=== PATIENT | male | born 1945 | race Caucasian/White ===

== ENCOUNTER 2016-12-26 07:12 | Emergency (ER) | payer MEDICARE, MEDICAID ==
[~2016-12-26] VITALS: Ht 172.7 cm; Wt 86.2 kg
[~2016-12-26 07:12] MED LIST: AC500T; AMLO10TA4 PO; ASCO500C14; ASP81TEC PO; CHOL10003 PO; COMPLETE; ESCT10T PO; FRSM20T PO; GFCD10B PO; GLUC500C2; LEVO750T6 PO; METO100T2 PO; METO50TA7; ONDA-42 SL; ONDAN4ODT PO; POTA99TA7; QUIN40TA PO; VITA1CAP59; [UNRECOGNIZED DRUG - OTHER]; iron; sleep aid
[2016-12-26 07:50] LABS: KETONES,URINE NEGATIVE (NEGATIVE); LEUKOCYTE ESTERASE ,URINE 2+ (NEGATIVE); NITRITE,URINE NEGATIVE (NEGATIVE); PH,URINE 6 (5-9); PROTEIN,URINE 2+ (NEGATIVE); UROBILINOGEN,URINE 4 MG/DL (NORMAL)
[2016-12-26 08:04] LABS: WBC,URINE 0-2 /HPF
[2016-12-26 08:05] LABS: BILIRUBIN,URINE 1+ (NEGATIVE); HYALINE CASTS, URINE RARE /LPF; SQUAMOUS EPITHELIAL CELL,UR RARE /HPF
[2016-12-26] MEDS ORDERED: TAMS0.4C98 PO (08:18)
--- NOTE | 2016-12-26 08:18 | ED GU-Male ---
General Chief Complaint: -Male Stated Complaint: URINARY FREQUENCY Nursing Triage Note: c/o urinary frequency. Onset last night. Denies known fever. Source: patient Exam Limitations: no limitations History of Present Illness Time seen by provider: 07:16 Initial Comments This 71-year-old gentleman presents to the emergency room with complaint of 3 weeks of frequent urination without pain. He is waking several times the night to urinate. He has difficulty getting back to sleep. He feels like he empties his bladder but then he has to urinate again a short time later. Allergies and Home Medications Allergies Coded Allergies: Sulfa (Sulfonamide Antibiotics) (Verified Allergy, Unknown, 04/06/09) Home Medications Amlodipine Besylate 10 Mg Tablet, 10 MG PO DAILY, (Reported) Aspirin 81 Mg Tabec, 81 MG PO DAILY, (Reported) Cholecalciferol 1,000 Unit Tablet, 1,000 UNIT PO DAILY, (Reported) Escitalopram Oxalate 10 Mg Tablet, 1 EACH PO DAILY, (Reported) Furosemide 20 Mg Tab, 20 MG PO DAILY, (Reported) Metoprolol Tartrate 100 Mg Tablet, 100 MG PO BID, (Reported) Ondansetron Hcl 4 Mg Tab, 4 MG SL Q4H, #5 FOR NAUSEA AND VOMITING Prescribed by: DAMI REVELES on 10/24/14 1005 Quinapril Hcl 40 Mg Tablet, 40 MG PO DAILY, (Reported) Tamsulosin HCl 0.4 Mg Cap, 0.4 MG PO DAILY, #30 Ref 2 Prescribed by: CRISTOBAL VANG on 12/26/16 0818 Constitutional: no symptoms reported EENTM: no symptoms reported Respiratory: no symptoms reported Cardiovascular: no symptoms reported Gastrointestinal: no symptoms reported Genitourinary: see HPI Musculoskeletal: no symptoms reported Skin: no symptoms reported Psychiatric/Neurological: No Symptoms Reported Endocrine: No Symptoms Reported Past Nvlaklq-Lvxvfm-Cwzwtr Hx Patient Social History Alcohol Use: Denies Use Recreational Drug Use: No Smoking Status: Never a Smoker Recent Foreign Travel: No Contact w/Someone Who Travel: No Recent Infectious Disease Expo: No Recent Hopitalizations: No Immunizations Up To Date Date of Pneumonia Vaccine: Jun 10, 2007 Date of Influenza Vaccine: May 26, 2011 Surgeries HX Surgeries: Yes (SKIN CANCER REMOVAL, COLONOSCOPY AND POLYPECTOMY) Surgeries: Appendectomy, Gallbladder Respiratory Hx Respiratory Disorders: Yes (PNUEMONIA IN THE PAST) Respiratory Disorders: Pneumonia Cardiovascular Hx Cardiac Disorders: Yes Cardiac Disorders: Hypertension Neurological Hx Neurological Disorders: No Reproductive System Hx Reproductive Disorders: No Sexually Transmitted Disease: No Genitourinary Hx Genitourinary Disorders: No Gastrointestinal Hx Gastrointestinal Disorders: Yes (COLITIS, HX OF GALL BLADDER REMOVAL AND APPY) Gastrointestinal Disorders: Colitis, Polyps, Gall Bladder Disease Musculoskeletal Hx Musculoskeletal Disorders: Yes (TENDONITIS) Musculoskeletal Disorders: Arthritis Endocrine Hx Endocrine Disorders: No HEENT HX ENT Disorders: No Cancer Hx Cancer: Yes Cancer: Skin Psychosocial Hx Psychiatric Problems: No Integumentary HX Skin/Integumentary Disorder: No Blood Transfusions Hx Blood Disorders: No Physical Exam Vital Signs Vital Sign - Last 12Hours 12/26/16 07:12 Temp 97.1 Pulse 57 Resp 16 B/P (MAP) 174/57 Pulse Ox 98 O2 Delivery Room Air Capillary Refill : Less Than 3 Seconds General Appearance: WD/WN, no apparent distress HEENT: normal ENT inspection Cardiovascular: regular rate, rhythm, no edema, no murmur Respiratory: lungs clear, normal breath sounds, no respiratory distress, no accessory muscle use Gastrointestinal: normal bowel sounds, non tender, soft, other (surgical scars from appendectomy and cholecystectomy. Slight bulging between these 2 sites may be related to abdominal wall hernia) Rectal: normal rectal tone Male: other (mildly enlarged and boggy prostate. No tenderness. No masses appreciated) Extremities: normal inspection, no pedal edema Neurologic/Psychiatric: rib knitter II-XII nml as tested, no motor/sensory deficits, alert, normal mood/affect, oriented x 3 Skin: normal color, warm/dry Progress/Results/Core Measures Results/Orders Lab Results Laboratory Tests Test 12/26/16 07:38 Range/Units Urine Color YELLOW Urine Clarity SLIGHTLY CLOUDY Urine pH 6 5-9 Urine Specific [place] 1.020 1.016-1.022 Urine Protein 2+ H NEGATIVE Urine Glucose (UA) NEGATIVE NEGATIVE Urine Ketones NEGATIVE NEGATIVE Urine Nitrite NEGATIVE NEGATIVE Urine Bilirubin 1+ H NEGATIVE Urine Urobilinogen 4 H NORMAL MG/DL Urine Leukocyte Esterase 2+ H NEGATIVE Urine RBC (Auto) 3+ H NEGATIVE Urine RBC 0-2 /HPF Urine WBC 0-2 /HPF Urine Squamous Epithelial Cells RARE /HPF Urine Crystals NONE /LPF Urine Bacteria NEGATIVE /HPF Urine Casts PRESENT /LPF Urine Hyaline Casts RARE /LPF Urine Mucus SMALL H /LPF Urine Culture Indicated YES My Orders Orders - CRISTOBAL PARADA MD Ua Culture If Indicated (12/26/16 07:16) Bladder Scan (12/26/16 07:34) Urine Culture (12/26/16 07:38) Vital Signs/I&O Vital Sign - Last 12Hours 12/26/16 07:12 Temp 97.1 Pulse 57 Resp 16 B/P (MAP) 174/57 Pulse Ox 98 O2 Delivery Room Air Blood Pressure Mean: 96 Progress Note : Progress Note Post void bladder scan showed no residual urine in the bladder. Patient's prostate felt somewhat enlarged and boggy. Patient was started on Flomax and encouraged to get PSA testing with his primary care provider. Departure Impression Impression: Primary Impression: Urinary frequency Additional Impression: Prostate enlargement Disposition: 01 HOME, SELF-CARE Condition: Stable Departure-Patient Inst. Decision time for Depature: 08:15 Referrals: [facility] (PCP/Family) Primary Care Physician Patient Instructions: Benign Prostatic Hyperplasia (Enlarged Prostate) (DC) Add. Discharge Instructions: Please follow-up with your primary care provider within the next month. In the meantime, use Flomax as prescribed. Avoid use of caffeine, especially close to bedtime, as this may irritate your bladder. Discuss your urinary troubles with your primary care provider and request prostate screening with the PSA blood test. Return to care if symptoms worsen. A urine culture will be performed and results should be available in about 48 hours. You may follow-up on these results by calling the emergency room or [facility]. All discharge instructions reviewed with patient and/or family. Voiced understanding. Scripts Tamsulosin HCl (Flomax) 0.4 Mg Cap 0.4 MG PO DAILY, #30 CAP 2 Refills Prov: CRISTOBAL PARADA MD 12/26/16 Copy Copies To 1: MONIE EVERETT JOSHUA T MD Dec 26, 2016 08:18
[2016-12-26 08:25] VITALS: BP 150/95
== END 2016-12-26 08:25 | disposition home or self-care (01) ==
LOC: EDUNIT# 07:12 → ER 07:16
DX: N40.0 Benign prostatic hyperplasia without lower urinary tract symptoms (principal); R35.0 Frequency of micturition; I10 Essential (primary) hypertension; Z79.82 Long term (current) use of aspirin; Z79.899 Other long term (current) drug therapy
CPT/HCPCS: 81000; 87088; 99283

== ENCOUNTER → 2017-01-22 | Outpatient (CLI) | payer MEDICARE, MEDICAID ==
[~2017-01-22] MED LIST changes: +TAMS0.4C98 PO
--- NOTE | 2017-01-22 11:52 | Diagnostic Imaging Report ---
PROCEDURE: CT abdomen and pelvis without contrast. TECHNIQUE: Multiple contiguous axial images were obtained through the abdomen and pelvis without the use of intravenous contrast. INDICATION: Hematuria. FINDINGS: There are mild fibrotic changes in the lung bases. The liver has lobulated contour suggestive of chronic liver disease or cirrhosis. The spleen is 13.6 x 5.2 x 11.3 cm, mildly enlarged. The gallbladder is not seen. It is probably surgically removed. Correlate with surgical history. There is mild dilatation of the biliary system. The CBD maximum measurement of 1.5 cm and mild intrahepatic biliary dilatation. The degree of biliary dilatation is similar or perhaps minimally increased compared to 2010 CT scan. No calcified biliary stone seen. The pancreas and the adrenals appear unremarkable for unenhanced exam. There is a moderate-sized ventral hernia containing a loop of sigmoid colon with no obvious CT evidence of strangulation. The hernia has a relatively narrow neck compared to its size although the defect measures 3.1 x 3.5 cm in the abdominal wall. It is located in the ventral aspect of the supraumbilical abdominal wall to the right of the midline. It is about 8 cm above the level of the umbilicus. The urinary bladder demonstrates mild wall thickening. There is no hydronephrosis and no urinary tract stones. Multiple cysts are seen in the kidneys. The prostate is enlarged measuring 5.1 cm in transverse dimension. No bowel obstruction. No significant free fluid or fluid collection in the abdomen or pelvis is seen. The abdominal aorta is normal in caliber. No para-aortic significantly enlarged lymph node is seen. There is a fat-containing right inguinal hernia that appears to be of a direct type. The osseous structures demonstrate degenerative changes most prominent in the lower lumbar spine. IMPRESSION: 1. No urinary tract stones. 2. The prostate is enlarged. Correlate clinically. 3. Mild urinary bladder wall thickening could be related to cystitis or BPH. 4. Moderate sized supraumbilical ventral hernia to the right of the midline containing a loop of transverse colon. No CT evidence of obstruction or strangulation. There is however a relatively narrow neck relative to the size of the hernia. Correlate clinically. 5. Lobulated contour of the liver compatible with underlying chronic liver disease or cirrhosis. Mild splenomegaly. No ascites. Dictated by: Dictated on workstation # [id number]
== END ==
LOC: RAD 08:17
PROVIDERS: ATTEND Urology
DX: R31.9 Hematuria, unspecified (principal)
CPT/HCPCS: 74176

== ENCOUNTER 2017-02-21 11:49 | Outpatient (CLI) | payer MEDICARE, MEDICAID ==
[~2017-02-21] VITALS: Ht 170.2 cm; Wt 89.4 kg
[2017-02-21] MEDS ORDERED: FINA5TAB6 PO (12:03)
[2017-02-21] MEDS ORDERED: CIPR-225 PO (12:03)
[2017-02-21] MEDS ORDERED: HYDR25TA4 PO (12:03)
[2017-02-21] MEDS ORDERED: METO50TA2 PO (12:03)
[2017-02-21] MEDS ORDERED: LORA2TAB PO (12:03)
[2017-02-21 12:05] VITALS: BP 136/88
[2017-02-21 12:42] LABS: BASOPHILS # (AUTO) 0.1 10^3/uL (0.0-0.1); BASOPHILS % (AUTO) 1 % (0-10); EOSINOPHILS # (AUTO) 0.2 10^3/uL (0.0-0.3); EOSINOPHILS % (AUTO) 2 % (0-10); LYMPHOCYTES # (AUTO) 2.1 X 10^3 (1.0-4.0); LYMPHOCYTES % (AUTO) 24 % (12-44); MEAN CORPUSCULAR HEMOGLOBIN 30 PG (25-34); MEAN CORPUSCULAR HGB CONC 33 G/DL (32-36); MEAN CORPUSCULAR VOLUME 91 FL (80-99); MEAN PLATELET VOLUME 10.7 FL (7.4-10.4); MONOCYTES # (AUTO) 0.8 X 10^3 (0.0-1.0); MONOCYTES % (AUTO) 8 % (0-12); NEUTROPHILS # (AUTO) 5.9 X 10^3 (1.8-7.8); NEUTROPHILS % (AUTO) 65 % (42-75); PLATELET COUNT 167 10^3/uL (130-400); RED BLOOD COUNT 4.94 10^6/uL (4.35-5.85); RED CELL DISTRIBUTION WIDTH 13.9 % (10.0-14.5)
[2017-02-21 12:58] LABS: ANION GAP 11 MMOL/L (5-14); BLOOD UREA NITROGEN 11 MG/DL (7-18); BUN/CREATININE RATIO 10 (0-20); CALCIUM 9.2 MG/DL (8.5-10.1); CARBON DIOXIDE 28 MMOL/L (21-32); CHLORIDE 103 MMOL/L (98-107); CREATININE SERUM 1.14 MG/DL (0.60-1.30); GFR ESTIMATED > 60; GLUCOSE 94 MG/DL (70-105); HEMOLYSIS 10 (0-29); ICTERUS 0.7 (0-1.9); LIPEMIA 4 (0-49); POTASSIUM 3.9 MMOL/L (3.6-5.0); SODIUM 142 MMOL/L (135-145)
== END 2017-02-21 12:25 | disposition home or self-care (01) ==
LOC: PREOP 11:49
PROVIDERS: ATTEND Urology
DX: Z01.812 Encounter for preprocedural laboratory examination (principal); Z11.2 Encounter for screening for other bacterial diseases; N40.1 Benign prostatic hyperplasia with lower urinary tract symptoms; R33.8 Other retention of urine
CPT/HCPCS: 36415; 80048; 85025; 86850; 86900; 86901; 87081

== ENCOUNTER 2017-02-27 06:44 | Inpatient (IN) | payer MEDICARE, MEDICAID ==
[2017-02-27] VITALS (10 sets, daily range): BP systolic 113–157; BP diastolic 75–114
[~2017-02-27] VITALS: Ht 170.2 cm; Wt 84.4 kg
[~2017-02-27 06:44] MED LIST changes: +CIPR-225 PO; +FINA5TAB6 PO; +HYDR25TA4 PO; +LORA2TAB PO; +METO50TA2 PO
--- NOTE | 2017-02-27 07:06 | Progress Note-Pre Operative ---
Pre-Operative Progress Note H&P Reviewed The H&P was reviewed, patient examined and no changes noted. Date Seen by Provider: Feb 27, 2017 Time Seen by Provider: 07:06 Date H&P Reviewed: Feb 27, 2017 Time H&P Reviewed: 07:06 Pre-Operative Diagnosis: BPH WITH PROSTATISM AND RETENTION SHIMON CARMONA MD Feb 27, 2017 7:06 am
[2017-02-27] MEDS ORDERED: cefTRIAXone 1 GM/NS 50 ML IVPB IV ONE ×2 (07:15)
[2017-02-27] MEDS: LACTATED RINGERS 1,000 ML IV PRN ×3 (07:56→11:20)
[2017-02-27] MEDS ORDERED: fentaNYL INJECTION 100 MCG/2 ML AMP ONE (08:54)
[2017-02-27] MEDS ORDERED: MIDAZOLAM 2 MG/2 ML (VERSED) VIAL ONE (09:44)
[2017-02-27] MEDS ORDERED: FUROSEMIDE 40 MG/4 ML INJ (LASIX) ONE ×2 (10:49→12:01)
[2017-02-27] MEDS ORDERED: METHYLENE BLUE 1% INJ 1 ML AMP ONE (10:50)
[2017-02-27] MEDS ORDERED: GLYCOPYRROLATE 0.2 MG/ML (ROBINUL) 2 ML VIAL ONE ×2 (11:41→12:40)
[2017-02-27] MEDS ORDERED: PROPOFOL INJECTION 50 ML IV ONE (11:59)
[2017-02-27] MEDS ORDERED: LACTATED RINGERS 3,000 ML IV ONE (11:59)
[2017-02-27] MEDS ORDERED: SEVOFLURANE (ULTANE) 15 ML INHAL SOLN ONE ×2 (12:01→12:31)
[2017-02-27 12:03] LABS: ALANINE AMINOTRANSFERASE 43 U/L (0-55); ANION GAP 11 MMOL/L (5-14); ASPARTATE AMINO TRANSFERASE 49 U/L (5-34); BILIRUBIN,TOTAL 0.9 MG/DL (0.1-1.0); BLOOD UREA NITROGEN 12 MG/DL (7-18); BUN/CREATININE RATIO 11 (0-20); CALCIUM 8.5 MG/DL (8.5-10.1); CARBON DIOXIDE 24 MMOL/L (21-32); CHLORIDE 99 MMOL/L (98-107); CREATININE SERUM 1.12 MG/DL (0.60-1.30); GFR ESTIMATED > 60; GLUCOSE 149 MG/DL (70-105); HEMOLYSIS 53 (-100-29); ICTERUS 0.5 (-100-1.9); LIPEMIA 4 (-100-49); POTASSIUM 4.1 MMOL/L (3.6-5.0); SODIUM 134 MMOL/L (135-145); TOTAL PROTEIN 7.2 GM/DL (6.4-8.2)
[2017-02-27] MEDS ORDERED: ROCURONIUM 50 MG/5 ML (ZEMURON) VIAL IV ONE (12:40)
--- NOTE | 2017-02-27 12:49 | Progress Note-Post Operative ---
Post-Operative Progess Note Surgeon (s)/Sanitarian (s) Surgeon SHIMON CARMONA MD Sanitarian: SONNY Pre-Operative Diagnosis BPH WITH PROSTATISM AND RETENTION Post-Operative Diagnosis SAME AND TIGHT URETHRA Procedure & Operative Findings Date of Procedure 02/27/17 Procedure Performed/Findings ATTEMPTED TURP, EXPLORATORY LAP, DRAINAGE OF INTRAPERITONEAL BLADDER PERFORATION WITH REPAIR, AND CYSTOSTOMY WITH SUPRAPUBIC TUBE PLACEMENT FINDINGS PER ABOVE AND PER DICTATION Anesthesia Type SPINAL AND GENERAL Estimated Blood Loss Estimated blood loss (mL): 200CC Specimens/Packing Specimens Removed PROSTATE CHIP Packin DRAINS SHIMON CARMONA MD Feb 27, 2017 12:49 pm
[2017-02-27] MEDS ORDERED: morphine INJ 10 MG/ML 1ML (SYR OR VIAL) IVP PRN (13:15)
[2017-02-27] MEDS ORDERED: fentaNYL INJECTION 100 MCG/2 ML AMP IVP PRN (13:15)
[2017-02-27 13:22] LABS: BASOPHILS # (AUTO) 0.1 10^3/uL (0.0-0.1); BASOPHILS % (AUTO) 1 % (0-10); EOSINOPHILS # (AUTO) 0.2 10^3/uL (0.0-0.3); EOSINOPHILS % (AUTO) 1 % (0-10); LYMPHOCYTES # (AUTO) 3.3 X 10^3 (1.0-4.0); LYMPHOCYTES % (AUTO) 17 % (12-44); MEAN CORPUSCULAR HEMOGLOBIN 30 PG (25-34); MEAN CORPUSCULAR HGB CONC 32 G/DL (32-36); MEAN CORPUSCULAR VOLUME 92 FL (80-99); MEAN PLATELET VOLUME 10.6 FL (7.4-10.4); MONOCYTES # (AUTO) 1.5 X 10^3 (0.0-1.0); MONOCYTES % (AUTO) 8 % (0-12); NEUTROPHILS # (AUTO) 14.8 X 10^3 (1.8-7.8); NEUTROPHILS % (AUTO) 74 % (42-75); PLATELET COUNT 221 10^3/uL (130-400); RED BLOOD COUNT 5.23 10^6/uL (4.35-5.85); RED CELL DISTRIBUTION WIDTH 13.8 % (10.0-14.5); WHITE BLOOD COUNT 19.9 10^3/uL (4.3-11.0)
[2017-02-27] MEDS ORDERED: meTOprolol 5 MG/5 ML (LOPRESSOR) VIAL ONE (13:28)
[2017-02-27] MEDS ORDERED: FUROSEMIDE 40 MG/4 ML INJ (LASIX) IVP ONE (13:30)
[2017-02-27] MEDS ORDERED: meTOprolol 5 MG/5 ML (LOPRESSOR) VIAL IV ONE (13:45)
[2017-02-27] MEDS: ONDANSETRON 4 MG/2 ML (SDV) Z0FRAN IVP PRN (14:54)
[2017-02-27] MEDS: 1/2 NS IV SOLUTION 1,000 ML IV SCH ×2 (14:54→22:58)
[2017-02-27] MEDS ORDERED: fentaNYL INJECTION 100 MCG/2 ML AMP IVP ONE (15:00)
[2017-02-27] MEDS: fentaNYL PCA 300 MCG/30 ML VIAL IV PRN (15:20)
[2017-02-27] MEDS: BELLADONNA ALK/OPIUM (B & O) 30 MG SUPP PR PRN (21:20)
[2017-02-28] VITALS (23 sets, daily range): BP systolic 114–161; BP diastolic 68–99
[2017-02-28 04:31] LABS: BASOPHILS % (AUTO) 0 % (0-10); EOSINOPHILS % (AUTO) 0 % (0-10); LYMPHOCYTES # (AUTO) 2.6 X 10^3 (1.0-4.0); LYMPHOCYTES % (AUTO) 12 % (12-44); MEAN CORPUSCULAR HEMOGLOBIN 31 PG (25-34); MEAN CORPUSCULAR HGB CONC 34 G/DL (32-36); MEAN CORPUSCULAR VOLUME 90 FL (80-99); MEAN PLATELET VOLUME 10.6 FL (7.4-10.4); MONOCYTES # (AUTO) 1.7 X 10^3 (0.0-1.0); MONOCYTES % (AUTO) 8 % (0-12); NEUTROPHILS # (AUTO) 17.8 X 10^3 (1.8-7.8); NEUTROPHILS % (AUTO) 81 % (42-75); PLATELET COUNT 188 10^3/uL (130-400); RED BLOOD COUNT 4.85 10^6/uL (4.35-5.85); RED CELL DISTRIBUTION WIDTH 13.8 % (10.0-14.5); WHITE BLOOD COUNT 22.1 10^3/uL (4.3-11.0)
[2017-02-28 04:45] LABS: CALCIUM 7.9 MG/DL (8.5-10.1); CREATININE SERUM 1.24 MG/DL (0.60-1.30); MAGNESIUM 1.3 MG/DL (1.8-2.4); POTASSIUM 3.8 MMOL/L (3.6-5.0)
[2017-02-28] MEDS: MAGNESIUM 1 GM/100 ML IVPB 100 ML IV SCH ×5 (05:02→08:45)
[2017-02-28] MEDS: POTASSIUM CL 10MEQ/50ML IVPB 50 ML IV SCH (05:02)
[2017-02-28] MEDS: KCL 20 MEQ TAB (K-DUR) PO SCH (05:02)
[2017-02-28] MEDS: ONDANSETRON 4 MG/2 ML (SDV) Z0FRAN IVP PRN (06:35)
--- NOTE | 2017-02-28 07:31 | Diagnostic Imaging Report ---
INDICATION: Postop. Comparison with 05/05/2012. FINDINGS: There is bibasal atelectasis. Heart remains mildly enlarged. The upper lungs are clear. No pneumothorax or pleural effusion. IMPRESSION: Development of the bilateral basilar atelectasis since previous exam. Dictated by: Dictated on workstation # [id number]
--- NOTE | 2017-02-28 07:40 | Pulmonary Consultation ---
History of Present Illness History of Present Illness Date of Consultation 02/28/17 07:33 Date of Admission Allergies and Home Medications Allergies Coded Allergies: Sulfa (Sulfonamide Antibiotics) (Verified Allergy, Unknown, 04/06/09) codeine (Verified Allergy, Unknown, 02/21/17) Home Medications Aspirin 81 Mg Tabec, 81 MG PO DAILY, (Reported) Cholecalciferol 1,000 Unit Tablet, 1,000 UNIT PO DAILY, (Reported) Ciprofloxacin HCl 500 Mg Tablet, 250 MG PO BID, (Reported) Escitalopram Oxalate 10 Mg Tablet, 10 MG PO DAILY, (Reported) Finasteride 5 Mg Tablet, 5 MG PO DAILY, (Reported) Hydrochlorothiazide 25 Mg Tablet, 25 MG PO DAILY, (Reported) Lorazepam 2 Mg Tablet, 2 MG PO DAILY, (Reported) Metoprolol Tartrate 50 Mg Tablet, 50 MG PO BID, (Reported) Quinapril Hcl 40 Mg Tablet, 40 MG PO DAILY, (Reported) Past Otouwir-Wsvuqs-Isagnj Hx Patient Social History Alcohol Use: Denies Use Recreational Drug Use: No Smoking Status: Former Smoker Recent Foreign Travel: No Contact w/Someone Who Travel: No Recent Infectious Disease Expo: No Recent Hopitalizations: No Immunizations Up To Date Date of Pneumonia Vaccine: Jun 10, 2007 Date of Influenza Vaccine: May 26, 2011 Seasonal Allergies Seasonal Allergies: Yes Surgeries HX Surgeries: Yes (SKIN CANCER REMOVAL, COLONOSCOPY AND POLYPECTOMY) Surgeries: Appendectomy, Gallbladder Respiratory Hx Respiratory Disorders: No Respiratory Disorders: Pneumonia Cardiovascular Hx Cardiac Disorders: Yes Cardiac Disorders: Hypertension Neurological Hx Neurological Disorders: No Reproductive System Hx Reproductive Disorders: No Sexually Transmitted Disease: No Genitourinary Hx Genitourinary Disorders: Yes Genitourinary Disorders: Prostate Problems Gastrointestinal Hx Gastrointestinal Disorders: Yes (COLITIS, HX OF GALL BLADDER REMOVAL AND APPY) Gastrointestinal Disorders: Colitis, Polyps Musculoskeletal Hx Musculoskeletal Disorders: Yes (TENDONITIS) Musculoskeletal Disorders: Arthritis Endocrine Hx Endocrine Disorders: No HEENT HX ENT Disorders: No (glasses, cataracts removed, ) Cancer Hx Cancer: Yes Cancer: Skin Psychosocial Hx Psychiatric Problems: No Integumentary HX Skin/Integumentary Disorder: No Blood Transfusions Hx Blood Disorders: No Family Medical History Family Medial History: Myocardial infarction 19 FATHER Exam Exam Vital Signs Date Time Temp Pulse Resp B/P (MAP) Pulse Ox O2 Delivery O2 Flow Rate FiO2 02/28/17 06:14 16 02/28/17 06:00 75 16 127/71 89 Nasal Cannula 1.00 02/28/17 05:00 76 130/78 94 Nasal Cannula 1.00 02/28/17 04:00 80 116/83 94 Nasal Cannula 1.00 02/28/17 04:00 Nasal Cannula 1.00 02/28/17 03:00 75 18 134/72 92 Nasal Cannula 1.00 02/28/17 02:00 85 14 132/78 94 Nasal Cannula 1.00 02/28/17 01:00 77 129/70 91 Nasal Cannula 1.00 02/28/17 01:00 77 02/28/17 00:00 Nasal Cannula 1.00 02/28/17 00:00 75 125/75 94 Nasal Cannula 1.00 02/27/17 23:00 77 120/75 93 Nasal Cannula 1.00 02/27/17 22:00 73 136/80 93 Nasal Cannula 1.00 02/27/17 21:00 74 33 149/90 94 Nasal Cannula 1.00 02/27/17 20:00 Nasal Cannula 1.00 02/27/17 20:00 69 22 124/77 92 Nasal Cannula 1.00 02/27/17 19:00 70 26 113/77 92 Nasal Cannula 1.00 02/27/17 19:00 70 02/27/17 18:00 68 12 115/83 95 Nasal Cannula 1.00 02/27/17 17:00 66 131/95 96 Nasal Cannula 1.00 02/27/17 16:49 97 Nasal Cannula 1.00 02/27/17 16:25 Nasal Cannula 1.00 02/27/17 16:00 97.0 02/27/17 15:20 16 02/27/17 15:00 62 131/93 98 Nasal Cannula 1.00 02/27/17 14:00 Room Air 02/27/17 13:58 64 02/27/17 13:50 97.2 63 16 157/114 98 Nasal Cannula 1.00 02/27/17 07:45 99.3 52 16 149/89 96 Room Air I & O 02/28/17 07:00 Intake Total 3050 ml Output Total 4250 ml Balance -1200 ml Results Lab Laboratory Tests 02/27/17 11:23 02/27/17 13:12 02/28/17 04:05 Assessment/Plan Assessment/Plan BPH with prostatism and urinary retention s/p attempted turp, bladder perforation s/p ex lap with bladder repair and suprapubic tube placement -Rocephin -check UA -Pain control - 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
[2017-02-28] MEDS: 1/2 NS IV SOLUTION 1,000 ML IV SCH (07:43)
[2017-02-28] MEDS ORDERED: PROMETHAZINE INJ 25 MG/ML (PHENERGAN) AMP IVP PRN (07:45)
--- NOTE | 2017-02-28 08:37 | OPERATIVE REPORT ---
DATE OF SERVICE: 02/27/2017 PREOPERATIVE DIAGNOSIS: Benign prostatic hypertrophy with prostatism and retention. POSTOPERATIVE DIAGNOSES: 1. Benign prostatic hypertrophy with prostatism and retention. 2. Tight urethra. OPERATION PERFORMED: Attempted TURP, exploratory laparotomy, drainage of intraperitoneal bladder perforation with repair and cystostomy with suprapubic tube placement. SURGEON: Dr. Lalit Carmona. CARTON INSPECTOR: Dr. House. ANESTHESIA: Spinal and general. COMPLICATIONS: Bladder perforation with intraperitoneal extravasation. DESCRIPTION OF PROCEDURE: Under satisfactory spinal anesthesia, the patient was placed in lithotomy position. The patient's genitalia was prepped and draped in usual sterile fashion. Passage of a 24-[place] Betzaida sound was pretty tight in the urethra ; however, I was able to guide it to the bladder and no bleeding, no problem. A 26 Fr further tight but again went the right way. The resectoscope, 27-[place]er passed and fluid drained from the bladder. However, when I examined the prostate area, there was what looked like a false passage that seems to undermine the trigone probably from the high rising median bar.I went ahead and resected a couple of areas from the lateral lobe, then as the fluid was going more into the bladder, there was distention of the bladder as well as the belly of the patient, which indicated high suspicion of intraperitoneal perforation with extravasation. So, the patient was put in the supine position. I asked Dr. House, the general surgeon to assist me. Abdomen, chest, thighs and genitalia were prepped and draped in usual sterile fashion. A midline incision was made from the symphysis pubis moving around the umbilicus on the left side and upwards for a couple centimeters, carried through the skin and subcutaneous tissue and fascia. The peritoneum was opened and a large amount of fluid was suctioned. The bowels were examined by me and Dr. House and were completely normal with no injuries. Examination of the posterior wall of the bladder at the midline below, there was a perforation there and I sutured it in 2 layers, first the mucosa and then the seromuscular layer. This perforation was quite away from the ureters and being in the midline. Then, we went ahead and opened the bladder and noted was a subtrigonal perforation in the bladder. A couple of sutures were put there. Again, this was midline away from the ureteral orifices. I went ahead and passed the 16-[place] Koch catheter through the penis and guided it into the bladder through the urethra, not the false passage. I went ahead and inserted a 22-[place]er, 3-way 30 mL catheter into the bladder on the side of the incision of the lateral wall of the bladder. Closure of the bladder was performed in 2 layers. The mucosa with running 3-0 chromic catgut and then the seromuscular layer with interrupted 2-0 chromic catgut. Before closure, we gave the patient an amp of methylene blue and 40 mg of Lasix until we moved the patient from the OR as well as the recovery room, there was no blue dye seen; however, I could see efflux of the ureters on both sides; however, not blue. There was no blue extravasation or urine extravasation intraperitoneally from the ureter. There was no dilatation of ureters on both sides which all indicated high likelihood of no injury to the ureter by trauma or by tying. After we closed the bladder, we inflated the balloons, Koch to 10 mL and suprapubic to 30 mL which helped snuggly against anterior bladder wall. They were irrigated free including at the end of the procedure. I elected not to connect any CBI to avoid any extravasation. We elected to put 2 drains, one intraperitoneal and one extraperitoneal and made separate stab wound on both sides of the incision and secured in position with 0 silk suture. Closure was performed by Dr. House using Prolene, followed by aleksander. The suprapubic tube was secured in position with 0 silk as well as both drains. The urine color was pink, again no blue. His basic metabolic panel, intraoperatively, was normal. Estimated blood loss was 200 mL not of which was replaced. Barton, sponge, instruments counts were correct x2. The patient tolerated the procedure and anesthesia well, was sent to recovery room in stable condition. PLAN: We will admit him to the ICU. We will watch him very closely for any extravasation, drainage, ureteral trauma of any kind. If needed, we will perform ultrasound or CTs. We will get CBC in recovery room and one in the morning along with basic metabolic panel. We will ask the hospitalist and Dr Gibbs to manage him medically speaking and we will manage according to any problem.Later on we will deal with the prostate and urethra. Job ID: [id number] DocumentID: [id number] Dictated Date: 02/27/2017 13:07:36 Reclamation Furnace Operator Date: 02/28/2017 00:40:32 Dictated By: LALIT CARMONA MD MTDD
--- NOTE | 2017-02-28 08:55 | Progress Note-Urology ---
Progress Note-Urology Progress Notes/Assess & Plan Progress/Assessment & Plan DOING AND FEELING WELL EXCEPT FOR SOME NAUSEA. PASSING FLATUS AND FEW BOWEL SOUNDS, ABDOMEN SOFT AND PROTUBERANT. CHEST CLEAR. HEART RRR. LABS AND I&O NOTED. PLAN TO OBSERVE FOR NOW. LABS IN AM. UP IN CHAIR. KEEP ONLY ICE CHIPS.KEEP IN ICU. CONVERT TO IN PATIENT STATUS. APPRECIATE SUKHJINDER WEBBER AND CHON'S HELP. Final Diagnosis BPH, STRICTURE, BLADDER PERFORATION (INTRAPERITONEAL) SHIMON CARMONA MD Feb 28, 2017 8:55 am
[2017-02-28] MEDS: cefTRIAXone INJECTION 1,000 MG in NS (IVPB) 50 ML IV SCH (10:14)
[2017-02-28] MEDS: 1/2 NS W/KCL 20 MEQ/L 1,000 ML IV SCH ×2 (10:17→20:26)
[2017-02-28 10:18] LABS: BILIRUBIN,URINE NEGATIVE (NEGATIVE); KETONES,URINE 1+ (NEGATIVE); LEUKOCYTE ESTERASE ,URINE 3+ (NEGATIVE); NITRITE,URINE NEGATIVE (NEGATIVE); PH,URINE 6.5 (5-9); PROTEIN,URINE 4+ (NEGATIVE); UROBILINOGEN,URINE NORMAL (NORMAL)
[2017-02-28 10:31] LABS: WBC,URINE TNTC /HPF
--- NOTE | 2017-02-28 14:02 | Physical Therapy Evaluation ---
PT Evaluation-General Medical Diagnosis Admission Date Feb 28, 2017 at 08:28 Medical Diagnosis: TURP, bladder perforation Onset Date: Feb 27, 2017 Therapy Diagnosis Therapy Diagnosis: impaired mobility, strength Height/Weight Height (Feet): 5 Height (Inches): 7.00 Weight (Pounds): 206 Weight (Ounces): 11.2 Precautions Precautions/Isolations: Fall Prevention, Standard Precautions Referral Physician: Lalit Maria MD Reason for Referral: Evaluation/Treatment Medical History Pertinent Medical History: Arthritis, HTN Additional Medical History former smoker, pneumonia, prostate problems, colitis, surg (skin CA removal, colonoscopy, polypectomy, appendectomy, gallbladder) Current History BPH with prostatism and retention, to get TURP Social History unknown, patient can barely speak, very lethargic, will open eyes and say yes or no sometimes, confused Prior/Core FIM Prior Level of Function Functional [place] Measure 0=Not Assessed/NA 4=Minimal Assistance 1=Total Assistance 5=Supervision or Setup 2=Maximal Assistance 6=Modified [place] 3=Moderate Assistance 7=Complete [place] unknown PT Evaluation-Current Subjective Patient in bed pre tx, agrees to PT with encouragement, willing to get into a chair. Has pain but unable to state level or location. Pt/Family Goals unable to state a goal Objective Patient Orientation: Confused, Unable to Assess Attachments: Oxygen, Drains, Koch Catheter many attachments ROM/Strength ROM Lower Extremities WNL Strenght Lower Extremities unable to test Integumentary/Posture Bladder Incontinence: Koch Cath Neuromuscular (Tone, Coordination, Reflexes) unable to test Sensory Sensation Lower Extremities unable to test Transfers Functional [place] Measure 0=Not Assessed/NA 4=Minimal Assistance 1=Total Assistance 5=Supervision or Setup 2=Maximal Assistance 6=Modified [place] 3=Moderate Assistance 7=Complete [place] Transfers (B, C, W/C) (FIM): 2 Scootin Rollin Supine to/from Sit: 2 Sit to/from Stand: 2 bed t/f WC(FIM only if WC use): 2 retropulsive sitting and standing Gait Mode of Locomotion: Walk Anticipated Mode of Locomotion: Walk Gait (FIM): 1 Distance: 3' Gait Level of Assist: 2 Gait Persons Needed: 1 Gait Assistive Device: None Comments/Gait Description will take small steps with max assist Assessment/Needs Patient has impaired mobility, strength, confusion, lethargy Rehab Potential: Fair PT Correction Goals Correction Goals PT [employer] Goals Time Frame: Mar 07, 2017 Transfers (B,C,W/C) (FIM): 4 Gait (FIM): 1 Distance: 20' Gait Level of Assist: 4 Gait Assistive Device: FWW PT Plan Problem List Problem List: Activity Tolerance, Functional Strength, Safety, Balance, Gait, Transfer, Bed Mobility, ROM Treatment/Plan Treatment Plan: Continue Plan of Care Treatment Plan: Bed Mobility, Education, Functional Activity [place], Functional Strength, Gait, Safety, Therapeutic Exercise, Transfers Treatment Duration: Mar 07, 2017 # of days/week 5-6 Visits Per Week: 10-11 Minutes/Day (M-F): 15-30 Minutes/Day (Sat/Dubois): 15-30 Pt/Family Agrees w/Plan: Yes Safety Risks/Education Patient Education: Gait Training, Transfer Techniques, Correct Positioning, Safety Issues Teaching Recipient: Patient Teaching Methods: Demonstration, Discussion Response to Teaching: Reinforcement Needed Discharge Recommendations Plan Patient will perform bed mobility and transfer training, balance and endurance training, functional strengthening, stair training, gait training, and education , to improve functional mobility and independence at home. Therapy D/C Recommendations: Home w/ Family Support Time/GCodes Time In: 1310 Time Out: 1330 Total Billed Treatment Time: 20 Total Billed Treatment 1 visit SUMIT 20' KATHY PEREZ PT Feb 28, 2017 14:01
--- NOTE | 2017-02-28 14:38 | Anesthesia-Regional Post-Op ---
Regional Patient Condition Mental Status: Alert, Oriented x3 Circulation: Same as Pre-Op Headache: Absent Sensation: Full Recovery Motor Block: Absent Post Op Complications Complications None Follow Up Care/Instructions Patient Instructions None needed. Anesthesia/Patient Condition Patient is doing well, stable vital signs, no apparent adverse anesthesia problems. No complications reported per nursing. LILY MANCINI CRNA Feb 28, 2017 14:38
--- NOTE | 2017-02-28 16:10 | Consultation (CHS) ---
HPI History of Present Illness: 72 yo M that was taken to OR by Dr Maria for TURP. Asked to see patient for medical management. Patient has chronic HTN that has been labile in the past 2 years upon review of medical chart at [facility]. Patient takes ACEI, HCTZ and Metoprolol to control blood pressure. Denies ever having diagnosis of DM in the past. Denies any heart problems but carries diagnosis of CAD in clinic. Stress 2014 that was normal. Denies any concerns today other then nausea that has been addressed by other providers Source: patient, RN/MD, old records Exam Limitations: no limitations Date seen by provider: Feb 28, 2017 Time Seen by Provider: 11:05 Attending Physician Lalit Maria MD PCP Carleen Capps DO Consult Date of Admission Feb 28, 2017 at 08:28 Home Medications Home Medications Reviewed patient Home Medication Reconciliation Form Allergies Coded Allergies: Sulfa (Sulfonamide Antibiotics) (Verified Allergy, Unknown, 04/06/09) codeine (Verified Allergy, Unknown, 02/21/17) LDR-Mdycic-Vhujig Hx Patient Social History Living Status: Lives in home Alcohol Use: Denies Use Recreational Drug Use: No Smoking Status: Former Smoker Recent Foreign Travel: No Contact w/other who traveled: No Recent Hopitalizations: No Recent Infectious Disease Expo: No Immunizations Up To Date Date of Pneumonia Vaccine: Jun 10, 2007 Date of Influenza Vaccine: May 26, 2011 Past Medical History HTN BPH Insomnia CAD with neg stress 2014 Family Medical History Family History: Myocardial infarction 19 FATHER Review of Systems ([facility]) Date Seen by Provider: Feb 28, 2017 Time Seen by Provider: 11:05 Constitutional: No dizziness, No fever (1105), malaise EENTM: no symptoms reported Respiratory: no symptoms reported, No cough, No dyspnea on exertion, No short of breath Cardiovascular: no symptoms reported, No chest pain, No edema, No palpitations Gastrointestinal: abdominal pain (around surgical sites), No constipation, No diarrhea, loss of appetite, nausea, vomiting Genitourinary: other (barragan in place) Musculoskeletal: no symptoms reported Skin: no symptoms reported Psychiatric/Neurological: No Symptoms Reported, Denies Anxiety, Denies Depressed, Denies Headache, Denies Tremors Reviewed Test Results Reviewed Test Results Lab Laboratory Tests Test 02/28/17 04:05 02/28/17 08:50 Range/Units White Blood Count 22.1 H 4.3-11.0 10^3/uL Red Blood Count 4.85 4.35-5.85 10^6/uL Hemoglobin 14.8 13.3-17.7 G/DL Hematocrit 44 40-54 % Mean Corpuscular Volume 90 80-99 FL Mean Corpuscular Hemoglobin 31 25-34 PG Mean Corpuscular Hemoglobin Concent 34 32-36 G/DL Red Cell Distribution Width 13.8 10.0-14.5 % Platelet Count 188 130-400 10^3/uL Mean Platelet Volume 10.6 H 7.4-10.4 FL Neutrophils (%) (Auto) 81 H 42-75 % Lymphocytes (%) (Auto) 12 12-44 % Monocytes (%) (Auto) 8 0-12 % Eosinophils (%) (Auto) 0 0-10 % Basophils (%) (Auto) 0 0-10 % Neutrophils # (Auto) 17.8 H 1.8-7.8 X 10^3 Lymphocytes # (Auto) 2.6 1.0-4.0 X 10^3 Monocytes # (Auto) 1.7 H 0.0-1.0 X 10^3 Eosinophils # (Auto) 0.0 0.0-0.3 10^3/uL Basophils # (Auto) 0.0 0.0-0.1 10^3/uL Sodium Level 134 L 135-145 MMOL/L Potassium Level 3.8 3.6-5.0 MMOL/L Chloride Level 94 L 98-107 MMOL/L Carbon Dioxide Level 26 21-32 MMOL/L Anion Gap 14 5-14 MMOL/L Blood Urea Nitrogen 20 H 7-18 MG/DL Creatinine 1.24 0.60-1.30 MG/DL Estimat Glomerular Filtration Rate 57 BUN/Creatinine Ratio 16 0-20 Glucose Level 133 H 70-105 MG/DL Calcium Level 7.9 L 8.5-10.1 MG/DL Phosphorus Level 4.0 2.3-4.7 MG/DL Magnesium Level 1.3 L 1.8-2.4 MG/DL Urine Color BROWN H Urine Clarity CLEAR Urine pH 6.5 5-9 Urine Specific [place] 1.015 L 1.016-1.022 Urine Protein 4+ NEGATIVE Urine Glucose (UA) NEGATIVE NEGATIVE Urine Ketones 1+ H NEGATIVE Urine Nitrite NEGATIVE NEGATIVE Urine Bilirubin NEGATIVE NEGATIVE Urine Urobilinogen NORMAL NORMAL MG/DL Urine Leukocyte Esterase 3+ H NEGATIVE Urine RBC (Auto) 5+ H NEGATIVE Urine RBC >100 H /HPF Urine WBC TNTC H /HPF Urine Crystals NONE /LPF Urine Bacteria LARGE H /HPF Urine Casts NONE /LPF Urine Mucus LARGE H /LPF Urine Culture Indicated YES Radiology Date of Exam: 02/28/17 CHEST 1 VIEW, AP/PA ONLY INDICATION: Postop. Comparison with 05/05/2012. FINDINGS: There is bibasal atelectasis. Heart remains mildly enlarged. The upper lungs are clear. No pneumothorax or pleural effusion. IMPRESSION: Development of the bilateral basilar atelectasis since previous exam. Physical Exam-([facility]) Physical Exam Vital Signs VS - Last 72 Hours, by Label 02/27/17 02/27/17 02/27/17 02/27/17 07:45 13:50 13:58 14:00 Temp 99.3 97.2 Pulse 52 63 64 Resp 16 16 B/P (MAP) 149/89 157/114 Pulse Ox 96 98 O2 Delivery Room Air Nasal Cannula Room Air O2 Flow Rate 1.00 02/27/17 02/27/17 02/27/17 02/27/17 15:00 15:20 16:00 16:25 Temp 97.0 Pulse 62 Resp 16 B/P (MAP) 131/93 Pulse Ox 98 O2 Delivery Nasal Cannula Nasal Cannula O2 Flow Rate 1.00 1.00 02/27/17 02/27/17 02/27/17 02/27/17 16:49 17:00 18:00 19:00 Pulse 66 68 70 Resp 12 B/P (MAP) 131/95 115/83 Pulse Ox 97 96 95 O2 Delivery Nasal Cannula Nasal Cannula Nasal Cannula O2 Flow Rate 1.00 1.00 1.00 02/27/17 02/27/17 02/27/17 02/27/17 19:00 20:00 20:00 21:00 Pulse 70 69 74 Resp 26 22 33 B/P (MAP) 113/77 124/77 149/90 Pulse Ox 92 92 94 O2 Delivery Nasal Cannula Nasal Cannula Nasal Cannula Nasal Cannula O2 Flow Rate 1.00 1.00 1.00 1.00 02/27/17 02/27/17 02/28/17 02/28/17 22:00 23:00 00:00 00:00 Pulse 73 77 75 B/P (MAP) 136/80 120/75 125/75 Pulse Ox 93 93 94 O2 Delivery Nasal Cannula Nasal Cannula Nasal Cannula Nasal Cannula O2 Flow Rate 1.00 1.00 1.00 1.00 02/28/17 02/28/17 02/28/17 02/28/17 01:00 01:00 02:00 03:00 Pulse 77 77 85 75 Resp 14 18 B/P (MAP) 129/70 132/78 134/72 Pulse Ox 91 94 92 O2 Delivery Nasal Cannula Nasal Cannula Nasal Cannula O2 Flow Rate 1.00 1.00 1.00 02/28/17 02/28/17 02/28/17 02/28/17 04:00 04:00 05:00 06:00 Pulse 80 76 75 Resp 16 B/P (MAP) 116/83 130/78 127/71 Pulse Ox 94 94 89 O2 Delivery Nasal Cannula Nasal Cannula Nasal Cannula Nasal Cannula O2 Flow Rate 1.00 1.00 1.00 1.00 02/28/17 02/28/17 02/28/17 02/28/17 06:14 07:00 08:00 12:00 Pulse 80 Resp 16 O2 Delivery Nasal Cannula Nasal Cannula O2 Flow Rate 1.00 1.00 Capillary Refill : General Appearance: WD/WN, no apparent distress HEENT: PERRL/EOMI Neck: non-tender, full range of motion, supple Respiratory: chest non-tender, lungs clear, normal breath sounds, no respiratory distress, no accessory muscle use Cardiovascular: normal peripheral pulses, regular rate, rhythm, no edema, no murmur Gastrointestinal: normal bowel sounds, soft, no organomegaly, tenderness ( around surgical wounds), No mass Genital/Rectal: other (Barragan in place draining urine) Extremities: normal range of motion, non-tender, no calf tenderness, normal capillary refill Neurologic/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: 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, no motor/sensory deficits, alert, normal mood/affect, oriented x 3 Skin: normal color, warm/dry Lymphatic: no adenopathy Assessment/Plan Assessment/Plan Plan 72 yo M s/p TURP with bladder perforation, asked for medical consultation s/p surgery Plan BPH s/p TURP with bladder perforation - managed by primary Dr Maria HTN - Blood pressures well controlled, Will restart ACEI and Metoprolol, will hold HCTZ at this time - Continue to monitor blood pressures Insomnia - Will restart Lexapro CAD - Continue ASA when ok with primary team FEN: per primary team Dispo: Will continue to follow, appreciate consult Diagnosis/Problems: Clinical Quality Measures DVT/VTE Risk/Contraindication: Risk Factor Score Per Nursin RFS Level Per Nursing on Admit: 4+=Very High Copy Copies To 1: Marquise SAHU HOLLY R MD Feb 28, 2017 16:10
[2017-02-28] MEDS: meTOprolol TARTRATE 50 MG (LOPRESSOR) TAB PO SCH (20:26)
[2017-02-28] MEDS: fentaNYL PCA 300 MCG/30 ML VIAL IV PRN (20:32)
[2017-02-28] MEDS: BELLADONNA ALK/OPIUM (B & O) 30 MG SUPP PR PRN (21:13)
[2017-03-01] VITALS (22 sets, daily range): BP systolic 124–170; BP diastolic 74–103
[2017-03-01 04:32] LABS: BASOPHILS % (AUTO) 0 % (0-10); EOSINOPHILS % (AUTO) 0 % (0-10); LYMPHOCYTES # (AUTO) 3.1 X 10^3 (1.0-4.0); LYMPHOCYTES % (AUTO) 17 % (12-44); MEAN CORPUSCULAR HEMOGLOBIN 31 PG (25-34); MEAN CORPUSCULAR HGB CONC 33 G/DL (32-36); MEAN CORPUSCULAR VOLUME 92 FL (80-99); MEAN PLATELET VOLUME 10.8 FL (7.4-10.4); MONOCYTES # (AUTO) 1.9 X 10^3 (0.0-1.0); MONOCYTES % (AUTO) 10 % (0-12); NEUTROPHILS # (AUTO) 13.8 X 10^3 (1.8-7.8); NEUTROPHILS % (AUTO) 73 % (42-75); PLATELET COUNT 176 10^3/uL (130-400); RED BLOOD COUNT 4.48 10^6/uL (4.35-5.85); WHITE BLOOD COUNT 18.9 10^3/uL (4.3-11.0)
[2017-03-01 04:58] LABS: ANION GAP 6 MMOL/L (5-14); BLOOD UREA NITROGEN 18 MG/DL (7-18); BUN/CREATININE RATIO 18 (0-20); CARBON DIOXIDE 29 MMOL/L (21-32); CHLORIDE 104 MMOL/L (98-107); CREATININE SERUM 0.99 MG/DL (0.60-1.30); GFR ESTIMATED > 60; GLUCOSE 108 MG/DL (70-105); HEMOLYSIS 12 (-100-29); LIPEMIA -3 (-100-49); MAGNESIUM 2.3 MG/DL (1.8-2.4); PHOSPHORUS 1.6 MG/DL (2.3-4.7); POTASSIUM 4.8 MMOL/L (3.6-5.0); SODIUM 139 MMOL/L (135-145)
[2017-03-01] MEDS: MAGNESIUM 1 GM/100 ML IVPB 100 ML IV SCH (05:04)
[2017-03-01] MEDS: KCL 20 MEQ TAB (K-DUR) PO SCH (05:04)
[2017-03-01] MEDS: POTASSIUM CL 10MEQ/50ML IVPB 50 ML IV SCH (05:04)
[2017-03-01] MEDS: 1/2 NS W/KCL 20 MEQ/L 1,000 ML IV SCH ×2 (05:08→17:18)
--- NOTE | 2017-03-01 07:23 | Diagnostic Imaging Report ---
INDICATION: Postoperative evaluation. 0518 hours Portable upright view of the chest is obtained with comparison made study of 02/28/2017. FINDINGS: There is suboptimal inspiration. No pneumothorax is identified. Left basilar density has not appreciably changed. IMPRESSION: Hypoventilation which limits evaluation. Atelectasis and/or infiltrate in the left lung base is unchanged. No new abnormality is detected. Dictated by: Dictated on workstation # [id number]
--- NOTE | 2017-03-01 07:45 | Pulmonary Progress Note ---
Subjective Time Seen by Provider: 07:59 Subjective/Events-last exam PT feels much better. NO complications noted. Exam Exam Vital Signs Date Time Temp Pulse Resp B/P (MAP) Pulse Ox O2 Delivery O2 Flow Rate FiO2 03/01/17 06:00 80 140/84 96 Nasal Cannula 1.00 03/01/17 05:00 65 129/77 96 Nasal Cannula 1.00 03/01/17 04:00 Nasal Cannula 1.00 03/01/17 04:00 72 148/93 96 Nasal Cannula 1.00 03/01/17 03:00 66 136/78 96 Nasal Cannula 1.00 03/01/17 02:00 63 134/80 97 Nasal Cannula 1.00 03/01/17 01:00 65 147/86 98 Nasal Cannula 1.00 03/01/17 01:00 138 03/01/17 00:00 Nasal Cannula 1.00 03/01/17 00:00 66 124/83 97 Nasal Cannula 1.00 02/28/17 23:00 73 136/82 87 Nasal Cannula 1.00 02/28/17 22:00 76 10 161/84 91 Nasal Cannula 1.00 02/28/17 21:00 99 22 157/99 96 Nasal Cannula 1.00 02/28/17 20:32 17 02/28/17 20:00 Nasal Cannula 1.00 02/28/17 20:00 98.1 89 11 140/99 93 Nasal Cannula 1.00 02/28/17 19:00 86 02/28/17 19:00 88 17 139/81 95 Nasal Cannula 1.00 02/28/17 18:00 85 17 136/81 95 Nasal Cannula 1.50 02/28/17 17:00 86 28 127/72 97 Nasal Cannula 1.50 02/28/17 16:00 Nasal Cannula 2.00 02/28/17 16:00 89 135/82 94 Nasal Cannula 1.50 02/28/17 16:00 Nasal Cannula 1.50 02/28/17 16:00 98.5 Nasal Cannula 1.50 02/28/17 15:00 92 125/77 95 Nasal Cannula 1.50 02/28/17 14:00 90 114/73 97 Nasal Cannula 1.50 02/28/17 13:00 82 02/28/17 13:00 82 121/68 93 Nasal Cannula 1.50 02/28/17 12:00 Nasal Cannula 1.00 02/28/17 12:00 98.7 Nasal Cannula 1.50 02/28/17 11:00 85 19 129/79 95 Nasal Cannula 1.00 02/28/17 10:00 77 115/74 95 Nasal Cannula 1.00 02/28/17 09:00 76 17 119/75 95 Nasal Cannula 1.00 02/28/17 08:00 Nasal Cannula 1.00 02/28/17 08:00 79 125/74 89 Nasal Cannula 1.00 02/28/17 08:00 97.9 Nasal Cannula 1.00 I & O 03/01/17 07:00 Intake Total 1970 ml Output Total 4580 ml Balance -2610 ml General Appearance: No Apparent Distress, WD/WN, No Anxious HEENT: Normal ENT Inspection, Pharynx Normal Neck: Full Range of Motion, Normal Inspection, Supple Respiratory: Chest Non Tender, No Accessory Muscle Use, No Respiratory Distress , Decreased Breath Sounds Gastrointestinal: normal bowel sounds, soft, no organomegaly, tenderness ( around surgical wounds), No mass Extremity: Normal Capillary Refill, Non Tender, No Calf Tenderness Neurologic/Psychiatric: Alert, Oriented x3 Skin: Normal Color, Warm/Dry Results Lab Laboratory Tests 02/27/17 11:23 02/27/17 13:12 02/28/17 04:05 03/01/17 04:02 Assessment/Plan Assessment/Plan BPH with prostatism and urinary retention s/p attempted turp, bladder perforation s/p ex lap with bladder repair and suprapubic tube placement -Rocephin -check UA -Pain control - 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
--- NOTE | 2017-03-01 08:56 | Physical Therapy Daily Note ---
PT Daily Note-Current Subjective Patient is very alert and agreeable to participate with PT. Pain Numeric Pain Scale: 5-Moderate Pain Location: Lower Location Body Site: Abdomen Pain Description: Pressure Mental Status Patient Orientation: Normal For Age Attachments: Oxygen, Drains, Koch Catheter, IV Transfers Functional [place] Measure 0=Not Assessed/NA 4=Minimal Assistance 1=Total Assistance 5=Supervision or Setup 2=Maximal Assistance 6=Modified [place] 3=Moderate Assistance 7=Complete IndependenceIRFPAI Quality Coding Scale 6 Independent with activity with or without an assistive device 5 Patient requires set up or clean up by helper. Patient completes activity by themselves 4 Supervision or touching assist (CGA). [place] provide cues , steadying assist 3 The helper provides less than half the effort to complete the activity 2 The helper provides more than half the effort to complete the activity 1 Dependent. The helper does all the effort to complete an activity 7 Patient refused to complete or attempt activity 9 The patient did not perform the activity before the current illness or injury 88 Not attempted due to Medical conditions or safety concerns Transfers (B, C, W/C) (FIM): 5 Scootin Rollin Supine to/from Sit: 5 Sit to/from Stand: 5 Gait Training Gait (FIM): 5 Distance (FIM): 3=150 ft Distance: 225' Gait Level of Assist: 5 Gait Persons Needed: 1 Gait Assistive Device: FWW slow, steady, functional Exercises Seated Therapy Exercises: Ankle pumps, Long arc quads Seated Reps: 15 Assessment Patient progressing with treatment and is highly motivated with progress. Due to current status, patient to be up with nursing PRN with ambulation. PT Dog Barber Goals Correction Goals PT Correction Goals Time Frame: Mar 07, 2017 Transfers (B,C,W/C) (FIM): 4 Gait (FIM): 1 Distance: 20' Gait Level of Assist: 4 Gait Assistive Device: FWW PT Plan Treatment/Plan Treatment Plan: Modify Plan, see comments (frequency 6/wk) Treatment Plan: Bed Mobility, Education, Functional Activity [place], Functional Strength, Gait, Safety, Therapeutic Exercise, Transfers Treatment Duration: Mar 07, 2017 Visits Per Week: 10-11 Minutes/Day (M-F): 15-30 Minutes/Day (Sat/[place]ois): 15-30 Time/GCodes Time In: 825 Time Out: 850 Total Billed Treatment Time: 25 Total Billed Treatment 1 visit FA x 2 25 min OSMAR ZAPATA PT Mar 01, 2017 08:55
[2017-03-01] MEDS ORDERED: NON-FORMULARY MEDICATION 1 EA EA (Escitalopram Oxalate (Lexapro) 10 MG) PO SCH (09:00)
[2017-03-01] MEDS ORDERED: QUINAPRIL HCL 40 MG PO SCH (09:00)
[2017-03-01] MEDS: QUINAPRIL 20 MG (ACCUPRIL) TAB PO SCH (10:35)
[2017-03-01] MEDS: cefTRIAXone INJECTION 1,000 MG in NS (IVPB) 50 ML IV SCH (10:35)
[2017-03-01] MEDS: meTOprolol TARTRATE 50 MG (LOPRESSOR) TAB PO SCH ×2 (10:35→21:01)
--- NOTE | 2017-03-01 11:55 | Progress Note-Urology ---
Progress Note-Urology Progress Notes/Assess & Plan Progress/Assessment & Plan GETTING, FEELING, AND DOING BETTER. LABS IMPROVING. AFEBRILE, VSS. PASSING FLATUS AND HAS GOOD BOWEL SOUNDS. CHEST CLEAR. HEART RRR. ABDOMEN SOFT NOT TENDER. URINE CLEARING. WILL START CLEAR LIQUIDS AND IF TOLERATED WE WILL TRANSFER TO FLOOR Final Diagnosis BPH WITH BLADDER PERFORATION AND REPAIR SHIMON CARMONA MD Mar 01, 2017 11:55
[2017-03-01] MEDS: FAMOTIDINE 20MG/2ML IV (PEPCID) IVP SCH (12:07)
--- OUTSIDE RECORDS SUMMARY | 2017-03-01 14:18 | XMS REPORT | Continuity of Care Document ---
Author Author [facility] Address Unknown Phone Unavailable Allergies Active Description Code Type Severity Reaction Onset Reported/Identified Relationship to Patient Clinical Status Yes sulfa drug Drug Allergy 10/26/2008 Yes Sulfa (Sulfonamide Antibiotics) [id number] Drug Allergy Unknown N/A 04/06/2009 Yes Codeine Drug Allergy N/A N/A 02/04/2013 Yes codeine [id number] Drug Allergy Unknown N/A 02/21/2017 Medications Problems Date Dx Coded Attending Type Code Diagnosis Diagnosed By 03/16/2008 MONIE EVERETT DO 401.1 ESSENTIAL HYPERTENSION BENIGN 03/16/2008 DIMA ELIZALDE APRN 401.1 ESSENTIAL HYPERTENSION BENIGN 03/16/2008 401.1 ESSENTIAL HYPERTENSION BENIGN 03/16/2008 401.1 ESSENTIAL HYPERTENSION BENIGN 03/16/2008 401.1 ESSENTIAL HYPERTENSION BENIGN 03/16/2008 401.1 ESSENTIAL HYPERTENSION BENIGN 03/16/2008 401.1 ESSENTIAL HYPERTENSION BENIGN 03/16/2008 401.1 ESSENTIAL HYPERTENSION BENIGN 03/16/2008 401.1 ESSENTIAL HYPERTENSION BENIGN 03/16/2008 MONIE EVERETT DO 401.1 ESSENTIAL HYPERTENSION BENIGN 03/16/2008 MONIE EVERETT DO 401.1 ESSENTIAL HYPERTENSION BENIGN 03/16/2008 401.1 ESSENTIAL HYPERTENSION BENIGN 03/16/2008 DIMA ELIZALDE APRN 401.1 ESSENTIAL HYPERTENSION BENIGN 03/16/2008 DIMA ELIZALDE APRN 401.1 ESSENTIAL HYPERTENSION BENIGN 03/16/2008 DIMA ELIZALDE APRN 401.1 ESSENTIAL HYPERTENSION BENIGN 03/16/2008 DIMA ELIZALDE APRN 401.1 ESSENTIAL HYPERTENSION BENIGN 03/16/2008 DIMA ELIZALDE APRN 401.1 ESSENTIAL HYPERTENSION BENIGN 03/16/2008 DIMA ELIZALDE APRN 401.1 ESSENTIAL HYPERTENSION BENIGN 05/14/2009 MONIE EVERETT DO 692.9 Dermatitis Contact Unspecified 05/14/2009 DIMA ELIZALDE APRN 692.9 Dermatitis Contact Unspecified 05/14/2009 692.9 Dermatitis Contact Unspecified 05/14/2009 692.9 Dermatitis Contact Unspecified 05/14/2009 692.9 Dermatitis Contact Unspecified 05/14/2009 692.9 Dermatitis Contact Unspecified 05/14/2009 692.9 Dermatitis Contact Unspecified 05/14/2009 692.9 Dermatitis Contact Unspecified 05/14/2009 692.9 Dermatitis Contact Unspecified 05/14/2009 EVERETT DO, MONIE K 692.9 Dermatitis Contact Unspecified 05/14/2009 EVERETT DO, MONIE K 692.9 Dermatitis Contact Unspecified 05/14/2009 692.9 Dermatitis Contact Unspecified 05/14/2009 DIMA ELIZALDE APRN 692.9 Dermatitis Contact Unspecified 05/14/2009 DIMA ELIZALDE APRN 692.9 Dermatitis Contact Unspecified 05/14/2009 DIMA ELIZALDE APRN 692.9 Dermatitis Contact Unspecified 05/14/2009 DIMA ELIZALDE APRN 692.9 Dermatitis Contact Unspecified 05/14/2009 DIMA ELIZALDE APRN 692.9 Dermatitis Contact Unspecified 05/14/2009 DIMA ELIZALDE APRN 692.9 Dermatitis Contact Unspecified 05/25/2009 EVERETT DO, MONIE K 296.90 EPISODIC MOOD DISORDERS 05/25/2009 DIMA ELIZALDE APRN 296.90 EPISODIC MOOD DISORDERS 05/25/2009 296.90 EPISODIC MOOD DISORDERS 05/25/2009 296.90 EPISODIC MOOD DISORDERS 05/25/2009 296.90 EPISODIC MOOD DISORDERS 05/25/2009 296.90 EPISODIC MOOD DISORDERS 05/25/2009 296.90 EPISODIC MOOD DISORDERS 05/25/2009 296.90 EPISODIC MOOD DISORDERS 05/25/2009 296.90 EPISODIC MOOD DISORDERS 05/25/2009 EVERETT DO, MONIE K 296.90 EPISODIC MOOD DISORDERS 05/25/2009 EVERETT DO, MONIE K 296.90 EPISODIC MOOD DISORDERS 05/25/2009 296.90 EPISODIC MOOD DISORDERS 05/25/2009 DIMA ELIZALDE APRN 296.90 EPISODIC MOOD DISORDERS 05/25/2009 DIMA ELIZALDE APRN 296.90 EPISODIC MOOD DISORDERS 05/25/2009 DIMA ELIZALDE APRN 296.90 EPISODIC MOOD DISORDERS 05/25/2009 DIMA ELIZALDE APRN 296.90 EPISODIC MOOD DISORDERS 05/25/2009 DIMA ELIZALDE APRN 296.90 EPISODIC MOOD DISORDERS 05/25/2009 DIMA ELIZALDE APRN 296.90 EPISODIC MOOD DISORDERS 07/26/2009 EVERETT DO, MONIE K 300.00 anxiety 07/26/2009 FIDE CRYSTALLOGRAPHER, DIMA T 300.00 anxiety 07/26/2009 300.00 anxiety 07/26/2009 300.00 anxiety 07/26/2009 300.00 anxiety 07/26/2009 300.00 anxiety 07/26/2009 300.00 anxiety 07/26/2009 300.00 anxiety 07/26/2009 300.00 anxiety 07/26/2009 EVERETT DO, MONIE K 300.00 anxiety 07/26/2009 EVERETT DO, MONIE K 300.00 anxiety 07/26/2009 300.00 anxiety 07/26/2009 FIDE MEDRANONDIMA T 300.00 anxiety 07/26/2009 FIDE CRYSTALLOGRAPHERDIMA T 300.00 anxiety 07/26/2009 DIMA ELIZALDE APRN T 300.00 anxiety 07/26/2009 DIMA ELIZALDE APRN T 300.00 anxiety 07/26/2009 DIMA ELIZALDE APRN T 300.00 anxiety 07/26/2009 DIMA ELIZALDE APRN T 300.00 anxiety 12/24/2009 EVERETT DO MONIE K 465.9 Upper Respiratory Infection 12/24/2009 DIMA ELIZALDE APRN T 465.9 Upper Respiratory Infection 12/24/2009 465.9 Upper Respiratory Infection 12/24/2009 465.9 Upper Respiratory Infection 12/24/2009 465.9 Upper Respiratory Infection 12/24/2009 465.9 Upper Respiratory Infection 12/24/2009 465.9 Upper Respiratory Infection 12/24/2009 465.9 Upper Respiratory Infection 12/24/2009 465.9 Upper Respiratory Infection 12/24/2009 EVERETT DO, MONIE K 465.9 Upper Respiratory Infection 12/24/2009 EVERETT DO, MONIE K 465.9 Upper Respiratory Infection 12/24/2009 465.9 Upper Respiratory Infection 12/24/2009 DIMA ELIZALDE APRN T 465.9 Upper Respiratory Infection 12/24/2009 FIDE QUIROS DIMA T 465.9 Upper Respiratory Infection 12/24/2009 DIMA ELIZALDE APRN T 465.9 Upper Respiratory Infection 12/24/2009 DIMA ELIZALDE APRN T 465.9 Upper Respiratory Infection 12/24/2009 DIMA ELIZALDE APRN T 465.9 Upper Respiratory Infection 12/24/2009 FIDE QUIROS DIMA T 465.9 Upper Respiratory Infection 12/28/2010 EVERETT DO MONIE K 379.24 OTHER VITREOUS OPACITIES 12/28/2010 EVERETT DO, MONIE K 785.9 OTHER SYMPTOMS INVOLVING CARDIOVASCULAR SYSTEM 12/28/2010 DIMA ELIZALDE APRN T 379.24 OTHER VITREOUS OPACITIES 12/28/2010 DIMA ELIZALDE APRN T 785.9 OTHER SYMPTOMS INVOLVING CARDIOVASCULAR SYSTEM 12/28/2010 379.24 OTHER VITREOUS OPACITIES 12/28/2010 785.9 OTHER SYMPTOMS INVOLVING CARDIOVASCULAR SYSTEM 12/28/2010 379.24 OTHER VITREOUS OPACITIES 12/28/2010 785.9 OTHER SYMPTOMS INVOLVING CARDIOVASCULAR SYSTEM 12/28/2010 379.24 OTHER VITREOUS OPACITIES 12/28/2010 785.9 OTHER SYMPTOMS INVOLVING CARDIOVASCULAR SYSTEM 12/28/2010 379.24 OTHER VITREOUS OPACITIES 12/28/2010 785.9 OTHER SYMPTOMS INVOLVING CARDIOVASCULAR SYSTEM 12/28/2010 379.24 OTHER VITREOUS OPACITIES 12/28/2010 785.9 OTHER SYMPTOMS INVOLVING CARDIOVASCULAR SYSTEM 12/28/2010 379.24 OTHER VITREOUS OPACITIES 12/28/2010 785.9 OTHER SYMPTOMS INVOLVING CARDIOVASCULAR SYSTEM 12/28/2010 379.24 OTHER VITREOUS OPACITIES 12/28/2010 785.9 OTHER SYMPTOMS INVOLVING CARDIOVASCULAR SYSTEM 12/28/2010 EVERETT DO, MONIE K 379.24 OTHER VITREOUS OPACITIES 12/28/2010 EVERETT DO, MONIE K 785.9 OTHER SYMPTOMS INVOLVING CARDIOVASCULAR SYSTEM 12/28/2010 EVERETT DO, MONIE K 379.24 OTHER VITREOUS OPACITIES 12/28/2010 EVERETT DO, MONIE K 785.9 OTHER SYMPTOMS INVOLVING CARDIOVASCULAR SYSTEM 12/28/2010 379.24 OTHER VITREOUS OPACITIES 12/28/2010 785.9 OTHER SYMPTOMS INVOLVING CARDIOVASCULAR SYSTEM 12/28/2010 DIMA ELIZALDE APRN T 379.24 OTHER VITREOUS OPACITIES 12/28/2010 DIMA ELIZALDE APRN T 785.9 OTHER SYMPTOMS INVOLVING CARDIOVASCULAR SYSTEM 12/28/2010 DMIA ELIZALDE APRN T 379.24 OTHER VITREOUS OPACITIES 12/28/2010 DIMA ELIZALDE APRN T 785.9 OTHER SYMPTOMS INVOLVING CARDIOVASCULAR SYSTEM 12/28/2010 DIMA ELIZALDE APRN T 379.24 OTHER VITREOUS OPACITIES 12/28/2010 DIMA ELIZALDE APRN T 785.9 OTHER SYMPTOMS INVOLVING CARDIOVASCULAR SYSTEM 12/28/2010 DIMA ELIZALDE APRN T 379.24 OTHER VITREOUS OPACITIES 12/28/2010 DIMA ELIZALDE APRN T 785.9 OTHER SYMPTOMS INVOLVING CARDIOVASCULAR SYSTEM 12/28/2010 DIMA ELIZALDE APRN T 379.24 OTHER VITREOUS OPACITIES 12/28/2010 DIMA ELIZALDE APRN 785.9 OTHER SYMPTOMS INVOLVING CARDIOVASCULAR SYSTEM 12/28/2010 DIMA ELIZALDE APRN 379.24 OTHER VITREOUS OPACITIES 12/28/2010 DIMA ELIZALDE APRN 785.9 OTHER SYMPTOMS INVOLVING CARDIOVASCULAR SYSTEM 01/15/2011 Ot 719.45 01/15/2011 Ot 724.3 04/24/2011 MONIE EVERETT DO 729.82 muscle cramps in the calf 04/24/2011 MONIE EVERETT DO 799.51 decreased concentrating ability 04/24/2011 DIMA ELIZALDE APRN 729.82 muscle cramps in the calf 04/24/2011 DIMA ELIZALDE APRN 799.51 decreased concentrating ability 04/24/2011 729.82 muscle cramps in the calf 04/24/2011 799.51 decreased concentrating ability 04/24/2011 729.82 MUSCLE CRAMPS IN THE CALF 04/24/2011 799.51 DECREASED CONCENTRATING ABILITY 04/24/2011 729.82 MUSCLE CRAMPS IN THE CALF 04/24/2011 799.51 DECREASED CONCENTRATING ABILITY 04/24/2011 729.82 MUSCLE CRAMPS IN THE CALF 04/24/2011 799.51 DECREASED CONCENTRATING ABILITY 04/24/2011 729.82 MUSCLE CRAMPS IN THE CALF 04/24/2011 799.51 DECREASED CONCENTRATING ABILITY 04/24/2011 729.82 MUSCLE CRAMPS IN THE CALF 04/24/2011 799.51 DECREASED CONCENTRATING ABILITY 04/24/2011 729.82 MUSCLE CRAMPS IN THE CALF 04/24/2011 799.51 DECREASED CONCENTRATING ABILITY 04/24/2011 MONIE EVERETT DO K 729.82 MUSCLE CRAMPS IN THE CALF 04/24/2011 EVERETT DOELAINAA K 799.51 DECREASED CONCENTRATING ABILITY 04/24/2011 EVERETT MONIE LEIGH K 729.82 MUSCLE CRAMPS IN THE CALF 04/24/2011 EVERETT ELAINA LEIGHA K 799.51 DECREASED CONCENTRATING ABILITY 04/24/2011 729.82 muscle cramps in the calf 04/24/2011 799.51 decreased concentrating ability 04/24/2011 DIMA ELIZALDE APRN 729.82 MUSCLE CRAMPS IN THE CALF 04/24/2011 DIMA ELIZALDE APRN 799.51 DECREASED CONCENTRATING ABILITY 04/24/2011 DIMA ELIZALDE APRN 729.82 MUSCLE CRAMPS IN THE CALF 04/24/2011 DIMA ELIZALDE APRN 799.51 DECREASED CONCENTRATING ABILITY 04/24/2011 DIMA ELIZALDE APRN 729.82 MUSCLE CRAMPS IN THE CALF 04/24/2011 DIMA ELIZALDE APRN 799.51 DECREASED CONCENTRATING ABILITY 04/24/2011 DIMA ELIZALDE APRN 729.82 MUSCLE CRAMPS IN THE CALF 04/24/2011 DIMA ELIZALDE APRN 799.51 DECREASED CONCENTRATING ABILITY 04/24/2011 DIMA ELIZALDE APRN 729.82 MUSCLE CRAMPS IN THE CALF 04/24/2011 DIMA ELIZALDE APRN 799.51 DECREASED CONCENTRATING ABILITY 04/24/2011 DIMA ELIZALDE APRN 729.82 MUSCLE CRAMPS IN THE CALF 04/24/2011 DIMA ELIZALDE APRN 799.51 DECREASED CONCENTRATING ABILITY 08/14/2011 MONIE EVERETT DO V76.51 SPECIAL SCREENING FOR MALIGNANT NEOPLASMS COLON 08/14/2011 DIMA ELIZALDE APRN V76.51 SPECIAL SCREENING FOR MALIGNANT NEOPLASMS COLON 08/14/2011 V76.51 SPECIAL SCREENING FOR MALIGNANT NEOPLASMS COLON 08/14/2011 V76.51 SPECIAL SCREENING FOR MALIGNANT NEOPLASMS COLON 08/14/2011 V76.51 SPECIAL SCREENING FOR MALIGNANT NEOPLASMS COLON 08/14/2011 V76.51 SPECIAL SCREENING FOR MALIGNANT NEOPLASMS COLON 08/14/2011 V76.51 SPECIAL SCREENING FOR MALIGNANT NEOPLASMS COLON 08/14/2011 V76.51 SPECIAL SCREENING FOR MALIGNANT NEOPLASMS COLON 08/14/2011 V76.51 SPECIAL SCREENING FOR MALIGNANT NEOPLASMS COLON 08/14/2011 MONIE EVERETT DO V76.51 SPECIAL SCREENING FOR MALIGNANT NEOPLASMS COLON 08/14/2011 MONIE EVERETT DO V76.51 SPECIAL SCREENING FOR MALIGNANT NEOPLASMS COLON 08/14/2011 V76.51 SPECIAL SCREENING FOR MALIGNANT NEOPLASMS COLON 08/14/2011 DIMA ELIZALDE APRN V76.51 SPECIAL SCREENING FOR MALIGNANT NEOPLASMS COLON 08/14/2011 DIMA ELIZALDE APRN V76.51 SPECIAL SCREENING FOR MALIGNANT NEOPLASMS COLON 08/14/2011 DIMA ELIZALDE APRN V76.51 SPECIAL SCREENING FOR MALIGNANT NEOPLASMS COLON 08/14/2011 DIMA ELIZALDE APRN V76.51 SPECIAL SCREENING FOR MALIGNANT NEOPLASMS COLON 08/14/2011 DIMA ELIZALDE APRN V76.51 SPECIAL SCREENING FOR MALIGNANT NEOPLASMS COLON 08/14/2011 DIMA ELIZALDE APRN V76.51 SPECIAL SCREENING FOR MALIGNANT NEOPLASMS COLON 10/30/2011 MONIE EVERETT DO 373.11 STYE (HORDEOLUM EXTERNUM) 10/30/2011 DIMA ELIZALDE APRN 373.11 STYE (HORDEOLUM EXTERNUM) 10/30/2011 373.11 STYE (HORDEOLUM EXTERNUM) 10/30/2011 373.11 STYE (HORDEOLUM EXTERNUM) 10/30/2011 373.11 STYE (HORDEOLUM EXTERNUM) 10/30/2011 373.11 STYE (HORDEOLUM EXTERNUM) 10/30/2011 373.11 STYE (HORDEOLUM EXTERNUM) 10/30/2011 373.11 STYE (HORDEOLUM EXTERNUM) 10/30/2011 373.11 STYE (HORDEOLUM EXTERNUM) 10/30/2011 MONIE EVERETT DO 373.11 STYE (HORDEOLUM EXTERNUM) 10/30/2011 MONIE EVERETT DO 373.11 STYE (HORDEOLUM EXTERNUM) 10/30/2011 373.11 STYE (HORDEOLUM EXTERNUM) 10/30/2011 DIMA ELIZALDE APRN 373.11 STYE (HORDEOLUM EXTERNUM) 10/30/2011 DIMA ELIZALDE APRN 373.11 STYE (HORDEOLUM EXTERNUM) 10/30/2011 DIMA ELIZALDE APRN 373.11 STYE (HORDEOLUM EXTERNUM) 10/30/2011 DIMA ELIZALDE APRN 373.11 STYE (HORDEOLUM EXTERNUM) 10/30/2011 DIMA ELIZALDE APRN 373.11 STYE (HORDEOLUM EXTERNUM) 10/30/2011 DIMA ELIZALDE APRN 373.11 STYE (HORDEOLUM EXTERNUM) 01/27/2012 MONIE EVERETT DO 682.9 CELLULITIS AND ABSCESS OF UNSPECIFIED SITES 01/27/2012 DIMA ELIZALDE APRN 682.9 CELLULITIS AND ABSCESS OF UNSPECIFIED SITES 01/27/2012 682.9 CELLULITIS AND ABSCESS OF UNSPECIFIED SITES 01/27/2012 682.9 CELLULITIS AND ABSCESS OF UNSPECIFIED SITES 01/27/2012 682.9 CELLULITIS AND ABSCESS OF UNSPECIFIED SITES 01/27/2012 682.9 CELLULITIS AND ABSCESS OF UNSPECIFIED SITES 01/27/2012 682.9 CELLULITIS AND ABSCESS OF UNSPECIFIED SITES 01/27/2012 682.9 CELLULITIS AND ABSCESS OF UNSPECIFIED SITES 01/27/2012 682.9 CELLULITIS AND ABSCESS OF UNSPECIFIED SITES 01/27/2012 MONIE EVERETT DO 682.9 CELLULITIS AND ABSCESS OF UNSPECIFIED SITES 01/27/2012 MONIE EVERETT DO 682.9 CELLULITIS AND ABSCESS OF UNSPECIFIED SITES 01/27/2012 682.9 CELLULITIS AND ABSCESS OF UNSPECIFIED SITES 01/27/2012 DIMA ELIZALDE APRN 682.9 CELLULITIS AND ABSCESS OF UNSPECIFIED SITES 01/27/2012 DIMA ELIZALDE APRN 682.9 CELLULITIS AND ABSCESS OF UNSPECIFIED SITES 01/27/2012 DIMA ELIZALDE APRN 682.9 CELLULITIS AND ABSCESS OF UNSPECIFIED SITES 01/27/2012 DIMA ELIZALDE APRN 682.9 CELLULITIS AND ABSCESS OF UNSPECIFIED SITES 01/27/2012 DIMA ELIZALDE APRN 682.9 CELLULITIS AND ABSCESS OF UNSPECIFIED SITES 01/27/2012 DIMA ELIZALDE APRN 682.9 CELLULITIS AND ABSCESS OF UNSPECIFIED SITES 05/05/2012 Ot 558.9 05/05/2012 Ot 787.91 06/27/2012 MONIE EVERETT DO 465.9 UPPER RESPIRATORY INFECTION 06/27/2012 MONIE EVERETT DO 786.2 COUGH 06/27/2012 DIMA ELIZALDE APRN 465.9 UPPER RESPIRATORY INFECTION 06/27/2012 DIMA ELIZALDE APRN 786.2 COUGH 06/27/2012 465.9 UPPER RESPIRATORY INFECTION 06/27/2012 786.2 COUGH 06/27/2012 465.9 UPPER RESPIRATORY INFECTION 06/27/2012 786.2 COUGH 06/27/2012 465.9 UPPER RESPIRATORY INFECTION 06/27/2012 786.2 COUGH 06/27/2012 465.9 UPPER RESPIRATORY INFECTION 06/27/2012 786.2 COUGH 06/27/2012 465.9 UPPER RESPIRATORY INFECTION 06/27/2012 786.2 COUGH 06/27/2012 465.9 UPPER RESPIRATORY INFECTION 06/27/2012 786.2 COUGH 06/27/2012 465.9 UPPER RESPIRATORY INFECTION 06/27/2012 786.2 COUGH 06/27/2012 EVERETT DO, MONIE K 465.9 UPPER RESPIRATORY INFECTION 06/27/2012 EVERETT DO, MONIE K 786.2 COUGH 06/27/2012 EVERETT DO, MONIE K 465.9 UPPER RESPIRATORY INFECTION 06/27/2012 EVERETT DO, MONIE K 786.2 COUGH 06/27/2012 465.9 UPPER RESPIRATORY INFECTION 06/27/2012 786.2 COUGH 06/27/2012 FIDE CRYSTALLOGRAPHER, DIMA T 465.9 UPPER RESPIRATORY INFECTION 06/27/2012 FIDE CRYSTALLOGRAPHER, DIMA T 786.2 COUGH 06/27/2012 FIDE CRYSTALLOGRAPHER, DIMA T 465.9 UPPER RESPIRATORY INFECTION 06/27/2012 FIDE CRYSTALLOGRAPHER, DIMA T 786.2 COUGH 06/27/2012 FIDE CRYSTALLOGRAPHER, DIMA T 465.9 UPPER RESPIRATORY INFECTION 06/27/2012 FIDE CRYSTALLOGRAPHER, DIMA T 786.2 COUGH 06/27/2012 FIDE CRYSTALLOGRAPHER, DIMA T 465.9 UPPER RESPIRATORY INFECTION 06/27/2012 FIDE CRYSTALLOGRAPHER, DIMA T 786.2 COUGH 06/27/2012 FIDE CRYSTALLOGRAPHER, DIMA T 465.9 UPPER RESPIRATORY INFECTION 06/27/2012 FIDE CRYSTALLOGRAPHER, DIMA T 786.2 COUGH 06/27/2012 FIDE CRYSTALLOGRAPHER, DIMA T 465.9 UPPER RESPIRATORY INFECTION 06/27/2012 FIDE CRYSTALLOGRAPHER, DIMA T 786.2 COUGH 01/13/2013 427.9 SINUS ARRHYTHMIA 01/13/2013 461.9 SINUSITIS ACUTE 01/13/2013 788.41 urinary frequency increased 01/13/2013 427.9 SINUS ARRHYTHMIA 01/13/2013 461.9 SINUSITIS ACUTE 01/13/2013 788.41 URINARY FREQUENCY INCREASED 01/13/2013 427.9 SINUS ARRHYTHMIA 01/13/2013 461.9 SINUSITIS ACUTE 01/13/2013 788.41 URINARY FREQUENCY INCREASED 01/13/2013 427.9 SINUS ARRHYTHMIA 01/13/2013 461.9 SINUSITIS ACUTE 01/13/2013 788.41 URINARY FREQUENCY INCREASED 01/13/2013 427.9 SINUS ARRHYTHMIA 01/13/2013 461.9 SINUSITIS ACUTE 01/13/2013 788.41 URINARY FREQUENCY INCREASED 01/13/2013 427.9 SINUS ARRHYTHMIA 01/13/2013 461.9 SINUSITIS ACUTE 01/13/2013 788.41 URINARY FREQUENCY INCREASED 01/13/2013 427.9 SINUS ARRHYTHMIA 01/13/2013 461.9 SINUSITIS ACUTE 01/13/2013 788.41 URINARY FREQUENCY INCREASED 01/13/2013 EVERETT DO, MONIE K 427.9 SINUS ARRHYTHMIA 01/13/2013 EVERETT DO, MONIE K 461.9 SINUSITIS ACUTE 01/13/2013 EVERETT DO, MONIE K 788.41 URINARY FREQUENCY INCREASED 01/13/2013 EVERETT DO, MONIE K 427.9 SINUS ARRHYTHMIA 01/13/2013 EVERETT DO, MONIE K 461.9 SINUSITIS ACUTE 01/13/2013 EVERETT DO, MONIE K 788.41 URINARY FREQUENCY INCREASED 01/13/2013 DIMA ELIZALDE APRN 427.9 SINUS ARRHYTHMIA 01/13/2013 DIMA ELIZALDE APRN T 461.9 SINUSITIS ACUTE 01/13/2013 DIMA ELIZALDE APRN 788.41 URINARY FREQUENCY INCREASED 01/13/2013 DIMA ELIZALDE APRN T 427.9 SINUS ARRHYTHMIA 01/13/2013 DIMA ELIZALDE APRN 461.9 SINUSITIS ACUTE 01/13/2013 DIMA ELIZALDE APRN 788.41 URINARY FREQUENCY INCREASED 01/13/2013 DIMA ELIZALDE APRN T 427.9 SINUS ARRHYTHMIA 01/13/2013 DIMA ELIZALDE APRN T 461.9 SINUSITIS ACUTE 01/13/2013 DIMA ELIZALDE APRN T 788.41 URINARY FREQUENCY INCREASED 01/13/2013 DIMA ELIZALDE APRN T 427.9 SINUS ARRHYTHMIA 01/13/2013 DIMA ELIZALDE APRN T 461.9 SINUSITIS ACUTE 01/13/2013 DIMA ELIZALDE APRN T 788.41 URINARY FREQUENCY INCREASED 01/13/2013 DIMA ELIZALDE APRN T 427.9 SINUS ARRHYTHMIA 01/13/2013 DIMA ELIZALDE APRN T 461.9 SINUSITIS ACUTE 01/13/2013 DIMA ELIZALDE APRN T 788.41 URINARY FREQUENCY INCREASED 01/13/2013 DIMA ELIZALDE APRN T 427.9 SINUS ARRHYTHMIA 01/13/2013 DIMA ELIZALDE APRN T 461.9 SINUSITIS ACUTE 01/13/2013 DIMA ELIZALDE APRN 788.41 URINARY FREQUENCY INCREASED 03/21/2013 V05.8 ZOSTAVAX DX 03/21/2013 V05.8 ZOSTAVAX DX 03/21/2013 V05.8 ZOSTAVAX DX 03/21/2013 V05.8 ZOSTAVAX DX 03/21/2013 KARLOS DO, MONIE K V05.8 ZOSTAVAX DX 03/21/2013 KARLOS DO, MONIE K V05.8 ZOSTAVAX DX 03/21/2013 DIMA ELIZALDE APRN T V05.8 ZOSTAVAX DX 03/21/2013 DIMA ELIZALDE APRN T V05.8 ZOSTAVAX DX 03/21/2013 DIMA ELIZALDE APRN T V05.8 ZOSTAVAX DX 03/21/2013 DIMA ELIZALDE APRN T V05.8 ZOSTAVAX DX 03/21/2013 DIMA ELIZALDE APRN T V05.8 ZOSTAVAX DX 03/21/2013 DIMA ELIZALDE APRN T V05.8 ZOSTAVAX DX 04/02/2013 780.4 DIZZINESS AND GIDDINESS 04/02/2013 780.4 DIZZINESS AND GIDDINESS 04/02/2013 780.4 DIZZINESS AND GIDDINESS 04/02/2013 780.4 DIZZINESS AND GIDDINESS 04/02/2013 ELAINA EVERETT DOA K 780.4 DIZZINESS AND GIDDINESS 04/02/2013 ELAINA EVERETT DOA K 780.4 DIZZINESS AND GIDDINESS 04/02/2013 DIMA ELIZALDE APRN 780.4 DIZZINESS AND GIDDINESS 04/02/2013 DIMA ELIZALDE APRN 780.4 DIZZINESS AND GIDDINESS 04/02/2013 DIMA ELIZALDE APRN 780.4 DIZZINESS AND GIDDINESS 04/02/2013 DIMA ELIZALDE APRN 780.4 DIZZINESS AND GIDDINESS 04/02/2013 DIMA ELIZALDE APRN 780.4 DIZZINESS AND GIDDINESS 04/02/2013 DIMA ELIZALDE APRN 780.4 DIZZINESS AND GIDDINESS 05/19/2013 008.8 GASTROENTERITIS, VIRAL 05/19/2013 008.8 GASTROENTERITIS, VIRAL 05/19/2013 008.8 GASTROENTERITIS, VIRAL 05/19/2013 ELAINA EVERETT DOA K 008.8 GASTROENTERITIS, VIRAL 05/19/2013 KARLOS LEIGH MONIE K 008.8 GASTROENTERITIS, VIRAL 05/19/2013 DIMA ELIZALDE APRN 008.8 GASTROENTERITIS, VIRAL 05/19/2013 DIMA ELIZALDE APRN 008.8 GASTROENTERITIS, VIRAL 05/19/2013 DIMA ELIZALDE APRN 008.8 GASTROENTERITIS, VIRAL 05/19/2013 DIMA ELIZALDE APRN T 008.8 GASTROENTERITIS, VIRAL 05/19/2013 FIDE QUIROS, DIMA T 008.8 GASTROENTERITIS, VIRAL 05/19/2013 FIDE QUIROS, DIMA T 008.8 GASTROENTERITIS, VIRAL 05/26/2013 564.1 IRRITABLE BOWEL SYNDROME 05/26/2013 EVERETT MONIE LEIGH K 564.1 IRRITABLE BOWEL SYNDROME 05/26/2013 EVERETT DOMONIE K 564.1 IRRITABLE BOWEL SYNDROME 05/26/2013 DIMA ELIZALDE APRN T 564.1 IRRITABLE BOWEL SYNDROME 05/26/2013 DIMA ELIZALDE APRN T 564.1 IRRITABLE BOWEL SYNDROME 05/26/2013 DIMA ELIZALDE APRN T 564.1 IRRITABLE BOWEL SYNDROME 05/26/2013 DIMA ELIZALDE APRN T 564.1 IRRITABLE BOWEL SYNDROME 05/26/2013 DIMA ELIZALDE APRN T 564.1 IRRITABLE BOWEL SYNDROME 05/26/2013 DIMA ELIZALDE APRN T 564.1 IRRITABLE BOWEL SYNDROME 05/29/2013 MONIE EVERETT DO K V04.81 FLU SHOT 05/29/2013 EVERETT MONIE LEIGH K V04.81 FLU SHOT 05/29/2013 DIMA ELIZALDE APRN T V04.81 FLU SHOT 05/29/2013 DIMA ELIZALDE APRN T V04.81 FLU SHOT 05/29/2013 DIMA ELIZALDE APRN T V04.81 FLU SHOT 05/29/2013 DIMA ELIZALDE APRN T V04.81 FLU SHOT 05/29/2013 DIMA ELIZALDE APRN T V04.81 FLU SHOT 05/29/2013 DIMA ELIZALDE APRN T V04.81 FLU SHOT 10/24/2014 Ot 300.00 10/24/2014 Ot 401.1 10/24/2014 Ot 440.1 10/24/2014 Ot 753.10 10/24/2014 Ot 401.9 10/24/2014 Ot V58.69 10/24/2014 Ot V81.5 10/24/2014 Ot 433.30 10/24/2014 Ot 211.3 10/24/2014 Ot V76.51 10/24/2014 DAMI REVELES DO Ot 558.9 10/24/2014 DAMI REVELES DO Ot 787.03 10/27/2014 Ot 300.00 10/27/2014 Ot 401.1 10/27/2014 Ot 440.1 10/27/2014 Ot 753.10 10/27/2014 Ot 401.9 10/27/2014 Ot V58.69 10/27/2014 Ot V81.5 10/27/2014 Ot 433.30 10/27/2014 Ot 211.3 10/27/2014 Ot V76.51 01/15/2015 Ot 300.00 01/15/2015 Ot 401.1 01/15/2015 Ot 440.1 01/15/2015 Ot 753.10 01/15/2015 Ot 401.9 01/15/2015 Ot V58.69 01/15/2015 Ot V81.5 01/15/2015 Ot 433.30 01/15/2015 Ot 211.3 01/15/2015 Ot V76.51 03/22/2015 Ot 401.9 03/22/2015 Ot V58.69 03/22/2015 Ot V81.5 03/22/2015 Ot 433.30 03/22/2015 Ot 211.3 03/22/2015 Ot V76.51 03/22/2015 Ot 401.9 03/22/2015 Ot V58.69 03/22/2015 Ot V81.5 03/22/2015 Ot 433.30 03/22/2015 Ot 211.3 03/22/2015 Ot V76.51 04/15/2015 GLEN CARREON FACC, ALI FACP CCDS Ot 278.00 04/15/2015 GLEN CARREON FACC, ALI FACP CCDS Ot 401.9 04/15/2015 GLEN CARREON FACC, ALI FACP CCDS Ot 433.10 04/15/2015 GLEN CARREON FACC, ALI FACP CCDS Ot 794.31 04/27/2015 GLEN CARREON FACC, ALI FACP CCDS Ot 278.00 04/27/2015 GLEN CARREON FACC, ALI FACP CCDS Ot 401.9 04/27/2015 GLEN CARERON FACC, ALI FACP CCDS Ot 433.10 04/27/2015 GLEN LEAHYC, ALI FACP CCDS Ot 794.31 12/20/2015 Ot 433.30 12/20/2015 Ot 211.3 12/20/2015 Ot V76.51 12/20/2015 GLEN CARREON FACC, ALI FACP CCDS Ot 278.00 12/20/2015 GLEN CARREON FACC, ALI FACP CCDS Ot 401.9 12/20/2015 GLEN CARREON [facility], [facility] CCDS Ot 433.10 12/20/2015 GLEN CARREON [facility] CCDS Ot 794.31 12/26/2016 CRISTOBAL PARADA MD Ot I10 ESSENTIAL (PRIMARY) HYPERTENSION 12/26/2016 CRISTOBAL PARADA MD Ot N40.0 BENIGN PROSTATIC HYPERPLASIA WITHOUT LOW 12/26/2016 CRISTOBAL PARADA MD Ot R35.0 FREQUENCY OF MICTURITION 12/26/2016 CRISTOBAL PARADA MD Ot Z79.82 SAFE AND [employer]ST[employer]ER (CURRENT) USE OF ASPIRIN 12/26/2016 CRISTOBAL PARADA MD Ot Z79.899 OTHER HALF-WAY (CURRENT) DRUG THERAPY 12/26/2016 CRISTOBAL PARADA MD Ot I10 ESSENTIAL (PRIMARY) HYPERTENSION 12/26/2016 CRISTOBAL PARADA MD Ot N40.0 BENIGN PROSTATIC HYPERPLASIA WITHOUT LOW 12/26/2016 CRISTOBAL PARADA MD Ot R35.0 FREQUENCY OF MICTURITION 12/26/2016 CRISTOBAL PARADA MD Ot Z79.82 SAF[employer] AND [employer]ST[employer]ER (CURRENT) USE OF ASPIRIN 12/26/2016 CRISTOBAL PARADA MD Ot 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 02/19/2017 SHIMON CARMONA MD Ot R31.9 HEMATURIA, UNSPECIFIED 02/27/2017 SHIMON CARMONA MD Ot N40.1 BENIGN PROSTATIC HYPERPLASIA WITH LOWER 02/27/2017 SHIMON CARMONA MD Ot R33.8 OTHER RETENTION OF URINE 02/27/2017 SHIMON CARMONA MD Ot Z01.812 ENCOUNTER FOR PREPROCEDURAL LABORATORY E 02/27/2017 SHIMON CARMONA MD Ot Z11.2 ENCOUNTER FOR SCREENING FOR OTHER BACTER Procedures Code Description [place] [address] EKG, TRACING (IN-HOUSE) 01/13/2013 34434 ROUTINE VENIPUNCTURE 02/10/2013 84912 CMP 02/10/2013 43970 LIPID PANEL 02/10 7586191 GFR CALC (RESULT ONLY) 02/10/2013 66260 CBC 02/10/2013 G0008 FLU ADMINISTRATION (MEDICARE ONLY) 05/29/2013 47959 ROUTINE VENIPUNCTURE 04/02/2014 19336 CBC 04/02/2014 0868328 GFR CALC (RESULT ONLY) 04/02/2014 76978 CMP 04/02/2014 81043 LIPID PANEL 04/02 19580 ROUTINE VENIPUNCTURE 09/09/2014 75901 CBC 09/09/2014 7348154 GFR CALC (RESULT ONLY) 09/09/2014 26387 CMP 09/09/2014 37651 LIPID PANEL 09/09 General S Jus Quach 81139 ROUTINE VENIPUNCTURE 12/10/2014 37062 CBC 12/10/2014 55614 CMP 12/10/2014 95946 LIPID PANEL 12/10 1818014 GFR CALC (RESULT ONLY) 12/10/2014 Results Test Result Range Complete urinalysis with reflex to culture - 12/26/16 07:38 Urine color determination YELLOW NRG Urine clarity determination SLIGHTLY CLOUDY NRG Urine pH measurement by test strip 6 5- 9 Specific gravity of urine by test strip 1.020 1.016-1.022 Urine protein assay by test strip, semi-quantitative 2+ NEGATIVE Urine glucose detection by automated test strip NEGATIVE NEGATIVE Erythrocytes detection in urine sediment by light microscopy 3+ NEGATIVE Urine ketones detection by automated test strip NEGATIVE NEGATIVE Urine nitrite detection by test strip NEGATIVE NEGATIVE Urine total bilirubin detection by test strip 1+ NEGATIVE Urine urobilinogen measurement by automated test strip (mass/volume) 4 mg/dL NORMAL Urine leukocyte esterase detection by dipstick 2+ NEGATIVE Automated urine sediment erythrocyte count by microscopy (number/high power field) [HPF] NRG Automated urine sediment leukocyte count by microscopy (number/high power field ) [HPF] NRG Bacteria detection in urine sediment by light microscopy NEGATIVE NRG Squamous epithelial cells detection in urine sediment by light microscopy RARE NRG Crystals detection in urine sediment by light microscopy NONE NRG Casts detection in urine sediment by light microscopy PRESENT NRG Mucus detection in urine sediment by light microscopy SMALL NRG Complete urinalysis with reflex to culture YES NRG Hyaline casts detection in urine sediment by light microscopy RARE NRG Bacterial urine culture - 12/26/16 07:38 Bacterial urine culture [id number] NRG COLONY COUNT 10,000/ML - 100,000/ML NRG FREE TEXT ENTRY 2 MIXED GRAM POSITIVE FESTUS <10,000/ML NRG Methicillin resistant Staphylococcus aureus (MRSA) screening culture - 12:18 Methicillin resistant Staphylococcus aureus (MRSA) screening culture NEG NRG Complete blood count (CBC) with automated white blood cell (WBC) differential - 02/21/17 12:20 Blood leukocytes automated count (number/volume) 9.0 10*3/ uL 4.3-11.0 Blood erythrocytes automated count (number/volume) 4.94 10*6 /uL 4.35-5.85 Venous blood hemoglobin measurement (mass/volume) 15.0 g/dL 13.3-17.7 Blood hematocrit (volume fraction) 45 % 40-54 Automated erythrocyte mean corpuscular volume 91 [foz_us] 80-99 Automated erythrocyte mean corpuscular hemoglobin (mass per erythrocyte) 30 pg 25-34 Automated erythrocyte mean corpuscular hemoglobin concentration measurement ( mass/volume) 33 g/dL 32-36 Automated erythrocyte distribution width ratio 13.9 % 10.0-14.5 Automated blood platelet count (count/volume) 167 10*3/uL 130-400 Automated blood platelet mean volume measurement 10.7 [foz_ us] 7.4-10.4 Automated blood neutrophils/100 leukocytes 65 % 42-75 Automated blood lymphocytes/100 leukocytes 24 % 12-44 Blood monocytes/100 leukocytes 8 % 0-12 Automated blood eosinophils/100 leukocytes 2 % 0-10 Automated blood basophils/100 leukocytes 1 % 0-10 Blood neutrophils automated count (number/volume) 5.9 10*3 1.8-7.8 Blood lymphocytes automated count (number/volume) 2.1 10*3 1.0-4.0 Blood monocytes automated count (number/volume) 0.8 10*3 0.0-1.0 Automated eosinophil count 0.2 10*3/uL 0.0-0.3 Automated blood basophil count (count/volume) 0.1 10*3/uL 0.0-0.1 Whole blood basic metabolic panel - 02/21/17 12:20 Serum or plasma sodium measurement (moles/volume) 142 mmol/ L 135-145 Serum or plasma potassium measurement (moles/volume) 3.9 mmol/L 3.6-5.0 Serum or plasma chloride measurement (moles/volume) 103 mmol /L 98-107 Carbon dioxide 28 mmol/L 21-32 Serum or plasma anion gap determination (moles/volume) 11 mmol/L 5-14 Serum or plasma urea nitrogen measurement (mass/volume) 11 mg/dL 7-18 Serum or plasma creatinine measurement (mass/volume) 1.14 mg /dL 0.60-1.30 Serum or plasma urea nitrogen/creatinine mass ratio 10 0-20 Serum or plasma creatinine measurement with calculation of estimated glomerular filtration rate > NRG Serum or plasma glucose measurement (mass/volume) 94 mg/dL 70-105 Serum or plasma calcium measurement (mass/volume) 9.2 mg/dL 8.5-10.1 Blood type T Indirect antibody screen panel - 02/21/17 12:20 ABO+Rh group OP NRG Transfusion band number [id number] NRG Blood group antibody screen NEGATIVE NRG Blood type T Indirect antibody screen panel - 02/27/17 07:15 ABO+Rh group OP NRG Transfusion band number [id number] NRG Blood group antibody screen NEGATIVE [facility] Comprehensive metabolic panel - 02/27/17 11:23 Serum or plasma sodium measurement (moles/volume) 134 mmol/ L 135-145 Serum or plasma potassium measurement (moles/volume) 4.1 mmol/L 3.6-5.0 Serum or plasma chloride measurement (moles/volume) 99 mmol/ L 98-107 Carbon dioxide 24 mmol/L 21-32 Serum or plasma anion gap determination (moles/volume) 11 mmol/L 5-14 Serum or plasma urea nitrogen measurement (mass/volume) 12 mg/dL 7-18 Serum or plasma creatinine measurement (mass/volume) 1.12 mg /dL 0.60-1.30 Serum or plasma urea nitrogen/creatinine mass ratio 11 0-20 Serum or plasma creatinine measurement with calculation of estimated glomerular filtration rate > NRG Serum or plasma glucose measurement (mass/volume) 149 mg/dL 70-105 Serum or plasma calcium measurement (mass/volume) 8.5 mg/dL 8.5-10.1 Serum or plasma total bilirubin measurement (mass/volume) 0.9 mg/dL 0.1-1.0 Serum or plasma alkaline phosphatase measurement (enzymatic activity/volume) 77 U/L 40-136 Serum or plasma aspartate aminotransferase measurement (enzymatic activity/ volume) 49 U/L 5-34 Serum or plasma alanine aminotransferase measurement (enzymatic activity/volume ) 43 U/L 0-55 Serum or plasma protein measurement (mass/volume) 7.2 g/dL 6.4-8.2 Serum or plasma albumin measurement (mass/volume) 3.0 g/dL 3.2-4.5 Complete blood count (CBC) with automated white blood cell (WBC) differential - 02/27/17 13:12 Blood leukocytes automated count (number/volume) 19.9 10*3/ uL 4.3-11.0 Blood erythrocytes automated count (number/volume) 5.23 10*6 /uL 4.35-5.85 Venous blood hemoglobin measurement (mass/volume) 15.5 g/dL 13.3-17.7 Blood hematocrit (volume fraction) 48 % 40-54 Automated erythrocyte mean corpuscular volume 92 [foz_us] 80-99 Automated erythrocyte mean corpuscular hemoglobin (mass per erythrocyte) 30 pg 25-34 Automated erythrocyte mean corpuscular hemoglobin concentration measurement ( mass/volume) 32 g/dL 32-36 Automated erythrocyte distribution width ratio 13.8 % 10.0-14.5 Automated blood platelet count (count/volume) 221 10*3/uL 130-400 Automated blood platelet mean volume measurement 10.6 [foz_ us] 7.4-10.4 Automated blood neutrophils/100 leukocytes 74 % 42-75 Automated blood lymphocytes/100 leukocytes 17 % 12-44 Blood monocytes/100 leukocytes 8 % 0-12 Automated blood eosinophils/100 leukocytes 1 % 0-10 Automated blood basophils/100 leukocytes 1 % 0-10 Blood neutrophils automated count (number/volume) 14.8 10*3 1.8-7.8 Blood lymphocytes automated count (number/volume) 3.3 10*3 1.0-4.0 Blood monocytes automated count (number/volume) 1.5 10*3 0.0-1.0 Automated eosinophil count 0.2 10*3/uL 0.0-0.3 Automated blood basophil count (count/volume) 0.1 10*3/uL 0.0-0.1 Complete blood count (CBC) with automated white blood cell (WBC) differential - 02/28/17 04:05 Blood leukocytes automated count (number/volume) 22.1 10*3/ uL 4.3-11.0 Blood erythrocytes automated count (number/volume) 4.85 10*6 /uL 4.35-5.85 Venous blood hemoglobin measurement (mass/volume) 14.8 g/dL 13.3-17.7 Blood hematocrit (volume fraction) 44 % 40-54 Automated erythrocyte mean corpuscular volume 90 [foz_us] 80-99 Automated erythrocyte mean corpuscular hemoglobin (mass per erythrocyte) 31 pg 25-34 Automated erythrocyte mean corpuscular hemoglobin concentration measurement ( mass/volume) 34 g/dL 32-36 Automated erythrocyte distribution width ratio 13.8 % 10.0-14.5 Automated blood platelet count (count/volume) 188 10*3/uL 130-400 Automated blood platelet mean volume measurement 10.6 [foz_ us] 7.4-10.4 Automated blood neutrophils/100 leukocytes 81 % 42-75 Automated blood lymphocytes/100 leukocytes 12 % 12-44 Blood monocytes/100 leukocytes 8 % 0-12 Automated blood eosinophils/100 leukocytes 0 % 0-10 Automated blood basophils/100 leukocytes 0 % 0-10 Blood neutrophils automated count (number/volume) 17.8 10*3 1.8-7.8 Blood lymphocytes automated count (number/volume) 2.6 10*3 1.0-4.0 Blood monocytes automated count (number/volume) 1.7 10*3 0.0-1.0 Automated eosinophil count 0.0 10*3/uL 0.0-0.3 Automated blood basophil count (count/volume) 0.0 10*3/uL 0.0-0.1 Whole blood basic metabolic panel - 02/28/17 04:05 Serum or plasma sodium measurement (moles/volume) 134 mmol/ L 135-145 Serum or plasma potassium measurement (moles/volume) 3.8 mmol/L 3.6-5.0 Serum or plasma chloride measurement (moles/volume) 94 mmol/ L 98-107 Carbon dioxide 26 mmol/L 21-32 Serum or plasma anion gap determination (moles/volume) 14 mmol/L 5-14 Serum or plasma urea nitrogen measurement (mass/volume) 20 mg/dL 7-18 Serum or plasma creatinine measurement (mass/volume) 1.24 mg /dL 0.60-1.30 Serum or plasma urea nitrogen/creatinine mass ratio 16 0-20 Serum or plasma creatinine measurement with calculation of estimated glomerular filtration rate 57 NRG Serum or plasma glucose measurement (mass/volume) 133 mg/dL 70-105 Serum or plasma calcium measurement (mass/volume) 7.9 mg/dL 8.5-10.1 Serum or plasma phosphate measurement (mass/volume) - 02/28/17 04:05 Serum or plasma phosphate measurement (mass/volume) 4.0 mg/ dL 2.3-4.7 Magnesium - 02/28/17 04:05 Magnesium 1.3 mg/dL 1.8-2.4 Complete urinalysis with reflex to culture - 02/28/17 08:50 Urine color determination BROWN NRG Urine clarity determination CLEAR NRG Urine pH measurement by test strip 6.5 5 -9 Specific gravity of urine by test strip 1.015 1.016-1.022 Urine protein assay by test strip, semi-quantitative 4+ NEGATIVE Urine glucose detection by automated test strip NEGATIVE NEGATIVE Erythrocytes detection in urine sediment by light microscopy 5+ NEGATIVE Urine ketones detection by automated test strip 1+ NEGATIVE Urine nitrite detection by test strip NEGATIVE NEGATIVE Urine total bilirubin detection by test strip NEGATIVE NEGATIVE Urine urobilinogen measurement by automated test strip (mass/volume) NORMAL NORMAL Urine leukocyte esterase detection by dipstick 3+ NEGATIVE Automated urine sediment erythrocyte count by microscopy (number/high power field) > [HPF] NRG Automated urine sediment leukocyte count by microscopy (number/high power field ) TNTC NRG Bacteria detection in urine sediment by light microscopy LARGE NRG Crystals detection in urine sediment by light microscopy NONE NRG Casts detection in urine sediment by light microscopy NONE NRG Mucus detection in urine sediment by light microscopy LARGE NRG Complete urinalysis with reflex to culture YES NRG Encounters ACCT No. Visit Date/Time Discharge Status Pt. Type Provider Facility Loc./Unit Complaint [id number] 12/10/2014 07:57:00 12/10/2014 23: 59:59 CLS Outpatient DIMA ELIZALDE APRN [id number] 10/09/2014 11:34:00 10/09/2014 23: 59:59 CLS Outpatient DIMA ELIZALDE APRN [id number] 09/09/2014 08:03:00 09/09/2014 23: 59:59 CLS Outpatient DIMA ELIZALDE APRN [id number] 04/29/2014 15:29:00 04/29/2014 23: 59:59 CLS Outpatient DIMA ELIZALDE APRN [id number] 04/02/2014 07:56:00 04/02/2014 23: 59:59 CLS Outpatient DIMA ELIZALDE APRN [id number] 01/05/2014 15:34:00 01/05/2014 23: 59:59 CLS Outpatient DIMA ELIZALDE APRN [id number] 07/04/2013 12:36:00 07/04/2013 23: 59:59 CLS Outpatient KARLOS LEIGH MONIE K [id number] 05/29/2013 16:22:00 05/29/2013 23: 59:59 CLS Outpatient MONIE EVERETT DO [id number] 09/27/2012 10:58:00 09/27/2012 23: 59:59 CLS Outpatient DIMA ELIZALDE APRN [id number] 06/27/2012 10:45:00 06/27/2012 23:59 :59 CLS Outpatient [id number] 06/27/2012 10:45:00 06/27/2012 23: 59:59 CLS Outpatient KRALOS LEIGH MONIE Inder [id number] 05/26/2013 08:51:00 Document Registration [id number] 05/19/2013 12:12:00 Document Registration [id number] 04/25/2013 13:55:00 Document Registration [id number] 04/22/2013 00:00:00 Document Registration [id number] 02/10/2013 07:48:00 Document Registration [id number] 02/04/2013 14:38:00 Document Registration [id number] 01/13/2013 15:32:00 Document Registration
[2017-03-01] MEDS: RT-ALBUTEROL SULF 2.5 MG/3 ML PRE-MIX VIAL IH SCH ×2 (14:28→19:25)
--- OUTSIDE RECORDS SUMMARY | 2017-03-01 18:13 | XMS REPORT | Continuity of Care Document ---
Author Author [facility] [place] [facility] Address Unknown Phone Unavailable Allergies Active Description Code Type Severity Reaction Onset Reported/Identified Relationship to Patient Clinical Status Yes sulfa drug Drug Allergy 10/26/2008 Yes Sulfa (Sulfonamide Antibiotics) [id number] Drug Allergy Unknown N/A 04/06/2009 Yes Codeine Drug Allergy N/A N/A 02/04/2013 Yes codeine [id number] Drug Allergy Unknown N/A 02/21/2017 Medications Problems [...] BENIGN 03/16/2008 401.1 ESSENTIAL HYPERTENSION BENIGN 03/16/2008 OMNIE EVERETT DO 401.1 ESSENTIAL HYPERTENSION BENIGN 03/16/2008 [...] DO, MONIE K 300.00 anxiety 07/26/2009 FIDE CONTROL AREA OPERATOR, DIMA T 300.00 anxiety 07/26/2009 300.00 anxiety 07/26/2009 300.00 anxiety 07/26/2009 300.00 anxiety 07/26/2009 300.00 anxiety 07/26/2009 300.00 anxiety 07/26/2009 300.00 anxiety 07/26/2009 300.00 anxiety 07/26/2009 EVERETT DO, MONIE K 300.00 anxiety 07/26/2009 EVERETT DO, MONIE K 300.00 anxiety 07/26/2009 300.00 anxiety 07/26/2009 FIDE MEDRANONDIMA T 300.00 anxiety 07/26/2009 FIDE CONTROL AREA OPERATORDIMA T 300.00 anxiety 07/26/2009 DIMA ELIZALDE APRN [...] RESPIRATORY INFECTION 06/27/2012 786.2 COUGH 06/27/2012 FIDE CONTROL AREA OPERATOR, DIMA T 465.9 UPPER RESPIRATORY INFECTION 06/27/2012 FIDE CONTROL AREA OPERATOR, DIMA T 786.2 COUGH 06/27/2012 FIDE CONTROL AREA OPERATOR, DIMA T 465.9 UPPER RESPIRATORY INFECTION 06/27/2012 FIDE CONTROL AREA OPERATOR, DIMA T 786.2 COUGH 06/27/2012 FIDE CONTROL AREA OPERATOR, DIMA T 465.9 UPPER RESPIRATORY INFECTION 06/27/2012 FIDE CONTROL AREA OPERATOR, DIMA T 786.2 COUGH 06/27/2012 FIDE CONTROL AREA OPERATOR, DIMA T 465.9 UPPER RESPIRATORY INFECTION 06/27/2012 FIDE CONTROL AREA OPERATOR, DIMA T 786.2 COUGH 06/27/2012 FIDE CONTROL AREA OPERATOR, DIMA T 465.9 UPPER RESPIRATORY INFECTION 06/27/2012 FIDE CONTROL AREA OPERATOR, DIMA T 786.2 COUGH 06/27/2012 FIDE CONTROL AREA OPERATOR, DIMA T 465.9 UPPER RESPIRATORY INFECTION 06/27/2012 FIDE CONTROL AREA OPERATOR, DIMA T 786.2 COUGH 01/13/2013 427.9 SINUS [...] ELIZALDE APRN T V04.81 FLU SHOT 05/29/2013 DIAM ELIZALDE APRN T V04.81 FLU SHOT 05/29/2013 [...] FACC, ALI FACP CCDS Ot 433.10 04/15/2015 GELN CARREON FACC, ALI FACP CCDS Ot 794.31 04/27/2015 GLEN CARREON FACC, ALI FACP CCDS Ot 278.00 04/27/2015 GLEN CARREON FACC, ALI FACP CCDS Ot 401.9 04/27/2015 GLEN CARREON FACC, ALI FACP CCDS Ot 433.10 04/27/2015 GLEN LEAHYC, ALI FACP CCDS Ot 794.31 12/20/2015 Ot 433.30 12/20/2015 Ot 211.3 12/20/2015 Ot V76.51 12/20/2015 GLEN CARREON FACC, ALI FACP CCDS Ot 278.00 12/20/2015 GLEN CARREON FACC, ALI FACP CCDS Ot 401.9 12/20/2015 GLEN CARREON [facility] Ot 433.10 12/20/2015 GLEN CARREON [facility] CCDS Ot 794.31 12/26/2016 CRISTOBAL PARADA MD Ot I10 ESSENTIAL (PRIMARY) HYPERTENSION 12/26/2016 CRISTOBAL PARADA MD Ot N40.0 BENIGN PROSTATIC HYPERPLASIA WITHOUT LOW 12/26/2016 CRISTOBAL PARADA MD Ot R35.0 FREQUENCY OF MICTURITION 12/26/2016 CRISTOBAL PARADA MD Ot Z79.82 OTM CONSULTANT (CURRENT) USE OF ASPIRIN 12/26/2016 CRISTOBAL PARADA MD Ot Z79.899 OTHER [facility] (CURRENT) DRUG THERAPY 12/26/2016 CRISTOBAL PARADA MD Ot I10 ESSENTIAL (PRIMARY) HYPERTENSION 12/26/2016 CRISTOBAL PARADA MD Ot N40.0 BENIGN PROSTATIC HYPERPLASIA WITHOUT LOW 12/26/2016 CRISTOBAL PARADA MD Ot R35.0 FREQUENCY OF MICTURITION 12/26/2016 CRISTOBAL PARADA MD Ot Z79.82 OTM CONSULTANT (CURRENT) USE OF ASPIRIN 12/26/2016 CRISTOBAL PARADA MD Ot Z79.899 OTHER OTM CONSULTANT (CURRENT) DRUG THERAPY 02/19/2017 SHIMON CARMONA MD Ot R31.9 HEMATURIA, UNSPECIFIED 02/27/2017 SHIMON CARMONA MD Ot N40.1 BENIGN PROSTATIC HYPERPLASIA WITH LOWER 02/27/2017 SHIMON CARMONA MD Ot R33.8 OTHER RETENTION OF URINE 02/27/2017 SHIMON CARMONA MD Ot Z01.812 ENCOUNTER FOR PREPROCEDURAL LABORATORY E 02/27/2017 SHIMON CARMONA MD Ot Z11.2 ENCOUNTER FOR SCREENING FOR OTHER BACTER Procedures Code Description [place] [address] EKG, TRACING (IN-HOUSE) 01/13/2013 10966 ROUTINE VENIPUNCTURE 02/10/2013 93077 CMP 02/10/2013 59651 LIPID PANEL 02/10 7530725 GFR CALC (RESULT ONLY) 02/10/2013 67081 CBC 02/10/2013 G0008 FLU ADMINISTRATION (MEDICARE ONLY) 05/29/2013 56968 ROUTINE VENIPUNCTURE 04/02/2014 85877 CBC 04/02/2014 8872393 GFR CALC (RESULT ONLY) 04/02/2014 88328 CMP 04/02/2014 32059 LIPID PANEL 04/02 48387 ROUTINE VENIPUNCTURE 09/09/2014 06811 CBC 09/09/2014 2151103 GFR CALC (RESULT ONLY) 09/09/2014 68688 CMP 09/09/2014 63961 LIPID PANEL 09/09 General S Jus Quach 72028 ROUTINE VENIPUNCTURE 12/10/2014 55488 CBC 12/10/2014 19958 CMP 12/10/2014 33584 LIPID PANEL 12/10 [id number] GFR CALC (RESULT ONLY) 12/10/2014 Results Test [...] culture - 12/26/16 07:38 Bacterial urine culture [id number] NRG COLONY COUNT 10,000/ML - 100,000/ML NRG [...] ABO+Rh group OP NRG Transfusion band number [id number] NRG Blood group antibody screen NEGATIVE [facility] Comprehensive metabolic panel - 02/27/17 11:23 [...] Status Pt. Type Provider Facility Loc./Unit Complaint [id number] 12/10/2014 07:57:00 12/10/2014 23: 59:59 CLS Outpatient DIMA ELIZALDE APRN [id number] 10/09/2014 11:34:00 10/09/2014 23: 59:59 CLS Outpatient DIMA ELIZALDE APRN [id number] 09/09/2014 08:03:00 09/09/2014 23: 59:59 CLS Outpatient DIMA ELIZALDE APRN [id number] 04/29/2014 15:29:00 04/29/2014 23: 59:59 CLS Outpatient DIMA ELIZALDE APRN [id number] 04/02/2014 07:56:00 04/02/2014 23: 59:59 CLS Outpatient DIMA ELIZALDE APRN [id number] 01/05/2014 15:34:00 01/05/2014 23: 59:59 CLS Outpatient DIMA ELIZALDE APRN [id number] 07/04/2013 12:36:00 07/04/2013 23: 59:59 CLS Outpatient KARLOS LEIGH MONIE K [id number] 05/29/2013 16:22:00 05/29/2013 23: 59:59 CLS Outpatient MONIE EVERETT DO [id number] 09/27/2012 10:58:00 09/27/2012 23: 59:59 CLS Outpatient DIMA ELIZALDE APRN [id number] 06/27/2012 10:45:00 06/27/2012 23:59 :59 CLS Outpatient [id number] 06/27/2012 10:45:00 06/27/2012 23: 59:59 CLS Outpatient KARLOS LEIGH MONIE Idner [id number] 05/26/2013 08:51:00 Document Registration [id number] 05/19/2013 12:12:00 Document Registration [id number] 04/25/2013 13:55:00 Document Registration [id number] 04/22/2013 00:00:00 Document Registration [id number] 02/10/2013 07:48:00 Document Registration [id number] 02/04/2013 14:38:00 Document Registration [id number] 01/13/2013 15:32:00 Document Registration
[2017-03-02] VITALS (11 sets, daily range): BP systolic 130–195; BP diastolic 75–106
[2017-03-02 04:43] LABS: BASOPHILS % (AUTO) 0 % (0-10); EOSINOPHILS # (AUTO) 0.1 10^3/uL (0.0-0.3); EOSINOPHILS % (AUTO) 1 % (0-10); LYMPHOCYTES # (AUTO) 2.9 X 10^3 (1.0-4.0); LYMPHOCYTES % (AUTO) 18 % (12-44); MEAN CORPUSCULAR HEMOGLOBIN 31 PG (25-34); MEAN CORPUSCULAR HGB CONC 33 G/DL (32-36); MEAN CORPUSCULAR VOLUME 94 FL (80-99); MEAN PLATELET VOLUME 11.2 FL (7.4-10.4); MONOCYTES # (AUTO) 1.4 X 10^3 (0.0-1.0); MONOCYTES % (AUTO) 9 % (0-12); NEUTROPHILS # (AUTO) 11.5 X 10^3 (1.8-7.8); NEUTROPHILS % (AUTO) 72 % (42-75); PLATELET COUNT 173 10^3/uL (130-400); RED CELL DISTRIBUTION WIDTH 13.7 % (10.0-14.5); WHITE BLOOD COUNT 15.9 10^3/uL (4.3-11.0)
[2017-03-02 04:58] LABS: ANION GAP 10 MMOL/L (5-14); BLOOD UREA NITROGEN 19 MG/DL (7-18); BUN/CREATININE RATIO 23 (0-20); CALCIUM 7.9 MG/DL (8.5-10.1); CARBON DIOXIDE 24 MMOL/L (21-32); CHLORIDE 105 MMOL/L (98-107); CREATININE SERUM 0.82 MG/DL (0.60-1.30); GFR ESTIMATED > 60; GLUCOSE 97 MG/DL (70-105); HEMOLYSIS 5 (-100-29); ICTERUS 0.9 (-100-1.9); LIPEMIA 1 (-100-49); MAGNESIUM 1.7 MG/DL (1.8-2.4); PHOSPHORUS 1.3 MG/DL (2.3-4.7); POTASSIUM 4.4 MMOL/L (3.6-5.0); SODIUM 139 MMOL/L (135-145)
[2017-03-02] MEDS: fentaNYL PCA 300 MCG/30 ML VIAL IV PRN (05:06)
[2017-03-02] MEDS: BELLADONNA ALK/OPIUM (B & O) 30 MG SUPP PR PRN (05:07)
[2017-03-02] MEDS: MAGNESIUM 1 GM/100 ML IVPB 100 ML IV SCH ×2 (06:42→09:44)
[2017-03-02] MEDS: RT-ALBUTEROL SULF 2.5 MG/3 ML PRE-MIX VIAL IH SCH ×3 (07:04→18:44)
[2017-03-02] MEDS ORDERED: SODIUM PHOSPHATE INJ 30 MM in NS (IVPB) 250 ML IV NR (07:45)
--- NOTE | 2017-03-02 07:47 | Pulmonary Progress Note ---
Subjective Time Seen by Provider: 07:47 Subjective/Events-last exam yesterday pt became very confused pulling at tubes. Exam Exam Vital Signs Date Time Temp Pulse Resp B/P (MAP) Pulse Ox O2 Delivery O2 Flow Rate FiO2 03/02/17 07:04 96 Nasal Cannula 1.00 03/02/17 06:00 64 14 170/88 94 Nasal Cannula 1.00 03/02/17 05:06 19 03/02/17 05:00 93 14 164/83 94 Nasal Cannula 1.00 03/02/17 04:00 Nasal Cannula 1.00 03/02/17 04:00 70 15 195/106 95 Nasal Cannula 1.00 03/02/17 03:00 67 15 156/92 95 Nasal Cannula 1.00 03/02/17 02:00 66 19 161/98 96 Nasal Cannula 1.00 03/02/17 01:00 62 03/02/17 01:00 63 16 149/84 93 Nasal Cannula 1.00 03/02/17 00:00 64 16 148/80 94 Nasal Cannula 1.00 03/02/17 00:00 Nasal Cannula 1.00 03/01/17 23:00 65 17 146/80 96 Nasal Cannula 1.00 03/01/17 22:00 74 18 150/90 96 Nasal Cannula 1.00 03/01/17 21:00 85 18 167/91 96 Nasal Cannula 1.00 03/01/17 21:00 18 03/01/17 20:00 87 18 170/103 95 Nasal Cannula 1.00 03/01/17 20:00 Nasal Cannula 1.00 03/01/17 19:25 97 Nasal Cannula 2.00 03/01/17 19:00 72 03/01/17 19:00 69 18 160/79 98 Nasal Cannula 1.00 03/01/17 18:00 68 148/83 95 Nasal Cannula 1.00 03/01/17 17:00 73 164/95 97 Nasal Cannula 1.00 03/01/17 16:00 Nasal Cannula 1.00 03/01/17 16:00 98.5 Nasal Cannula 1.00 03/01/17 16:00 77 167/91 98 Nasal Cannula 1.00 03/01/17 15:00 86 141/100 95 Nasal Cannula 1.00 03/01/17 14:30 97 Nasal Cannula 1.00 03/01/17 14:00 75 17 96 Nasal Cannula 1.00 03/01/17 13:00 70 03/01/17 13:00 64 12 138/74 93 Nasal Cannula 1.00 03/01/17 12:00 97.8 Nasal Cannula 1.00 03/01/17 12:00 Nasal Cannula 1.00 03/01/17 11:00 77 15 140/77 95 Nasal Cannula 1.00 03/01/17 10:00 83 11 133/85 93 Nasal Cannula 1.00 03/01/17 09:00 80 18 143/88 93 Nasal Cannula 1.00 03/01/17 08:00 Nasal Cannula 1.00 03/01/17 08:00 97.0 Nasal Cannula 1.00 03/01/17 08:00 81 148/101 98 Nasal Cannula 1.00 I & O 03/02/17 07:00 Intake Total 1100 ml Output Total 2410 ml Balance -1310 ml General Appearance: No Apparent Distress, WD/WN, No Anxious HEENT: Normal ENT Inspection, Pharynx Normal Neck: Full Range of Motion, Normal Inspection, Supple Respiratory: Chest Non Tender, No Accessory Muscle Use, No Respiratory Distress , Decreased Breath Sounds Gastrointestinal: normal bowel sounds, soft, no organomegaly, tenderness ( around surgical wounds), No mass Extremity: Normal Capillary Refill, Non Tender, No Calf Tenderness Neurologic/Psychiatric: Alert, Oriented x3 Skin: Normal Color, Warm/Dry Results Lab Laboratory Tests 03/01/17 04:02 03/02/17 03:48 Assessment/Plan Assessment/Plan BPH with prostatism and urinary retention s/p attempted turp, bladder perforation s/p ex lap with bladder repair and suprapubic tube placement -Rocephin -check UA -Pain control - 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
[2017-03-02] MEDS: meTOprolol TARTRATE 50 MG (LOPRESSOR) TAB PO SCH ×2 (09:34→21:45)
[2017-03-02] MEDS: risperiDONE 0.25 MG (RisperDAL) TAB PO SCH ×2 (09:34→21:45)
[2017-03-02] MEDS: cefTRIAXone INJECTION 1,000 MG in NS (IVPB) 50 ML IV SCH (09:34)
[2017-03-02] MEDS: QUINAPRIL 20 MG (ACCUPRIL) TAB PO SCH (09:34)
[2017-03-02] MEDS: FAMOTIDINE 20MG/2ML IV (PEPCID) IVP SCH (09:34)
--- NOTE | 2017-03-02 09:54 | Progress Note-Urology ---
Progress Note-Urology Progress Notes/Assess & Plan Progress/Assessment & Plan continues to improve, physically and emotionally, no confusion today, tolerates diet well, passing good flattus, no BM yet. labs good. transfer to floor Final Diagnosis BPH WITH BLADDER PERFORATION AND REPAIR SHIMON CARMONA MD Mar 02, 2017 09:54
--- NOTE | 2017-03-02 09:57 | Consultation ---
Consultation Consultation/Plan CC: Medical management following perforated bladder Patient is 72 yo M that underwent a TURP procedure for BPH by Dr. Maria on . Bladder was perforated and patient is now recovering in ICU. Today patient was easily distractible. Patient claims to not have pain except when standing up. Patient has not had a bowel movement, but has had flatulence. Patient has eaten soft foods this morning, but vomited "a small amount" immediately after. Patient has no complaints otherwise. Plan: Move patient to floor and continue recovery. Date Seen by Provider: Mar 02, 2017 Time Seen by Provider: 09:45 Admission Diagonsis Perforated Bladder Allergies and Home Medications Allergies Coded Allergies: Sulfa (Sulfonamide Antibiotics) (Verified Allergy, Unknown, 04/06/09) codeine (Verified Allergy, Unknown, 02/21/17) Home Medications Aspirin 81 Mg Tabec, 81 MG PO DAILY, (Reported) Cholecalciferol 1,000 Unit Tablet, 1,000 UNIT PO DAILY, (Reported) Escitalopram Oxalate 10 Mg Tablet, 10 MG PO DAILY, (Reported) Finasteride 5 Mg Tablet, 5 MG PO DAILY, (Reported) Hydrochlorothiazide 25 Mg Tablet, 25 MG PO DAILY, (Reported) Lorazepam 2 Mg Tablet, 2 MG PO DAILY, (Reported) Metoprolol Tartrate 50 Mg Tablet, 50 MG PO BID, (Reported) Quinapril Hcl 40 Mg Tablet, 40 MG PO DAILY, (Reported) Clinical Quality Measures DVT/VTE Risk/Contraindication: Risk Factor Score Per Nursin RFS Level Per Nursing on Admit: 4+=Very High KLAUDIA HOGAN MEDICAL STUDENT Mar 02, 2017 09:57 KELLY WEBBER DO Mar 02, 2017 11:42
--- NOTE | 2017-03-02 10:58 | Physical Therapy Daily Note ---
PT Daily Note-Current Subjective Wanting to get up and walk. Wants to sit up in chair post treatment. Transfers Functional [place] Measure 0=Not Assessed/NA 4=Minimal Assistance 1=Total Assistance 5=Supervision or Setup 2=Maximal Assistance 6=Modified [place] 3=Moderate Assistance 7=Complete IndependenceIRFPAI Quality Coding Scale 6 Independent with activity with or without an assistive device 5 Patient requires set up or clean up by helper. Patient completes activity by themselves 4 Supervision or touching assist (CGA). [place] provide cues , steadying assist 3 The helper provides less than half the effort to complete the activity 2 The helper provides more than half the effort to complete the activity 1 Dependent. The helper does all the effort to complete an activity 7 Patient refused to complete or attempt activity 9 The patient did not perform the activity before the current illness or injury 88 Not attempted due to Medical conditions or safety concerns Transfers (B, C, W/C) (FIM): 4 Supine to/from Sit: 4 (pt pulled on therapists hand to pull up to sit EOB) Sit to/from Stand: 4 (CGA for safety) Gait Training Gait (FIM): 4 Distance (FIM): 3=150 ft Gait Level of Assist: 4 (CGA, 1 LOB with self correct) Gait Assistive Device: FWW Slow gait. Treatments Up in chair post treatment with oxygen in situ and needs met. Assessment Mobility is improving. slightly unsteady with gait but able to self correct. PT Coil Machine Operator Goals Coil Machine Operator Goals PT Group Home Goals Time Frame: Mar 07, 2017 Transfers (B,C,W/C) (FIM): 4 Gait (FIM): 1 Distance: 20' Gait Level of Assist: 4 Gait Assistive Device: FWW PT Plan Problem List Problem List: Activity Tolerance, Functional Strength, Safety Treatment/Plan Treatment Plan: Continue Plan of Care Treatment Plan: Bed Mobility, Education, Functional Activity [place], Functional Strength, Gait, Safety, Therapeutic Exercise, Transfers Treatment Duration: Mar 07, 2017 Visits Per Week: 10-11 Minutes/Day (M-F): 15-30 Minutes/Day (Sat/[place]): 15-30 Safety Risks/Education Patient Education: Safety Issues Teaching Recipient: Patient Teaching Methods: Demonstration, Discussion Response to Teaching: Reinforcement Needed Time/GCodes Time In: 945 Time Out: 1000 Total Billed Treatment Time: 15 Total Billed Treatment visit GT 15 LEONOR MACIAS PT Mar 02, 2017 10:58
--- NOTE | 2017-03-02 11:24 | Consultation-Hospitalist ---
HPI History of Present Illness: HPI/Chief Complaint CC: Medical management following perforated bladder Patient is 72 yo M that underwent a TURP procedure for BPH by Dr. Maria on . Bladder was perforated and patient is now recovering in ICU. Today patient was easily distractible. Patient claims to not have pain except when standing up. Patient has not had a bowel movement, but has had flatulence. Patient has eaten soft foods this morning, but vomited "a small amount" immediately after. Patient has no complaints otherwise. Plan: Move patient to floor and continue recovery. Created By Salvador West, Medical Student CC: Delirium with HTN OOC HPI: Patient is a 72-year-old white male that historically close to [facility] but I have been asked by LALIT Mcmahon to evaluate the patient and manage treatment plan when in ICU. At this current time his delirium is much better and overall improved clinical status since undergoing the procedure and the ruptured bladder but then attempted to sleep out of the bed and required reinsertion of catheter so he is been on one-on-one since that time. I reviewed his meds and labs and overall feels stability is present and will transfer down to fourth floor. Source: patient Exam Limitations: no limitations Date Seen 03/02/17 Attending Physician Lalit Maria MD, Linda K DO Referring Physician Date of Admission Feb 28, 2017 at 08:28 Home Medications & Allergies Home Medications Reviewed patient Home Medication Reconciliation Form Allergies Allergies Coded Allergies Sulfa (Sulfonamide Antibiotics) (Verified Allergy, Unknown, 04/06/09) codeine (Verified Allergy, Unknown, 02/21/17) Past Xmtrflh-Gurkmw-Eljaww Hx Patient Social History Marrital Status: Living Status: Lives in home Employed/Student: retired Alcohol Use: Denies Use Recreational Drug Use: No Smoking Status: Former Smoker Recent Foreign Travel: No Contact w/other who traveled: No Recent Hopitalizations: No Recent Infectious Disease Expo: No Immunizations Up To Date Date of Pneumonia Vaccine: Jun 10, 2007 Date of Influenza Vaccine: May 26, 2011 Seasonal Allergies Seasonal Allergies: Yes Surgeries HX Surgeries: Yes (SKIN CANCER REMOVAL, COLONOSCOPY AND POLYPECTOMY) Surgeries: Appendectomy, Gallbladder Respiratory Hx Respiratory Disorders: No Cardiovascular Hx Cardiovascular Disorders: Yes Cardiac Disorders: Hypertension Neurological Hx Neurological Disorders: Yes Neurological Disorders: Dementia Reproductive System Hx Reproductive Disorders: No Sexually Transmitted Disease: No Genitourinary Hx Genitourinary Disorders: Yes Genitourinary Disorders: Prostate Problems Gastrointestinal Hx Gastrointestinal Disorders: Yes (COLITIS, HX OF GALL BLADDER REMOVAL AND APPY) Gastrointestinal Disorders: Colitis, Polyps Musculoskeletal Hx Musculoskeletal Disorders: Yes (TENDONITIS) Musculoskeletal Disorders: Arthritis Endocrine Hx Endocrine Disorders: No HEENT HX ENT Disorders: No (glasses, cataracts removed, ) Cancer Hx Cancer: Yes Cancer: Skin Psychosocial Hx Psychiatric Problems: No Integumentary HX Skin/Integumentary Disorder: No Blood Transfusions Hx Blood Disorders: No Family Medical History Family Hx: Myocardial infarction 18 FATHER Review of Systems Date Seen by Provider: Mar 02, 2017 Time Seen by Provider: 10:00 Constitutional: see HPI, weakness EENTM: no symptoms reported Respiratory: no symptoms reported Cardiovascular: no symptoms reported Gastrointestinal: abdominal pain (LLQ) Genitourinary: decreased output, dysuria, frequency, hematuria, incontinence Musculoskeletal: back pain Skin: no symptoms reported Psychiatric/Neurological: Anxiety, Other (confused) Physical Exam Physical Exam Vital Signs Vital Sign - Last 12Hours 02/27/17 02/27/17 07:45 13:50 Temp 99.3 Pulse 52 Resp 16 B/P (MAP) 149/89 Pulse Ox 96 O2 Delivery Room Air O2 Flow Rate 1.00 Capillary Refill : General Appearance: No Apparent Distress, WD/WN, Chronically ill Eyes: Bilateral Eye Normal Inspection, Bilateral Eye PERRL HEENT: PERRL/EOMI, Normal ENT Inspection, Pharynx Normal Neck: Full Range of Motion, Normal Inspection, Non Tender, Supple, Carotid Bruit Respiratory: Chest Non Tender, Lungs Clear, Normal Breath Sounds, No Accessory Muscle Use, No Respiratory Distress Cardiovascular: Regular Rate, Rhythm, No Edema, No Gallop, No JVD, No Murmur, Normal Peripheral Pulses Gastrointestinal: Normal Bowel Sounds, No Organomegaly, No Pulsatile Mass, Non Tender, Soft Genital/Rectal: Other (barragan cath in place with hematuria) Back: Normal Inspection, No CVA Tenderness, No Vertebral Tenderness Extremity: Normal Capillary Refill, Normal Inspection, Normal Range of Motion, Non Tender, No Calf Tenderness, No Pedal Edema Neurologic/Psychiatric: Alert, No Motor/Sensory Deficits, Normal Mood/Affect, Other (O x 3 but poor recall, improved) Skin: Normal Color, Warm/Dry Lymphatic: No Adenopathy Results Results/Procedures Lab Laboratory Tests 03/01/17 04:02 03/02/17 03:48 Assessment/Plan Admission Diagnosis Assessment: Perforated bladder during TURP procedure Acute delirium Likely baseline cognitive decline Hypertension [id number] Leukocytosis Assessment and Plan Plan Out of bed and ambulate with physical therapy Maintaining catheters per urology Gentle pain medication Delirium appears to be clearing SCDs Bowel regimen Add Norvasc 5 mg daily for hypertension [id number] Clinical Quality Measures DVT/VTE Risk/Contraindication: Risk Factor Score Per Nursin RFS Level Per Nursing on Admit: 4+=Very High KELLY WEBBER DO Mar 02, 2017 11:24
[2017-03-02] MEDS: amLODIPine 5 MG (NORVASC) TAB PO SCH (12:09)
[2017-03-02] MEDS: HYDROcodone/APAP 5 MG/325 MG (LORTAB) TAB PO PRN (17:16)
[2017-03-02] MEDS: 1/2 NS W/KCL 20 MEQ/L 1,000 ML IV SCH (19:20)
[2017-03-03] VITALS: BP 143/80
[2017-03-03 05:26] LABS: BASOPHILS # (AUTO) 0.1 10^3/uL (0.0-0.1); BASOPHILS % (AUTO) 0 % (0-10); EOSINOPHILS # (AUTO) 0.2 10^3/uL (0.0-0.3); EOSINOPHILS % (AUTO) 2 % (0-10); LYMPHOCYTES # (AUTO) 2.2 X 10^3 (1.0-4.0); LYMPHOCYTES % (AUTO) 20 % (12-44); MEAN CORPUSCULAR HEMOGLOBIN 31 PG (25-34); MEAN CORPUSCULAR HGB CONC 33 G/DL (32-36); MEAN CORPUSCULAR VOLUME 93 FL (80-99); MEAN PLATELET VOLUME 10.2 FL (7.4-10.4); MONOCYTES # (AUTO) 0.8 X 10^3 (0.0-1.0); MONOCYTES % (AUTO) 7 % (0-12); NEUTROPHILS # (AUTO) 7.9 X 10^3 (1.8-7.8); NEUTROPHILS % (AUTO) 71 % (42-75); PLATELET COUNT 203 10^3/uL (130-400); RED BLOOD COUNT 4.06 10^6/uL (4.35-5.85); RED CELL DISTRIBUTION WIDTH 13.7 % (10.0-14.5); WHITE BLOOD COUNT 11.2 10^3/uL (4.3-11.0)
[2017-03-03 05:34] VITALS: BP 138/76
[2017-03-03 05:54] LABS: ANION GAP 9 MMOL/L (5-14); BLOOD UREA NITROGEN 18 MG/DL (7-18); BUN/CREATININE RATIO 21 (0-20); CARBON DIOXIDE 26 MMOL/L (21-32); CHLORIDE 104 MMOL/L (98-107); CREATININE SERUM 0.84 MG/DL (0.60-1.30); GFR ESTIMATED > 60; GLUCOSE 107 MG/DL (70-105); HEMOLYSIS 5 (-100-29); ICTERUS 0.8 (-100-1.9); LIPEMIA 1 (-100-49); POTASSIUM 4.3 MMOL/L (3.6-5.0); SODIUM 139 MMOL/L (135-145)
[2017-03-03] MEDS: RT-ALBUTEROL SULF 2.5 MG/3 ML PRE-MIX VIAL IH SCH ×3 (06:47→20:35)
[2017-03-03] MEDS ORDERED: SODIUM PHOSPHATE INJ 30 MM in NS (IVPB) 250 ML IV ONE (07:45)
[2017-03-03] MEDS: ONDANSETRON 4 MG/2 ML (SDV) Z0FRAN IVP PRN (09:01)
--- NOTE | 2017-03-03 10:11 | Progress Note-Urology ---
Progress Note-Urology Progress Notes/Assess & Plan Progress/Assessment & Plan CONTINUES WELL. LABS GOOD. OP GOOD. URINE CLEARING. NO BM YET BUT PASSING GAS WELL Final Diagnosis BPH WITH BLADDER PERFORATION AND REPAIR SHIMON CARMONA MD Mar 03, 2017 10:11
[2017-03-03] MEDS ORDERED: MILK OF MAGNESIA 400 MG/5 ML 30 ML UDC PO NR (10:15)
[2017-03-03] MEDS: FAMOTIDINE 20MG/2ML IV (PEPCID) IVP SCH (10:27)
[2017-03-03] MEDS: cefTRIAXone INJECTION 1,000 MG in NS (IVPB) 50 ML IV SCH (10:27)
[2017-03-03] MEDS: amLODIPine 5 MG (NORVASC) TAB PO SCH (10:27)
[2017-03-03] MEDS: meTOprolol TARTRATE 50 MG (LOPRESSOR) TAB PO SCH ×2 (10:27→21:48)
[2017-03-03] MEDS: QUINAPRIL 20 MG (ACCUPRIL) TAB PO SCH (10:28)
[2017-03-03] MEDS: BELLADONNA ALK/OPIUM (B & O) 30 MG SUPP PR PRN (10:28)
[2017-03-03] MEDS: risperiDONE 0.25 MG (RisperDAL) TAB PO SCH ×2 (10:28→21:48)
--- NOTE | 2017-03-03 11:41 | Physical Therapy Daily Note ---
PT Daily Note-Current Subjective Pt reports "I am ready to walk. I need to walk." Pt denies pain post therapy. "I was hurting but now I don't hurt at all!" Mental Status Patient Orientation: Person, Place, Situation Attachments: Oxygen, Drains, Koch Catheter, IV O2 at 1L/min throughout treatment. O2 insitu post therapy. Transfers Functional [place] Measure 0=Not Assessed/NA 4=Minimal Assistance 1=Total Assistance 5=Supervision or Setup 2=Maximal Assistance 6=Modified [place] 3=Moderate Assistance 7=Complete IndependenceIRFPAI Quality Coding Scale 6 Independent with activity with or without an assistive device 5 Patient requires set up or clean up by helper. Patient completes activity by themselves 4 Supervision or touching assist (CGA). [place] provide cues , steadying assist 3 The helper provides less than half the effort to complete the activity 2 The helper provides more than half the effort to complete the activity 1 Dependent. The helper does all the effort to complete an activity 7 Patient refused to complete or attempt activity 9 The patient did not perform the activity before the current illness or injury 88 Not attempted due to Medical conditions or safety concerns Pt required mod A for supine ->sit EOB and CGA for sit -> stand transfers. Gait Training Gait Assistive Device: FWW Pt amb with steady speed and CGA, f/u of IV and O2 x 500ft. 2nd person present for f/u of IV and O2 Assessment Current Status: Good Progress Pt amb at slow steady speed, no LOB and no unsteadiness noted. Pt back to bedside chair with call light and all needs met. Nurse aid present. PT Care Home Goals [employer] Goals PT Care Home Goals Time Frame: Mar 07, 2017 Transfers (B,C,W/C) (FIM): 4 Gait (FIM): 1 Distance: 20' Gait Level of Assist: 4 Gait Assistive Device: FWW PT Plan Treatment/Plan Treatment Plan: Continue Plan of Care Treatment Plan: Bed Mobility, Education, Functional Activity [place], Functional Strength, Gait, Safety, Therapeutic Exercise, Transfers Treatment Duration: Mar 07, 2017 Visits Per Week: 10-11 Minutes/Day (M-F): 15-30 Minutes/Day (Sat/[place]): 15-30 Time/GCodes Time In: 1105 Time Out: 1130 Total Billed Treatment Time: 25 Total Billed Treatment 1, gait 25min JAYANT LYON CPTA Mar 03, 2017 11:41
[2017-03-03 12:00] VITALS: BP 130/75
--- NOTE | 2017-03-03 12:38 | Progress Note-Hospitalist ---
Progress Note HPI/CC on Admission CC: Medical management following perforated bladder Patient is 72 yo M that underwent a TURP procedure for BPH by Dr. Maria on . Bladder was perforated and patient is now recovering in ICU. Today patient was easily distractible. Patient claims to not have pain except when standing up. Patient has not had a bowel movement, but has had flatulence. Patient has eaten soft foods this morning, but vomited "a small amount" immediately after. Patient has no complaints otherwise. Plan: Move patient to floor and continue recovery. Created By Salvador West, Medical Student CC: Delirium with HTN OOC HPI: Patient is a 72-year-old white male that [facility] but I have been asked by SHIMON Mcmahon to evaluate the patient and manage treatment plan when in ICU. At this current time his delirium is much better and overall improved clinical status since undergoing the procedure and the ruptured bladder but then attempted to sleep out of the bed and required reinsertion of catheter so he is been on one-on-one since that time. I reviewed his meds and labs and overall feels stability is present and will transfer down to fourth floor. Progress Notes/Assess & Plan Date Seen 03/03/17 Time Seen by Provider: 12:00 Admission Dx/Process Assessment: Perforated bladder during TURP procedure Acute delirium Likely baseline cognitive decline Hypertension whj-uv-jloxslh Leukocytosis Diagonsis/Assessment & Plan It appears that delirium is cleared Labs are normal Hypertension much under control Catheters remain with hematuria Overall patient doing well and up in a chair today and ambulating with assist No fever, vital signs stable, blood pressure much improved Regular rate and rhythm, clear to auscultation bilaterally No edema Laboratory Tests 03/03/17 05:05 Assessment: Perforated bladder during TURP procedure Acute delirium resolved Likely baseline cognitive decline Hypertension xlo-si-pwvdosa Leukocytosis improved Plan Out of bed and ambulate with physical therapy Maintaining catheters per urology Gentle pain medication Delirium appears to be clearing SCDs Bowel regimen Maintain Norvasc 5 mg daily for hypertension [id number] KELLY WEBBER DO Mar 03, 2017 12:38
[2017-03-03] MEDS: 1/2 NS W/KCL 20 MEQ/L 1,000 ML IV SCH (16:06)
[2017-03-03 16:33] VITALS: BP 132/79
[2017-03-03 20:55] VITALS: BP 168/67
[2017-03-03] MEDS: HYDROcodone/APAP 5 MG/325 MG (LORTAB) TAB PO PRN (21:57)
[2017-03-04] VITALS (7 sets, daily range): BP systolic 124–154; BP diastolic 21–90
[2017-03-04 06:27] LABS: BASOPHILS # (AUTO) 0.1 10^3/uL (0.0-0.1); BASOPHILS % (AUTO) 1 % (0-10); EOSINOPHILS # (AUTO) 0.3 10^3/uL (0.0-0.3); EOSINOPHILS % (AUTO) 3 % (0-10); LYMPHOCYTES # (AUTO) 2.7 X 10^3 (1.0-4.0); LYMPHOCYTES % (AUTO) 29 % (12-44); MEAN CORPUSCULAR HEMOGLOBIN 31 PG (25-34); MEAN CORPUSCULAR HGB CONC 33 G/DL (32-36); MEAN CORPUSCULAR VOLUME 93 FL (80-99); MEAN PLATELET VOLUME 10.1 FL (7.4-10.4); MONOCYTES # (AUTO) 0.8 X 10^3 (0.0-1.0); MONOCYTES % (AUTO) 9 % (0-12); NEUTROPHILS # (AUTO) 5.6 X 10^3 (1.8-7.8); NEUTROPHILS % (AUTO) 58 % (42-75); PLATELET COUNT 222 10^3/uL (130-400); RED BLOOD COUNT 4.12 10^6/uL (4.35-5.85); RED CELL DISTRIBUTION WIDTH 13.7 % (10.0-14.5); WHITE BLOOD COUNT 9.5 10^3/uL (4.3-11.0)
[2017-03-04 06:53] LABS: ANION GAP 8 MMOL/L (5-14); BLOOD UREA NITROGEN 13 MG/DL (7-18); BUN/CREATININE RATIO 16 (0-20); CALCIUM 8.3 MG/DL (8.5-10.1); CARBON DIOXIDE 27 MMOL/L (21-32); CHLORIDE 105 MMOL/L (98-107); CREATININE SERUM 0.81 MG/DL (0.60-1.30); GFR ESTIMATED > 60; GLUCOSE 94 MG/DL (70-105); HEMOLYSIS 11 (-100-29); ICTERUS 0.7 (-100-1.9); LIPEMIA -2 (-100-49); POTASSIUM 4.3 MMOL/L (3.6-5.0); SODIUM 140 MMOL/L (135-145)
[2017-03-04] MEDS: RT-ALBUTEROL SULF 2.5 MG/3 ML PRE-MIX VIAL IH SCH ×3 (07:53→21:42)
[2017-03-04] MEDS: risperiDONE 0.25 MG (RisperDAL) TAB PO SCH ×2 (09:45→23:17)
[2017-03-04] MEDS: meTOprolol TARTRATE 50 MG (LOPRESSOR) TAB PO SCH ×2 (09:45→23:18)
[2017-03-04] MEDS: amLODIPine 5 MG (NORVASC) TAB PO SCH (09:45)
[2017-03-04] MEDS: HYDROcodone/APAP 5 MG/325 MG (LORTAB) TAB PO PRN ×2 (09:46→23:17)
[2017-03-04] MEDS: cefTRIAXone INJECTION 1,000 MG in NS (IVPB) 50 ML IV SCH (09:46)
[2017-03-04] MEDS: QUINAPRIL 20 MG (ACCUPRIL) TAB PO SCH (09:46)
[2017-03-04] MEDS: FAMOTIDINE 20MG/2ML IV (PEPCID) IVP SCH (09:46)
[2017-03-04] MEDS ORDERED: BISACODYL 10 MG SUPP (DULCOLAX) PR NR (12:15)
[2017-03-04] MEDS ORDERED: FLEET ENEMA ADULT 1 EA BTL PR NR (12:15)
--- NOTE | 2017-03-04 12:43 | Progress Note-Hospitalist ---
Progress Note HPI/CC on Admission CC: Medical management following perforated bladder Patient is 72 yo M that underwent a TURP procedure for BPH by Dr. Maria on . Bladder was perforated and patient is now recovering in ICU. Today patient was easily distractible. Patient claims to not have pain except when standing up. Patient has not had a bowel movement, but has had flatulence. Patient has eaten soft foods this morning, but vomited "a small amount" immediately after. Patient has no complaints otherwise. Plan: Move patient to floor and continue recovery. Created By Salvador West, Medical Student CC: Delirium with HTN OOC HPI: Patient is a 72-year-old white male that historically close to [facility] but I have been asked by SHIMON Mcmahon to evaluate the patient and manage treatment plan when in ICU. At this current time his delirium is much better and overall improved clinical status since undergoing the procedure and the ruptured bladder but then attempted to sleep out of the bed and required reinsertion of catheter so he is been on one-on-one since that time. I reviewed his meds and labs and overall feels stability is present and will transfer down to fourth floor. Progress Notes/Assess & Plan Date Seen 03/04/17 Time Seen by Provider: 11:00 Admission Dx/Process Assessment: Perforated bladder during TURP procedure Acute delirium Likely baseline cognitive decline Hypertension ksw-hl-uvmounb Leukocytosis Diagonsis/Assessment & Plan It appears that delirium is cleared likely undercurrent of cognitive decline since he does have some sort of own process in the evening He states he had bowel movements yesterday but the nurse who took care of him all day yesterday denies that only mucus from the suppository given by urology Labs are normal Hypertension much under control Catheters remain with hematuria No fever, vital signs stable, blood pressure much improved Regular rate and rhythm, clear to auscultation bilaterally No edema Laboratory Tests 03/04/17 06:18 Assessment: Perforated bladder during TURP procedure Acute delirium resolved Likely baseline cognitive decline Hypertension dma-tu-avywezl Leukocytosis improved Constipation Plan Out of bed and ambulate with physical therapy Maintaining catheters per urology Gentle pain medication Delirium appears to be clearing but undercurrent of dementia suspected SCDs Bowel regimen to increase in intensity until this is resolved Maintain Norvasc 5 mg daily for hypertension [id number] KELLY WEBBER DO Mar 04, 2017 12:43
[2017-03-04] MEDS: 1/2 NS W/KCL 20 MEQ/L 1,000 ML IV SCH (12:56)
[2017-03-04] MEDS: LACTULOSE SYRUP 10GM/15ML (ENULOSE) 30ML UDC PO SCH ×2 (13:42→23:19)
--- NOTE | 2017-03-04 14:12 | Progress Note-Urology ---
Progress Note-Urology Progress Notes/Assess & Plan Progress/Assessment & Plan CONTINUES IMPROVING. BEHAVING. URINE CLEARING. CBC GOOD.TOLERATES DIET WELL. NO BM YET. PLAN PER ORDERS Final Diagnosis BPH, BLADDER PERFORATION WITH REPAIR SHIMON CARMONA MD Mar 04, 2017 2:12 pm
[2017-03-04] MEDS: NEO/POLY/BAC (NEOSPORIN) OINT 15 GM TUBE TOP SCH (23:19)
[2017-03-05] VITALS: BP 159/90
[2017-03-05] MEDS: HYDROcodone/APAP 5 MG/325 MG (LORTAB) TAB PO PRN ×2 (03:33→09:02)
--- NOTE | 2017-03-05 07:05 | Progress Note-Urology ---
Progress Note-Urology Progress Notes/Assess & Plan Progress/Assessment & Plan DOING WELL, HAD BM, DRAINAGE FROM HEMOVAC COMPATIBLE WITH SERUM NOT URINE, PLAN PER ORDERS Final Diagnosis BPH WITH BLADDER PERFORATION AND REPAIR SHIMON CARMONA MD Mar 05, 2017 07:05
[2017-03-05] MEDS: RT-ALBUTEROL SULF 2.5 MG/3 ML PRE-MIX VIAL IH SCH (07:20)
[2017-03-05 07:25] LABS: BASOPHILS # (AUTO) 0.1 10^3/uL (0.0-0.1); BASOPHILS % (AUTO) 1 % (0-10); EOSINOPHILS # (AUTO) 0.4 10^3/uL (0.0-0.3); EOSINOPHILS % (AUTO) 4 % (0-10); LYMPHOCYTES # (AUTO) 2.6 X 10^3 (1.0-4.0); LYMPHOCYTES % (AUTO) 28 % (12-44); MEAN CORPUSCULAR HEMOGLOBIN 31 PG (25-34); MEAN CORPUSCULAR HGB CONC 34 G/DL (32-36); MEAN CORPUSCULAR VOLUME 92 FL (80-99); MEAN PLATELET VOLUME 10.5 FL (7.4-10.4); MONOCYTES # (AUTO) 0.8 X 10^3 (0.0-1.0); MONOCYTES % (AUTO) 8 % (0-12); NEUTROPHILS # (AUTO) 5.5 X 10^3 (1.8-7.8); NEUTROPHILS % (AUTO) 59 % (42-75); PLATELET COUNT 241 10^3/uL (130-400); RED CELL DISTRIBUTION WIDTH 13.7 % (10.0-14.5); WHITE BLOOD COUNT 9.3 10^3/uL (4.3-11.0)
[2017-03-05 07:41] LABS: ALANINE AMINOTRANSFERASE 33 U/L (0-55); ALBUMIN 2.7 GM/DL (3.2-4.5); ANION GAP 7 MMOL/L (5-14); ASPARTATE AMINO TRANSFERASE 46 U/L (5-34); BILIRUBIN,TOTAL 0.8 MG/DL (0.1-1.0); BLOOD UREA NITROGEN 11 MG/DL (7-18); BUN/CREATININE RATIO 13 (0-20); CALCIUM 8.2 MG/DL (8.5-10.1); CARBON DIOXIDE 25 MMOL/L (21-32); CHLORIDE 107 MMOL/L (98-107); CREATININE SERUM 0.83 MG/DL (0.60-1.30); GFR ESTIMATED > 60; GLUCOSE 88 MG/DL (70-105); HEMOLYSIS 11 (-100-29); ICTERUS 0.7 (-100-1.9); LIPEMIA -2 (-100-49); POTASSIUM 4.5 MMOL/L (3.6-5.0); SODIUM 139 MMOL/L (135-145); TOTAL PROTEIN 6.5 GM/DL (6.4-8.2)
--- NOTE | 2017-03-05 07:51 | Pulmonary Progress Note ---
Subjective Time Seen by Provider: 07:50 Subjective/Events-last exam pt feels much improved. He is currently ordering breakfast. Exam Exam Vital Signs Date Time Temp Pulse Resp B/P (MAP) Pulse Ox O2 Delivery O2 Flow Rate FiO2 03/05/17 07:23 Room Air 03/05/17 00:00 98.8 76 20 159/90 98 Room Air 03/04/17 21:42 92 Room Air 03/04/17 21:00 Nasal Cannula 2.00 03/04/17 19:54 99.4 80 22 148/81 98 Room Air 03/04/17 16:00 99.6 72 22 124/21 95 Room Air 03/04/17 14:46 90 Room Air 03/04/17 12:00 98.3 61 24 151/90 94 Nasal Cannula 1.00 03/04/17 08:00 97.4 71 20 151/82 95 Nasal Cannula 1.00 03/04/17 08:00 Nasal Cannula 2.00 03/04/17 07:53 97 Nasal Cannula 1.00 I & O 03/05/17 07:00 Intake Total 560 ml Output Total 2265 ml Balance -1705 ml General Appearance: No Apparent Distress, WD/WN, Chronically ill HEENT: PERRL/EOMI, Normal ENT Inspection, Pharynx Normal Neck: Full Range of Motion, Normal Inspection, Non Tender, Supple, Carotid Bruit Respiratory: Chest Non Tender, Lungs Clear, Normal Breath Sounds, No Accessory Muscle Use, No Respiratory Distress Cardiovascular: Regular Rate, Rhythm, No Edema, No Gallop, No JVD, No Murmur, Normal Peripheral Pulses Gastrointestinal: normal bowel sounds, soft, no organomegaly, tenderness ( around surgical wounds), No mass Extremity: Normal Capillary Refill, Normal Inspection, Normal Range of Motion, Non Tender, No Calf Tenderness, No Pedal Edema Neurologic/Psychiatric: Alert, No Motor/Sensory Deficits, Normal Mood/Affect, Other (O x 3 but poor recall, improved) Skin: Normal Color, Warm/Dry Lymphatic: No Adenopathy Results Lab Laboratory Tests 03/04/17 06:18 03/04/17 14:35 03/05/17 06:40 Assessment/Plan Assessment/Plan BPH with prostatism and urinary retention s/p attempted turp, bladder perforation s/p ex lap with bladder repair and suprapubic tube placement -Rocephin -check UA -Pain control - Atelectasis with possible PNA -increase activity -IS X 10breaths Q1hr WA -Start SVNs -repeat CXR ICU psychosis low dose Risperdal 0.25mg BID severe nausea -continue Zofran add Phenergan Leukocytosis -possibly reactive -continue Rocephin 232 Clinical Quality Measures DVT/VTE Risk/Contraindication: Risk Factor Score Per Nursin RFS Level Per Nursing on Admit: 4+=Very High TOM GIVENS DO Mar 05, 2017 07:51
[2017-03-05 08:00] VITALS: BP 138/82
[2017-03-05] MEDS: LACTULOSE SYRUP 10GM/15ML (ENULOSE) 30ML UDC PO SCH (09:01)
[2017-03-05] MEDS: amLODIPine 5 MG (NORVASC) TAB PO SCH (09:02)
[2017-03-05] MEDS: meTOprolol TARTRATE 50 MG (LOPRESSOR) TAB PO SCH (09:02)
[2017-03-05] MEDS: cefTRIAXone INJECTION 1,000 MG in NS (IVPB) 50 ML IV SCH (09:02)
[2017-03-05] MEDS: FAMOTIDINE 20MG/2ML IV (PEPCID) IVP SCH (09:02)
[2017-03-05] MEDS: QUINAPRIL 20 MG (ACCUPRIL) TAB PO SCH (09:02)
[2017-03-05] MEDS: risperiDONE 0.25 MG (RisperDAL) TAB PO SCH (09:02)
[2017-03-05] MEDS: NEO/POLY/BAC (NEOSPORIN) OINT 15 GM TUBE TOP SCH (09:03)
--- NOTE | 2017-03-05 10:23 | Diagnostic Imaging Report ---
EXAMINATION: PA and lateral views of the chest. INDICATION: Shortness of breath. COMPARISON: 03/01/2017. FINDINGS: The lungs are mildly hyperinflated. There is mild interstitial thickening which appears to be chronic. The heart size is at the upper limits of normal. No effusion or pneumothorax. The mediastinum and eagle appear unremarkable. IMPRESSION: COPD. Borderline cardiac size. Dictated by: Dictated on workstation # [id number]
--- NOTE | 2017-03-05 10:29 | Discharge Summary-Hospitalist ---
Diagnosis/Chief Complaint Date of Admission Feb 28, 2017 at 08:28 Date of Discharge Admission Diagnosis Assessment: Perforated bladder during TURP procedure Acute delirium Likely baseline cognitive decline Hypertension [id number] Leukocytosis Discharge Diagnosis It appears that delirium is cleared likely undercurrent of cognitive decline since he does have some sort of owning process in the evening He states he had bowel movements yesterday but the nurse who took care of him all day yesterday denies that only mucus from the suppository given by urology Labs are normal Hypertension much under control Catheters remain with hematuria No fever, vital signs stable, blood pressure much improved Regular rate and rhythm, clear to auscultation bilaterally No edema Laboratory Tests 03/04/17 06:18 Assessment: Perforated bladder during TURP procedure Acute delirium resolved Likely baseline cognitive decline Hypertension [id number] Leukocytosis improved Constipation Plan Out of bed and ambulate with physical therapy Maintaining catheters per urology Gentle pain medication Delirium appears to be clearing but undercurrent of dementia suspected SCDs Bowel regimen to increase in intensity until this is resolved Maintain Norvasc 5 mg daily for hypertension [id number] Reason Hospital Visit/Course CC: Medical management following perforated bladder Patient is 72 yo M that underwent a TURP procedure for BPH by Dr. Maria on . Bladder was perforated and patient is now recovering in ICU. Today patient was easily distractible. Patient claims to not have pain except when standing up. Patient has not had a bowel movement, but has had flatulence. Patient has eaten soft foods this morning, but vomited "a small amount" immediately after. Patient has no complaints otherwise. Plan: Move patient to floor and continue recovery. Created By Salvador West, Medical Student CC: Delirium with HTN OOC HPI: Patient is a 72-year-old white male that historically close to [facility] but I have been asked by SHIMON Mcmahon to evaluate the patient and manage treatment plan when in ICU. At this current time his delirium is much better and overall improved clinical status since undergoing the procedure and the ruptured bladder but then attempted to sleep out of the bed and required reinsertion of catheter so he is been on one-on-one since that time. I reviewed his meds and labs and overall feels stability is present and will transfer down to fourth floor. Hospital course: Patient had an uncomplicated hospital course after he transferred out of ICU due to delirium and pulling out all his catheters because of underlying dementia confirmed. Hypertension remained slightly elevated had added Norvasc 5 mg to his regimen with good results and overall doing well enough to be on swing bed for further recuperation until all catheters were removed. Bowels are moving after aggressive regimen given the day before transfer to swing bed and he was doing well had no complaints at time of assessment. Discharge Summary Discharge Physical Examination Allergies: Coded Allergies: Sulfa (Sulfonamide Antibiotics) (Verified Allergy, Unknown, 04/06/09) codeine (Verified Allergy, Unknown, 02/21/17) Vitals & I&Os Vital Signs Date Time Temp Pulse Resp B/P (MAP) Pulse Ox O2 Delivery O2 Flow Rate FiO2 03/05/17 09:08 Room Air 03/05/17 08:00 96.8 77 20 138/82 95 1.00 Hospital Course Labs (last 24 hrs) Laboratory Tests 03/04/17 14:35: Body Fluid Creatinine 1, Blood Urea Nitrogen 12 03/05/17 06:40: Blood Urea Nitrogen 11, White Blood Count 9.3, Red Blood Count 4.00L, Hemoglobin 12.4L, Hematocrit 37L, Mean Corpuscular Volume 92, Mean Corpuscular Hemoglobin 31, Mean Corpuscular Hemoglobin Concent 34, Red Cell Distribution Width 13.7, Platelet Count 241, Mean Platelet Volume 10.5H, Neutrophils (%) ( Auto) 59, Lymphocytes (%) (Auto) 28, Monocytes (%) (Auto) 8, Eosinophils (%) ( Auto) 4, Basophils (%) (Auto) 1, Neutrophils # (Auto) 5.5, Lymphocytes # (Auto) 2.6, Monocytes # (Auto) 0.8, Eosinophils # (Auto) 0.4H, Basophils # (Auto) 0.1, Sodium Level 139, Potassium Level 4.5, Chloride Level 107, Carbon Dioxide Level 25, Anion Gap 7, Creatinine 0.83, Estimat Glomerular Filtration Rate > 60, BUN/ Creatinine Ratio 13, Glucose Level 88, Calcium Level 8.2L, Total Bilirubin 0.8, Aspartate Amino Transf (AST/SGOT) 46H, Alanine Aminotransferase (ALT/SGPT) 33, Alkaline Phosphatase 59, Total Protein 6.5, Albumin 2.7L Microbiology 02/28/17 Urine Culture - Final, Complete NO GROWTH Pending Labs Laboratory Tests 03/05/17 06:40: White Blood Count 9.3, Red Blood Count 4.00, Hemoglobin 12.4, Hematocrit 37, Mean Corpuscular Volume 92, Mean Corpuscular Hemoglobin 31, Mean Corpuscular Hemoglobin Concent 34, Red Cell Distribution Width 13.7, Platelet Count 241, Mean Platelet Volume 10.5, Neutrophils (%) (Auto) 59, Lymphocytes (%) (Auto) 28 , Monocytes (%) (Auto) 8, Eosinophils (%) (Auto) 4, Basophils (%) (Auto) 1, Neutrophils # (Auto) 5.5, Lymphocytes # (Auto) 2.6, Monocytes # (Auto) 0.8, Eosinophils # (Auto) 0.4, Basophils # (Auto) 0.1, Sodium Level 139, Potassium Level 4.5, Chloride Level 107, Carbon Dioxide Level 25, Anion Gap 7, Blood Urea Nitrogen 11, Creatinine 0.83, Estimat Glomerular Filtration Rate > 60, BUN/ Creatinine Ratio 13, Glucose Level 88, Calcium Level 8.2, Total Bilirubin 0.8, Aspartate Amino Transf (AST/SGOT) 46, Alanine Aminotransferase (ALT/SGPT) 33, Alkaline Phosphatase 59, Total Protein 6.5, Albumin 2.7 Discharge Home Medications: Active Scripts Active Reported Hydrochlorothiazide 25 Mg Tablet 25 Mg PO DAILY Lorazepam 2 Mg Tablet 2 Mg PO DAILY Finasteride 5 Mg Tablet 5 Mg PO DAILY Metoprolol Tartrate 50 Mg Tablet 50 Mg PO BID Vitamin D (Cholecalciferol) 1,000 Unit Tablet 1,000 Unit PO DAILY Lexapro (Escitalopram Oxalate) 10 Mg Tablet 10 Mg PO DAILY Accupril (Quinapril Hcl) 40 Mg Tablet 40 Mg PO DAILY Aspirin Ec 81 Mg (Aspirin) 81 Mg Tabec 81 Mg PO DAILY Instructions to patient/family Please see electonic discharge instructions given to patient. Clinical Quality Measures DVT/VTE Risk/Contraindication: Risk Factor Score Per Nursin RFS Level Per Nursing on Admit: 4+=Very High KELLY WEBBER DO Mar 05, 2017 10:29
--- NOTE | 2017-03-07 11:35 | Physician Query Clarification ---
PQ-Conflicting Diagnosis Admission/Discharge Admission Date: Feb 28, 2017 at 08:28 Discharge Date: Mar 05, 2017 at 10:36 The medical record reflects the following clinical scenario: History/Risk Factors: BPH w/urinary retention, Dementia, CAD Clinical Findings: Atelectasis Treatment: increase activity, IS X10 breaths Q 1hr WA, Start SVN's Question: Do you agree with the impression of atelectasis with possible pneumonia per Dr. Gibbs? Was the pneumonia ruled in or out? Please document a response below. PHYSICIAN RESPONSE Do you agree w/Consulting Dx?: Yes In responding to this query, please exercise your independent professional judgment. The purpose of this communication is to more accurately reflect the complexity of your patients condition. The fact that a question is asked does not imply that any particular answer is desired or expected. Thank you for your timely response to this clarification. Requestors name: Crystal THIS PHYSICIAN QUERY FORM IS A PERMANENT PART OF THE MEDICAL RECORD CRYSTAL DOUGHERTY Mar 07, 2017 11:35 KELLY WEBBER DO Mar 07, 2017 13:51
== END 2017-03-05 10:36 | disposition swing bed (61) | DRG 907 ==
LOC: SDC 06:44 → ICU 13:55 → SDC 02-28 08:28 → ICU 02-28 08:28 → 4TH 03-02 13:04
PROVIDERS: ADMIT Urology; ATTEND Urology
PROC: 0T9B00Z Drainage of Bladder with Drainage Device, Open Approach (ICD-10-PCS; 2017-02-27)
PROC: 0TQB0ZZ Repair Bladder, Open Approach (ICD-10-PCS; principal; 2017-02-27 09:05)
PROC: 0VB08ZZ Excision of Prostate, Via Natural or Artificial Opening Endoscopic (ICD-10-PCS; 2017-02-27 09:05)
DX: N99.71 Accidental puncture and laceration of a genitourinary system organ or structure during a genitourinary system procedure (principal); N40.1 Benign prostatic hyperplasia with lower urinary tract symptoms; R33.8 Other retention of urine; J18.9 Pneumonia, unspecified organism; F05 Delirium due to known physiological condition; J98.11 Atelectasis; N36.5 Urethral false passage; I10 Essential (primary) hypertension; R11.0 Nausea; D72.829 Elevated white blood cell count, unspecified; R41.0 Disorientation, unspecified; F03.90 Unspecified dementia, unspecified severity, without behavioral disturbance, psychotic disturbance, mood disturbance, and anxiety; F41.9 Anxiety disorder, unspecified; R31.9 Hematuria, unspecified; M19.91 Primary osteoarthritis, unspecified site; G47.00 Insomnia, unspecified; I25.10 Atherosclerotic heart disease of native coronary artery without angina pectoris; Z87.891 Personal history of nicotine dependence; Z85.828 Personal history of other malignant neoplasm of skin
CPT/HCPCS: 36415; 71010; 71020; 80048; 80053; 81000; 82570; 83735; 84100; 84520; 85025; 85027; 87088; 94640; 94664; 94760

== ENCOUNTER 2017-03-05 09:15 | Inpatient (IN) | payer MEDICARE, MEDICAID ==
[~2017-03-05] VITALS: Ht 170.2 cm; Wt 84.4 kg
[2017-03-05] MEDS ORDERED: 1/2 NS W/KCL 20 MEQ/L 1,000 ML IV SCH (10:45)
[2017-03-05] MEDS ORDERED: ONDANSETRON 4 MG/2 ML (SDV) Z0FRAN IVP PRN (10:45)
[2017-03-05] MEDS ORDERED: PROMETHAZINE INJ 25 MG/ML (PHENERGAN) AMP IVP PRN (10:45)
[2017-03-05] MEDS ORDERED: BELLADONNA ALK/OPIUM (B & O) 30 MG SUPP PR PRN (10:45)
--- NOTE | 2017-03-05 13:48 | Physical Therapy Evaluation ---
PT Evaluation-General Medical Diagnosis Admission Date Mar 05, 2017 at 10:36 Medical Diagnosis: debility Onset Date: Feb 27, 2017 Therapy Diagnosis Therapy Diagnosis: impaired mobility, strength, endurance Height/Weight Height (Feet): 5 Height (Inches): 7.00 Weight (Pounds): 186 Weight (Ounces): 9.0 Referral Physician: Ami Giraldo Reason for Referral: Evaluation/Treatment Medical History Pertinent Medical History: Arthritis, HTN Additional Medical History former smoker, pneumonia, prostate problems, colitis, surg (skin CA removal, colonoscopy, polypectomy, appendectomy, gallbladder) Current History BPH with prostatism and retention, to get TURP, bladder perforation Social History social history unknown, patient is much more verbal now, but is confused Prior/Core FIM Prior Level of Function Functional [place] Measure 0=Not Assessed/NA 4=Minimal Assistance 1=Total Assistance 5=Supervision or Setup 2=Maximal Assistance 6=Modified [place] 3=Moderate Assistance 7=Complete [place] unknown, patient confused PT Evaluation-Current Subjective Patient in bed pre tx, agrees to PT, pleasant and cooperative, but confused. He states that he does not have any pain. Pt/Family Goals none stated Objective Patient Orientation: Confused Attachments: Drains, Koch Catheter, IV ROM/Strength ROM Lower Extremities WNL Strenght Lower Extremities 4/5 gross lower extremities Integumentary/Posture Bladder Incontinence: Koch Cath Neuromuscular (Tone, Coordination, Reflexes) WNL Sensory Vision: Functional Hearing: Functional Transfers Functional [place] Measure 0=Not Assessed/NA 4=Minimal Assistance 1=Total Assistance 5=Supervision or Setup 2=Maximal Assistance 6=Modified [place] 3=Moderate Assistance 7=Complete [place] Transfers (B, C, W/C) (FIM): 4 Scootin Rollin Supine to/from Sit: 4 Sit to/from Stand: 4 Sit to Lying (QC): 3 Lying to Sitting/Side of Bed(Q: 3 Sit to Stand (QC): 4 Patient performs bed mobility with SBA except for supine <-> sit which he needs min assist, sit to stand is CGA Gait Does the Patient Walk?: Yes Mode of Locomotion: Walk Anticipated Mode of Locomotion: Walk Gait (FIM): 4 Distance: 500' Walk 50 ft with 2 Turns(QC): 4 Walk 150 ft (QC): 4 Gait Level of Assist: 4 Gait Persons Needed: 1 Gait Assistive Device: FWW Comments/Gait Description Patient can ambulate 500' with CGA using a rolling walker (including 50' with at least 2 turns of 90 degrees), he has an IV pole to push but no O2 now. Wheelchair Training Does the Pt Use a Wheelchair?: No Balance Sitting Static: Normal Sitting Dynamic: Normal Standing Static: Fair Standing Dynamic: Fair Treatment supine ex x20 (AP, SLR, QS) Assessment/Needs Patient has impaired mobility, strength, and endurance, recommend skilled physical therapy to improve these areas. 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 Time Frame: Mar 12, 2017 Transfers (B,C,W/C) (FIM): 5 Sit to Lying (QC): 4 Lying-Sitting on Side/Bed(QC): 4 Sit to Stand (QC): 4 Rollin Gait (FIM): 5 Distance: 800' Walk 50ft with 2 Turns (QC): 4 Walk 150 ft (QC): 4 Gait Level of Assist: 5 Gait Assistive Device: FWW PT Plan Problem List Problem List: Activity Tolerance, Functional Strength, Safety, Balance, Gait, Transfer, Bed Mobility Treatment/Plan Treatment Plan: Continue Plan of Care Treatment Plan: Bed Mobility, Education, Functional Activity [place], Functional Strength, Gait, Safety, Therapeutic Exercise, Transfers Treatment Duration: Mar 12, 2017 # of days/week 5-6 Visits Per Week: 5-6 Minutes/Day (M-F): 15-30 Minutes/Day (Sat/[place]): 15-30 Pt/Family Agrees w/Plan: Yes Safety Risks/Education Patient Education: Gait Training, Transfer Techniques, Correct Positioning, Safety Issues Teaching Recipient: Patient Teaching Methods: Demonstration, Discussion Response to Teaching: Reinforcement Needed Discharge Recommendations Plan Patient will perform bed mobility and transfer training, balance and endurance training, functional strengthening, stair training, gait training, and education , to improve functional mobility and independence at home. Therapy D/C Recommendations: Home w/ Family Support Time/GCodes Time In: 1310 Time Out: 1340 Total Billed Treatment Time: 30 Total Billed Treatment 1 visit EVL 15' GT 15' KATHY PEREZ PT Mar 05, 2017 13:48
[2017-03-05] MEDS: HYDROcodone/APAP 5 MG/325 MG (LORTAB) TAB PO PRN (13:53)
--- NOTE | 2017-03-05 14:50 | Occupational Therapy Eval ---
OT Evaluation-General/PLF Medical Diagnosis Admission Date Mar 05, 2017 at 10:36 Medical Diagnosis: Turp, bladder perforation. Onset Date: Feb 27, 2017 Therapy Diagnosis Therapy Diagnosis: Weakness Height/Weight Height (Feet): 5 Height (Inches): 7.00 Weight (Pounds): 186 Weight (Ounces): 9.0 Precautions Safety Interventions: Bed Exit Alarm Referral Physician: Ami Giraldo Referral Reason: Activity Tolerance, Self Care, Evaluation/Treatment, Strengthening/ROM Medical History Pertinent Medical History: Arthritis, HTN Additional Medical History skin CA removal, colonoscopy, pneumonia Current History Pt. lives in [facility]. Somewhat confused at times in room. Has bed alarm, chair alarm, and telecenter. Reviewed History: Yes Social History Home: Apartment Current Living Status: Alone Entry Into Home: Level Entry ADL-Prior Level of Function ADL PLOF Comments Pt. states that previous to this he was independent with daily tasks. States that he cooks and cleans for self, drives, and performs all ADLs. DME/Equipment: Tub/Shower Drive Self: Yes OT Current Status Subjective Pt. reports pain when OT enters room, but then states later on that he is not having pain. Appearance Pt. is in bed. Has already had shower. Agrees to work with therapy. Mental Status/Objective Pt. has difficulty following cues at times. Seems confused at times. Attachments: Koch Catheter, IV Current Upper Extremity ROM WFL Upper Extremity Coordination intact ADL-Treatment Functional [place] Measure 0=Not Assessed/NA 4=Minimal Assistance 1=Total Assistance 5=Supervision or Setup 2=Maximal Assistance 6=Modified [place] 3=Moderate Assistance 7=Complete IndependenceIRFPAI Quality Coding Scale 6 Independent with activity with or without an assistive device 5 Patient requires set up or clean up by helper. Patient completes activity by themselves 4 Supervision or touching assist (CGA). [place] provide cues , steadying assist 3 The helper provides less than half the effort to complete the activity 2 The helper provides more than half the effort to complete the activity 1 Dependent. The helper does all the effort to complete an activity 7 Patient refused to complete or attempt activity 9 The patient did not perform the activity before the current illness or injury 88 Not attempted due to Medical conditions or safety concerns Grooming (FIM): 5 (Pt. is able to brush teeth with set up, but requires cues to sequence properly.) Oral Hygiene (QC): 4 Toileting (FIM): 2 (Pt. incontinent of stool in bed. Ambulated to toilet. Attempted to cleanse self, but due to magnitude of BM, requires max assistance. Pt. unaware of his inability to do this.) Toileting Hygiene (QC): 2 Transfers (B, C, W/C) (FIM): 4 (Min assist to transfer from bed, to toilet, to chair.) Toilet/Commode Transfer (FIM): 4 Toilet Transfer (QC): 4 Other Treatments Pt. incontinent of stool. Went to bathroom. Finished toileting and then requires assistance to cleanse self. Gown was changed. Pt. ambulated to chair in room. Brushed teeth with cues to sequence this task. All needs met in room. Pt. in chair with chair alarm on. Education OT Patient Education: Correct positioning, Modified ADL techniques, Progress toward Goal/Update tx plan, Purpose of tx/functional activities, Reviewed precautions, Rehab process, Safety issues, Transfer techniques Teaching Recipient: Patient Teaching Methods: Demonstration, Discussion Response to Teaching: Verbalize Understanding, Return Demonstration OT Short Term Goals Short Term Goals Time Frame: Mar 12, 2017 Eating(FIM): 5 Grooming(FIM): 5 Bathing(FIM): 4 Upper Body Dressing(FIM): 5 Lower Body Dressing(FIM): 4 Toileting(FIM): 4 Transfers (B,C,W/C) (FIM): 5 Toilet/Commode Transfer(FIM): 5 Shower Transfer(FIM): 4 Additional Short Term Goals: 1-Demonstrate ADL Tasks, 2-Verbalize Understanding , 3-ImproveStrength/Farhat 1=Demonstrate adherence to instructed precautions during ADL tasks. 2=Patient will verbalize/demonstrate understanding of assistive devices/ modifications for ADL. 3=Patient will improve strength/tolerance for activity to enable patient to perform ADL's. OT Nursing Home Goals Nursing Home Goals Time Frame: Mar 19, 2017 Eating (FIM): 6 Eating (QC): 6 Groomin Oral Hygiene (QC): 6 Bathing(FIM): 5 Upper Body Dressing(FIM): 6 Lower Body Dressing(FIM): 6 Toileting(FIM): 6 Toileting Hygiene (QC): 6 Transfers (B,C,W/C) (FIM): 6 Toilet/Commode Transfer(FIM): 6 Toilet/Commode Transfer (QC): 6 Shower Transfer(FIM): 5 Additional Goals: 1-Demonstrate ADL Tasks, 2-Verbalize Understanding, 3- ImproveStrength/Farhat 1=Demonstrate adherence to instructed precautions during ADL tasks. 2=Patient will verbalize/demonstrate understanding of assistive devices/ modifications for ADL. 3=Patient will improve strength/tolerance for activity to enable patient to perform ADL's. OT Education/Plan Problem List/Assessment Assessment: Decreased Activ Tolerance, Decreased Safety Aware, Impaired Cognition, Impaired I ADL's, Impaired Self-Care Skills Discharge Recommendations Plan/Recommendations: Continue POC Equpiment Recommendations-D/C: Bath Chair Comment Pt. will need a walker. Treatment Plan/Plan of Care Treatment,Training & Education: Yes Patient would benefit from OT for education, treatment and training to promote independence in ADL's, mobility, safety and/or upper extremity function for ADL' s. Plan of Care: ADL Retraining, Functional Mobility, UE Funct Exercise/Act Treatment Duration: Mar 19, 2017 Visits Per Week: 5 Rehab Potential: Fair Time/GCodes Start Time: 13:45 Stop Time: 14:20 Total Time Billed (hr/min): 35 Billed Treatment Time 1, EVM x 15minutes, ADL x 20minutes KAYE GUERRERO OT Mar 05, 2017 14:50
[2017-03-05] MEDS: RT-ALBUTEROL SULF 2.5 MG/3 ML PRE-MIX VIAL IH SCH ×2 (15:59→18:21)
[2017-03-05 18:00] VITALS: BP 160/80
[2017-03-05] MEDS: LACTULOSE SYRUP 10GM/15ML (ENULOSE) 30ML UDC PO SCH (21:00)
[2017-03-05] MEDS: risperiDONE 0.25 MG (RisperDAL) TAB PO SCH (21:01)
[2017-03-05] MEDS: meTOprolol TARTRATE 50 MG (LOPRESSOR) TAB PO SCH (21:01)
[2017-03-05] MEDS: NEO/POLY/BAC (NEOSPORIN) OINT 15 GM TUBE TOP SCH (21:01)
--- OUTSIDE RECORDS SUMMARY | 2017-03-05 23:27 | XMS REPORT | Continuity of Care Document ---
Author Author [facility] Address Unknown Phone Unavailable Allergies Active Description Code Type Severity Reaction Onset Reported/Identified Relationship to Patient Clinical Status Yes sulfa drug Drug Allergy 10/26/2008 Yes Sulfa (Sulfonamide Antibiotics) [id number] Drug Allergy Unknown N/A 04/06/2009 Yes Codeine Drug Allergy N/A N/A 02/04/2013 Yes codeine [id number] Drug Allergy Unknown N/A 02/21/2017 Medications Problems [...] DO, MONIE K 300.00 anxiety 07/26/2009 FIDE FOOD ANALYST, DIMA T 300.00 anxiety 07/26/2009 300.00 anxiety 07/26/2009 300.00 anxiety 07/26/2009 300.00 anxiety 07/26/2009 300.00 anxiety 07/26/2009 300.00 anxiety 07/26/2009 300.00 anxiety 07/26/2009 300.00 anxiety 07/26/2009 EVERETT DO, MONIE K 300.00 anxiety 07/26/2009 EVERETT DO, MONIE K 300.00 anxiety 07/26/2009 300.00 anxiety 07/26/2009 FIDE MEDRANONDIMA T 300.00 anxiety 07/26/2009 FIDE FOOD ANALYSTDIMA T 300.00 anxiety 07/26/2009 DIMA ELIZALDE APRN [...] 379.24 OTHER VITREOUS OPACITIES 12/28/2010 EVERETT DO, MOINE K 785.9 OTHER SYMPTOMS INVOLVING CARDIOVASCULAR SYSTEM 12/28/2010 EVERETT DO, MONIE K 379.24 OTHER VITREOUS OPACITIES 12/28/2010 EVERETT DO, MONIE K 785.9 OTHER SYMPTOMS INVOLVING CARDIOVASCULAR SYSTEM 12/28/2010 379.24 OTHER VITREOUS OPACITIES 12/28/2010 785.9 OTHER SYMPTOMS INVOLVING CARDIOVASCULAR SYSTEM 12/28/2010 DIMA ELIZALDE APRN T 379.24 OTHER VITREOUS OPACITIES 12/28/2010 DIMA EILZALDE APRN T 785.9 OTHER SYMPTOMS INVOLVING CARDIOVASCULAR SYSTEM 12/28/2010 DIMA ELIZALDE APRN T 379.24 OTHER VITREOUS OPACITIES 12/28/2010 DIMA ELIZALDE APRN T 785.9 OTHER SYMPTOMS INVOLVING CARDIOVASCULAR SYSTEM 12/28/2010 DIMA ELIZALDE APRN T 379.24 OTHER VITREOUS OPACITIES 12/28/2010 DIMA ELIZALDE APRN T 785.9 OTHER SYMPTOMS INVOLVING CARDIOVASCULAR SYSTEM 12/28/2010 DIMA ELIZADLE APRN T 379.24 OTHER VITREOUS OPACITIES 12/28/2010 [...] RESPIRATORY INFECTION 06/27/2012 786.2 COUGH 06/27/2012 FIDE FOOD ANALYST, DIMA T 465.9 UPPER RESPIRATORY INFECTION 06/27/2012 FIDE FOOD ANALYST, DIMA T 786.2 COUGH 06/27/2012 FIDE FOOD ANALYST, DIMA T 465.9 UPPER RESPIRATORY INFECTION 06/27/2012 FIDE FOOD ANALYST, DIMA T 786.2 COUGH 06/27/2012 FIDE FOOD ANALYST, DIMA T 465.9 UPPER RESPIRATORY INFECTION 06/27/2012 FIDE FOOD ANALYST, DIMA T 786.2 COUGH 06/27/2012 FIDE FOOD ANALYST, DIMA T 465.9 UPPER RESPIRATORY INFECTION 06/27/2012 FIDE FOOD ANALYST, DIMA T 786.2 COUGH 06/27/2012 FIDE FOOD ANALYST, DIMA T 465.9 UPPER RESPIRATORY INFECTION 06/27/2012 FIDE FOOD ANALYST, DIMA T 786.2 COUGH 06/27/2012 FIDE FOOD ANALYST, DIMA T 465.9 UPPER RESPIRATORY INFECTION 06/27/2012 FIDE FOOD ANALYST, DIMA T 786.2 COUGH 01/13/2013 427.9 SINUS [...] FACP CCDS Ot 401.9 12/20/2015 GLEN CARREON [facility] CCD[facility] Ot 433.10 12/20/2015 GLEN CARREON [facility], [facility] CCDS Ot 794.31 12/26/2016 CRISTOBAL PARADA MD Ot I10 ESSENTIAL (PRIMARY) HYPERTENSION 12/26/2016 CRISTOBAL PARADA MD Ot N40.0 BENIGN PROSTATIC HYPERPLASIA WITHOUT LOW 12/26/2016 CRISTOBAL PARADA MD Ot R35.0 FREQUENCY OF MICTURITION 12/26/2016 CRISTOBAL PARADA MD Ot Z79.82 BAKERY TEAM MEMBER (CURRENT) USE OF ASPIRIN 12/26/2016 CRISTOBAL PARADA MD Ot Z79.899 OTHER FPC (CURRENT) DRUG THERAPY 12/26/2016 CRISTOBAL PARADA MD Ot I10 ESSENTIAL (PRIMARY) HYPERTENSION 12/26/2016 CRISTOBAL PARADA MD Ot N40.0 BENIGN PROSTATIC HYPERPLASIA WITHOUT LOW 12/26/2016 CRISTOBAL PARADA MD Ot R35.0 FREQUENCY OF MICTURITION 12/26/2016 CRISTOBAL PARADA MD Ot Z79.82 BAKERY TEAM MEMBER (CURRENT) USE OF ASPIRIN 12/26/2016 CRISTOBAL PARADA MD Ot Z79.899 OTHER BAKERY TEAM MEMBER (CURRENT) DRUG THERAPY 02/19/2017 SHIMON CARMONA MD Ot R31.9 HEMATURIA, UNSPECIFIED 02/27/2017 SHIMON CARMONA MD Ot N40.1 BENIGN PROSTATIC HYPERPLASIA WITH LOWER 02/27/2017 SHIMON CARMONA MD Ot R33.8 OTHER RETENTION OF URINE 02/27/2017 SHIMON CARMONA MD Ot Z01.812 ENCOUNTER FOR PREPROCEDURAL LABORATORY E 02/27/2017 SHIMON CARMONA MD Ot Z11.2 ENCOUNTER FOR SCREENING FOR OTHER BACTER Procedures Code Description [place] [address] EKG, TRACING (IN-HOUSE) 01/13/2013 33504 ROUTINE VENIPUNCTURE 02/10/2013 21863 CMP 02/10/2013 08807 LIPID PANEL 02/10 0928957 GFR CALC (RESULT ONLY) 02/10/2013 85837 CBC 02/10/2013 G0008 FLU ADMINISTRATION (MEDICARE ONLY) 05/29/2013 54735 ROUTINE VENIPUNCTURE 04/02/2014 00976 CBC 04/02/2014 [id number] GFR CALC (RESULT ONLY) 04/02/2014 35160 CMP 04/02/2014 10467 LIPID PANEL 04/02 42051 ROUTINE VENIPUNCTURE 09/09/2014 02482 CBC 09/09/2014 [id number] GFR CALC (RESULT ONLY) 09/09/2014 03215 CMP 09/09/2014 43135 LIPID PANEL 09/09 General S Jus Quach 66483 ROUTINE VENIPUNCTURE 12/10/2014 48107 CBC 12/10/2014 32764 CMP 12/10/2014 26590 LIPID PANEL 12/10 [id number] GFR CALC (RESULT ONLY) 12/10/2014 Results Test [...] culture - 12/26/16 07:38 Bacterial urine culture [id number] NRG COLONY COUNT 10,000/ML - 100,000/ML NRG [...] ABO+Rh group OP NRG Transfusion band number [id number] NRG Blood group antibody screen NEGATIVE [facility] Comprehensive metabolic panel - 02/27/17 [...] urinalysis with reflex to culture YES NRG Bacterial urine culture - 02/28/17 08:50 Bacterial urine culture NG NRG Complete blood count (CBC) with automated white blood cell (WBC) differential - 03/01/17 04:02 Blood leukocytes automated count (number/volume) 18.9 10*3/ uL 4.3-11.0 Blood erythrocytes automated count (number/volume) 4.48 10*6 /uL 4.35-5.85 Venous blood hemoglobin measurement (mass/volume) 13.7 g/dL 13.3-17.7 Blood hematocrit (volume fraction) 41 % 40-54 Automated erythrocyte mean corpuscular volume 92 [foz_us] 80-99 Automated erythrocyte mean corpuscular hemoglobin (mass per erythrocyte) 31 pg 25-34 Automated erythrocyte mean corpuscular hemoglobin concentration measurement ( mass/volume) 33 g/dL 32-36 Automated erythrocyte distribution width ratio 14.0 % 10.0-14.5 Automated blood platelet count (count/volume) 176 10*3/uL 130-400 Automated blood platelet mean volume measurement 10.8 [foz_ us] 7.4-10.4 Automated blood neutrophils/100 leukocytes 73 % 42-75 Automated blood lymphocytes/100 leukocytes 17 % 12-44 Blood monocytes/100 leukocytes 10 % 0-12 Automated blood eosinophils/100 leukocytes 0 % 0-10 Automated blood basophils/100 leukocytes 0 % 0-10 Blood neutrophils automated count (number/volume) 13.8 10*3 1.8-7.8 Blood lymphocytes automated count (number/volume) 3.1 10*3 1.0-4.0 Blood monocytes automated count (number/volume) 1.9 10*3 0.0-1.0 Automated eosinophil count 0.0 10*3/uL 0.0-0.3 Automated blood basophil count (count/volume) 0.0 10*3/uL 0.0-0.1 Whole blood basic metabolic panel - 03/01/17 04:02 Serum or plasma sodium measurement (moles/volume) 139 mmol/ L 135-145 Serum or plasma potassium measurement (moles/volume) 4.8 mmol/L 3.6-5.0 Serum or plasma chloride measurement (moles/volume) 104 mmol /L 98-107 Carbon dioxide 29 mmol/L 21-32 Serum or plasma anion gap determination (moles/volume) 6 mmol/L 5-14 Serum or plasma urea nitrogen measurement (mass/volume) 18 mg/dL 7-18 Serum or plasma creatinine measurement (mass/volume) 0.99 mg /dL 0.60-1.30 Serum or plasma urea nitrogen/creatinine mass ratio 18 0-20 Serum or plasma creatinine measurement with calculation of estimated glomerular filtration rate > NRG Serum or plasma glucose measurement (mass/volume) 108 mg/dL 70-105 Serum or plasma calcium measurement (mass/volume) 8.0 mg/dL 8.5-10.1 Serum or plasma phosphate measurement (mass/volume) - 03/01/17 04:02 Serum or plasma phosphate measurement (mass/volume) 1.6 mg/ dL 2.3-4.7 Magnesium - 03/01/17 04:02 Magnesium 2.3 mg/dL 1.8-2.4 Complete blood count (CBC) with automated white blood cell (WBC) differential - 03/02/17 03:48 Blood leukocytes automated count (number/volume) 15.9 10*3/ uL 4.3-11.0 Blood erythrocytes automated count (number/volume) 4.20 10*6 /uL 4.35-5.85 Venous blood hemoglobin measurement (mass/volume) 12.8 g/dL 13.3-17.7 Blood hematocrit (volume fraction) 39 % 40-54 Automated erythrocyte mean corpuscular volume 94 [foz_us] 80-99 Automated erythrocyte mean corpuscular hemoglobin (mass per erythrocyte) 31 pg 25-34 Automated erythrocyte mean corpuscular hemoglobin concentration measurement ( mass/volume) 33 g/dL 32-36 Automated erythrocyte distribution width ratio 13.7 % 10.0-14.5 Automated blood platelet count (count/volume) 173 10*3/uL 130-400 Automated blood platelet mean volume measurement 11.2 [foz_ us] 7.4-10.4 Automated blood neutrophils/100 leukocytes 72 % 42-75 Automated blood lymphocytes/100 leukocytes 18 % 12-44 Blood monocytes/100 leukocytes 9 % 0-12 Automated blood eosinophils/100 leukocytes 1 % 0-10 Automated blood basophils/100 leukocytes 0 % 0-10 Blood neutrophils automated count (number/volume) 11.5 10*3 1.8-7.8 Blood lymphocytes automated count (number/volume) 2.9 10*3 1.0-4.0 Blood monocytes automated count (number/volume) 1.4 10*3 0.0-1.0 Automated eosinophil count 0.1 10*3/uL 0.0-0.3 Automated blood basophil count (count/volume) 0.0 10*3/uL 0.0-0.1 Whole blood basic metabolic panel - 03/02/17 03:48 Serum or plasma sodium measurement (moles/volume) 139 mmol/ L 135-145 Serum or plasma potassium measurement (moles/volume) 4.4 mmol/L 3.6-5.0 Serum or plasma chloride measurement (moles/volume) 105 mmol /L 98-107 Carbon dioxide 24 mmol/L 21-32 Serum or plasma anion gap determination (moles/volume) 10 mmol/L 5-14 Serum or plasma urea nitrogen measurement (mass/volume) 19 mg/dL 7-18 Serum or plasma creatinine measurement (mass/volume) 0.82 mg /dL 0.60-1.30 Serum or plasma urea nitrogen/creatinine mass ratio 23 0-20 Serum or plasma creatinine measurement with calculation of estimated glomerular filtration rate > NRG Serum or plasma glucose measurement (mass/volume) 97 mg/dL 70-105 Serum or plasma calcium measurement (mass/volume) 7.9 mg/dL 8.5-10.1 Serum or plasma phosphate measurement (mass/volume) - 03/02/17 03:48 Serum or plasma phosphate measurement (mass/volume) 1.3 mg/ dL 2.3-4.7 Magnesium - 03/02/17 03:48 Magnesium 1.7 mg/dL 1.8-2.4 Complete blood count (CBC) with automated white blood cell (WBC) differential - 03/03/17 05:05 Blood leukocytes automated count (number/volume) 11.2 10*3/ uL 4.3-11.0 Blood erythrocytes automated count (number/volume) 4.06 10*6 /uL 4.35-5.85 Venous blood hemoglobin measurement (mass/volume) 12.4 g/dL 13.3-17.7 Blood hematocrit (volume fraction) 38 % 40-54 Automated erythrocyte mean corpuscular volume 93 [foz_us] 80-99 Automated erythrocyte mean corpuscular hemoglobin (mass per erythrocyte) 31 pg 25-34 Automated erythrocyte mean corpuscular hemoglobin concentration measurement ( mass/volume) 33 g/dL 32-36 Automated erythrocyte distribution width ratio 13.7 % 10.0-14.5 Automated blood platelet count (count/volume) 203 10*3/uL 130-400 Automated blood platelet mean volume measurement 10.2 [foz_ us] 7.4-10.4 Automated blood neutrophils/100 leukocytes 71 % 42-75 Automated blood lymphocytes/100 leukocytes 20 % 12-44 Blood monocytes/100 leukocytes 7 % 0-12 Automated blood eosinophils/100 leukocytes 2 % 0-10 Automated blood basophils/100 leukocytes 0 % 0-10 Blood neutrophils automated count (number/volume) 7.9 10*3 1.8-7.8 Blood lymphocytes automated count (number/volume) 2.2 10*3 1.0-4.0 Blood monocytes automated count (number/volume) 0.8 10*3 0.0-1.0 Automated eosinophil count 0.2 10*3/uL 0.0-0.3 Automated blood basophil count (count/volume) 0.1 10*3/uL 0.0-0.1 Whole blood basic metabolic panel - 03/03/17 05:05 Serum or plasma sodium measurement (moles/volume) 139 mmol/ L 135-145 Serum or plasma potassium measurement (moles/volume) 4.3 mmol/L 3.6-5.0 Serum or plasma chloride measurement (moles/volume) 104 mmol /L 98-107 Carbon dioxide 26 mmol/L 21-32 Serum or plasma anion gap determination (moles/volume) 9 mmol/L 5-14 Serum or plasma urea nitrogen measurement (mass/volume) 18 mg/dL 7-18 Serum or plasma creatinine measurement (mass/volume) 0.84 mg /dL 0.60-1.30 Serum or plasma urea nitrogen/creatinine mass ratio 21 0-20 Serum or plasma creatinine measurement with calculation of estimated glomerular filtration rate > NRG Serum or plasma glucose measurement (mass/volume) 107 mg/dL 70-105 Serum or plasma calcium measurement (mass/volume) 8.0 mg/dL 8.5-10.1 Encounters ACCT No. Visit Date/Time Discharge Status Pt. Type Provider Facility Loc./Unit Complaint [id number] 12/10/2014 07:57:00 12/10/2014 23: 59:59 [facility] Outpatient FIDE MEDRANOJosé DIMA Leonarda [id number] 10/09/2014 11:34:00 10/09/2014 23: 59:59 [facility] Outpatient FIDE MEDRANOJosé DIMA Leonarda [id number] 09/09/2014 08:03:00 09/09/2014 23: 59:59 CLS Outpatient FIDE FOOD ANALYSTDIMA Kumar [id number] 04/29/2014 15:29:00 04/29/2014 23: 59:59 CLS Outpatient FIDE MEDRANODIMA Kumar [id number] 04/02/2014 07:56:00 04/02/2014 23: 59:59 CLS Outpatient DIMA ELIZALDE APRN [id number] 01/05/2014 15:34:00 01/05/2014 23: 59:59 CLS Outpatient FIDE FOOD ANALYSTDIMA Kumar [id number] 07/04/2013 12:36:00 07/04/2013 23: 59:59 CLS Outpatient MONIE EVERETT DO [id number] 05/29/2013 16:22:00 05/29/2013 23: 59:59 CLS Outpatient MONIE EVERETT DO [id number] 09/27/2012 10:58:00 09/27/2012 23: 59:59 CLS Outpatient DIMA ELIZALDE APRN [id number] 06/27/2012 10:45:00 06/27/2012 23:59 :59 CLS Outpatient [id number] 06/27/2012 10:45:00 06/27/2012 23: 59:59 CLS Outpatient MONIE EVERETT DO [id number] 05/26/2013 08:51:00 Document Registration [id number] 05/19/2013 12:12:00 Document Registration [id number] 04/25/2013 13:55:00 Document Registration [id number] 04/22/2013 00:00:00 Document Registration [id number] 02/10/2013 07:48:00 Document Registration [id number] 02/04/2013 14:38:00 Document Registration [id number] 01/13/2013 15:32:00 Document Registration
[2017-03-06] MEDS: HYDROcodone/APAP 5 MG/325 MG (LORTAB) TAB PO PRN ×3 (02:56→22:49)
[2017-03-06 06:00] VITALS: BP 167/86
[2017-03-06] MEDS: RT-ALBUTEROL SULF 2.5 MG/3 ML PRE-MIX VIAL IH SCH ×3 (07:14→19:06)
--- NOTE | 2017-03-06 07:43 | Progress Note-Urology ---
Progress Note-Urology Progress Notes/Assess & Plan Progress/Assessment & Plan CONTINUES WELL, WOUND HEALING WELL, URINE WILLIAM CLEAR, POSSIBLE DISCHARGE SUNDAY WITH [facility] HELP Final Diagnosis BPH WITH BLADDER PERFORATION AND REPAIR SHIMON CARMONA MD Mar 06, 2017 07:43
[2017-03-06] MEDS ORDERED: cefTRIAXone INJECTION 1,000 MG in NS (IVPB) 50 ML IV SCH (09:00)
[2017-03-06] MEDS ORDERED: FAMOTIDINE 20MG/2ML IV (PEPCID) IVP SCH (09:00)
[2017-03-06] MEDS: QUINAPRIL 20 MG (ACCUPRIL) TAB PO SCH (09:05)
[2017-03-06] MEDS: meTOprolol TARTRATE 50 MG (LOPRESSOR) TAB PO SCH ×2 (09:05→20:57)
[2017-03-06] MEDS: amLODIPine 5 MG (NORVASC) TAB PO SCH (09:05)
[2017-03-06] MEDS: LACTULOSE SYRUP 10GM/15ML (ENULOSE) 30ML UDC PO SCH ×2 (09:05→20:52)
[2017-03-06] MEDS: risperiDONE 0.25 MG (RisperDAL) TAB PO SCH ×2 (09:05→20:57)
[2017-03-06] MEDS: NEO/POLY/BAC (NEOSPORIN) OINT 15 GM TUBE TOP SCH ×2 (09:06→20:57)
--- NOTE | 2017-03-06 09:17 | Progress Note-Hospitalist ---
Progress Note Progress Notes/Assess & Plan Date Seen 03/06/17 Time Seen by Provider: 09:00 Diagonsis/Assessment & Plan Patient doing well overall and plan is for discharge hopefully in the week Catheters are still in place No issues have arisen No fever, vital signs stable, pleasant Regular rate and rhythm, clear to auscultation bilaterally No edema Assessment: Perforated bladder during TURP procedure Acute delirium resolved Likely baseline cognitive decline Hypertension [id number] Leukocytosis improved Constipation DC planned for KELLY WEBBER DO Mar 06, 2017 09:17
--- NOTE | 2017-03-06 12:28 | Occupational Ther Daily Note ---
OT Current Status-Daily Note Subjective No pain reported. Pt. states, "I feel good, I think I am leaving on ." Appearance Pt. in bed. States that he has already bathed and dressed. Mental Status/Objective Patient Orientation: Person, Place Functional [place] Measure 0=Not Assessed/NA 4=Minimal Assistance 1=Total Assistance 5=Supervision or Setup 2=Maximal Assistance 6=Modified [place] 3=Moderate Assistance 7=Complete [place] Attachments: Koch Catheter ADL-Treatment Functional [place] Measure 0=Not Assessed/NA 4=Minimal Assistance 1=Total Assistance 5=Supervision or Setup 2=Maximal Assistance 6=Modified [place] 3=Moderate Assistance 7=Complete IndependenceIRFPAI Quality Coding Scale 6 Independent with activity with or without an assistive device 5 Patient requires set up or clean up by helper. Patient completes activity by themselves 4 Supervision or touching assist (CGA). [place] provide cues , steadying assist 3 The helper provides less than half the effort to complete the activity 2 The helper provides more than half the effort to complete the activity 1 Dependent. The helper does all the effort to complete an activity 7 Patient refused to complete or attempt activity 9 The patient did not perform the activity before the current illness or injury 88 Not attempted due to Medical conditions or safety concerns Lower Body Dressing (FIM): 5 (Pt. demonstrates ability to don pants and socks with set up only. Able to doff pants as well.) Transfers (B, C, W/C) (FIM): 6 (Pt. demonstrates ability to transfer supine-sit , sit-stand, and then back to bed. Uses walker for support, but stable on feet. ) Other Treatment Pt. seems very cognitively clear. No confusion noted. Able to state that he has no concerns about going home, other than making sure he has a ride. Education OT Patient Education: Modified ADL techniques, Progress toward Goal/Update tx plan, Purpose of tx/functional activities, Reviewed precautions, Rehab process, Transfer techniques Teaching Recipient: Patient Teaching Methods: Demonstration, Discussion Response to Teaching: Verbalize Understanding, Return Demonstration OT Short Term Goals Short Term Goals Time Frame: Mar 12, 2017 Eating(FIM): 5 Grooming(FIM): 5 Bathing(FIM): 4 Upper Body Dressing(FIM): 5 Lower Body Dressing(FIM): 4 Toileting(FIM): 4 Transfers (B,C,W/C) (FIM): 5 Toilet/Commode Transfer(FIM): 5 Shower Transfer(FIM): 4 Additional Short Term Goals: 1-Demonstrate ADL Tasks, 2-Verbalize Understanding , 3-ImproveStrength/Farhat 1=Demonstrate adherence to instructed precautions during ADL tasks. 2=Patient will verbalize/demonstrate understanding of assistive devices/ modifications for ADL. 3=Patient will improve strength/tolerance for activity to enable patient to perform ADL's. OT Die Cast Patternmaker Goals Mcc Goals Time Frame: Mar 19, 2017 Eating (FIM): 6 Eating (QC): 6 Groomin Oral Hygiene (QC): 6 Bathing(FIM): 5 Upper Body Dressing(FIM): 6 Lower Body Dressing(FIM): 6 Toileting(FIM): 6 Toileting Hygiene (QC): 6 Transfers (B,C,W/C) (FIM): 6 Toilet/Commode Transfer(FIM): 6 Toilet/Commode Transfer (QC): 6 Shower Transfer(FIM): 5 Additional Goals: 1-Demonstrate ADL Tasks, 2-Verbalize Understanding, 3- ImproveStrength/Farhat 1=Demonstrate adherence to instructed precautions during ADL tasks. 2=Patient will verbalize/demonstrate understanding of assistive devices/ modifications for ADL. 3=Patient will improve strength/tolerance for activity to enable patient to perform ADL's. OT Education/Plan Discharge Recommendations Plan/Recommendations: Continue POC Therapy D/C Recommendations: Home Independently Target Placement Pt. plans to return to [facility]. States that he has a good support system. Treatment Plan/Plan of Care Treatment,Training & Education: Yes Patient would benefit from OT for education, treatment and training to promote independence in ADL's, mobility, safety and/or upper extremity function for ADL' s. Plan of Care: ADL Retraining, Functional Mobility, UE Funct Exercise/Act Treatment Duration: Mar 19, 2017 Visits Per Week: 5 Agreement: Yes Rehab Potential: Fair Time/GCodes Start Time: 11:40 Stop Time: 11:55 Total Time Billed (hr/min): 15 Billed Treatment Time 1, ADL x 15minutes KAYE GUERRERO OT Mar 06, 2017 12:28
--- NOTE | 2017-03-06 15:25 | Physical Therapy Daily Note ---
PT Daily Note-Current Subjective Pt. up in chair, readily agrees to PT. Mental Status Patient Orientation: Normal For Age Transfers Functional [place] Measure 0=Not Assessed/NA 4=Minimal Assistance 1=Total Assistance 5=Supervision or Setup 2=Maximal Assistance 6=Modified [place] 3=Moderate Assistance 7=Complete IndependenceIRFPAI Quality Coding Scale 6 Independent with activity with or without an assistive device 5 Patient requires set up or clean up by helper. Patient completes activity by themselves 4 Supervision or touching assist (CGA). [place] provide cues , steadying assist 3 The helper provides less than half the effort to complete the activity 2 The helper provides more than half the effort to complete the activity 1 Dependent. The helper does all the effort to complete an activity 7 Patient refused to complete or attempt activity 9 The patient did not perform the activity before the current illness or injury 88 Not attempted due to Medical conditions or safety concerns Transfers (B, C, W/C) (FIM): 5 Sit to/from Stand: 5 Gait Training Does the Patient Walk?: Yes Gait (FIM): 4 Distance (FIM): 3=150 ft Distance: 500 ft Gait Level of Assist: 4 Gait Persons Needed: 1 Gait Assistive Device: FWW steady and good gait speed with FWW Treatments gait training Assessment Current Status: Good Progress Pt.does well with transfers and gait, needs occasional skilled cues to maintain hold on FWW. Pt. returned to bedside chair post session, call light in reach, chair alarm set and all needs met. PT Short Term Goals Short Term Goals Transfers (B,C,W/C) (FIM): 5 PT Lower In Supervisor Goals Lower In Supervisor Goals PT Lower In Supervisor Goals Time Frame: Mar 12, 2017 Transfers (B,C,W/C) (FIM): 5 Sit to Lying (QC): 4 Lying-Sitting on Side/Bed(QC): 4 Sit to Stand (QC): 4 Rollin Gait (FIM): 5 Distance: 800' Walk 50ft with 2 Turns (QC): 4 Walk 150 ft (QC): 4 Gait Level of Assist: 5 Gait Assistive Device: FWW PT Plan Treatment/Plan Treatment Plan: Continue Plan of Care Treatment Plan: Bed Mobility, Education, Functional Activity Farhat, Functional Strength, Gait, Safety, Therapeutic Exercise, Transfers Treatment Duration: Mar 12, 2017 Visits Per Week: 5-6 Minutes/Day (M-F): 15-30 Minutes/Day (Sat/[place]): 15-30 Time/GCodes Time In: 1500 Time Out: 1515 Total Billed Treatment Time: 15 Total Billed Treatment 1, GT 15' CRISTIN GASCA PT Mar 06, 2017 15:25
[2017-03-06 17:34] VITALS: BP 135/69
[2017-03-07 06:00] VITALS: BP 139/73
[2017-03-07] MEDS: RT-ALBUTEROL SULF 2.5 MG/3 ML PRE-MIX VIAL IH SCH ×3 (06:40→19:47)
--- NOTE | 2017-03-07 06:46 | Progress Note-Urology ---
Progress Note-Urology Progress Notes/Assess & Plan Progress/Assessment & Plan CONTINUES WELL. DISCHARGE IN AM Final Diagnosis BPH WITH BLADDER PERFORATION AND REPAIR SHIMON CARMONA MD Mar 07, 2017 6:46 am
[2017-03-07] MEDS: meTOprolol TARTRATE 50 MG (LOPRESSOR) TAB PO SCH ×2 (07:55→19:57)
[2017-03-07] MEDS: amLODIPine 5 MG (NORVASC) TAB PO SCH (07:55)
[2017-03-07] MEDS: risperiDONE 0.25 MG (RisperDAL) TAB PO SCH ×2 (07:55→19:56)
[2017-03-07] MEDS: LACTULOSE SYRUP 10GM/15ML (ENULOSE) 30ML UDC PO SCH ×2 (07:56→19:57)
[2017-03-07] MEDS: NEO/POLY/BAC (NEOSPORIN) OINT 15 GM TUBE TOP SCH ×2 (07:56→19:57)
[2017-03-07] MEDS: QUINAPRIL 20 MG (ACCUPRIL) TAB PO SCH (09:06)
--- NOTE | 2017-03-07 12:01 | Progress Note-Hospitalist ---
Progress Note Progress Notes/Assess & Plan Date Seen 03/07/17 Time Seen by Provider: 10:00 Diagonsis/Assessment & Plan Chart Review: No fever Vitals stable Reviewed urology note, plan for DC in am Patient Interview: Pt confirms PCP and pharmacy at [facility].Pt was informed that my notes will be sent to [facility] Physical exam stable. Lungs sound perfect Dr. Maria's plan to DC tomorrow was discussed Pt states that he has been ambulating Patient doing well overall and plan is for discharge hopefully in the week Catheters are still in place No issues have arisen No fever, vital signs stable, pleasant Regular rate and rhythm, clear to auscultation bilaterally No edema Assessment: Perforated bladder during TURP procedure Acute delirium resolved Likely baseline cognitive decline Hypertension [id number] Leukocytosis improved Constipation Plan: DC planned for Sunday until catheter removed Continue to ambulate Scribed by Jaye Finnegan under the direct supervision of Dr. Giraldo. KELLY GIRALDO DO Mar 07, 2017 12:01
--- NOTE | 2017-03-07 12:24 | Physical Therapy Daily Note ---
PT Daily Note-Current Subjective Pt sitting in recliner upon arrival. Pt agrees to PT. Pain Location: No Pain Reported Mental Status Patient Orientation: Person, Place, Time, Situation Attachments: Koch Catheter Transfers Functional [place] Measure 0=Not Assessed/NA 4=Minimal Assistance 1=Total Assistance 5=Supervision or Setup 2=Maximal Assistance 6=Modified [place] 3=Moderate Assistance 7=Complete IndependenceIRFPAI Quality Coding Scale 6 Independent with activity with or without an assistive device 5 Patient requires set up or clean up by helper. Patient completes activity by themselves 4 Supervision or touching assist (CGA). [place] provide cues , steadying assist 3 The helper provides less than half the effort to complete the activity 2 The helper provides more than half the effort to complete the activity 1 Dependent. The helper does all the effort to complete an activity 7 Patient refused to complete or attempt activity 9 The patient did not perform the activity before the current illness or injury 88 Not attempted due to Medical conditions or safety concerns Scootin Sit to/from Stand: 5 Sit to Stand (QC): 5 Weight Bearing Weight Bearing Restriction: Full Weight Bearing Location Restriction: LE Bilateral Gait Training Does the Patient Walk?: Yes Gait (FIM): 5 Distance (FIM): 3=150 ft Distance: 500' Walk 50 ft with 2 Turns(QC): 5 Walk 150 ft (QC): 5 Gait Level of Assist: 5 Gait Persons Needed: 1 Gait Assistive Device: FWW Pt walks with more normalized gait pattern. Wheelchair Training Does the Pt Use a Wheelchair?: No Treatments Pt transferred from recliner to standing using FWW at [facility]. Pt ambulated in hallway using FWW at [facility]. Pt rests in recliner at end of walk, OT arrives to give pt a shower. Pt is left with OT at end of tx with all needs met. Assessment Current Status: Good Progress Pt is walking well and has gotten stronger with better balance. PT Short Term Goals Short Term Goals Transfers (B,C,W/C) (FIM): 5 PT Filter Cloth Maker Goals Retirement Goals PT Filter Cloth Maker Goals Time Frame: Mar 12, 2017 Transfers (B,C,W/C) (FIM): 5 Sit to Lying (QC): 4 Lying-Sitting on Side/Bed(QC): 4 Sit to Stand (QC): 4 Rollin Gait (FIM): 5 Distance: 800' Walk 50ft with 2 Turns (QC): 4 Walk 150 ft (QC): 4 Gait Level of Assist: 5 Gait Assistive Device: FWW PT Plan Problem List Problem List: Activity Tolerance, Safety, Gait Treatment/Plan Treatment Plan: Continue Plan of Care Treatment Plan: Bed Mobility, Education, Functional Activity [place], Functional Strength, Gait, Safety, Therapeutic Exercise, Transfers Treatment Duration: Mar 12, 2017 Visits Per Week: 5-6 Minutes/Day (M-F): 15-30 Minutes/Day (Sat/[place]): 15-30 Safety Risks/Education Patient Education: Gait Training, Transfer Techniques, Correct Positioning, Safety Issues Teaching Recipient: Patient Teaching Methods: Discussion Response to Teaching: Verbalize Understanding Time/GCodes Time In: 1100 Time Out: 1125 Total Billed Treatment Time: 25 Total Billed Treatment visit, GT x2 (25m) TIMMY BAUMAN PTA Mar 07, 2017 12:24
--- NOTE | 2017-03-07 13:08 | Occupational Ther Daily Note ---
OT Current Status-Daily Note Subjective "I feel really good." Appearance Pt. up in chair. Agrees to shower. Mental Status/Objective Patient Orientation: Person, Place Functional [place] Measure 0=Not Assessed/NA 4=Minimal Assistance 1=Total Assistance 5=Supervision or Setup 2=Maximal Assistance 6=Modified [place] 3=Moderate Assistance 7=Complete [place] Attachments: Koch Catheter ADL-Treatment Functional [place] Measure 0=Not Assessed/NA 4=Minimal Assistance 1=Total Assistance 5=Supervision or Setup 2=Maximal Assistance 6=Modified [place] 3=Moderate Assistance 7=Complete IndependenceIRFPAI Quality Coding Scale 6 Independent with activity with or without an assistive device 5 Patient requires set up or clean up by helper. Patient completes activity by themselves 4 Supervision or touching assist (CGA). [place] provide cues , steadying assist 3 The helper provides less than half the effort to complete the activity 2 The helper provides more than half the effort to complete the activity 1 Dependent. The helper does all the effort to complete an activity 7 Patient refused to complete or attempt activity 9 The patient did not perform the activity before the current illness or injury 88 Not attempted due to Medical conditions or safety concerns Bathing (FIM): 5 (SBA with shower task. Pt. has catheter tubing.) Lower Body Dressing (FIM): 5 (Pt. is able to don socks with SBA. Does require cues to sit down.) Transfers (B, C, W/C) (FIM): 5 (SBA with walker.) Shower Transfer(FIM): 5 Pt. does not don clothing as he still has some bleeding from penile area. Is able to shower and complete LE dressing with SBA. Does require some cues for safety to sit down and take his time. May be more comfortable in his own environment. Education OT Patient Education: Modified ADL techniques, Progress toward Goal/Update tx plan, Purpose of tx/functional activities, Reviewed precautions, Rehab process, Transfer techniques Teaching Recipient: Patient Teaching Methods: Demonstration, Discussion Response to Teaching: Verbalize Understanding, Return Demonstration OT Short Term Goals Short Term Goals Time Frame: Mar 12, 2017 Eating(FIM): 5 Grooming(FIM): 5 Bathing(FIM): 4 Upper Body Dressing(FIM): 5 Lower Body Dressing(FIM): 4 Toileting(FIM): 4 Transfers (B,C,W/C) (FIM): 5 Toilet/Commode Transfer(FIM): 5 Shower Transfer(FIM): 4 Additional Short Term Goals: 1-Demonstrate ADL Tasks, 2-Verbalize Understanding , 3-ImproveStrength/[place] 1=Demonstrate adherence to instructed precautions during ADL tasks. 2=Patient will verbalize/demonstrate understanding of assistive devices/ modifications for ADL. 3=Patient will improve strength/tolerance for activity to enable patient to perform ADL's. OT Parliamentary Archivist Goals [facility] Goals Time Frame: Mar 19, 2017 Eating (FIM): 6 Eating (QC): 6 Groomin Oral Hygiene (QC): 6 Bathing(FIM): 5 Upper Body Dressing(FIM): 6 Lower Body Dressing(FIM): 6 Toileting(FIM): 6 Toileting Hygiene (QC): 6 Transfers (B,C,W/C) (FIM): 6 Toilet/Commode Transfer(FIM): 6 Toilet/Commode Transfer (QC): 6 Shower Transfer(FIM): 5 Additional Goals: 1-Demonstrate ADL Tasks, 2-Verbalize Understanding, 3- ImproveStrength/Farhat 1=Demonstrate adherence to instructed precautions during ADL tasks. 2=Patient will verbalize/demonstrate understanding of assistive devices/ modifications for ADL. 3=Patient will improve strength/tolerance for activity to enable patient to perform ADL's. OT Education/Plan Problem List/Assessment Assessment: Decreased Activ Tolerance, Impaired I ADL's Discharge Recommendations Plan/Recommendations: Continue POC Therapy D/C Recommendations: Home w/ Family Support Treatment Plan/Plan of Care Patient would benefit from OT for education, treatment and training to promote independence in ADL's, mobility, safety and/or upper extremity function for ADL' s. Plan of Care: ADL Retraining, Functional Mobility, UE Funct Exercise/Act Treatment Duration: Mar 19, 2017 Visits Per Week: 5 Agreement: Yes Rehab Potential: Fair Time/GCodes Start Time: 11:25 Stop Time: 11:45 Total Time Billed (hr/min): 20 Billed Treatment Time 1, ADL x 1 KAYE GUERRERO OT Mar 07, 2017 13:08
--- NOTE | 2017-03-07 15:37 | ST Cognitive Linguistic Eval ---
Speech Evaluation-General Medical Diagnosis Turp, Bladder Perforation. Onset Date: Feb 27, 2017 Therapy Diagnosis Therapy Diagnosis: Mild Cognitive Impairment/Confusion Precautions Precautions/Isolations: Fall Prevention, Standard Precautions Referral Referring Physician: Dr. Ami Giraldo Reason for Referral: Evaluation/Treatment Cognitive Evaluation Medical History Pertinent Medical History: Arthritis, HTN Reviewed History: Yes Social History Home: Apartment Current Living Status: Alone Speech PLF-Current Status Prior Level of Function The patient denied prior deficits or challenges with cognition. The patient currently lives alone in an apartment building. Subjective The patient was recently admitted to ([facility]) following a TURP procedure which resulted in a bladder perforation. The patient greeted the clinician upon entrance and was agreeable to participation in the cognitive evaluation. Language Eval: Auditory Comprehends Simple Yes/No Ques: Functional Indent/Objects Multiple [place]: Functional Ident/Pics in Multiple Lange: Functional Follows 1-Step Commands: Functional Follows Complex Directions: Mild (Repetition required for two-step commands.) Follows General Conversations: Mild (Intermittent redirection to topic was required throughout informal conversation.) Language Eval: Verbal Language Completes Spontaneous Greeting: Functional Produces Auto, Serial Info: Functional Imitates Simple Words/Phrases: Functional Word Finding: Moderate (The patient was able to produce three words within a one minute duration.) Requests Basic Needs: Functional States Basic Personal Info: Functional Expresses Complex Ideas: Mild Cognitive Patient Orientation The patient is oriented to the month, day of week, year, location, and city with the use of the in-room white board. Objective Cognitive Domain Attention: Mild Memory: Moderate Problem Solving: Mild Executive Functions: Moderate Visuospatial Skills: Moderate Clock Drawing Severity Rating: Mild Objective Formal/Standardized Tests The patient was provided the [place] Cognitive Assessment (MoCA) with a result of +18/30 correlating to a mild to moderate cognitive impairment. Impression The patient demonstrated a mild to moderate cognitive impairment, most notably in the area of executive functioning and memory. Speech Short Term Goals Short Term Goals Short Term Goals 1. The patient will provide simple orientation information with 90% accuracy without the use of an external aid. 2. The patient will demonstrate 90% accuracy with safety problem solving, independently (patient lives alone). 3. Patient will demonstrate structured executive functioning tasks with 90% accuracy and mild clinician cueing. Time Frame-STG: Five Days Speech Mcc Goals Voltage Regulator Assembler Goals 1. The patient will demonstrate improved cognitive skills for increased function and safety with ADL's in the least restrictive setting. Time Frame: One Week Speech-Plan Treatment Plan Speech Therapy Treatment Plan: Continue Plan of Care Continue skilled speech pathology to target functional safety problem solving and memory strategies. Treatment Duration: Mar 14, 2017 # of days/week Three Visits Per Week: Three Rehab Potential: Fair Safety Risks/Education Teaching Recipient: Patient Teaching Methods: Discussion Response to Teaching: Verbalize Understanding Education Topics Provided: Results, Recommendations, Plan of Care Time Speech Therapy Time In: 14:55 Speech Therapy Time Out: 15:20 Total Billed Time: 25 Billed Treatment Time 1, SEYMOUR HAGAN Mar 07, 2017 15:37
[2017-03-07 18:00] VITALS: BP 135/63
[2017-03-08] MEDS: HYDROcodone/APAP 5 MG/325 MG (LORTAB) TAB PO PRN (03:11)
[2017-03-08 06:00] VITALS: BP 145/81
[2017-03-08] MEDS: RT-ALBUTEROL SULF 2.5 MG/3 ML PRE-MIX VIAL IH SCH ×3 (08:00→19:36)
[2017-03-08] MEDS: risperiDONE 0.25 MG (RisperDAL) TAB PO SCH ×2 (08:21→20:41)
[2017-03-08] MEDS: meTOprolol TARTRATE 50 MG (LOPRESSOR) TAB PO SCH ×2 (08:21→20:41)
[2017-03-08] MEDS: amLODIPine 5 MG (NORVASC) TAB PO SCH (08:21)
[2017-03-08] MEDS: LACTULOSE SYRUP 10GM/15ML (ENULOSE) 30ML UDC PO SCH ×2 (08:22→20:41)
[2017-03-08] MEDS: QUINAPRIL 20 MG (ACCUPRIL) TAB PO SCH (08:22)
[2017-03-08] MEDS: NEO/POLY/BAC (NEOSPORIN) OINT 15 GM TUBE TOP SCH ×2 (08:24→20:42)
--- NOTE | 2017-03-08 10:41 | Progress Note-Hospitalist ---
Progress Note Progress Notes/Assess & Plan Date Seen 03/08/17 Time Seen by Provider: 10:00 Diagonsis/Assessment & Plan Chart Review: No fever Vitals stable BP good Having regular BMs Reviewed note from Dr. Candace Maria Review: Pt will be going home on the super-pubic catheter, but the other will be removed Patient Interview: Pt states that he is upset that he will not leave today. I informed him that he will not be able to leave until his catheters are removed, it may take until Sunday03/12/17. I assured him that it would be easier for him at home if he does not have the catheters. Physical exam stable Rocephin treatment completed No fever, vital signs stable, pleasant Regular rate and rhythm, clear to auscultation bilaterally No edema Assessment: Perforated bladder during TURP procedure Acute delirium resolved Likely baseline cognitive decline Hypertension [id number] Leukocytosis improved Constipation Plan: DC planned for Sunday until barragan catheter removed but SP catheter to remain Continue to ambulate Scribed by Jaye Finnegan under the direct supervision of Dr. Webber. KELLY WEBBER DO Mar 08, 2017 10:41
--- NOTE | 2017-03-08 10:42 | Progress Note-Urology ---
Progress Note-Urology Progress Notes/Assess & Plan Progress/Assessment & Plan IN [place] [facility]G TILL SUNDAY UNDER DR AKBAR VELASQUEZ. KEEP ALL SAME. ADD PYRIDIUM AND UROJET PRN Final Diagnosis BPH AND BLADDER PERFORATION SHIMON CARMONA MD Mar 08, 2017 10:42 am
[2017-03-08] MEDS ORDERED: LIDOCAINE UROJET 2% GEL 10 ML PKG TOP ONE (10:45)
--- NOTE | 2017-03-08 10:46 | Physical Therapy Daily Note ---
PT Daily Note-Current Subjective Agrees to PT. Thought he was going home today but it may be Sunday now. Verbalized understanding of need to stay a few more days. Mental Status Patient Orientation: Person, Place, Time, Situation Transfers Functional [place] Measure 0=Not Assessed/NA 4=Minimal Assistance 1=Total Assistance 5=Supervision or Setup 2=Maximal Assistance 6=Modified [place] 3=Moderate Assistance 7=Complete IndependenceIRFPAI Quality Coding Scale 6 Independent with activity with or without an assistive device 5 Patient requires set up or clean up by helper. Patient completes activity by themselves 4 Supervision or touching assist (CGA). [place] provide cues , steadying assist 3 The helper provides less than half the effort to complete the activity 2 The helper provides more than half the effort to complete the activity 1 Dependent. The helper does all the effort to complete an activity 7 Patient refused to complete or attempt activity 9 The patient did not perform the activity before the current illness or injury 88 Not attempted due to Medical conditions or safety concerns Transfers (B, C, W/C) (FIM): 5 Sit to/from Stand: 5 sBA with all functional sit to stand transfers with good hand placement and sequencing. Gait Training Does the Patient Walk?: Yes Gait (FIM): 5 Distance (FIM): 3=150 ft Distance: 250 ft Gait Assistive Device: FWW Steady gait and able to make turns without LOB. Exercises Seated Therapy Exercises: Ankle pumps, Long arc quads, Hip flexion, Hamstring Curls Seated Reps: 15 Standing: Heel/toe raises, Marching, Mini squats Standing Reps: 15 LE ther ex performed to increase strength to enhance functional transfers and safety to prepare to return home alone and care for himself. Assessment Current Status: Excellent Progress Good functional progress and progressing towards goals. PT Short Term Goals Short Term Goals Transfers (B,C,W/C) (FIM): 5 (met) PT Long-Term Goals Slicing Machine Operator Goals PT Long-Term Goals Time Frame: Mar 12, 2017 Transfers (B,C,W/C) (FIM): 5 Sit to Lying (QC): 4 Lying-Sitting on Side/Bed(QC): 4 Sit to Stand (QC): 4 Rollin Gait (FIM): 5 Distance: 800' Walk 50ft with 2 Turns (QC): 4 Walk 150 ft (QC): 4 Gait Level of Assist: 5 Gait Assistive Device: FWW PT Plan Problem List Problem List: Activity Tolerance, Functional Strength, Safety, Gait, Transfer Treatment/Plan Treatment Plan: Continue Plan of Care Treatment Plan: Bed Mobility, Education, Functional Activity [place], Functional Strength, Gait, Safety, Therapeutic Exercise, Transfers Treatment Duration: Mar 12, 2017 Visits Per Week: 5-6 Minutes/Day (M-F): 15-30 Minutes/Day (Sat/[place]): 15-30 Safety Risks/Education Patient Education: Transfer Techniques, Safety Issues Teaching Recipient: Patient Teaching Methods: Discussion Response to Teaching: Verbalize Understanding Time/GCodes Time In: 940 Time Out: 1005 Total Billed Treatment Time: 25 Total Billed Treatment visit EX 15 GT 10 LEONOR MACIAS PT Mar 08, 2017 10:46
[2017-03-08] MEDS ORDERED: LIDOCAINE UROJET 2% GEL 10 ML PKG TOP PRN (12:00)
[2017-03-08] MEDS: PHENAZOPYRIDINE 100 MG (PYRIDIUM) TABLET PO SCH ×2 (12:51→16:57)
--- NOTE | 2017-03-08 13:24 | Speech Therapy Progress Note ---
Therapy Progress Note Speech pathology attempted to follow up with patient at 11:26. The patient was not present in room upon attempt. Speech pathology will attempt cognitive treatment at another time, when patient is available. SEYMOUR EDOUARD Mar 08, 2017 13:23
--- NOTE | 2017-03-08 15:08 | Occupational Ther Daily Note ---
OT Current Status-Daily Note Subjective Pt. asleep but wakes up and agrees to work with OT. Appearance Pt. in bed. Reports no pain. Mental Status/Objective Patient Orientation: Person, Unable to Assess Functional [place] Measure 0=Not Assessed/NA 4=Minimal Assistance 1=Total Assistance 5=Supervision or Setup 2=Maximal Assistance 6=Modified [place] 3=Moderate Assistance 7=Complete [place] Pt. is able to state his needs and set up at home. However, at one point begins to talk about the shower chair that is in the hospital bathroom as though it were a chair somewhere else. ADL-Treatment Functional [place] Measure 0=Not Assessed/NA 4=Minimal Assistance 1=Total Assistance 5=Supervision or Setup 2=Maximal Assistance 6=Modified [place] 3=Moderate Assistance 7=Complete IndependenceIRFPAI Quality Coding Scale 6 Independent with activity with or without an assistive device 5 Patient requires set up or clean up by helper. Patient completes activity by themselves 4 Supervision or touching assist (CGA). [place] provide cues , steadying assist 3 The helper provides less than half the effort to complete the activity 2 The helper provides more than half the effort to complete the activity 1 Dependent. The helper does all the effort to complete an activity 7 Patient refused to complete or attempt activity 9 The patient did not perform the activity before the current illness or injury 88 Not attempted due to Medical conditions or safety concerns Lower Body Dressing (FIM): 5 (SBA to doff/don pants and socks. Pt. has two catheter tubes that he is not quite clear on how to manage. States that he hopes they will be out by the time he goes home.) Transfers (B, C, W/C) (FIM): 5 (Pt. is able to stand out of bed with SBA using walker. Able to get feet into bed with Mod I.) Other Treatment Pt. states that he has already had a shower today. States that he will likely go home Sunday. Demonstrates ability to dress self with SBA. Spoke with pt. regarding home set up and safety at home. Pt. states that he does not plan to drive anymore, and that he has a friend that will drive his car around. States that he will have the friend at his apartment whenever he showers. Pt. is educated on shower chair/transfer tub bench, and slip resistant surfaces in the bathroom. Pt. verbalizes understanding. Pt. also states that he does not use his oven at home, but used the microwave only, or makes sandwiches. Pt. states that he hopes to get the catheters out before discharge home. All needs met back in room. Education OT Patient Education: Correct positioning, Modified ADL techniques, Progress toward Goal/Update tx plan, Purpose of tx/functional activities, Reviewed precautions, Rehab process, Transfer techniques Teaching Recipient: Patient Teaching Methods: Demonstration, Discussion Response to Teaching: Verbalize Understanding, Return Demonstration OT Short Term Goals Short Term Goals Time Frame: Mar 12, 2017 Eating(FIM): 5 Grooming(FIM): 5 Bathing(FIM): 4 Upper Body Dressing(FIM): 5 Lower Body Dressing(FIM): 4 Toileting(FIM): 4 Transfers (B,C,W/C) (FIM): 5 (met) Toilet/Commode Transfer(FIM): 5 Shower Transfer(FIM): 4 Additional Short Term Goals: 1-Demonstrate ADL Tasks, 2-Verbalize Understanding , 3-ImproveStrength/[place] 1=Demonstrate adherence to instructed precautions during ADL tasks. 2=Patient will verbalize/demonstrate understanding of assistive devices/ modifications for ADL. 3=Patient will improve strength/tolerance for activity to enable patient to perform ADL's. OT Subassembler Goals Subassembler Goals Time Frame: Mar 19, 2017 Eating (FIM): 6 Eating (QC): 6 Groomin Oral Hygiene (QC): 6 Bathing(FIM): 5 Upper Body Dressing(FIM): 6 Lower Body Dressing(FIM): 6 Toileting(FIM): 6 Toileting Hygiene (QC): 6 Transfers (B,C,W/C) (FIM): 6 Toilet/Commode Transfer(FIM): 6 Toilet/Commode Transfer (QC): 6 Shower Transfer(FIM): 5 Additional Goals: 1-Demonstrate ADL Tasks, 2-Verbalize Understanding, 3- ImproveStrength/Farhat 1=Demonstrate adherence to instructed precautions during ADL tasks. 2=Patient will verbalize/demonstrate understanding of assistive devices/ modifications for ADL. 3=Patient will improve strength/tolerance for activity to enable patient to perform ADL's. OT Education/Plan Problem List/Assessment Assessment: Decreased Activ Tolerance, Impaired I ADL's Discharge Recommendations Plan/Recommendations: Continue POC Therapy D/C Recommendations: Home w/ Family Support, Occupational Therapy Home Care Equpiment Recommendations-D/C: Extended Bath Bench Treatment Plan/Plan of Care Treatment,Training & Education: Yes Patient would benefit from OT for education, treatment and training to promote independence in ADL's, mobility, safety and/or upper extremity function for ADL' s. Plan of Care: ADL Retraining, Functional Mobility, UE Funct Exercise/Act Treatment Duration: Mar 19, 2017 Visits Per Week: 5 Agreement: Yes Rehab Potential: Good Time/GCodes Start Time: 14:40 Stop Time: 14:55 Total Time Billed (hr/min): 15 Billed Treatment Time 1, ADL x 1 KAYE GUERRERO OT Mar 08, 2017 15:08
--- NOTE | 2017-03-08 15:22 | Speech Therapy Daily Note ---
Speech Daily Progress Note Subjective Date Seen by Provider: Mar 08, 2017 Time Seen by Provider: 15:00 The patient was laying in bed upon entrance. The patient greeted the clinician appropriately and was agreeable to participation in the cognitive treatment session. Objective Functional Recall: The patient was able to recall the month and year ( independently). Additionally, the patient was able to recall the tasks he completed and participated in with physical therapy, as well as, occupational therapy. The patient stated he would not be discharging until Sunday which he was "alright" with because he will be able to "leave without all these tubes." Safety Awareness: Safety precautions in correlation to discharging home (alone) were discussed. The patient discussed possible safety issues included in bathing , as well as, walking to and from his apartment. The patient stated he will use a bath seat to aid in showering and reduce his fatigue. Additionally, the patient reported the importance of using the hand rail for increased balance while walking. Assessment Assessment Current Status: Good Progress Treatment Plan Continue Plan of Care Speech Short Term Goals Short Term Goals Short Term Goals 1. The patient will provide simple orientation information with 90% accuracy without the use of an external aid. 2. The patient will demonstrate 90% accuracy with safety problem solving, independently (patient lives alone). 3. Patient will demonstrate structured executive functioning tasks with 90% accuracy and mild clinician cueing. Time Frame-STG: Five Days Speech Free Lance Artist Goals Free Lance Artist Goals 1. The patient will demonstrate improved cognitive skills for increased function and safety with ADL's in the least restrictive setting. Time Frame: One Week Speech-Plan Treatment Plan Speech Therapy Treatment Plan: Continue Plan of Care Continue skilled speech pathology to improve functional memory. Treatment Duration: Mar 14, 2017 # of days/week Three Visits Per Week: Three Minutes/Day (M-F): 15 Rehab Potential: Fair Safety Risks/Education Teaching Recipient: Patient Teaching Methods: Discussion Response to Teaching: Verbalize Understanding Education Topics Provided: Safety Awareness Time Speech Therapy Time In: 15:00 Speech Therapy Time Out: 15:15 Total Billed Time: 15 Billed Treatment Time HIGINIO Chand [facility] ST Mar 08, 2017 15:22
[2017-03-08 18:45] VITALS: BP 142/86
[2017-03-09 05:54] VITALS: BP 136/62
[2017-03-09] MEDS: PHENAZOPYRIDINE 100 MG (PYRIDIUM) TABLET PO SCH ×3 (09:23→18:38)
[2017-03-09] MEDS: meTOprolol TARTRATE 50 MG (LOPRESSOR) TAB PO SCH ×2 (09:24→20:04)
[2017-03-09] MEDS: risperiDONE 0.25 MG (RisperDAL) TAB PO SCH ×2 (09:24→20:05)
[2017-03-09] MEDS: amLODIPine 5 MG (NORVASC) TAB PO SCH (09:24)
[2017-03-09] MEDS: NEO/POLY/BAC (NEOSPORIN) OINT 15 GM TUBE TOP SCH ×2 (09:24→20:04)
[2017-03-09] MEDS: QUINAPRIL 20 MG (ACCUPRIL) TAB PO SCH (09:24)
[2017-03-09] MEDS: LACTULOSE SYRUP 10GM/15ML (ENULOSE) 30ML UDC PO SCH ×2 (09:25→20:00)
[2017-03-09] MEDS: RT-ALBUTEROL SULF 2.5 MG/3 ML PRE-MIX VIAL IH SCH (09:32)
[2017-03-09] MEDS ORDERED: RT-ALBUTEROL SULF 2.5 MG/3 ML PRE-MIX VIAL IH PRN (10:00)
--- NOTE | 2017-03-09 10:34 | Progress Note-Hospitalist ---
Progress Note Progress Notes/Assess & Plan Date Seen 03/09/17 Time Seen by Provider: 09:30 Diagonsis/Assessment & Plan Patient Interview: Pt states that he feels better now that he is eating Pt appreciates my care and states he is always happy to see me Physical exam stable. Lungs sound perfect Pt was informed that the catheter in his penis will be removed, but his superior catheter will remain until he sees Dr. Maria out-pt No fever, vital signs stable, pleasant Regular rate and rhythm, clear to auscultation bilaterally No edema Assessment: Perforated bladder during TURP procedure Acute delirium resolved Likely baseline cognitive decline Hypertension [id number] Leukocytosis improved Constipation Plan: DC planned for Sunday until barragan catheter removed but SP catheter to remain Continue to ambulate Breathing treatments prn Follow up with Dr. Maria Scribed by Jaye Finnegan under the direct supervision of Dr. Webber. KELLY WEBBER DO Mar 09, 2017 10:34
--- NOTE | 2017-03-09 11:09 | Physical Therapy Daily Note ---
PT Daily Note-Current Subjective Patient in recliner pre tx, agrees to PT, no complaints of pain. Patient pleasant and cooperative but seems confused. Appearance Patient in recliner post tx with nurse call, phone, tray, chair alarm on. OT in the room to start with patient right after PT. Mental Status Patient Orientation: Person, Confused, Place Attachments: Drains, Koch Catheter Transfers Functional [place] Measure 0=Not Assessed/NA 4=Minimal Assistance 1=Total Assistance 5=Supervision or Setup 2=Maximal Assistance 6=Modified [place] 3=Moderate Assistance 7=Complete IndependenceIRFPAI Quality Coding Scale 6 Independent with activity with or without an assistive device 5 Patient requires set up or clean up by helper. Patient completes activity by themselves 4 Supervision or touching assist (CGA). [place] provide cues , steadying assist 3 The helper provides less than half the effort to complete the activity 2 The helper provides more than half the effort to complete the activity 1 Dependent. The helper does all the effort to complete an activity 7 Patient refused to complete or attempt activity 9 The patient did not perform the activity before the current illness or injury 88 Not attempted due to Medical conditions or safety concerns Transfers (B, C, W/C) (FIM): 5 Sit to/from Stand: 5 Gait Training Gait (FIM): 5 Distance: 1000' Gait Level of Assist: 5 Gait Persons Needed: 1 Gait Assistive Device: FWW Patient had steady ambulation but needs supervision because he gets distracted very easily Treatments transfers, ambulation Assessment Current Status: Fair Progress improving endurance and ambulation PT Short Term Goals Short Term Goals Transfers (B,C,W/C) (FIM): 5 (met) PT Grain Packer Goals Grain Packer Goals PT Custodial Goals Time Frame: Mar 12, 2017 Transfers (B,C,W/C) (FIM): 5 Sit to Lying (QC): 4 Lying-Sitting on Side/Bed(QC): 4 Sit to Stand (QC): 4 Rollin Gait (FIM): 5 Distance: 800' Walk 50ft with 2 Turns (QC): 4 Walk 150 ft (QC): 4 Gait Level of Assist: 5 Gait Assistive Device: FWW PT Plan Problem List Problem List: Activity Tolerance, Functional Strength, Safety, Balance, Gait, Transfer Treatment/Plan Treatment Plan: Continue Plan of Care Treatment Plan: Bed Mobility, Education, Functional Activity Far[place], Functional Strength, Gait, Safety, Therapeutic Exercise, Transfers Treatment Duration: Mar 12, 2017 Visits Per Week: 5-6 Minutes/Day (M-F): 15-30 Minutes/Day (Sat/[place]): 15-30 Safety Risks/Education Patient Education: Gait Training, Transfer Techniques, Correct Positioning, Safety Issues Teaching Recipient: Patient Teaching Methods: Demonstration, Discussion Response to Teaching: Reinforcement Needed Time/GCodes Time In: 1050 Time Out: 1105 Total Billed Treatment Time: 15 Total Billed Treatment 1 visit GT 15' KATHY PEREZ PT Mar 09, 2017 11:09
--- NOTE | 2017-03-09 11:56 | Occupational Ther Daily Note ---
OT Current Status-Daily Note Subjective Pt alert, finishing up with PT. Pt agreed to therapy. No c/o pain. Mental Status/Objective Patient Orientation: Person, Place, Time, Situation Functional [place] Measure 0=Not Assessed/NA 4=Minimal Assistance 1=Total Assistance 5=Supervision or Setup 2=Maximal Assistance 6=Modified [place] 3=Moderate Assistance 7=Complete [place] Attachments: Koch Catheter ADL-Treatment Pt ambulated to bathroom with CGA using FWW. Transferred into shower with CGA using FWW, shower bench and grabbars. Pt required verbal cues to sit and bathe feet instead of standing and lifting leg up to place on bench. Pt was able to bathe all areas then CGA when pt stood to bathe buttocks/issa area. Pt rinsed and dried self with CGA. Pt assisted with [facility] gown. Donned/ doffed socks by self. After therapy, pt sitting in recliner with call light/ phone in reach. All needs met in room. Safety measures in place. Functional [place] Measure 0=Not Assessed/NA 4=Minimal Assistance 1=Total Assistance 5=Supervision or Setup 2=Maximal Assistance 6=Modified [place] 3=Moderate Assistance 7=Complete IndependenceIRFPAI Quality Coding Scale 6 Independent with activity with or without an assistive device 5 Patient requires set up or clean up by helper. Patient completes activity by themselves 4 Supervision or touching assist (CGA). [place] provide cues , steadying assist 3 The helper provides less than half the effort to complete the activity 2 The helper provides more than half the effort to complete the activity 1 Dependent. The helper does all the effort to complete an activity 7 Patient refused to complete or attempt activity 9 The patient did not perform the activity before the current illness or injury 88 Not attempted due to Medical conditions or safety concerns Other Treatment Pt completed 10 arm chair push ups without difficulty. OT Short Term Goals Short Term Goals Time Frame: Mar 12, 2017 Eating(FIM): 5 Grooming(FIM): 5 Bathing(FIM): 4 Upper Body Dressing(FIM): 5 Lower Body Dressing(FIM): 4 Toileting(FIM): 4 Transfers (B,C,W/C) (FIM): 5 (met) Toilet/Commode Transfer(FIM): 5 Shower Transfer(FIM): 4 Additional Short Term Goals: 1-Demonstrate ADL Tasks, 2-Verbalize Understanding , 3-ImproveStrength/Farhat 1=Demonstrate adherence to instructed precautions during ADL tasks. 2=Patient will verbalize/demonstrate understanding of assistive devices/ modifications for ADL. 3=Patient will improve strength/tolerance for activity to enable patient to perform ADL's. OT Care Home Goals Cost Recovery Technician Goals Time Frame: Mar 19, 2017 Eating (FIM): 6 Eating (QC): 6 Groomin Oral Hygiene (QC): 6 Bathing(FIM): 5 Upper Body Dressing(FIM): 6 Lower Body Dressing(FIM): 6 Toileting(FIM): 6 Toileting Hygiene (QC): 6 Transfers (B,C,W/C) (FIM): 6 Toilet/Commode Transfer(FIM): 6 Toilet/Commode Transfer (QC): 6 Shower Transfer(FIM): 5 Additional Goals: 1-Demonstrate ADL Tasks, 2-Verbalize Understanding, 3- ImproveStrength/Farhat 1=Demonstrate adherence to instructed precautions during ADL tasks. 2=Patient will verbalize/demonstrate understanding of assistive devices/ modifications for ADL. 3=Patient will improve strength/tolerance for activity to enable patient to perform ADL's. OT Education/Plan Discharge Recommendations Plan/Recommendations: Continue POC Treatment Plan/Plan of Care Patient would benefit from OT for education, treatment and training to promote independence in ADL's, mobility, safety and/or upper extremity function for ADL' s. Plan of Care: ADL Retraining, Functional Mobility, UE Funct Exercise/Act Treatment Duration: Mar 19, 2017 Visits Per Week: 5 Agreement: Yes Rehab Potential: Good Time/GCodes Start Time: 11:05 Stop Time: 11:30 Total Time Billed (hr/min): 25 Billed Treatment Time 1 visit-ADL 2 (35 min) LEONOR FRANKLIN Mar 09, 2017 11:56
[2017-03-09] MEDS: HYDROcodone/APAP 5 MG/325 MG (LORTAB) TAB PO PRN (13:33)
[2017-03-09 18:00] VITALS: BP_SYST 137; BP_SYST 173; BP_DIAS 76; BP_DIAS 80
[2017-03-10 06:08] VITALS: BP 142/82
--- NOTE | 2017-03-10 08:15 | Physical Therapy Daily Note ---
PT Daily Note-Current Subjective States that he is ready to walk and ready to go home. Pain Numeric Pain Scale: 0-No Pain Transfers Functional [place] Measure 0=Not Assessed/NA 4=Minimal Assistance 1=Total Assistance 5=Supervision or Setup 2=Maximal Assistance 6=Modified [place] 3=Moderate Assistance 7=Complete IndependenceIRFPAI Quality Coding Scale 6 Independent with activity with or without an assistive device 5 Patient requires set up or clean up by helper. Patient completes activity by themselves 4 Supervision or touching assist (CGA). [place] provide cues , steadying assist 3 The helper provides less than half the effort to complete the activity 2 The helper provides more than half the effort to complete the activity 1 Dependent. The helper does all the effort to complete an activity 7 Patient refused to complete or attempt activity 9 The patient did not perform the activity before the current illness or injury 88 Not attempted due to Medical conditions or safety concerns Transfers (B, C, W/C) (FIM): 7 Sit to/from Stand: 7 Gait Training Does the Patient Walk?: Yes Gait (FIM): 5 Distance (FIM): 3=150 ft Distance: 800 feet Gait Level of Assist: 5 Gait Persons Needed: 1 Gait Assistive Device: FWW Assessment Current Status: Excellent Progress Patient is doing well. No SOB during gait. PT Short Term Goals Short Term Goals Transfers (B,C,W/C) (FIM): 5 (met) PT Mcc Goals Metal Fitters And Machinists Goals PT Metal Fitters And Machinists Goals Time Frame: Mar 12, 2017 Transfers (B,C,W/C) (FIM): 5 Sit to Lying (QC): 4 Lying-Sitting on Side/Bed(QC): 4 Sit to Stand (QC): 4 Rollin Gait (FIM): 5 Distance: 800' Walk 50ft with 2 Turns (QC): 4 Walk 150 ft (QC): 4 Gait Level of Assist: 5 Gait Assistive Device: FWW PT Plan Treatment/Plan Treatment Plan: Continue Plan of Care Treatment Plan: Bed Mobility, Education, Functional Activity [place], Functional Strength, Gait, Safety, Therapeutic Exercise, Transfers Treatment Duration: Mar 12, 2017 Visits Per Week: 5-6 Minutes/Day (M-F): 15-30 Minutes/Day (Sat/[place]): 15-30 Time/GCodes Time In: 755 Time Out: 810 Total Billed Treatment Time: 15' Total Billed Treatment 1, GT x 15' NIEDERKLEIN,LELA PT Mar 10, 2017 08:15
[2017-03-10] MEDS: PHENAZOPYRIDINE 100 MG (PYRIDIUM) TABLET PO SCH ×3 (08:26→17:53)
[2017-03-10] MEDS: NEO/POLY/BAC (NEOSPORIN) OINT 15 GM TUBE TOP SCH ×2 (08:26→20:13)
[2017-03-10] MEDS: risperiDONE 0.25 MG (RisperDAL) TAB PO SCH ×2 (08:26→20:12)
[2017-03-10] MEDS: meTOprolol TARTRATE 50 MG (LOPRESSOR) TAB PO SCH ×2 (08:26→20:12)
[2017-03-10] MEDS: amLODIPine 5 MG (NORVASC) TAB PO SCH (08:26)
[2017-03-10] MEDS: QUINAPRIL 20 MG (ACCUPRIL) TAB PO SCH (08:26)
[2017-03-10] MEDS: LACTULOSE SYRUP 10GM/15ML (ENULOSE) 30ML UDC PO SCH ×2 (08:26→20:12)
[2017-03-10 18:10] VITALS: BP 133/79
[2017-03-11 05:10] VITALS: BP 146/67
[2017-03-11] MEDS: PHENAZOPYRIDINE 100 MG (PYRIDIUM) TABLET PO SCH ×3 (09:44→17:39)
[2017-03-11] MEDS: meTOprolol TARTRATE 50 MG (LOPRESSOR) TAB PO SCH ×2 (09:45→20:45)
[2017-03-11] MEDS: QUINAPRIL 20 MG (ACCUPRIL) TAB PO SCH (09:45)
[2017-03-11] MEDS: amLODIPine 5 MG (NORVASC) TAB PO SCH (09:45)
[2017-03-11] MEDS: risperiDONE 0.25 MG (RisperDAL) TAB PO SCH ×2 (09:45→20:45)
[2017-03-11] MEDS: LACTULOSE SYRUP 10GM/15ML (ENULOSE) 30ML UDC PO SCH ×2 (09:49→20:45)
[2017-03-11] MEDS: NEO/POLY/BAC (NEOSPORIN) OINT 15 GM TUBE TOP SCH ×2 (09:55→20:45)
[2017-03-11] MEDS: CALCIUM CARBONATE 500 MG (TUMS) TAB.CHEW PO PRN ×2 (15:15→22:38)
[2017-03-11 18:08] VITALS: BP 145/89
[2017-03-12 06:00] VITALS: BP 143/92
--- NOTE | 2017-03-12 08:44 | Progress Note-Urology ---
Progress Note-Urology Progress Notes/Assess & Plan Progress/Assessment & Plan DOING VERY WELL. 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
--- NOTE | 2017-03-12 08:53 | Discharge Inst-Urology ---
Discharge Inst-Urology Patient Instructions/Follow Up Plan Discharge with SP tube and leg bag (day time) and large bag night time with instructions Office Wednesday 03/21 at 2:15pm, rest till then Keep bowels soft and moving Showers, no bath Increase oral fluids for 48 hours and then as needed. Diet and Activity as tolerated. If questions or concerns contact your physician Or seek help at emergency department. SHIMON CARMONA MD Mar 12, 2017 8:53 am
[2017-03-12] MEDS: LACTULOSE SYRUP 10GM/15ML (ENULOSE) 30ML UDC PO SCH (09:24)
[2017-03-12] MEDS: meTOprolol TARTRATE 50 MG (LOPRESSOR) TAB PO SCH (09:35)
[2017-03-12] MEDS: amLODIPine 5 MG (NORVASC) TAB PO SCH (09:35)
[2017-03-12] MEDS: QUINAPRIL 20 MG (ACCUPRIL) TAB PO SCH (09:35)
[2017-03-12] MEDS: PHENAZOPYRIDINE 100 MG (PYRIDIUM) TABLET PO SCH (09:35)
[2017-03-12] MEDS: NEO/POLY/BAC (NEOSPORIN) OINT 15 GM TUBE TOP SCH (09:35)
[2017-03-12] MEDS: risperiDONE 0.25 MG (RisperDAL) TAB PO SCH (09:35)
--- NOTE | 2017-03-12 11:16 | Physical Therapy Daily Note ---
PT Daily Note-Current Subjective Patient is very excited he is returning to home today. Pain Numeric Pain Scale: 0-No Pain Location: No Pain Reported Mental Status Patient Orientation: Normal For Age Attachments: Koch Catheter Transfers Functional [place] Measure 0=Not Assessed/NA 4=Minimal Assistance 1=Total Assistance 5=Supervision or Setup 2=Maximal Assistance 6=Modified [place] 3=Moderate Assistance 7=Complete IndependenceIRFPAI Quality Coding Scale 6 Independent with activity with or without an assistive device 5 Patient requires set up or clean up by helper. Patient completes activity by themselves 4 Supervision or touching assist (CGA). [place] provide cues , steadying assist 3 The helper provides less than half the effort to complete the activity 2 The helper provides more than half the effort to complete the activity 1 Dependent. The helper does all the effort to complete an activity 7 Patient refused to complete or attempt activity 9 The patient did not perform the activity before the current illness or injury 88 Not attempted due to Medical conditions or safety concerns Transfers (B, C, W/C) (FIM): 6 Scootin Roll Left to Right (QC): 6 Supine to/from Sit: 6 Sit to/from Stand: 6 Sit to Lying (QC): 6 Sit to Stand (QC): 6 Chair/Qco-wq-Ulsyz Xfer(QC): 6 Gait Training Does the Patient Walk?: Yes Gait (FIM): 6 Distance (FIM): 3=150 ft Distance: 600' Walk 50 ft with 2 Turns(QC): 5 Walk 150 ft (QC): 5 Gait Level of Assist: 6 Gait Assistive Device: FWW safe and functional Assessment Patient tolerated treatment well and will return to home on this date. Patient would benefit from FWW for home use for safety issued. SS notified. PT Short Term Goals Short Term Goals Transfers (B,C,W/C) (FIM): 5 (met) PT Cooper Helper Goals Senior Living Goals PT Cooper Helper Goals Time Frame: Mar 12, 2017 Transfers (B,C,W/C) (FIM): 5 (met 03/12/17) Sit to Lying (QC): 4 (met 03/12/17) Lying-Sitting on Side/Bed(QC): 4 (met 03/12/17) Sit to Stand (QC): 4 (met 03/12/17) Rollin (met 03/12/17) Gait (FIM): 5 (met 03/12/17) Distance: 800' Walk 50ft with 2 Turns (QC): 4 (met 03/12/17) Walk 150 ft (QC): 4 (met 03/12/17) Gait Level of Assist: 5 (met 03/12/17) Gait Assistive Device: FWW PT Plan Treatment/Plan Treatment Plan: Discontinue PT, goals met Treatment Plan: Bed Mobility, Education, Functional Activity [place], Functional Strength, Gait, Safety, Therapeutic Exercise, Transfers Treatment Duration: Mar 12, 2017 Visits Per Week: 5-6 Minutes/Day (M-F): 15-30 Minutes/Day (Sat/[place]): 15-30 Time/GCodes Time In: 1041 Time Out: 1051 Total Billed Treatment Time: 10 Total Billed Treatment 1 visit FA 10 min OSMAR ZAPATA PT Mar 12, 2017 11:16
--- NOTE | 2017-03-12 11:17 | Therapy Team Discharge Summary ---
Therapy Discharge Summary Discharge Recommendations Date of Discharge Therapy D/C Recommendations: Home w/ Family Support, Occupational Therapy Home Care Physical Therapy Patient is modified independent to independent with gross motor skills and will dismiss to home on this date. Goals addressed and met. Patient is highly motivated with progress. Patient ambulate with FWW >500' modified independently. Patient voices no concerns of safety at this time. PT Custodial Goals Custodial Goals PT Custodial Goals Time Frame: Mar 12, 2017 Transfers (B,C,W/C) (FIM): 5 (met 03/12/17) Sit to Lying (QC): 4 (met 03/12/17) Lying-Sitting on Side/Bed(QC): 4 (met 03/12/17) Sit to Stand (QC): 4 (met 03/12/17) Rollin (met 03/12/17) Gait (FIM): 5 (met 03/12/17) Distance: 800' Walk 50ft with 2 Turns (QC): 4 (met 03/12/17) Walk 150 ft (QC): 4 (met 03/12/17) Gait Level of Assist: 5 (met 03/12/17) Gait Assistive Device: FWW OT Custodial Goals Bushel Girl Goals Time Frame: Mar 19, 2017 Eating (FIM): 6 Eating (QC): 6 Groomin Oral Hygiene (QC): 6 Bathing(FIM): 5 Upper Body Dressing(FIM): 6 Lower Body Dressing(FIM): 6 Toileting(FIM): 6 Toileting Hygiene (QC): 6 Transfers (B,C,W/C) (FIM): 6 Toilet/Commode Transfer(FIM): 6 Toilet/Commode Transfer (QC): 6 Shower Transfer(FIM): 5 Additional Goals: 1-Demonstrate ADL Tasks, 2-Verbalize Understanding, 3- ImproveStrength/[place]hat 1=Demonstrate adherence to instructed precautions during ADL tasks. 2=Patient will verbalize/demonstrate understanding of assistive devices/ modifications for ADL. 3=Patient will improve strength/tolerance for activity to enable patient to perform ADL's. Speech Bushel Girl Goals Bushel Girl Goals 1. The patient will demonstrate improved cognitive skills for increased function and safety with ADL's in the least restrictive setting. Time Frame: One Week OSMAR ZAPATA PT Mar 12, 2017 11:17
--- NOTE | 2017-03-12 11:21 | Progress Note-Hospitalist ---
Standard Progress Note Progress Notes/Assess & Plan Date Seen 03/12/17 Time Seen by Provider: 11:18 Assess & Plan/Chief Complaint The patient is a 72-year-old white male known to me over a number of years time frame. He had a surgical complication and required a Koch catheter and a suprapubic catheter after a perforation of the bladder. He has done well and is ready to go home today. Physical exam: He looks well and states he feels well too. Lungs are clear to auscultation. CV is regular without murmur. A suprapubic catheter is noted as well as a penile catheter. The penile catheter is to be removed today. There is no pedal edema. Impression: Surgical complication with bladder perforation. Evidence of good healing. Plan: Discharge to home with scheduled follow-up with Dr. Maria and return to [facility] JUAN ANTONIO RODRÍGUEZ MD Mar 12, 2017 11:21
--- NOTE | 2017-03-12 14:22 | D/C HH Face to Face Order ---
D/C Face to Face Orders Instructions for Patient Patient Instructions/FollowUp: Home health nursing for wound healing and urinary function Physician to follow Patient: KRISTINE Discharge Diet for Home: No Restrictions, Regular Diet Patient Problems: Recent hospitalization for bladder perforation as a complication of TURP. Goals for Patient: Healing of bladder and ultimate removal of suprapubic cystostomy Patient Data-Allergies,Ht & Wt Patient Allergies: Coded Allergies: Sulfa (Sulfonamide Antibiotics) (Verified Allergy, Unknown, 04/06/09) codeine (Verified Allergy, Unknown, 02/21/17) Height (Feet): 5 Height (Inches): 7.00 Weight (Pounds): 186 Weight (Ounces): 9.0 Home Health Need/Face to Face Date of Face to Face: Mar 12, 2017 Clinical Findings: Generalized weakness and fatigue, Unsteady gait I have seen Pt [id number]: Yes Discharged To: Home Diagnosis/Conditions: Bladder perforation post TURP Problems/Diagnosis/Condition: Patient is Homebound due to: Pain w/ambulation Homebound Status Due to the above stated illness, injury or surgical procedure (medical condition or diagnosis) and associated clinical findings, the patient is homebound because of his/her inability to leave home except with aid of a supportive device and/or person AND leaving the home requires a considerable and taxing effort or is medically contraindicated. Pt req the following assistanc: [facility] Nursing Orders Home Health Services Order: Nursing Services Certify Stmt I certify that this patient is under my care and that I, a nurse practitioner or a physician; a reference library assistant working with me, had a face to face encounter that - meets the physician face to face encounter requirements with this patient as dated. JUAN ANTONIO Loera MD Mar 12, 2017 14:22
== END 2017-03-12 13:40 | disposition home health service (06) | DRG 920 ==
LOC: 4TH 10:36 → 3RD 03-09 11:24
PROVIDERS: ADMIT Internal Medicine; ATTEND Internal Medicine
DX: N99.71 Accidental puncture and laceration of a genitourinary system organ or structure during a genitourinary system procedure (principal); N40.1 Benign prostatic hyperplasia with lower urinary tract symptoms; R33.8 Other retention of urine; F05 Delirium due to known physiological condition; I10 Essential (primary) hypertension; F03.90 Unspecified dementia, unspecified severity, without behavioral disturbance, psychotic disturbance, mood disturbance, and anxiety; F41.9 Anxiety disorder, unspecified; D72.829 Elevated white blood cell count, unspecified; M19.91 Primary osteoarthritis, unspecified site; G47.00 Insomnia, unspecified; I25.10 Atherosclerotic heart disease of native coronary artery without angina pectoris; Z87.891 Personal history of nicotine dependence; Z85.828 Personal history of other malignant neoplasm of skin; K59.00 Constipation, unspecified
CPT/HCPCS: 82962; 94640; 94760

== ENCOUNTER 2017-03-17 11:16 | Emergency (ER) | payer MEDICARE, MEDICAID ==
[~2017-03-17] VITALS: Ht 170.2 cm; Wt 84.6 kg
[2017-03-17 11:39] LABS: BILIRUBIN,URINE NEGATIVE (NEGATIVE); KETONES,URINE NEGATIVE (NEGATIVE); LEUKOCYTE ESTERASE ,URINE 3+ (NEGATIVE); NITRITE,URINE NEGATIVE (NEGATIVE); PH,URINE 7 (5-9); PROTEIN,URINE 2+ (NEGATIVE); UROBILINOGEN,URINE NORMAL (NORMAL)
--- NOTE | 2017-03-17 11:48 | ED GU-Male ---
General Chief Complaint: -Male Stated Complaint: ABD PAIN Nursing Triage Note: PT TO [facility] WITH CC OF ABD PAIN, RECENT BLADDER SURGERY, PT HAS A SUPRA PUBIC CATHETER WITH A LEG BAG, STATES ABD PAIN WORSE WHEN BAG FILLS UP. 300 MLS CLEAR YELLOW URINE DRAINED ON ARRIVAL TO ER. Source: patient Exam Limitations: no limitations History of Present Illness Time seen by provider: 11:23 Initial Comments 72-year-old male patient presents to the emergency department with complaints of lower abdominal pain intermittently. States pain is worse when leg bag is full of urine. Had bladder surgery on 03/[address] Amin. Has a suprapubic catheter and leg bag. Denies fevers, chills, nausea, hematuria, or diarrhea. States he has been drinking a lot of water, sprite, and milk. Timing/Duration: intermittent, other (1 wk) Severity/Quality: aching, cramping Radiation: other (unable to localize pain) Modifying Factors: Worsens With Other (worse when leg bag is full.) Allergies and Home Medications Allergies Coded Allergies: Sulfa (Sulfonamide Antibiotics) (Verified Allergy, Unknown, 04/06/09) codeine (Verified Allergy, Unknown, 02/21/17) Home Medications Cefuroxime Axetil 500 Mg Tablet, 500 MG PO BID, #20 Ref 0 Prescribed by: MARGIE VÁZQUEZ on 03/17/17 140 Cholecalciferol 1,000 Unit Tablet, 1,000 UNIT PO DAILY, (Reported) Escitalopram Oxalate 10 Mg Tablet, 10 MG PO DAILY, (Reported) Finasteride 5 Mg Tablet, 5 MG PO DAILY, (Reported) Hydrochlorothiazide 25 Mg Tablet, 25 MG PO DAILY, (Reported) Lorazepam 2 Mg Tablet, 2 MG PO DAILY, (Reported) Metoprolol Tartrate 50 Mg Tablet, 50 MG PO BID, (Reported) Quinapril Hcl 40 Mg Tablet, 40 MG PO DAILY, (Reported) Tramadol HCl 50 Mg Tablet, 50 MG PO Q4H PRN for pain, #14 Ref 0 Prescribed by: MARGIE VÁZQUEZ on 03/17/174 Constitutional: No chills, No fever, No malaise Respiratory: No cough, No short of breath Cardiovascular: No chest pain, No palpitations Gastrointestinal: see HPI Genitourinary: see HPI Musculoskeletal: no symptoms reported Skin: no symptoms reported Psychiatric/Neurological: No Symptoms Reported All Other Systemes Reviewed Negative Unless Noted: Yes (Negative excepted noted.) Past Obhihci-Bshdwf-Aiveam Hx Patient Social History Alcohol Use: Denies Use Recreational Drug Use: No Smoking Status: Former Smoker Type Used: Cigarettes Recent Foreign Travel: No Contact w/Someone Who Travel: No Recent Infectious Disease Expo: No Recent Hopitalizations: Yes (MARCH 2017) Immunizations Up To Date Date of Pneumonia Vaccine: Jun 10, 2007 Date of Influenza Vaccine: Jul 12, 2016 Seasonal Allergies Seasonal Allergies: Yes Surgeries HX Surgeries: Yes (SKIN CANCER REMOVAL, COLONOSCOPY AND POLYPECTOMY) Surgeries: Appendectomy, Bladder Surgery, Gallbladder Respiratory Hx Respiratory Disorders: No Respiratory Disorders: Pneumonia Cardiovascular Hx Cardiac Disorders: Yes Cardiac Disorders: Hypertension Neurological Hx Neurological Disorders: Yes Neurological Disorders: Dementia Reproductive System Hx Reproductive Disorders: No Sexually Transmitted Disease: No Genitourinary Hx Genitourinary Disorders: Yes Genitourinary Disorders: Prostate Problems Gastrointestinal Hx Gastrointestinal Disorders: Yes (COLITIS, HX OF GALL BLADDER REMOVAL AND APPY) Gastrointestinal Disorders: Colitis, Polyps Musculoskeletal Hx Musculoskeletal Disorders: Yes (TENDONITIS) Musculoskeletal Disorders: Arthritis Endocrine Hx Endocrine Disorders: No HEENT HX ENT Disorders: No (glasses, cataracts removed, ) Cancer Hx Cancer: Yes Cancer: Skin Psychosocial Hx Psychiatric Problems: No Integumentary HX Skin/Integumentary Disorder: No Blood Transfusions Hx Blood Disorders: No Reviewed Nursing Assessment Reviewed/Agree w Nursing PMH: Yes Family Medical History Significant Family History: No Pertinent Family Hx Family Medial History: Myocardial infarction 19 FATHER Physical Exam Vital Signs Vital Sign - Last 12Hours 03/17/17 11:23 Temp 97.2 Pulse 70 Resp 20 B/P (MAP) 123/74 Pulse Ox 95 O2 Delivery Room Air Capillary Refill : Less Than 3 Seconds General Appearance: WD/WN, no apparent distress HEENT: PERRL/EOMI, pharynx normal Neck: supple, normal inspection Cardiovascular: normal peripheral pulses, regular rate, rhythm, no edema, no murmur Respiratory: lungs clear, normal breath sounds, no respiratory distress Gastrointestinal: normal bowel sounds, non tender (unable to reproduce pain on exam), soft, No distended, hernia (reducible upper abdominal hernia without tenderness.), other (lower abdominal midline incision intact. suprapubic catheter noted in the lower abdomen with anchoring suture intact. slight erythema noted around the catheter. a small amount of serosanginous drainage is noted on the dressing. ) Back: normal inspection, no CVA tenderness Extremities: no pedal edema, normal capillary refill Neurologic/Psychiatric: alert, normal mood/affect, oriented x 3 Skin: normal color, warm/dry, other ((see abd exam above)) Progress/Results/Core Measures Results/Orders Lab Results Laboratory Tests Test 03/17/17 11:24 03/17/17 11:40 03/17/17 12:20 Range/Units Urine Color YELLOW Urine Clarity CLEAR Urine pH 7 5-9 Urine Specific Holt 1.005 L 1.016-1.022 Urine Protein 2+ H NEGATIVE Urine Glucose (UA) NEGATIVE NEGATIVE Urine Ketones NEGATIVE NEGATIVE Urine Nitrite NEGATIVE NEGATIVE Urine Bilirubin NEGATIVE NEGATIVE Urine Urobilinogen NORMAL NORMAL MG/DL Urine Leukocyte Esterase 3+ H NEGATIVE Urine RBC (Auto) 5+ H NEGATIVE Urine RBC NONE /HPF Urine WBC 50-99 /HPF Urine Squamous Epithelial Cells NONE /HPF Urine Crystals PRESENT H /LPF Urine Amorphous Sediment FEW KATARZYNA URATES H /LPF Urine Bacteria FEW H /HPF Urine Casts NONE /LPF Urine Mucus NEGATIVE /LPF Urine Culture Indicated YES White Blood Count 8.7 4.3-11.0 10^3/uL Red Blood Count 4.99 4.35-5.85 10^6/uL Hemoglobin 14.8 13.3-17.7 G/DL Hematocrit 45 40-54 % Mean Corpuscular Volume 91 80-99 FL Mean Corpuscular Hemoglobin 30 25-34 PG Mean Corpuscular Hemoglobin Concent 33 32-36 G/DL Red Cell Distribution Width 13.4 10.0-14.5 % Platelet Count 331 130-400 10^3/uL Mean Platelet Volume 10.3 7.4-10.4 FL Neutrophils (%) (Auto) 67 42-75 % Lymphocytes (%) (Auto) 23 12-44 % Monocytes (%) (Auto) 8 0-12 % Eosinophils (%) (Auto) 2 0-10 % Basophils (%) (Auto) 1 0-10 % Neutrophils # (Auto) 5.8 1.8-7.8 X 10^3 Lymphocytes # (Auto) 2.0 1.0-4.0 X 10^3 Monocytes # (Auto) 0.7 0.0-1.0 X 10^3 Eosinophils # (Auto) 0.1 0.0-0.3 10^3/uL Basophils # (Auto) 0.1 0.0-0.1 10^3/uL Sodium Level 134 L 135-145 MMOL/L Potassium Level 4.1 3.6-5.0 MMOL/L Chloride Level 99 98-107 MMOL/L Carbon Dioxide Level 25 21-32 MMOL/L Anion Gap 10 5-14 MMOL/L Blood Urea Nitrogen 10 7-18 MG/DL Creatinine 1.03 0.60-1.30 MG/DL Estimat Glomerular Filtration Rate > 60 BUN/Creatinine Ratio 10 Glucose Level 94 70-105 MG/DL Calcium Level 8.6 8.5-10.1 MG/DL Total Bilirubin 0.8 0.1-1.0 MG/DL Aspartate Amino Transf (AST/SGOT) 43 H 5-34 U/L Alanine Aminotransferase (ALT/SGPT) 36 0-55 U/L Alkaline Phosphatase 77 40-136 U/L Total Protein 7.6 6.4-8.2 GM/DL Albumin 3.3 3.2-4.5 GM/DL My Orders Orders - MARGIE VÁZQUEZ Cbc With Automated Diff (03/17/17 11:32) Comprehensive Metabolic Panel (03/17/17 11:32) Ua Culture If Indicated (03/17/17 11:32) Saline Lock/Iv-Start (03/17/17 11:32) Ct Abdomen/Pelvis W (03/17/17 11:32) Urine Culture (03/17/17 11:24) Iohexol Injection (Omnipaque 350 Mg/Ml 1 (03/17/17 12:00) Ns (Ivpb) (Sodium Chloride 0.9% Ivpb Bag (03/17/17 12:00) Medications Given in ED Current Medications Medications Dose Ordered Sig/Marlene Route Start Time Stop Time Status Last Admin Dose Admin Iohexol 100 ml ONCE ONCE IV 03/17/17 12:00 03/17/17 12:01 DC 03/17/17 12:04 100 ML Sodium Chloride 100 ml ONCE ONCE IV 03/17/17 12:00 03/17/17 12:01 DC 03/17/17 12:04 80 ML Vital Signs/I&O Vital Sign - Last 12Hours 03/17/17 03/17/17 11:23 14:22 Temp 97.2 Pulse 70 78 Resp 20 16 B/P (MAP) 123/74 Pulse Ox 95 98 O2 Delivery Room Air Blood Pressure Mean: 90 Diagnostic Imaging Diagonstic Imaging: CT Plain Films/CT/US/NM/MRI: abdomen, pelvis Comments FINDINGS: Chronic, fibrotic-type changes about the lung bases, without definitive focal infiltrate. Heart size appears to be borderline enlarged. EG junction with a very small hiatal hernia. There is a somewhat heterogeneous appearance about the liver parenchyma without focal lesion. Common bile duct is mildly prominent with nonvisualization of the gallbladder, likely postcholecystectomy ectasia. Pancreas and adrenal glands are stable. The spleen is relatively stable. Abdominal aorta normal in contour with major branches patent. Low-density masses, both kidneys, favoring probable cysts. No findings to suggest obstructive uropathy. There has been interval placement of a suprapubic catheter. This appears to likely be in the appropriate position. Delayed images do demonstrate contrast passing into the catheter. There is diffuse haziness and inflammatory changes surrounding the urinary bladder extending to the abdominal wall. A small amount of pelvic fluid is present. Prostate gland enlarged and heterogeneous and contains calcifications. Some asymmetric enhancement along the right aspect is present. The gastrointestinal tract demonstrates no obstruction or inflammation. There is again noted a right sided abdominal wall hernia containing a portion of the transverse colon. While there is some narrowing and a fairly tight defect, there is no suggestion for obstruction. Questionable wall thickening at the level of the pylorus of the stomach. Colonic diverticula without evidence for acute diverticulitis. IMPRESSION: Interval placement of a suprapubic catheter which appears to be in satisfactory position and does drain contrast. There is however, inflammatory changes in and around this region extending into the abdominal wall and underlying superimposed infectious process not excluded. Small amounts of free pelvic fluid without findings to suggest drainable abscess. The prostate gland remains enlarged with a heterogeneous appearance and asymmetric areas of enhancement. Clinical correlation is recommended. Right-sided abdominal wall hernia defect containing transverse colon. There is some narrowing of the caliber of the colon as a fairly tight defect, however, no findings to suggest a high degree obstruction. Dictated by: Dictated on workstation # [id number] Reviewed: Reviewed by Me (radiology report reviewed by me) Departure Communication Progress Notes 1400 patient case discussed with dr amin. CT scan findings felt to be related to post surgical changes rather than infectious. Recommends starting patient on Ceftin for UTI and for follow-up this week as previously scheduled. Laboratory findings, diagnostic study findings, and recommendations by Dr. Amin discussed with the patient. Discharge instructions and return precautions were discussed with the patient. Proceed with discharge to home. Patient voices understanding and agrees with the treatment plan. Impression Impression: Primary Impression: Urinary tract infection Qualified Codes: N30.00 - Acute cystitis without hematuria Additional Impression: Abdominal pain Qualified Codes: R10.9 - Unspecified abdominal pain Disposition: HOME, SELF-CARE Condition: Improved Departure-Patient Inst. Decision time for Depature: 14:03 Referrals: [facility] (PCP) Primary Care Physician DIMA ELIZALDE (Family) Primary Care Physician SHIMON AMIN MD Patient Instructions: Urinary Tract Infection, Adult (DC) Add. Discharge Instructions: All discharge instructions reviewed with patient and/or family. Voiced understanding. Medications as instructed. Continue usual home medications. Empty your leg bag frequently. Follow-up with Dr. Amin this week as previously scheduled. Return to the emergency department immediately for worsened pain, fever, redness, drainage, blood in the urine, decreased urine, vomiting, or any other concerns. Scripts Tramadol HCl (Tramadol HCl) 50 Mg Tablet 50 MG PO Q4H Y for pain, #14 TAB 0 Refills Prov: MARGIE VÁZQUEZ 03/17/17 Cefuroxime Axetil (Cefuroxime) 500 Mg Tablet 500 MG PO BID, #20 TAB 0 Refills Prov: MARGIE VÁZQUEZ 03/17/17 MARGIE VÁZQUEZ Mar 17, 2017 11:48
[2017-03-17 11:51] LABS: BASOPHILS # (AUTO) 0.1 10^3/uL (0.0-0.1); BASOPHILS % (AUTO) 1 % (0-10); EOSINOPHILS # (AUTO) 0.1 10^3/uL (0.0-0.3); EOSINOPHILS % (AUTO) 2 % (0-10); LYMPHOCYTES % (AUTO) 23 % (12-44); MEAN CORPUSCULAR HEMOGLOBIN 30 PG (25-34); MEAN CORPUSCULAR HGB CONC 33 G/DL (32-36); MEAN CORPUSCULAR VOLUME 91 FL (80-99); MEAN PLATELET VOLUME 10.3 FL (7.4-10.4); MONOCYTES # (AUTO) 0.7 X 10^3 (0.0-1.0); MONOCYTES % (AUTO) 8 % (0-12); NEUTROPHILS # (AUTO) 5.8 X 10^3 (1.8-7.8); NEUTROPHILS % (AUTO) 67 % (42-75); PLATELET COUNT 331 10^3/uL (130-400); RED BLOOD COUNT 4.99 10^6/uL (4.35-5.85); RED CELL DISTRIBUTION WIDTH 13.4 % (10.0-14.5); WHITE BLOOD COUNT 8.7 10^3/uL (4.3-11.0)
[2017-03-17] MEDS ORDERED: NS 100 ML (IVPB) BAG IV ONE (12:00)
[2017-03-17] MEDS ORDERED: IOHEXOL 350 MG/ML 100 ML (OMNIPAQUE 350) VIAL IV ONE (12:00)
[2017-03-17 12:51] LABS: ALANINE AMINOTRANSFERASE 36 U/L (0-55); ALBUMIN 3.3 GM/DL (3.2-4.5); ANION GAP 10 MMOL/L (5-14); ASPARTATE AMINO TRANSFERASE 43 U/L (5-34); BILIRUBIN,TOTAL 0.8 MG/DL (0.1-1.0); BLOOD UREA NITROGEN 10 MG/DL (7-18); BUN/CREATININE RATIO 10; CALCIUM 8.6 MG/DL (8.5-10.1); CARBON DIOXIDE 25 MMOL/L (21-32); CHLORIDE 99 MMOL/L (98-107); CREATININE SERUM 1.03 MG/DL (0.60-1.30); GFR ESTIMATED > 60; GLUCOSE 94 MG/DL (70-105); POTASSIUM 4.1 MMOL/L (3.6-5.0); SODIUM 134 MMOL/L (135-145); TOTAL PROTEIN 7.6 GM/DL (6.4-8.2)
--- NOTE | 2017-03-17 13:38 | Diagnostic Imaging Report ---
PROCEDURE: CT abdomen and pelvis with contrast. TECHNIQUE: Multiple contiguous axial images were obtained through the abdomen and pelvis after administration of intravenous contrast. INDICATION: 13 days post bladder surgery. Abdominal pain, increasing when suprapubic catheter fills up. CORRELATION STUDY: 01/22/2017 FINDINGS: Chronic, fibrotic-type changes about the lung bases, without definitive focal infiltrate. Heart size appears to be borderline enlarged. EG junction with a very small hiatal hernia. There is a somewhat heterogeneous appearance about the liver parenchyma without focal lesion. Common bile duct is mildly prominent with nonvisualization of the gallbladder, likely postcholecystectomy ectasia. Pancreas and adrenal glands are stable. The spleen is relatively stable. Abdominal aorta normal in contour with major branches patent. Low-density masses, both kidneys, favoring probable cysts. No findings to suggest obstructive uropathy. There has been interval placement of a suprapubic catheter. This appears to likely be in the appropriate position. Delayed images do demonstrate contrast passing into the catheter. There is diffuse haziness and inflammatory changes surrounding the urinary bladder extending to the abdominal wall. A small amount of pelvic fluid is present. Prostate gland enlarged and heterogeneous and contains calcifications. Some asymmetric enhancement along the right aspect is present. The gastrointestinal tract demonstrates no obstruction or inflammation. There is again noted a right sided abdominal wall hernia containing a portion of the transverse colon. While there is some narrowing and a fairly tight defect, there is no suggestion for obstruction. Questionable wall thickening at the level of the pylorus of the stomach. Colonic diverticula without evidence for acute diverticulitis. IMPRESSION: Interval placement of a suprapubic catheter which appears to be in satisfactory position and does drain contrast. There is however, inflammatory changes in and around this region extending into the abdominal wall and underlying superimposed infectious process not excluded. Small amounts of free pelvic fluid without findings to suggest drainable abscess. The prostate gland remains enlarged with a heterogeneous appearance and asymmetric areas of enhancement. Clinical correlation is recommended. Right-sided abdominal wall hernia defect containing transverse colon. There is some narrowing of the caliber of the colon as a fairly tight defect, however, no findings to suggest a high degree obstruction. Dictated by: Dictated on workstation # [id number]
[2017-03-17] MEDS ORDERED: TRAM50TA2 PO (14:04)
[2017-03-17] MEDS ORDERED: CEFU500T63 PO (14:04)
[2017-03-17 14:22] VITALS: BP 144/78
[2017-03-19] MEDS ORDERED: NITR-65 PO (15:27)
--- OUTSIDE RECORDS SUMMARY | 2017-03-20 09:14 | XMS REPORT | Continuity of Care Document ---
Author Author [facility] Address Unknown Phone Unavailable Allergies Active Description Code Type Severity Reaction Onset Reported/Identified Relationship to Patient Clinical Status Yes sulfa drug Drug Allergy 10/26/2008 Yes Sulfa (Sulfonamide Antibiotics) [id number] Drug Allergy Unknown N/A 04/06/2009 Yes Codeine Drug Allergy N/A N/A 02/04/2013 Yes codeine [id number] Drug Allergy Unknown N/A 02/21/2017 Medications Problems Date Dx Coded Attending Type Code Diagnosis Diagnosed By 03/16/2008 MONEI EVERETT DO 401.1 ESSENTIAL HYPERTENSION BENIGN 03/16/2008 [...] DO, MONIE K 300.00 anxiety 07/26/2009 FIDE DIRECTOR OF RESERVATIONS, DIMA T 300.00 anxiety 07/26/2009 300.00 anxiety 07/26/2009 300.00 anxiety 07/26/2009 300.00 anxiety 07/26/2009 300.00 anxiety 07/26/2009 300.00 anxiety 07/26/2009 300.00 anxiety 07/26/2009 300.00 anxiety 07/26/2009 EVERETT DO, MONIE K 300.00 anxiety 07/26/2009 EVERETT DO, MONIE K 300.00 anxiety 07/26/2009 300.00 anxiety 07/26/2009 FIDE MEDRANONDIMA T 300.00 anxiety 07/26/2009 FIDE DIRECTOR OF RESERVATIONSDIMA T 300.00 anxiety 07/26/2009 DIMA ELIZALDE APRN [...] SCREENING FOR MALIGNANT NEOPLASMS COLON 08/14/2011 DIMA LEIZALDE APRN V76.51 SPECIAL SCREENING FOR MALIGNANT NEOPLASMS [...] RESPIRATORY INFECTION 06/27/2012 786.2 COUGH 06/27/2012 FIDE DIRECTOR OF RESERVATIONS, DIMA T 465.9 UPPER RESPIRATORY INFECTION 06/27/2012 FIDE DIRECTOR OF RESERVATIONS, DIMA T 786.2 COUGH 06/27/2012 FIDE DIRECTOR OF RESERVATIONS, DIMA T 465.9 UPPER RESPIRATORY INFECTION 06/27/2012 FIDE DIRECTOR OF RESERVATIONS, DIMA T 786.2 COUGH 06/27/2012 FIDE DIRECTOR OF RESERVATIONS, DIMA T 465.9 UPPER RESPIRATORY INFECTION 06/27/2012 FIDE DIRECTOR OF RESERVATIONS, DIMA T 786.2 COUGH 06/27/2012 FIDE DIRECTOR OF RESERVATIONS, DIMA T 465.9 UPPER RESPIRATORY INFECTION 06/27/2012 FIDE DIRECTOR OF RESERVATIONS, DIMA T 786.2 COUGH 06/27/2012 FIDE DIRECTOR OF RESERVATIONS, DIMA T 465.9 UPPER RESPIRATORY INFECTION 06/27/2012 FIDE DIRECTOR OF RESERVATIONS, DIMA T 786.2 COUGH 06/27/2012 FIDE DIRECTOR OF RESERVATIONS, DIMA T 465.9 UPPER RESPIRATORY INFECTION 06/27/2012 FIDE DIRECTOR OF RESERVATIONS, DIMA T 786.2 COUGH 01/13/2013 427.9 SINUS [...] QUIROS, DIMA T 008.8 GASTROENTERITIS, VIRAL 05/19/2013 IFDE QUIROS, DIMA T 008.8 GASTROENTERITIS, VIRAL 05/26/2013 [...] FACP CCDS Ot 401.9 12/20/2015 GLEN CARREON FAC, ALI FACP CCDS Ot 433.10 12/20/2015 GLEN CARREON [facility] CCDS Ot 794.31 12/26/2016 CRISTOBAL PARADA MD Ot I10 ESSENTIAL (PRIMARY) HYPERTENSION 12/26/2016 CRISTOBAL PARADA MD Ot N40.0 BENIGN PROSTATIC HYPERPLASIA WITHOUT LOW 12/26/2016 CRISTOBAL PARADA MD Ot R35.0 FREQUENCY OF MICTURITION 12/26/2016 CRISTOBAL PARADA MD Ot Z79.82 MANAGER PHOTOGRAPHY (CURRENT) USE OF ASPIRIN 12/26/2016 CRISTOBAL PARADA MD Ot Z79.899 OTHER LONGTERM (CURRENT) DRUG THERAPY 12/26/2016 CRISTOBAL PARADA MD Ot I10 ESSENTIAL (PRIMARY) HYPERTENSION 12/26/2016 CRISTOBAL PARADA MD Ot N40.0 BENIGN PROSTATIC HYPERPLASIA WITHOUT LOW 12/26/2016 CRISTOBAL PARADA MD Ot R35.0 FREQUENCY OF MICTURITION 12/26/2016 CRISTOBAL PARADA MD Ot Z79.82 MANAGER PHOTOGRAPHY (CURRENT) USE OF ASPIRIN 12/26/2016 CRISTOBAL PARADA MD T Ot Z79.899 OTHER MANAGER PHOTOGRAPHY (CURRENT) DRUG THERAPY 02/19/2017 SHIMON CARMONA MD Ot R31.9 HEMATURIA, UNSPECIFIED 02/21/2017 SHIMON CARMONA MD Ot N40.1 BENIGN PROSTATIC HYPERPLASIA WITH LOWER 02/21/2017 SHIMON CARMONA MD Ot R33.8 OTHER RETENTION OF URINE 02/21/2017 SHIMON CARMONA MD Ot Z01.812 ENCOUNTER FOR PREPROCEDURAL LABORATORY E 02/21/2017 SHIMON CARMONA MD Ot Z11.2 ENCOUNTER FOR SCREENING FOR OTHER BACTER 02/27/2017 SHIMON CARMONA MD Ot N40.1 BENIGN PROSTATIC HYPERPLASIA WITH LOWER 02/27/2017 SHIMON CRAMONA MD Ot R33.8 OTHER RETENTION OF URINE 02/27/2017 SHIMON CARMONA MD Ot Z01.812 ENCOUNTER FOR PREPROCEDURAL LABORATORY E 02/27/2017 SHIMON CARMONA MD, Ot Z11.2 ENCOUNTER FOR SCREENING FOR OTHER BACTER 03/05/2017 SHIMON CARMONA MD, Ot D72.829 ELEVATED WHITE BLOOD CELL COUNT, UNSPECI 03/05/2017 SHIMON CARMONA MD Ot F03.90 UNSPECIFIED DEMENTIA WITHOUT BEHAVIORAL 03/05/2017 SHIMON CARMONA MD, Ot F05 DELIRIUM DUE TO KNOWN PHYSIOLOGICAL COND 03/05/2017 SHIMON CARMONA MD, Ot F41.9 ANXIETY DISORDER, UNSPECIFIED 03/05/2017 SHIMON CARMONA MD, Ot G47.00 INSOMNIA, UNSPECIFIED 03/05/2017 SHIMON CARMONA MD Ot I10 ESSENTIAL (PRIMARY) HYPERTENSION 03/05/2017 SHIMON CARMONA MD, Ot I25.10 ATHSCL HEART DISEASE OF [place] CORONARY 03/05/2017 SHIMON CARMONA MD, Ot J18.9 PNEUMONIA, UNSPECIFIED ORGANISM 03/05/2017 SHIMON CARMONA MD, Ot J98.11 ATELECTASIS 03/05/2017 SHIMON CARMONA MD, Ot M19.91 PRIMARY OSTEOARTHRITIS, UNSPECIFIED SITE 03/05/2017 SHIMON CARMONA MD Ot 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 03/05/2017 SHIMON CARMONA MD, Ot N40.1 BENIGN PROSTATIC HYPERPLASIA WITH LOWER 03/05/2017 SHIMON CARMONA MD, Ot N99.71 ACC PNCTR LAC OF A SYS ORG DURING A 03/05/2017 SHIMON CARMONA MD Ot R11.0 NAUSEA 03/05/2017 SHIMON CARMONA MD, Ot R31.9 HEMATURIA, UNSPECIFIED 03/05/2017 SHIMON CARMONA MD, Ot R33.8 OTHER RETENTION OF URINE 03/05/2017 SHIMON CARMONA MD, Ot R41.0 DISORIENTATION, UNSPECIFIED 03/05/2017 SHIMON CARMONA MD, Ot Z85.828 PERSONAL HISTORY OF OTHER MALIGNANT NEOP 03/05/2017 SHIMON CARMONA MD, Ot Z87.891 PERSONAL HISTORY OF NICOTINE DEPENDENCE 03/12/2017 KELLY WEBBER DO Ot D72.829 ELEVATED WHITE BLOOD CELL COUNT, UNSPECI 03/12/2017 WEBBER DO, KELLY Ot F03.90 UNSPECIFIED DEMENTIA WITHOUT BEHAVIORAL 03/12/2017 WEBBER DO KELLY Ot F05 DELIRIUM DUE TO KNOWN PHYSIOLOGICAL COND 03/12/2017 WEBBER DO KELLY Ot F41.9 ANXIETY DISORDER, UNSPECIFIED 03/12/2017 WEBBER DO KELLY Ot G47.00 INSOMNIA, UNSPECIFIED 03/12/2017 WEBBER DO KELLY Ot I10 ESSENTIAL (PRIMARY) HYPERTENSION 03/12/2017 AKBAR LEIGH KELLY Ot I25.10 ATHSCL HEART DISEASE OF [place] CORONARY 03/12/2017 WEBBER DO KELLY Ot K59.00 CONSTIPATION, UNSPECIFIED 03/12/2017 WEBBER DO KELLY Ot M19.91 PRIMARY OSTEOARTHRITIS, UNSPECIFIED SITE 03/12/2017 AKBAR LEIGH KELLY Ot N40.1 BENIGN PROSTATIC HYPERPLASIA WITH LOWER 03/12/2017 AKBAR LEIGH KELLY Ot N99.71 ACC PNCTR LAC OF A SYS ORG DURING A 03/12/2017 AKBAR LEIGH KELLY Ot R33.8 OTHER RETENTION OF URINE 03/12/2017 AKBAR LEIGH KELLY Ot Z85.828 PERSONAL HISTORY OF OTHER MALIGNANT NEOP 03/12/2017 AKBAR LEIGH KELLY Ot Z87.891 PERSONAL HISTORY OF NICOTINE DEPENDENCE Procedures Code Description [place] [address] EKG, TRACING (IN-HOUSE) 01/13/2013 01574 ROUTINE VENIPUNCTURE 02/10/2013 97173 CMP 02/10/2013 78948 LIPID PANEL 02/10 2976653 GFR CALC (RESULT ONLY) 02/10/2013 65467 CBC 02/10/2013 G0008 FLU ADMINISTRATION (MEDICARE ONLY) 05/29/2013 84752 ROUTINE VENIPUNCTURE 04/02/2014 86155 CBC 04/02/2014 2906791 GFR CALC (RESULT ONLY) 04/02/2014 36820 CMP 04/02/2014 61854 LIPID PANEL 04/02 70186 ROUTINE VENIPUNCTURE 09/09/2014 14665 CBC 09/09/2014 6901066 GFR CALC (RESULT ONLY) 09/09/2014 51809 CMP 09/09/2014 93435 LIPID PANEL 09/09 General S Jus Quach 28474 ROUTINE VENIPUNCTURE 12/10/2014 53944 CBC 12/10/2014 13319 CMP 12/10/2014 27124 LIPID PANEL 12/10 2211297 GFR CALC (RESULT ONLY) 12/10/2014 [id number] DRAINAGE OF BLADDER WITH DRAINAGE DEVICE 02/27/2017 [id number] REPAIR BLADDER, OPEN APPROACH 02/27/2017 [id number] EXCISION OF PROSTATE, ENDO 02/27/2017 Results Test Result Range Complete urinalysis with [...] culture - 12/26/16 07:38 Bacterial urine culture [id number] NRG COLONY COUNT 10,000/ML - 100,000/ML NRG [...] ABO+Rh group OP NRG Transfusion band number [id number] NRG Blood group antibody screen NEGATIVE NRG Comprehensive metabolic panel - 02/27/17 11:23 Serum [...] plasma calcium measurement (mass/volume) 8.0 mg/dL 8.5-10.1 Complete blood count (CBC) with automated white blood cell (WBC) differential - 03/04/17 06:18 Blood leukocytes automated count (number/volume) 9.5 10*3/ uL 4.3-11.0 Blood erythrocytes automated count (number/volume) 4.12 10*6 /uL 4.35-5.85 Venous blood hemoglobin measurement (mass/volume) 12.7 g/dL 13.3-17.7 Blood hematocrit (volume fraction) 38 % 40-54 Automated erythrocyte mean corpuscular volume 93 [foz_us] 80-99 Automated erythrocyte mean corpuscular hemoglobin (mass per erythrocyte) 31 pg 25-34 Automated erythrocyte mean corpuscular hemoglobin concentration measurement ( mass/volume) 33 g/dL 32-36 Automated erythrocyte distribution width ratio 13.7 % 10.0-14.5 Automated blood platelet count (count/volume) 222 10*3/uL 130-400 Automated blood platelet mean volume measurement 10.1 [foz_ us] 7.4-10.4 Automated blood neutrophils/100 leukocytes 58 % 42-75 Automated blood lymphocytes/100 leukocytes 29 % 12-44 Blood monocytes/100 leukocytes 9 % 0-12 Automated blood eosinophils/100 leukocytes 3 % 0-10 Automated blood basophils/100 leukocytes 1 % 0-10 Blood neutrophils automated count (number/volume) 5.6 10*3 1.8-7.8 Blood lymphocytes automated count (number/volume) 2.7 10*3 1.0-4.0 Blood monocytes automated count (number/volume) 0.8 10*3 0.0-1.0 Automated eosinophil count 0.3 10*3/uL 0.0-0.3 Automated blood basophil count (count/volume) 0.1 10*3/uL 0.0-0.1 Whole blood basic metabolic panel - 03/04/17 06:18 Serum or plasma sodium measurement (moles/volume) 140 mmol/ L 135-145 Serum or plasma potassium measurement (moles/volume) 4.3 mmol/L 3.6-5.0 Serum or plasma chloride measurement (moles/volume) 105 mmol /L 98-107 Carbon dioxide 27 mmol/L 21-32 Serum or plasma anion gap determination (moles/volume) 8 mmol/L 5-14 Serum or plasma urea nitrogen measurement (mass/volume) 13 mg/dL 7-18 Serum or plasma creatinine measurement (mass/volume) 0.81 mg /dL 0.60-1.30 Serum or plasma urea nitrogen/creatinine mass ratio 16 0-20 Serum or plasma creatinine measurement with calculation of estimated glomerular filtration rate > NRG Serum or plasma glucose measurement (mass/volume) 94 mg/dL 70-105 Serum or plasma calcium measurement (mass/volume) 8.3 mg/dL 8.5-10.1 Serum or plasma urea nitrogen measurement (mass/volume) - 03/04/17 14:35 Serum or plasma urea nitrogen measurement (mass/volume) 12 mg/dL 7-18 Creatinine body fluid - 03/04/17 14:35 Creatinine body fluid 1 mg/dL NRG Complete blood count (CBC) with automated white blood cell (WBC) differential - 03/05/17 06:40 Blood leukocytes automated count (number/volume) 9.3 10*3/ uL 4.3-11.0 Blood erythrocytes automated count (number/volume) 4.00 10*6 /uL 4.35-5.85 Venous blood hemoglobin measurement (mass/volume) 12.4 g/dL 13.3-17.7 Blood hematocrit (volume fraction) 37 % 40-54 Automated erythrocyte mean corpuscular volume 92 [foz_us] 80-99 Automated erythrocyte mean corpuscular hemoglobin (mass per erythrocyte) 31 pg 25-34 Automated erythrocyte mean corpuscular hemoglobin concentration measurement ( mass/volume) 34 g/dL 32-36 Automated erythrocyte distribution width ratio 13.7 % 10.0-14.5 Automated blood platelet count (count/volume) 241 10*3/uL 130-400 Automated blood platelet mean volume measurement 10.5 [foz_ us] 7.4-10.4 Automated blood neutrophils/100 leukocytes 59 % 42-75 Automated blood lymphocytes/100 leukocytes 28 % 12-44 Blood monocytes/100 leukocytes 8 % 0-12 Automated blood eosinophils/100 leukocytes 4 % 0-10 Automated blood basophils/100 leukocytes 1 % 0-10 Blood neutrophils automated count (number/volume) 5.5 10*3 1.8-7.8 Blood lymphocytes automated count (number/volume) 2.6 10*3 1.0-4.0 Blood monocytes automated count (number/volume) 0.8 10*3 0.0-1.0 Automated eosinophil count 0.4 10*3/uL 0.0-0.3 Automated blood basophil count (count/volume) 0.1 10*3/uL 0.0-0.1 Comprehensive metabolic panel - 03/05/17 06:40 Serum or plasma sodium measurement (moles/volume) 139 mmol/ L 135-145 Serum or plasma potassium measurement (moles/volume) 4.5 mmol/L 3.6-5.0 Serum or plasma chloride measurement (moles/volume) 107 mmol /L 98-107 Carbon dioxide 25 mmol/L 21-32 Serum or plasma anion gap determination (moles/volume) 7 mmol/L 5-14 Serum or plasma urea nitrogen measurement (mass/volume) 11 mg/dL 7-18 Serum or plasma creatinine measurement (mass/volume) 0.83 mg /dL 0.60-1.30 Serum or plasma urea nitrogen/creatinine mass ratio 13 0-20 Serum or plasma creatinine measurement with calculation of estimated glomerular filtration rate > NRG Serum or plasma glucose measurement (mass/volume) 88 mg/dL 70-105 Serum or plasma calcium measurement (mass/volume) 8.2 mg/dL 8.5-10.1 Serum or plasma total bilirubin measurement (mass/volume) 0.8 mg/dL 0.1-1.0 Serum or plasma alkaline phosphatase measurement (enzymatic activity/volume) 59 U/L 40-136 Serum or plasma aspartate aminotransferase measurement (enzymatic activity/ volume) 46 U/L 5-34 Serum or plasma alanine aminotransferase measurement (enzymatic activity/volume ) 33 U/L 0-55 Serum or plasma protein measurement (mass/volume) 6.5 g/dL 6.4-8.2 Serum or plasma albumin measurement (mass/volume) 2.7 g/dL 3.2-4.5 Capillary blood glucose measurement by glucometer (mass/volume) - 03/06/17 05: 39 Capillary blood glucose measurement by glucometer (mass/volume) 84 mg/dL 70-110 Complete urinalysis with reflex to culture - 03/17/17 11:24 Urine color determination YELLOW NRG Urine clarity determination CLEAR NRG Urine pH measurement by test strip 7 5- 9 Specific gravity of urine by test strip 1.005 1.016-1.022 Urine protein assay by test strip, [...] erythrocyte count by microscopy (number/high power field) NONE NRG Automated urine sediment leukocyte count by microscopy (number/high power field ) [HPF] NRG Bacteria detection in urine sediment by light microscopy FEW NRG Squamous epithelial cells detection in urine sediment by light microscopy NONE NRG Crystals detection in urine sediment by light microscopy PRESENT NRG Casts detection in urine sediment by light microscopy NONE NRG Mucus detection in urine sediment by light microscopy NEGATIVE NRG Complete urinalysis with reflex to culture YES NRG Amorphous sediment detection in urine sediment by light microscopy FEW KATARZYNA URATES NRG Complete blood count (CBC) with automated white blood cell (WBC) differential - 03/17/17 11:40 Blood leukocytes automated count (number/volume) 8.7 10*3/ uL 4.3-11.0 Blood erythrocytes automated count (number/volume) 4.99 10*6 /uL 4.35-5.85 Venous blood hemoglobin measurement (mass/volume) 14.8 g/dL 13.3-17.7 Blood hematocrit (volume fraction) 45 % 40-54 Automated erythrocyte mean corpuscular volume 91 [foz_us] 80-99 Automated erythrocyte mean corpuscular hemoglobin (mass per erythrocyte) 30 pg 25-34 Automated erythrocyte mean corpuscular hemoglobin concentration measurement ( mass/volume) 33 g/dL 32-36 Automated erythrocyte distribution width ratio 13.4 % 10.0-14.5 Automated blood platelet count (count/volume) 331 10*3/uL 130-400 Automated blood platelet mean volume measurement 10.3 [foz_ us] 7.4-10.4 Automated blood neutrophils/100 leukocytes 67 % 42-75 Automated blood lymphocytes/100 leukocytes 23 % 12-44 Blood monocytes/100 leukocytes 8 % 0-12 Automated blood eosinophils/100 leukocytes 2 % 0-10 Automated blood basophils/100 leukocytes 1 % 0-10 Blood neutrophils automated count (number/volume) 5.8 10*3 1.8-7.8 Blood lymphocytes automated count (number/volume) 2.0 10*3 1.0-4.0 Blood monocytes automated count (number/volume) 0.7 10*3 0.0-1.0 Automated eosinophil count 0.1 10*3/uL 0.0-0.3 Automated blood basophil count (count/volume) 0.1 10*3/uL 0.0-0.1 Comprehensive metabolic panel - 03/17/17 12:20 Serum or plasma sodium measurement (moles/volume) 134 mmol/ L 135-145 Serum or plasma potassium measurement (moles/volume) 4.1 mmol/L 3.6-5.0 Serum or plasma chloride measurement (moles/volume) 99 mmol/ L 98-107 Carbon dioxide 25 mmol/L 21-32 Serum or plasma anion gap determination (moles/volume) 10 mmol/L 5-14 Serum or plasma urea nitrogen measurement (mass/volume) 10 mg/dL 7-18 Serum or plasma creatinine measurement (mass/volume) 1.03 mg /dL 0.60-1.30 Serum or plasma urea nitrogen/creatinine mass ratio 10 NRG Serum or plasma creatinine measurement with calculation of estimated glomerular filtration rate > NRG Serum or plasma glucose measurement (mass/volume) 94 mg/dL 70-105 Serum or plasma calcium measurement (mass/volume) 8.6 mg/dL 8.5-10.1 Serum or plasma total bilirubin measurement (mass/volume) 0.8 mg/dL 0.1-1.0 Serum or plasma alkaline phosphatase measurement (enzymatic activity/volume) 77 U/L 40-136 Serum or plasma aspartate aminotransferase measurement (enzymatic activity/ volume) 43 U/L 5-34 Serum or plasma alanine aminotransferase measurement (enzymatic activity/volume ) 36 U/L 0-55 Serum or plasma protein measurement (mass/volume) 7.6 g/dL 6.4-8.2 Serum or plasma albumin measurement (mass/volume) 3.3 g/dL 3.2-4.5 Encounters ACCT No. Visit Date/Time Discharge Status Pt. Type Provider Facility Loc./Unit Complaint [id number] 12/10/2014 07:57:00 12/10/2014 23: 59:59 CLS Outpatient DIMA ELIZALDE APRN [id number] 10/09/2014 11:34:00 10/09/2014 23: 59:59 CLS Outpatient DIMA ELIZALDE APRN [id number] 09/09/2014 08:03:00 09/09/2014 23: 59:59 CLS Outpatient DIMA ELIZALDE APRN [id number] 04/29/2014 15:29:00 04/29/2014 23: 59:59 CLS Outpatient DIMA ELIZALDE APRN [id number] 04/02/2014 07:56:00 04/02/2014 23: 59:59 CLS Outpatient DIMA ELIZALDE APRN [id number] 01/05/2014 15:34:00 01/05/2014 23: 59:59 CLS Outpatient DIMA ELIZALDE APRN [id number] 07/04/2013 12:36:00 07/04/2013 23: 59:59 CLS Outpatient MONIE EVERETT DO [id number] 05/29/2013 16:22:00 05/29/2013 23: 59:59 CLS Outpatient MONIE EVERETT DO [id number] 09/27/2012 10:58:00 09/27/2012 23: 59:59 CLS Outpatient DIMA ELIZALDE APRN [id number] 06/27/2012 10:45:00 06/27/2012 23:59 :59 CLS Outpatient [id number] 06/27/2012 10:45:00 06/27/2012 23: 59:59 CLS Outpatient MONIE EVERETT DO [id number] 05/26/2013 08:51:00 Document Registration [id number] 05/19/2013 12:12:00 Document Registration [id number] 04/25/2013 13:55:00 Document Registration [id number] 04/22/2013 00:00:00 Document Registration [id number] 02/10/2013 07:48:00 Document Registration [id number] 02/04/2013 14:38:00 Document Registration [id number] 01/13/2013 15:32:00 Document Registration
[2017-03-23] MEDS ORDERED: QUIN40TA14 PO (10:04)
== END 2017-03-17 14:22 | disposition home or self-care (01) ==
LOC: EDUNIT# 11:16 → ER 11:17
DX: Z86.010 Personal history of colon polyps; Z87.19 Personal history of other diseases of the digestive system; M19.90 Unspecified osteoarthritis, unspecified site; Z96.0 Presence of urogenital implants; Z87.891 Personal history of nicotine dependence; Z90.49 Acquired absence of other specified parts of digestive tract; F03.90 Unspecified dementia, unspecified severity, without behavioral disturbance, psychotic disturbance, mood disturbance, and anxiety; N39.0 Urinary tract infection, site not specified; I10 Essential (primary) hypertension; Z85.828 Personal history of other malignant neoplasm of skin
CPT/HCPCS: 36415; 74177; 80053; 81000; 85025; 87077; 87088; 87186; 99283

== ENCOUNTER 2017-03-22 18:17 | Observation (INO) | payer MEDICARE, MEDICAID ==
[~2017-03-22] VITALS: Ht 170.2 cm; Wt 83.9 kg
[~2017-03-22 18:17] MED LIST changes: +CEFU500T63 PO; +NITR-65 PO; +TRAM50TA2 PO
--- OUTSIDE RECORDS SUMMARY | 2017-03-22 18:28 | XMS REPORT | Continuity of Care Document ---
Author Author [facility] [place] Address Unknown Phone Unavailable Allergies Active Description Code Type Severity Reaction Onset Reported/Identified Relationship to Patient Clinical Status Yes sulfa drug Drug Allergy 10/26/2008 Yes Sulfa (Sulfonamide Antibiotics) [id number] Drug Allergy Unknown N/A 04/06/2009 Yes Codeine Drug Allergy N/A N/A 02/04/2013 Yes codeine [id number] Drug Allergy Unknown N/A 02/21/2017 Medications Problems [...] DO, MONIE K 300.00 anxiety 07/26/2009 [employer] [employer]CH[employer]ISE SALESPERSON, DIMA T 300.00 anxiety 07/26/2009 300.00 anxiety 07/26/2009 300.00 anxiety 07/26/2009 300.00 anxiety 07/26/2009 300.00 anxiety 07/26/2009 300.00 anxiety 07/26/2009 300.00 anxiety 07/26/2009 300.00 anxiety 07/26/2009 [place]T DO, MONIE K 300.00 anxiety 07/26/2009 EVERETT DO, MONIE K 300.00 anxiety 07/26/2009 300.00 anxiety 07/26/2009 FIDE MEDRANONDIMA T 300.00 anxiety 07/26/2009 FIDE GENERAL MERCHANDISE SALESPERSONDIMA T 300.00 anxiety 07/26/2009 DIMA ELIZALDE APRN [...] RESPIRATORY INFECTION 06/27/2012 786.2 COUGH 06/27/2012 [employer] SALESPERSON, DIMA T 465.9 UPPER RESPIRATORY INFECTION 06/27/2012 [employer]IDE [employer] MERCH[employer]ISE SALESPERSON, DIMA T 786.2 COUGH 06/27/2012 FIDE [employer] MERCHANDISE SALESPERSON, DIMA T 465.9 UPPER RESPIRATORY INFECTION 06/27/2012 FIDE [employer] MERCHANDISE SALESPERSON, DIMA T 786.2 COUGH 06/27/2012 FIDE GENERAL MERCHANDISE SALESPERSON, DIMA T 465.9 UPPER RESPIRATORY INFECTION 06/27/2012 FIDE GENER[employer] MERCHANDISE SALESPERSON, DIMA T 786.2 COUGH 06/27/2012 FIDE GENERAL MERCHANDISE SALESPERSON, DIMA T 465.9 UPPER RESPIRATORY INFECTION 06/27/2012 FIDE GENER[employer] MERCHANDISE SALESPERSON, DIMA T 786.2 COUGH 06/27/2012 FIDE GENERAL MERCHANDISE SALESPERSON, DIMA T 465.9 UPPER RESPIRATORY INFECTION 06/27/2012 FIDE GENERAL MERCHANDISE SALESPERSON, DIMA T 786.2 COUGH 06/27/2012 FIDE GENER[employer] MERCHANDISE SALESPERSON, DIMA T 465.9 UPPER RESPIRATORY INFECTION 06/27/2012 FIDE GENER[employer] MERCHANDISE SALESPERSON, DIMA T 786.2 COUGH 01/13/2013 427.9 SINUS [...] FACP CCDS Ot 433.10 12/20/2015 GLEN CARREON [facility] CCDS Ot 794.31 12/26/2016 CRISTOBAL PARADA MD Ot I10 ESSENTIAL (PRIMARY) HYPERTENSION 12/26/2016 CRISTOBAL PARADA MD Ot N40.0 BENIGN PROSTATIC HYPERPLASIA WITHOUT LOW 12/26/2016 CRISTOBAL PARADA MD Ot R35.0 FREQUENCY OF MICTURITION 12/26/2016 CRISTOBAL PARADA MD Ot Z79.82 OPERATIONS AND INTELLIGENCE ASSISTANT (CURRENT) USE OF ASPIRIN 12/26/2016 CRISTOBAL PARADA MD Ot Z79.899 OTHER HALF-WAY (CURRENT) DRUG THERAPY 12/26/2016 CRISTOBAL PARADA MD Ot I10 ESSENTIAL (PRIMARY) HYPERTENSION 12/26/2016 CRISTOBAL PARADA MD Ot N40.0 BENIGN PROSTATIC HYPERPLASIA WITHOUT LOW 12/26/2016 CRISTOBAL PARADA MD Ot R35.0 FREQUENCY OF MICTURITION 12/26/2016 CRISTOBAL PARADA MD Ot Z79.82 OPERATIONS AND INTELLIGENCE ASSISTANT (CURRENT) USE OF ASPIRIN 12/26/2016 CRISTOBAL PARADA MD T Ot Z79.899 OTHER OPERATIONS AND INTELLIGENCE ASSISTANT (CURRENT) DRUG THERAPY 02/19/2017 SHIMON CARMONA MD [...] MD, Ot I25.10 ATHSCL HEART DISEASE OF [place] CORONARY 03/05/2017 SHIMON CARMONA MD, Ot J18.9 [...] KELLY Ot I25.10 ATHSCL HEART DISEASE OF [place] CORONARY 03/12/2017 WEBBER DO KELLY Ot K59.00 [...] Procedures Code [place] [address] EKG, TRACING (IN-HOUSE) 01/13/2013 26300 ROUTINE VENIPUNCTURE 02/10/2013 67965 CMP 02/10/2013 83960 LIPID PANEL 02/10 1904464 GFR CALC (RESULT ONLY) 02/10/2013 56856 CBC 02/10/2013 G0008 FLU ADMINISTRATION (MEDICARE ONLY) 05/29/2013 15280 ROUTINE VENIPUNCTURE 04/02/2014 53438 CBC 04/02/2014 1586841 GFR CALC (RESULT ONLY) 04/02/2014 89281 CMP 04/02/2014 51484 LIPID PANEL 04/02 74793 ROUTINE VENIPUNCTURE 09/09/2014 82174 CBC 09/09/2014 7198994 GFR CALC (RESULT ONLY) 09/09/2014 04146 CMP 09/09/2014 12715 LIPID PANEL 09/09 General S Jus Quach 45730 ROUTINE VENIPUNCTURE 12/10/2014 10639 CBC 12/10/2014 49911 CMP 12/10/2014 78213 LIPID PANEL 12/10 [id number] GFR CALC (RESULT ONLY) 12/10/2014 [id number] DRAINAGE OF BLADDER WITH DRAINAGE DEVICE 02/27/2017 [id number] REPAIR BLADDER, OPEN APPROACH 02/27/2017 4OL57CY EXCISION OF PROSTATE, ENDO 02/27/2017 Results Test [...] culture - 12/26/16 07:38 Bacterial urine culture [id number] NRG COLONY COUNT 10,000/ML - 100,000/ML NRG [...] ABO+Rh group OP NRG Transfusion band number [id number] NRG Blood group antibody screen NEGATIVE NRG [...] by light microscopy FEW KATARZYNA URATES NRG Bacterial urine culture - 03/17/17 11:24 Bacterial urine culture [id number] NRG COLONY COUNT >100,000/ML NRG FTX;REPORTABLE SENSITIVITY REPORTED 03/19/17 8:20 NRG FREE TEXT ENTRY 2 PLUS, NRG FREE TEXT ENTRY 3 MIXED FESTUS <10,000/ML NRG Bacterial susceptibility panel - 03/17/17 11:24 Gentamicin susceptibility test by minimum inhibitory concentration R NRG Vancomycin susceptibility test by minimum inhibitory concentration >= NRG Levofloxacin susceptibility test by minimum inhibitory concentration >= NRG Tetracycline susceptibility test by minimum inhibitory concentration >= NRG Ampicillin susceptibility test by minimum inhibitory concentration <= NRG Ciprofloxacin susceptibility test by minimum inhibitory concentration R NRG Nitrofurantoin susceptibility test by minimum inhibitory concentration <= NRG Linezolid susceptibility test by minimum inhibitory concentration 1 NRG Complete blood count (CBC) with automated [...] Status Pt. Type Provider Facility Loc./Unit Complaint [id number] 12/10/2014 07:57:00 12/10/2014 23: 59:59 [facility] Outpatient FIDE MEDRANOJosé DIMA Brower [id number] 10/09/2014 11:34:00 10/09/2014 23: 59:59 [facility] Outpatient FIDE MEDRANOJosé DIMA Brower [id number] 09/09/2014 08:03:00 09/09/2014 23: 59:59 [facility] Outpatient FIDE MEDRANOJosé DIMA Brower [id number] 04/29/2014 15:29:00 04/29/2014 23: 59:59 [facility] Outpatient FIDE MEDRANOJosé DIMA Leonarda [id number] 04/02/2014 07:56:00 04/02/2014 23: 59:59 [facility] Outpatient FIDE QUIROS DIMA Brower [id number] 01/05/2014 15:34:00 01/05/2014 23: 59:59 [facility] Outpatient FIDE GENERAL MERCHANDISE SALESPERSONDIMA Kumar [id number] 07/04/2013 12:36:00 07/04/2013 23: 59:59 [facility] Outpatient MONIE EVERETT DO [id number] 05/29/2013 16:22:00 05/29/2013 23: 59:59 [facility] Outpatient MONIE EVERETT DO [id number] 09/27/2012 10:58:00 09/27/2012 23: 59:59 [facility] Outpatient DIMA ELIZALDE APRN [id number] 06/27/2012 10:45:00 06/27/2012 23:59 :59 [facility] Outpatient [id number] 06/27/2012 10:45:00 06/27/2012 23: 59:59 [facility] Outpatient MONEI EVERETT DO [id number] 05/26/2013 08:51:00 Document Registration [id number] 05/19/2013 12:12:00 Document Registration [id number] 04/25/2013 13:55:00 Document Registration [id number] 04/22/2013 00:00:00 Document Registration [id number] 02/10/2013 07:48:00 Document Registration [id number] 02/04/2013 14:38:00 Document Registration [id number] 01/13/2013 15:32:00 Document Registration
[2017-03-22 19:09] LABS: BASOPHILS # (AUTO) 0.1 10^3/uL (0.0-0.1); BASOPHILS % (AUTO) 1 % (0-10); EOSINOPHILS # (AUTO) 0.1 10^3/uL (0.0-0.3); EOSINOPHILS % (AUTO) 1 % (0-10); LYMPHOCYTES # (AUTO) 1.9 X 10^3 (1.0-4.0); LYMPHOCYTES % (AUTO) 24 % (12-44); MEAN CORPUSCULAR HEMOGLOBIN 30 PG (25-34); MEAN CORPUSCULAR HGB CONC 34 G/DL (32-36); MEAN CORPUSCULAR VOLUME 90 FL (80-99); MEAN PLATELET VOLUME 9.9 FL (7.4-10.4); MONOCYTES # (AUTO) 0.7 X 10^3 (0.0-1.0); MONOCYTES % (AUTO) 9 % (0-12); NEUTROPHILS # (AUTO) 5.2 X 10^3 (1.8-7.8); NEUTROPHILS % (AUTO) 66 % (42-75); PLATELET COUNT 230 10^3/uL (130-400); RED BLOOD COUNT 4.36 10^6/uL (4.35-5.85)
[2017-03-22 19:17] LABS: BILIRUBIN,URINE NEGATIVE (NEGATIVE); KETONES,URINE NEGATIVE (NEGATIVE); LEUKOCYTE ESTERASE ,URINE 3+ (NEGATIVE); NITRITE,URINE NEGATIVE (NEGATIVE); PH,URINE 6.5 (5-9); PROTEIN,URINE 2+ (NEGATIVE); UROBILINOGEN,URINE NORMAL (NORMAL)
[2017-03-22 19:21] LABS: WBC,URINE TNTC /HPF
[2017-03-22 19:27] LABS: ALANINE AMINOTRANSFERASE 34 U/L (0-55); ALBUMIN 3.5 GM/DL (3.2-4.5); ANION GAP 12 MMOL/L (5-14); ASPARTATE AMINO TRANSFERASE 38 U/L (5-34); BILIRUBIN,TOTAL 0.8 MG/DL (0.1-1.0); BLOOD UREA NITROGEN 6 MG/DL (7-18); BUN/CREATININE RATIO 7; CALCIUM 8.4 MG/DL (8.5-10.1); CARBON DIOXIDE 21 MMOL/L (21-32); CHLORIDE 103 MMOL/L (98-107); GFR ESTIMATED > 60; GLUCOSE 100 MG/DL (70-105); POTASSIUM 3.7 MMOL/L (3.6-5.0); SODIUM 136 MMOL/L (135-145); TOTAL PROTEIN 7.3 GM/DL (6.4-8.2); hs C REACTIVE PROTEIN 0.14 MG/DL (0.00-0.50)
--- NOTE | 2017-03-22 19:30 | Diagnostic Imaging Report ---
INDICATION: Abdominal pain and shortness of breath. FINDINGS: There is some bibasilar atelectasis and/or pneumonitis. The bowel gas pattern is nonspecific. There is no free air. There are no abnormal abdominal calcifications. IMPRESSION: Nonspecific bowel gas pattern. Bibasilar atelectasis and/or pneumonitis. Dictated by: Dictated on workstation # [id number]
--- NOTE | 2017-03-22 19:33 | Diagnostic Imaging Report ---
INDICATION: Shortness of breath. TECHNIQUE: Two view chest, 7:37 p.m. CORRELATION STUDY: 03/05/2017. FINDINGS: Heart size is mildly enlarged but stable. Vasculature is within normal limits. No infiltrate. There is, however, very questionable faint nodularity in the lateral right mid lung, superimposed over the anterior third rib not definitively visualized on prior imaging. Slightly accentuated thoracic kyphotic curvature degenerative change. IMPRESSION: 1. Stable heart size without failure. 2. Chronic changes of the lung parenchyma. Very questionable small nodule in the right mid lung, likely reflective of overlapping summation shadows but would recommend short-term followup two-view imaging in approximately 1-2 months for reassessment. Dictated by: Dictated on workstation # [id number]
[2017-03-22] MEDS ORDERED: AMPICILLIN/SULBACTAM INJECTION 3 GM in NS (IVPB) 100 ML IV ONE (19:45)
--- NOTE | 2017-03-22 20:09 | ED General ---
General Chief Complaint: Abdominal/GI Problems Stated Complaint: ABD PAIN/RECENT SURGERY Nursing Triage Note: PT STATES HE HAD A SUPRAPUBIC CATHETER PLACED ON MARCH 04 AND HAS BEEN HAVING ABD PAIN SINCE. WOUND LOOKS VERY RED AT THIS TIME. Nursing Sepsis Screen: No Definite Risk Source of Information: Patient, Old Records, Other (friend) Exam Limitations: No Limitations History of Present Illness Time Seen by Provider: 18:37 Initial Comments This 72 year old gentleman presents to the emergency room with complaints of pain. Location of pain is vague. When I ask him about his pain, he states that he has difficulty sleeping because of concerns about needing to change his leg bag often. He states that he has pain but he cannot directly tell me where it is. He seems rather confused and a poor historian. Review of his chart notes that he had an attempted TURP on February 28. He had a bladder perforation and ultimately had a cystostomy with suprapubic catheter placement. During his hospital stay he was noted to have delirium. He presented to the ER on March 17 and was treated for UTI. His culture grew out VRE. According to his filling record, it appears that he filled a nitrofurantoin prescription on March 19. I would question compliance given his degree of confusion. Technically patient is alert and oriented 3 but he has trouble communicating his history and seems confused. His friend who brought him also states that he is "delusional". His friend is rather concerned about him, especially since the patient lives alone in the [facility]. He denies any fever, nausea, vomiting, or constipation. He reports he has chronic diarrhea. His urologist is Dr. Maria. His primary care providers Marquise Portillo at [facility]. Allergies and Home Medications Allergies Coded Allergies: Sulfa (Sulfonamide Antibiotics) (Verified Allergy, Unknown, 04/06/09) codeine (Verified Allergy, Unknown, 02/21/17) Home Medications Cefuroxime Axetil 500 Mg Tablet, 500 MG PO BID, #20 Ref 0 Prescribed by: MARGIE VÁZQUEZ on 03/17/17 2817 Cholecalciferol 1,000 Unit Tablet, 1,000 UNIT PO DAILY, (Reported) Escitalopram Oxalate 10 Mg Tablet, 10 MG PO DAILY, (Reported) Finasteride 5 Mg Tablet, 5 MG PO DAILY, (Reported) Hydrochlorothiazide 25 Mg Tablet, 25 MG PO DAILY, (Reported) Lorazepam 2 Mg Tablet, 2 MG PO DAILY, (Reported) Metoprolol Tartrate 50 Mg Tablet, 50 MG PO BID, (Reported) Nitrofurantoin Monohyd/M-Cryst 100 Mg Capsule, 1 TAB PO BID, #14 (Reported) Quinapril Hcl 40 Mg Tablet, 40 MG PO DAILY, (Reported) Tramadol HCl 50 Mg Tablet, 50 MG PO Q4H PRN for pain, #14 Ref 0 Prescribed by: MARGIE VÁZQUEZ on 03/17/17 1404 Constitutional: no symptoms reported EENTM: no symptoms reported Respiratory: no symptoms reported Cardiovascular: no symptoms reported Gastrointestinal: no symptoms reported Genitourinary: see HPI Musculoskeletal: no symptoms reported Skin: no symptoms reported Psychiatric/Neurological: See HPI Hematologic/Lymphatic: No Symptoms Reported Past Pccywwi-Fijhkf-Fczzve Hx Patient Social History Alcohol Use: Denies Use Recreational Drug Use: No Smoking Status: Former Smoker Type Used: Cigarettes 2nd Hand Smoke Exposure: No Recent Foreign Travel: No Contact w/Someone Who Travel: No Recent Infectious Disease Expo: No Recent Hopitalizations: Yes (FEBRUARY 2017, SUPRAPUBIC CATH PLACED) Immunizations Up To Date Date of Pneumonia Vaccine: Jun 10, 2007 Date of Influenza Vaccine: Jul 12, 2016 Seasonal Allergies Seasonal Allergies: Yes Surgeries HX Surgeries: Yes (SKIN CANCER REMOVAL, COLONOSCOPY AND POLYPECTOMY) Surgeries: Appendectomy, Bladder Surgery (bladder perforation during attempted TURP, suprapubic catheter), Gallbladder Respiratory Hx Respiratory Disorders: Yes Respiratory Disorders: Pneumonia Cardiovascular Hx Cardiac Disorders: Yes Cardiac Disorders: Hypertension Neurological Hx Neurological Disorders: Yes Neurological Disorders: Dementia Reproductive System Hx Reproductive Disorders: No Sexually Transmitted Disease: No Genitourinary Hx Genitourinary Disorders: Yes Genitourinary Disorders: Benign Prostatic Hyperpl, Prostate Problems, Kidney Stones Gastrointestinal Hx Gastrointestinal Disorders: Yes (COLITIS, HX OF GALL BLADDER REMOVAL AND APPY) Gastrointestinal Disorders: Colitis, Polyps Musculoskeletal Hx Musculoskeletal Disorders: Yes (TENDONITIS) Musculoskeletal Disorders: Arthritis Endocrine Hx Endocrine Disorders: No HEENT HX ENT Disorders: No (glasses, cataracts removed, ) Cancer Hx Cancer: Yes Cancer: Skin Psychosocial Hx Psychiatric Problems: No Integumentary HX Skin/Integumentary Disorder: No Blood Transfusions Hx Blood Disorders: No Family Medical History Significant Family History: No Pertinent Family Hx Family Medial History: Myocardial infarction 18 FATHER Physical Exam Vital Signs Vital Sign - Last 12Hours 03/22/17 18:34 Temp 98.5 Pulse 77 Resp 20 B/P (MAP) 169/118 Pulse Ox 98 O2 Delivery Room Air Capillary Refill : Less Than 3 Seconds General Appearance: WD/WN, Mild Distress HEENT: PERRL/EOMI, Normal ENT Inspection, Pharynx Normal Neck: Normal Inspection Respiratory: Lungs Clear, Normal Breath Sounds, No Accessory Muscle Use, No Respiratory Distress Cardiovascular: Regular Rate, Rhythm, No Edema, No Murmur Gastrointestinal: Normal Bowel Sounds, Non Tender, Soft, Other (upper pubic catheter intact with small amount of irritated tissue surrounding the insertion) Extremity: Normal Inspection, No Pedal Edema Neurologic/Psychiatric: Alert, Oriented x3, No Motor/Sensory Deficits, Normal Mood/Affect, 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-XII Norm as Tested, Other (patient is technically alert and oriented but appears confused and has difficulty providing history) Skin: Normal Color, Warm/Dry Progress/Results/Core Measures Results/Orders Lab Results Laboratory Tests Test 03/22/17 18:52 03/22/17 19:00 Range/Units Urine Color YELLOW Urine Clarity CLEAR Urine pH 6.5 5-9 Urine Specific Superior 1.010 L 1.016-1.022 Urine Protein 2+ H NEGATIVE Urine Glucose (UA) NEGATIVE NEGATIVE Urine Ketones NEGATIVE NEGATIVE Urine Nitrite NEGATIVE NEGATIVE Urine Bilirubin NEGATIVE NEGATIVE Urine Urobilinogen NORMAL NORMAL MG/DL Urine Leukocyte Esterase 3+ H NEGATIVE Urine RBC (Auto) 5+ H NEGATIVE Urine RBC 2-5 H /HPF Urine WBC TNTC H /HPF Urine Crystals NONE /LPF Urine Bacteria MODERATE H /HPF Urine Casts NONE /LPF Urine Mucus NEGATIVE /LPF Urine Culture Indicated YES White Blood Count 8.0 4.3-11.0 10^3/uL Red Blood Count 4.36 4.35-5.85 10^6/uL Hemoglobin 13.2 L 13.3-17.7 G/DL Hematocrit 39 L 40-54 % Mean Corpuscular Volume 90 80-99 FL Mean Corpuscular Hemoglobin 30 25-34 PG Mean Corpuscular Hemoglobin Concent 34 32-36 G/DL Red Cell Distribution Width 13.0 10.0-14.5 % Platelet Count 230 130-400 10^3/uL Mean Platelet Volume 9.9 7.4-10.4 FL Neutrophils (%) (Auto) 66 42-75 % Lymphocytes (%) (Auto) 24 12-44 % Monocytes (%) (Auto) 9 0-12 % Eosinophils (%) (Auto) 1 0-10 % Basophils (%) (Auto) 1 0-10 % Neutrophils # (Auto) 5.2 1.8-7.8 X 10^3 Lymphocytes # (Auto) 1.9 1.0-4.0 X 10^3 Monocytes # (Auto) 0.7 0.0-1.0 X 10^3 Eosinophils # (Auto) 0.1 0.0-0.3 10^3/uL Basophils # (Auto) 0.1 0.0-0.1 10^3/uL Sodium Level 136 135-145 MMOL/L Potassium Level 3.7 3.6-5.0 MMOL/L Chloride Level 103 98-107 MMOL/L Carbon Dioxide Level 21 21-32 MMOL/L Anion Gap 12 5-14 MMOL/L Blood Urea Nitrogen 6 L 7-18 MG/DL Creatinine 0.90 0.60-1.30 MG/DL Estimat Glomerular Filtration Rate > 60 BUN/Creatinine Ratio 7 Glucose Level 100 70-105 MG/DL Calcium Level 8.4 L 8.5-10.1 MG/DL Total Bilirubin 0.8 0.1-1.0 MG/DL Aspartate Amino Transf (AST/SGOT) 38 H 5-34 U/L Alanine Aminotransferase (ALT/SGPT) 34 0-55 U/L Alkaline Phosphatase 78 40-136 U/L C-Reactive Protein High Sensitivity 0.14 0.00-0.50 MG/DL Total Protein 7.3 6.4-8.2 GM/DL Albumin 3.5 3.2-4.5 GM/DL My Orders Orders - CRISTOBAL PARADA MD Cbc With Automated Diff (03/22/17 18:36) Comprehensive Metabolic Panel (03/22/17 18:36) Ua Culture If Indicated (03/22/17 18:36) Saline Lock/Iv-Start (03/22/17 18:36) Hs C Reactive Protein (03/22/17 18:56) Chest Pa/Lat (2 View) (03/22/17 19:10) Abdomen, Flat & Upright/Decub (03/22/17 19:10) Urine Culture (03/22/17 18:52) Ampicillin/Sulbactam Injection (Unasyn 3 (03/22/17 19:45) Medications Given in ED Current Medications Medications Dose Ordered Sig/Marlene Route Start Time Stop Time Status Last Admin Dose Admin Ampicillin Sodium/ Sulbactam Sodium 3 gm/Sodium Chloride 100 ml @ 200 mls/hr ONCE ONCE IV 03/22/17 19:45 03/22/17 20:14 DC 03/22/17 19:59 200 MLS/HR Vital Signs/I&O Vital Sign - Last 12Hours 03/22/17 18:34 Temp 98.5 Pulse 77 Resp 20 B/P (MAP) 169/118 Pulse Ox 98 O2 Delivery Room Air Blood Pressure Mean: 135 Progress Note : Progress Note Case was reviewed with Dr. Villalpando who is agreeable to admission. She will consult or call Dr. Maria tomorrow. Patient does not seem safe to return home by himself due to his confusion. His friend would agree with that assessment. Based on patient's culture from March 18 positive for VRE, Unasyn will be administered. First dose was given in the emergency room. Patient is agreeable to admission. Diagnostic Imaging Diagonstic Imaging: Xray Plain Films/CT/US/NM/MRI: abdomen Comments NAME: NIKHIL WONG [facility] REC#: [id number] PT STATUS: REG ER : 1945 PHYSICIAN: CRISTOBAL PARADA MD ADMIT DATE: 03/22/17/ER Signed Date of Exam: 03/22/17 ABDOMEN, FLAT & UPRIGHT/DECUB INDICATION: Abdominal pain and shortness of breath. FINDINGS: There is some bibasilar atelectasis and/or pneumonitis. The bowel gas pattern is nonspecific. There is no free air. There are no abnormal abdominal calcifications. IMPRESSION: Nonspecific bowel gas pattern. Bibasilar atelectasis and/or pneumonitis. Dictated by: Dictated on workstation # [id number] Dict: 03/22/171925 Trans: 03/22/171941 Interpreted by: ANNMARIE DEY Electronically signed by: ANNMARIE DEY 03/22/171941 Diagonstic Imaging: Xray Plain Films/CT/US/NM/MRI: chest Comments NAME: NIKHIL WONG JR [facility] REC#: [id number] PT STATUS: REG ER : 1945 PHYSICIAN: CRISTOBAL PARADA MD ADMIT DATE: 03/22/17/ER Signed Date of Exam: 03/22/17 CHEST PA/LAT (2 VIEW) INDICATION: Shortness of breath. TECHNIQUE: Two view chest, 7:37 p.m. CORRELATION STUDY: 03/05/2017. FINDINGS: Heart size is mildly enlarged but stable. Vasculature is within normal limits. No infiltrate. There is, however, very questionable faint nodularity in the lateral right mid lung, superimposed over the anterior third rib not definitively visualized on prior imaging. Slightly accentuated thoracic kyphotic curvature degenerative change. IMPRESSION: 1. Stable heart size without failure. 2. Chronic changes of the lung parenchyma. Very questionable small nodule in the right mid lung, likely reflective of overlapping summation shadows but would recommend short-term followup two-view imaging in approximately 1-2 months for reassessment. Dictated by: Dictated on workstation # [id number] Dict: 03/22/171925 Trans: 03/22/171934 Interpreted by: KIKI GUTIERREZ DO Electronically signed by: KIKI GUTIERREZ DO 03/22/171934 Departure Communication Time/Spoke to Admitting Phy: 19:50 Impression Impression: Primary Impression: Urinary tract infection Qualified Codes: N39.0 - Urinary tract infection, site not specified Additional Impression: Confusion Disposition: ADMITTED INPATIENT Condition: Improved Decision to Admit Reason: Admit from ER (General) Decision to Admit/Date: Mar 22, 2017 Time/Decision to Admit Time: 19:50 Departure-Patient Inst. Referrals: [facility] (PCP) Primary Care Physician DIMA PORTILLO (Family) Primary Care Physician CRISTOBAL PARADA MD Mar 22, 2017 20:09
--- OUTSIDE RECORDS SUMMARY | 2017-03-22 20:28 | XMS REPORT | Continuity of Care Document ---
Author Author [facility]ly [facility] Address Unknown Phone Unavailable Allergies Active Description Code Type Severity Reaction Onset Reported/Identified Relationship to Patient Clinical Status Yes sulfa drug Drug Allergy 10/26/2008 Yes Sulfa (Sulfonamide Antibiotics) [id number] Drug Allergy Unknown N/A 04/06/2009 Yes Codeine Drug Allergy N/A N/A 02/04/2013 Yes codeine [id number] Drug Allergy Unknown N/A 02/21/2017 Medications Problems [...] DO, MONIE K 300.00 anxiety 07/26/2009 FIDE SUPERVISOR SIGN SHOP, DIMA T 300.00 anxiety 07/26/2009 300.00 anxiety 07/26/2009 300.00 anxiety 07/26/2009 300.00 anxiety 07/26/2009 300.00 anxiety 07/26/2009 300.00 anxiety 07/26/2009 300.00 anxiety 07/26/2009 300.00 anxiety 07/26/2009 [place] DO, MONIE K 300.00 anxiety 07/26/2009 [place] DO, MONIE K 300.00 anxiety 07/26/2009 300.00 anxiety 07/26/2009 FIDE MEDRANONDIMA T 300.00 anxiety 07/26/2009 FIDE SUPERVISOR SIGN SHOPDIMA T 300.00 anxiety 07/26/2009 DIMA ELIZALDE APRN [...] RESPIRATORY INFECTION 06/27/2012 786.2 COUGH 06/27/2012 FIDE SUPERVISOR SIGN SHOP, DIMA T 465.9 UPPER RESPIRATORY INFECTION 06/27/2012 FIDE SUPERVISOR SIGN SHOP, DIMA T 786.2 COUGH 06/27/2012 FIDE SUPERVISOR SIGN SHOP, DIMA T 465.9 UPPER RESPIRATORY INFECTION 06/27/2012 FIDE SUPERVISOR SIGN SHOP, DIMA T 786.2 COUGH 06/27/2012 FIDE SUPERVISOR SIGN SHOP, DIMA T 465.9 UPPER RESPIRATORY INFECTION 06/27/2012 FIDE SUPERVISOR SIGN SHOP, DIMA T 786.2 COUGH 06/27/2012 FIDE SUPERVISOR SIGN SHOP, DIMA T 465.9 UPPER RESPIRATORY INFECTION 06/27/2012 FIDE SUPERVISOR SIGN SHOP, DIMA T 786.2 COUGH 06/27/2012 FIDE SUPERVISOR SIGN SHOP, DIMA T 465.9 UPPER RESPIRATORY INFECTION 06/27/2012 FIDE SUPERVISOR SIGN SHOP, DIMA T 786.2 COUGH 06/27/2012 FIDE SUPERVISOR SIGN SHOP, DIMA T 465.9 UPPER RESPIRATORY INFECTION 06/27/2012 FIDE SUPERVISOR SIGN SHOP, DIMA T 786.2 COUGH 01/13/2013 427.9 SINUS [...] APRN T 427.9 SINUS ARRHYTHMIA 01/13/2013 DIMA ELZIALDE APRN T 461.9 SINUSITIS ACUTE 01/13/2013 DIMA [...] FACP CCDS Ot 433.10 12/20/2015 [facility] CCDS Ot 794.31 12/26/2016 CRISTOBAL PARADA MD Ot I10 ESSENTIAL (PRIMARY) HYPERTENSION 12/26/2016 CRISTOBAL PARADA MD Ot N40.0 BENIGN PROSTATIC HYPERPLASIA WITHOUT LOW 12/26/2016 CRISTOBAL PARADA MD Ot R35.0 FREQUENCY OF MICTURITION 12/26/2016 CRISTOBAL PARADA MD Ot Z79.82 COOK BOAT (CURRENT) USE OF ASPIRIN 12/26/2016 CRISTOBAL PARADA MD Ot Z79.899 OTHER FPC (CURRENT) DRUG THERAPY 12/26/2016 CRISTOBAL PARADA MD Ot I10 ESSENTIAL (PRIMARY) HYPERTENSION 12/26/2016 CRISTOBAL PARADA MD Ot N40.0 BENIGN PROSTATIC HYPERPLASIA WITHOUT LOW 12/26/2016 CRISTOBAL PARADA MD Ot R35.0 FREQUENCY OF MICTURITION 12/26/2016 CRISTOBAL PARADA MD Ot Z79.82 COOK BOAT (CURRENT) USE OF ASPIRIN 12/26/2016 CRISTOBAL PARADA MD T Ot Z79.899 OTHER COOK BOAT (CURRENT) DRUG THERAPY 02/19/2017 SHIMON CARMONA MD [...] MD, Ot I25.10 ATHSCL HEART DISEASE OF [place] CORONARY 03/05/2017 SHIMON CARMONA MD, Ot J18.9 [...] KELLY Ot I25.10 ATHSCL HEART DISEASE OF [place] CORONARY 03/12/2017 WEBBER DO KELLY Ot K59.00 [...] Procedures Code [place] [address] EKG, TRACING (IN-HOUSE) 01/13/2013 39685 ROUTINE VENIPUNCTURE 02/10/2013 17881 CMP 02/10/2013 05530 LIPID PANEL 02/10 2163026 GFR CALC (RESULT ONLY) 02/10/2013 51949 CBC 02/10/2013 G0008 FLU ADMINISTRATION (MEDICARE ONLY) 05/29/2013 70745 ROUTINE VENIPUNCTURE 04/02/2014 63876 CBC 04/02/2014 [id number] GFR CALC (RESULT ONLY) 04/02/2014 29564 CMP 04/02/2014 58635 LIPID PANEL 04/02 56128 ROUTINE VENIPUNCTURE 09/09/2014 34306 CBC 09/09/2014 1060314 GFR CALC (RESULT ONLY) 09/09/2014 09151 CMP 09/09/2014 48434 LIPID PANEL 09/09 General S Jus Quach 19657 ROUTINE VENIPUNCTURE 12/10/2014 30285 CBC 12/10/2014 27640 CMP 12/10/2014 45015 LIPID PANEL 12/10 2853524 GFR CALC (RESULT ONLY) 12/10/2014 [id number] DRAINAGE OF BLADDER WITH DRAINAGE DEVICE 02/27/2017 [id number] REPAIR BLADDER, OPEN APPROACH 02/27/2017 [id number] EXCISION OF PROSTATE, ENDO 02/27/2017 Results Test [...] culture - 12/26/16 07:38 Bacterial urine culture [id number] NRG COLONY COUNT 10,000/ML - 100,000/ML NRG [...] ABO+Rh group OP NRG Transfusion band number [id number] NRG Blood group antibody screen NEGATIVE NRG [...] culture - 03/17/17 11:24 Bacterial urine culture [id number] NRG COLONY COUNT >100,000/ML NRG FTX;REPORTABLE SENSITIVITY [...] plasma albumin measurement (mass/volume) 3.3 g/dL 3.2-4.5 Complete urinalysis with reflex to culture - 03/22/17 18:52 Urine color determination YELLOW NRG Urine clarity determination CLEAR NRG Urine pH measurement by test strip 6.5 5 -9 Specific gravity of urine by test strip 1.010 1.016-1.022 Urine protein assay by test strip, [...] detection in urine sediment by light microscopy MODERATE NRG Crystals detection in urine sediment by light microscopy NONE NRG Casts detection in urine sediment by light microscopy NONE NRG Mucus detection in urine sediment by light microscopy NEGATIVE NRG Complete urinalysis with reflex to culture YES NRG Complete blood count (CBC) with automated white blood cell (WBC) differential - 03/22/17 19:00 Blood leukocytes automated count (number/volume) 8.0 10*3/ uL 4.3-11.0 Blood erythrocytes automated count (number/volume) 4.36 10*6 /uL 4.35-5.85 Venous blood hemoglobin measurement (mass/volume) 13.2 g/dL 13.3-17.7 Blood hematocrit (volume fraction) 39 % 40-54 Automated erythrocyte mean corpuscular volume 90 [foz_us] 80-99 Automated erythrocyte mean corpuscular hemoglobin (mass per erythrocyte) 30 pg 25-34 Automated erythrocyte mean corpuscular hemoglobin concentration measurement ( mass/volume) 34 g/dL 32-36 Automated erythrocyte distribution width ratio 13.0 % 10.0-14.5 Automated blood platelet count (count/volume) 230 10*3/uL 130-400 Automated blood platelet mean volume measurement 9.9 [foz_us ] 7.4-10.4 Automated blood neutrophils/100 leukocytes 66 % 42-75 Automated blood lymphocytes/100 leukocytes 24 % 12-44 Blood monocytes/100 leukocytes 9 % 0-12 Automated blood eosinophils/100 leukocytes 1 % 0-10 Automated blood basophils/100 leukocytes 1 % 0-10 Blood neutrophils automated count (number/volume) 5.2 10*3 1.8-7.8 Blood lymphocytes automated count (number/volume) 1.9 10*3 1.0-4.0 Blood monocytes automated count (number/volume) 0.7 10*3 0.0-1.0 Automated eosinophil count 0.1 10*3/uL 0.0-0.3 Automated blood basophil count (count/volume) 0.1 10*3/uL 0.0-0.1 Comprehensive metabolic panel - 03/22/17 19:00 Serum or plasma sodium measurement (moles/volume) 136 mmol/ L 135-145 Serum or plasma potassium measurement (moles/volume) 3.7 mmol/L 3.6-5.0 Serum or plasma chloride measurement (moles/volume) 103 mmol /L 98-107 Carbon dioxide 21 mmol/L 21-32 Serum or plasma anion gap determination (moles/volume) 12 mmol/L 5-14 Serum or plasma urea nitrogen measurement (mass/volume) 6 mg /dL 7-18 Serum or plasma creatinine measurement (mass/volume) 0.90 mg /dL 0.60-1.30 Serum or plasma urea nitrogen/creatinine mass ratio 7 NRG Serum or plasma creatinine measurement with calculation of estimated glomerular filtration rate > NRG Serum or plasma glucose measurement (mass/volume) 100 mg/dL 70-105 Serum or plasma calcium measurement (mass/volume) 8.4 mg/dL 8.5-10.1 Serum or plasma total bilirubin measurement (mass/volume) 0.8 mg/dL 0.1-1.0 Serum or plasma alkaline phosphatase measurement (enzymatic activity/volume) 78 U/L 40-136 Serum or plasma aspartate aminotransferase measurement (enzymatic activity/ volume) 38 U/L 5-34 Serum or plasma alanine aminotransferase measurement (enzymatic activity/volume ) 34 U/L 0-55 Serum or plasma protein measurement (mass/volume) 7.3 g/dL 6.4-8.2 Serum or plasma albumin measurement (mass/volume) 3.5 g/dL 3.2-4.5 Serum or plasma C reactive protein measurement (mass/volume) - 03/22/17 19:00 Serum or plasma C reactive protein measurement (mass/volume) 0.14 mg/dL 0.00-0.50 Encounters ACCT No. Visit Date/Time Discharge Status Pt. Type Provider Facility Loc./Unit Complaint [id number] 12/10/2014 07:57:00 12/10/2014 23: 59:59 [facility] Outpatient FIDE MEDRANOJosé DIMA Brower [id number] 10/09/2014 11:34:00 10/09/2014 23: 59:59 [facility] Outpatient FIDE MEDRANOJosé DIMA Leonarda [id number] 09/09/2014 08:03:00 09/09/2014 23: 59:59 [facility] Outpatient FIDE MEDRANOJosé DIMA Leonarda [id number] 04/29/2014 15:29:00 04/29/2014 23: 59:59 [facility] Outpatient FIDE MEDRANOJosé DIMA Leonarda [id number] 04/02/2014 07:56:00 04/02/2014 23: 59:59 [facility] Outpatient FIDE SUPERVISOR SIGN SHOP, DIMA Leonarda [id number] 01/05/2014 15:34:00 01/05/2014 23: 59:59 [facility] Outpatient DIMA ELIZALDE APRN [id number] 07/04/2013 12:36:00 07/04/2013 23: 59:59 [facility] Outpatient MONIE EVERETT DO [id number] 05/29/2013 16:22:00 05/29/2013 23: 59:59 [facility] Outpatient MONIE EVERETT DO [id number] 09/27/2012 10:58:00 09/27/2012 23: 59:59 [facility] Outpatient DIMA ELIZALDE APRN [id number] 06/27/2012 10:45:00 06/27/2012 23:59 :59 [facility] Outpatient [id number] 06/27/2012 10:45:00 06/27/2012 23: 59:59 [facility] Outpatient MONIE EVERETT DO [id number] 05/26/2013 08:51:00 Document Registration [id number] 05/19/2013 12:12:00 Document Registration [id number] 04/25/2013 13:55:00 Document Registration [id number] 04/22/2013 00:00:00 Document Registration [id number] 02/10/2013 07:48:00 Document Registration [id number] 02/04/2013 14:38:00 Document Registration [id number] 01/13/2013 15:32:00 Document Registration
[2017-03-22 21:15] VITALS: BP 170/92
[2017-03-22] MEDS ORDERED: ONDANSETRON 4 MG/2 ML (SDV) Z0FRAN IV PRN (22:45)
[2017-03-23 00:05] VITALS: BP 177/89
[2017-03-23] MEDS: AMPICILLIN/SULBACTAM 3 GM/NS 100 ML IVPB IV SCH ×4 (03:26→11:25)
[2017-03-23 04:52] VITALS: BP 139/87
[2017-03-23 08:52] VITALS: BP 161/97
[2017-03-23] MEDS ORDERED: QUIN40TA25 PO (10:04)
[2017-03-23] MEDS ORDERED: CEFU500T63 PO (10:04)
[2017-03-23] MEDS ORDERED: TRAM50TA2 PO (10:04)
[2017-03-23] MEDS ORDERED: ESCI10TA55 PO (10:04)
[2017-03-23 12:50] VITALS: BP 158/92
[2017-03-23] MEDS ORDERED: AMPICILLIN 1 GM/NS 50 ML IVPB IV SCH ×2 (18:00)
--- NOTE | 2017-03-23 21:35 | Short Stay Summary ---
HPI History of Present Illness: Pleasant 72yo gentleman presented to hospital with the help of his friend who stated he was confused. Patient was recently hospitalized for a TURP complication wherein his bladder was perforated. He then received a suprapubic urostomy. He was kept in swing bed status but when discharged was still requiring caregiver assistance. He returned to ER and was treated as an outpatient with macrobid for a VRE infection. In ER on night of admisison, he was not answering questions appropriately and kept telling the ER physician he needed sleep. Further history was unable to be obtained due to his confusion. Source: patient Exam Limitations: no limitations Date seen by provider: Mar 23, 2017 Time Seen by Provider: 11:30 Attending Physician Robin Villalpando MD PCP [facility] [place] Date of Admission Mar 22, 2017 at 20:20 Home Medications Home Medications Reviewed patient Home Medication Reconciliation Form Allergies Coded Allergies: Sulfa (Sulfonamide Antibiotics) (Verified Allergy, Unknown, 04/06/09) codeine (Verified Allergy, Unknown, 02/21/17) WYA-Yurrvw-Rmnxtj Hx Patient Social History Alcohol Use: Denies Use Recreational Drug Use: No Smoking Status: Former Smoker Type Used: Cigarettes 2nd Hand Smoke Exposure: No Recent Foreign Travel: No Contact w/other who traveled: No Recent Hopitalizations: Yes (FEBRUARY 2017, SUPRAPUBIC CATH PLACED) Recent Infectious Disease Expo: No Physical Abuse Screen: No Sexual Abuse: No Immunizations Up To Date Date of Pneumonia Vaccine: Jun 10, 2007 Date of Influenza Vaccine: Jul 12, 2016 Past Medical History HTN BPH Insomnia CAD with neg stress 2014 Family Medical History Significant Family History: No Pertinent Family Hx Family History: Myocardial infarction 19 FATHER Review of Systems (CHC) Constitutional: no symptoms reported All Other Systems Reviewed Negative Unless Noted: Yes (Negative excepted noted.) Reviewed Test Results Reviewed Test Results Lab Laboratory Tests Test 03/22/17 18:52 03/22/17 19:00 Range/Units Urine Color YELLOW Urine Clarity CLEAR Urine pH 6.5 5-9 Urine Specific [place] 1.010 L 1.016-1.022 Urine Protein 2+ H NEGATIVE Urine Glucose (UA) NEGATIVE NEGATIVE Urine Ketones NEGATIVE NEGATIVE Urine Nitrite NEGATIVE NEGATIVE Urine Bilirubin NEGATIVE NEGATIVE Urine Urobilinogen NORMAL NORMAL MG/DL Urine Leukocyte Esterase 3+ H NEGATIVE Urine RBC (Auto) 5+ H NEGATIVE Urine RBC 2-5 H /HPF Urine WBC TNTC H /HPF Urine Crystals NONE /LPF Urine Bacteria MODERATE H /HPF Urine Casts NONE /LPF Urine Mucus NEGATIVE /LPF Urine Culture Indicated YES White Blood Count 8.0 4.3-11.0 10^3/uL Red Blood Count 4.36 4.35-5.85 10^6/uL Hemoglobin 13.2 L 13.3-17.7 G/DL Hematocrit 39 L 40-54 % Mean Corpuscular Volume 90 80-99 FL Mean Corpuscular Hemoglobin 30 25-34 PG Mean Corpuscular Hemoglobin Concent 34 32-36 G/DL Red Cell Distribution Width 13.0 10.0-14.5 % Platelet Count 230 130-400 10^3/uL Mean Platelet Volume 9.9 7.4-10.4 FL Neutrophils (%) (Auto) 66 42-75 % Lymphocytes (%) (Auto) 24 12-44 % Monocytes (%) (Auto) 9 0-12 % Eosinophils (%) (Auto) 1 0-10 % Basophils (%) (Auto) 1 0-10 % Neutrophils # (Auto) 5.2 1.8-7.8 X 10^3 Lymphocytes # (Auto) 1.9 1.0-4.0 X 10^3 Monocytes # (Auto) 0.7 0.0-1.0 X 10^3 Eosinophils # (Auto) 0.1 0.0-0.3 10^3/uL Basophils # (Auto) 0.1 0.0-0.1 10^3/uL Sodium Level 136 135-145 MMOL/L Potassium Level 3.7 3.6-5.0 MMOL/L Chloride Level 103 98-107 MMOL/L Carbon Dioxide Level 21 21-32 MMOL/L Anion Gap 12 5-14 MMOL/L Blood Urea Nitrogen 6 L 7-18 MG/DL Creatinine 0.90 0.60-1.30 MG/DL Estimat Glomerular Filtration Rate > 60 BUN/Creatinine Ratio 7 Glucose Level 100 70-105 MG/DL Calcium Level 8.4 L 8.5-10.1 MG/DL Total Bilirubin 0.8 0.1-1.0 MG/DL Aspartate Amino Transf (AST/SGOT) 38 H 5-34 U/L Alanine Aminotransferase (ALT/SGPT) 34 0-55 U/L Alkaline Phosphatase 78 40-136 U/L C-Reactive Protein High Sensitivity 0.14 0.00-0.50 MG/DL Total Protein 7.3 6.4-8.2 GM/DL Albumin 3.5 3.2-4.5 GM/DL Physical Exam-([facility]) Physical Exam Vital Signs VS - Last 72 Hours, by Label 03/22/17 03/22/17 03/22/17 03/22/17 18:34 21:02 21:15 21:15 Temp 98.5 98.1 97.5 Pulse 77 62 60 Resp 20 20 20 B/P (MAP) 169/118 170/92 Pulse Ox 98 96 96 O2 Delivery Room Air Room Air Room Air Room Air 03/23/17 03/23/17 03/23/17 03/23/17 00:05 04:52 08:52 12:50 Temp 98.3 97.3 97.2 96.9 Pulse 65 62 75 83 Resp 18 18 18 20 B/P (MAP) 177/89 139/87 161/97 158/92 Pulse Ox 96 95 98 96 O2 Delivery Room Air Room Air Room Air Room Air Capillary Refill : Less Than 3 Seconds General Appearance: WD/WN, no apparent distress HEENT: PERRL/EOMI, normal ENT inspection, pharynx normal Neck: non-tender, full range of motion, supple, normal inspection Respiratory: chest non-tender, lungs clear, normal breath sounds, no respiratory distress, no accessory muscle use Cardiovascular: regular rate, rhythm, no edema, no gallop, no JVD, no murmur Gastrointestinal: normal bowel sounds, non tender, soft, no organomegaly, other (healing surgical scar in midline, no pus or bleeidng around ostomy site) Extremities: normal range of motion, non-tender, normal inspection, no pedal edema, no calf tenderness, normal capillary refill Neurologic/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 He reports having taken his pills. He does admit to having trouble caring for himself at home in his apartment even though his friend has been trying to help him. Due to his failure of outpatient antibiotics as well as his debilitation after these multiple hospital visits, we decided that he should be transferred to swing bed status where he can receive PT/OT and the IV abx until at least Sunday. Further decisions will be made based on his weekend progress. The patient was quite agreeable with this plan and even asked about NH placement in the future. Clinical Quality Measures DVT/VTE Risk/Contraindication: Risk Factor Score Per Nursin RFS Level Per Nursing on Admit: 3=High Copy Copies To 1: ROBIN VILLAFANA APRN, MD Mar 23, 2017 21:35
== END 2017-03-23 11:38 | disposition swing bed (61) ==
LOC: EDUNIT# 18:17 → ER 18:19 → UNDOADMOB 20:20 → 4TH 20:20 → INTOOBSV 03-23 10:38 → OBSVTOIN 03-23 10:38 → UNDODISIN 03-23 11:40 → UNDODISOB 03-23 11:40
PROVIDERS: ADMIT Pediatrics; ATTEND Pediatrics
DX: N39.0 Urinary tract infection, site not specified (principal); I10 Essential (primary) hypertension; R19.7 Diarrhea, unspecified; Z79.899 Other long term (current) drug therapy; Z90.6 Acquired absence of other parts of urinary tract; Z98.890 Other specified postprocedural states
CPT/HCPCS: 36415; 71020; 74020; 80053; 81000; 85025; 86141; 87077; 87088; 87186; 96365; G0378

== ENCOUNTER 2017-03-23 11:37 | Inpatient (IN) | payer MEDICARE, MEDICAID ==
[~2017-03-23] VITALS: Ht 170.2 cm; Wt 83.9 kg
[~2017-03-23 11:37] MED LIST changes: +ESCI10TA55 PO; +QUIN40TA25 PO
[2017-03-23] MEDS ORDERED: ONDANSETRON 4 MG/2 ML (SDV) Z0FRAN IV PRN (12:00)
[2017-03-23] MEDS ORDERED: AMPICILLIN INJECTION 1,000 MG in NS (IVPB) 50 ML IV SCH ×2 (12:00→15:00)
--- OUTSIDE RECORDS SUMMARY | 2017-03-23 12:13 | XMS REPORT | Continuity of Care Document ---
Author Author [facility] Address Unknown Phone Unavailable Allergies Active Description Code Type Severity Reaction Onset Reported/Identified Relationship to Patient Clinical Status Yes sulfa drug Drug Allergy 10/26/2008 Yes Sulfa (Sulfonamide Antibiotics) [id number] Drug Allergy Unknown N/A 04/06/2009 Yes Codeine Drug Allergy N/A N/A 02/04/2013 Yes codeine [id number] Drug Allergy Unknown N/A 02/21/2017 Medications Problems [...] DO, MONIE K 300.00 anxiety 07/26/2009 FIDE AUTOMATIC LOG CUT OFF SAWYER, DIMA T 300.00 anxiety 07/26/2009 300.00 anxiety 07/26/2009 300.00 anxiety 07/26/2009 300.00 anxiety 07/26/2009 300.00 anxiety 07/26/2009 300.00 anxiety 07/26/2009 300.00 anxiety 07/26/2009 300.00 anxiety 07/26/2009 [place] DO, MONIE K 300.00 anxiety 07/26/2009 [place] DO, MONIE K 300.00 anxiety 07/26/2009 300.00 anxiety 07/26/2009 FIDE MEDRANONDIMA T 300.00 anxiety 07/26/2009 FIDE AUTOMATIC LOG CUT OFF SAWYERDIMA T 300.00 anxiety 07/26/2009 DIMA ELIZALDE APRN [...] APRN T 379.24 OTHER VITREOUS OPACITIES 12/28/2010 DIAM ELIZALDE APRN T 785.9 OTHER SYMPTOMS INVOLVING [...] RESPIRATORY INFECTION 06/27/2012 786.2 COUGH 06/27/2012 FIDE AUTOMATIC LOG CUT OFF SAWYER, DIMA T 465.9 UPPER RESPIRATORY INFECTION 06/27/2012 FIDE AUTOMATIC LOG CUT OFF SAWYER, DIMA T 786.2 COUGH 06/27/2012 FIDE AUTOMATIC LOG CUT OFF SAWYER, DIMA T 465.9 UPPER RESPIRATORY INFECTION 06/27/2012 FIDE AUTOMATIC LOG CUT OFF SAWYER, DIMA T 786.2 COUGH 06/27/2012 FIDE AUTOMATIC LOG CUT OFF SAWYER, DIMA T 465.9 UPPER RESPIRATORY INFECTION 06/27/2012 FIDE AUTOMATIC LOG CUT OFF SAWYER, DIMA T 786.2 COUGH 06/27/2012 FIDE AUTOMATIC LOG CUT OFF SAWYER, DIMA T 465.9 UPPER RESPIRATORY INFECTION 06/27/2012 FIDE AUTOMATIC LOG CUT OFF SAWYER, DIMA T 786.2 COUGH 06/27/2012 FIDE AUTOMATIC LOG CUT OFF SAWYER, DIMA T 465.9 UPPER RESPIRATORY INFECTION 06/27/2012 FIDE AUTOMATIC LOG CUT OFF SAWYER, DIMA T 786.2 COUGH 06/27/2012 FIDE AUTOMATIC LOG CUT OFF SAWYER, DIMA T 465.9 UPPER RESPIRATORY INFECTION 06/27/2012 FIDE AUTOMATIC LOG CUT OFF SAWYER, DIMA T 786.2 COUGH 01/13/2013 427.9 SINUS [...] ELIZALDE APRN 008.8 GASTROENTERITIS, VIRAL 05/19/2013 DIMA EILZALDE APRN 008.8 GASTROENTERITIS, VIRAL 05/19/2013 DIMA ELIZALDE [...] FACP CCDS Ot 433.10 12/20/2015 [facility] CCDS Ot 794.31 12/26/2016 CRISTOBAL PARADA MD Ot I10 ESSENTIAL (PRIMARY) HYPERTENSION 12/26/2016 CRISTOBAL PARADA MD Ot N40.0 BENIGN PROSTATIC HYPERPLASIA WITHOUT LOW 12/26/2016 CRISTOBAL PARADA MD Ot R35.0 FREQUENCY OF MICTURITION 12/26/2016 CRISTOBAL PARADA MD Ot Z79.82 HAT BINDER (CURRENT) USE OF ASPIRIN 12/26/2016 CRISTOBAL PARADA MD Ot Z79.899 OTHER HALFWAY (CURRENT) DRUG THERAPY 12/26/2016 CRISTOBAL PARADA MD Ot I10 ESSENTIAL (PRIMARY) HYPERTENSION 12/26/2016 CRISTOBAL PARADA MD Ot N40.0 BENIGN PROSTATIC HYPERPLASIA WITHOUT LOW 12/26/2016 CRISTOBAL PARADA MD Ot R35.0 FREQUENCY OF MICTURITION 12/26/2016 CRISTOBAL PARADA MD Ot Z79.82 HAT BINDER (CURRENT) USE OF ASPIRIN 12/26/2016 CRISTOBAL PARADA MD T Ot Z79.899 OTHER HAT BINDER (CURRENT) DRUG THERAPY 02/19/2017 SHIMON CARMONA MD [...] MD, Ot I25.10 ATHSCL HEART DISEASE OF [place] CORONARY 03/05/2017 SHIMON CARMONA MD, Ot J18.9 [...] KELLY Ot I25.10 ATHSCL HEART DISEASE OF [place] CORONARY 03/12/2017 WEBBER DO KELLY Ot K59.00 [...] Procedures Code Description [place] [address] EKG, TRACING (IN-HOUSE) 01/13/2013 12325 ROUTINE VENIPUNCTURE 02/10/2013 42460 CMP 02/10/2013 76562 LIPID PANEL 02/10 [id number] GFR CALC (RESULT ONLY) 02/10/2013 82534 CBC 02/10/2013 G0008 FLU ADMINISTRATION (MEDICARE ONLY) 05/29/2013 65638 ROUTINE VENIPUNCTURE 04/02/2014 41322 CBC 04/02/2014 [id number] GFR CALC (RESULT ONLY) 04/02/2014 70821 CMP 04/02/2014 94624 LIPID PANEL 04/02 01067 ROUTINE VENIPUNCTURE 09/09/2014 06514 CBC 09/09/2014 5589050 GFR CALC (RESULT ONLY) 09/09/2014 02498 CMP 09/09/2014 18008 LIPID PANEL 09/09 General S Jus Quach 50124 ROUTINE VENIPUNCTURE 12/10/2014 47466 CBC 12/10/2014 71567 CMP 12/10/2014 94238 LIPID PANEL 12/10 [id number] GFR CALC (RESULT ONLY) 12/10/2014 [id number] DRAINAGE OF BLADDER WITH DRAINAGE DEVICE 02/27/2017 [id number] REPAIR BLADDER, OPEN APPROACH 02/27/2017 [id number] EXCISION OF PROSTATE, ENDO 02/27/2017 Results Test [...] culture - 12/26/16 07:38 Bacterial urine culture [id number] NRG COLONY COUNT 10,000/ML - 100,000/ML NRG [...] ABO+Rh group OP NRG Transfusion band number [id number] NRG Blood group antibody screen NEGATIVE NRG [...] culture - 03/17/17 11:24 Bacterial urine culture [id number] NRG COLONY COUNT >100,000/ML NRG FTX;REPORTABLE SENSITIVITY [...] Status Pt. Type Provider Facility Loc./Unit Complaint [id number] 12/10/2014 07:57:00 12/10/2014 23: 59:[address] [facility] Outpatient FIDE MEDRANOJosé DIMA Brower [id number] 10/09/2014 11:34:00 10/09/2014 23: 59:[address] [facility] Outpatient FIDE MEDRANOJosé DIMA Leonarda [id number] 09/09/2014 08:03:00 09/09/2014 23: 59:[address] [facility] Outpatient FIDE MEDRANOJosé DIMA Leonarda [id number] 04/29/2014 15:29:00 04/29/2014 23: 59:[address] [facility] Outpatient FIDE MEDRANOJosé DIMA Leonarda [id number] 04/02/2014 07:56:00 04/02/2014 23: 59:[address] [facility] Outpatient FIDE AUTOMATIC LOG CUT OFF SAWYER, DIMA Leonarda [id number] 01/05/2014 15:34:00 01/05/2014 23: 59:[address] [facility] Outpatient DIMA ELIZALDE APRN [id number] 07/04/2013 12:36:00 07/04/2013 23: 59:[address] [facility] Outpatient MONIE EVERETT DO [id number] 05/29/2013 16:22:00 05/29/2013 23: 59:59 [facility] Outpatient MONIE EVERETT DO [id number] 09/27/2012 10:58:00 09/27/2012 23: 59:[address] [facility] Outpatient DIMA ELIZALDE APRN [id number] 06/27/2012 10:45:00 06/27/2012 23:59 :59 [facility] Outpatient [id number] 06/27/2012 10:45:00 06/27/2012 23: 59:59 [facility] Outpatient MONIE EVERETT DO [id number] 05/26/2013 08:51:00 Document Registration [id number] 05/19/2013 12:12:00 Document Registration [id number] 04/25/2013 13:55:00 Document Registration [id number] 04/22/2013 00:00:00 Document Registration [id number] 02/10/2013 07:48:00 Document Registration [id number] 02/04/2013 14:38:00 Document Registration [id number] 01/13/2013 15:32:00 Document Registration
--- NOTE | 2017-03-23 14:39 | Physical Therapy Evaluation ---
PT Evaluation-General Medical Diagnosis Admission Date Mar 23, 2017 at 11:55 Medical Diagnosis: UTI Onset Date: Mar 23, 2017 Therapy Diagnosis Therapy Diagnosis: debility Height/Weight Height (Feet): 5 Height (Inches): 7.00 Weight (Pounds): 185 Weight (Ounces): 0.0 Referral Physician: Kwasi Reason for Referral: Evaluation/Treatment Medical History Pertinent Medical History: Arthritis, Dementia, HTN, Smoking Additional Medical History recent hospital stay Current History suprapubic catheter placed in February 2017 increased confusion SOA Reviewed History: Yes Social History Home: Apartment Current Living Status: Alone Entry Into Home: Level Entry Prior/Core FIM Prior Level of Function Functional [place] Measure 0=Not Assessed/NA 4=Minimal Assistance 1=Total Assistance 5=Supervision or Setup 2=Maximal Assistance 6=Modified [place] 3=Moderate Assistance 7=Complete [place] Bed Mobility: 6 Transfers (B,C,W/C) (FIM): 6 Gait: 6 PT Evaluation-Current Subjective Patient agrees to PT. Pain Numeric Pain Scale: 0-No Pain Location: No Pain Reported Objective Patient Orientation: Normal For Age Problem Solving: Good suprapubic cath ROM/Strength ROM Lower Extremities bilateral LE WNL Strenght Lower Extremities bilateral LE WNL Integumentary/Posture Integumentary refer to nursing notes Bowel Incontinence: No Bladder Incontinence: Koch Cath (suprapubic) Posture WNL Neuromuscular (Tone, Coordination, Reflexes) grossly intact Sensory Vision: Functional Hearing: Functional Sensation Right Lower Extremit: Intact Sensation Left Lower Extremity: Intact Transfers Functional [place] Measure 0=Not Assessed/NA 4=Minimal Assistance 1=Total Assistance 5=Supervision or Setup 2=Maximal Assistance 6=Modified [place] 3=Moderate Assistance 7=Complete [place] Transfers (B, C, W/C) (FIM): 6 Scootin Rollin Supine to/from Sit: 6 Sit to/from Stand: 6 Sit to Lying (QC): 5 Lying to Sitting/Side of Bed(Q: 5 Sit to Stand (QC): 5 Chair/Ckq-vz-Wecfw Xfer(QC): 5 Gait Does the Patient Walk?: Yes Mode of Locomotion: Walk Anticipated Mode of Locomotion: Walk Gait (FIM): 6 Distance (FIM): 3=150 ft Distance: 500' x 2 Walk 50 ft with 2 Turns(QC): 5 Walk 150 ft (QC): 5 Gait Level of Assist: 6 Gait Assistive Device: FWW Comments/Gait Description steady, safe gait sequence Balance Sitting Static: Normal Sitting Dynamic: Normal Standing Static: Normal Standing Dynamic: Normal Treatment Ambulation with FWW to improve cardiopulmonary function to ensure safe return to home or care facility 500' x 2 modified independent. Assessment/Needs 72 y.o. male, will benefit from short term skilled PT to address functional strength and mobility to improve current LOF and to safely return to home or care facility at maximum LOF. Rehab Potential: Good PT Penitentiary Goals Penitentiary Goals PT Psychiatric Aide Instructor Goals Time Frame: Mar 30, 2017 Transfers (B,C,W/C) (FIM): 6 Sit to Lying (QC): 5 Lying-Sitting on Side/Bed(QC): 6 Sit to Stand (QC): 5 Rollin Chair/Yat-iv-Olmrt Xfer(QC): 6 Does the Patient Walk: Yes Gait (FIM): 6 Distance: 600' Walk 50ft with 2 Turns (QC): 5 Walk 150 ft (QC): 5 Gait Level of Assist: 6 Gait Assistive Device: FWW PT Plan Problem List Problem List: Activity Tolerance Treatment/Plan Treatment Plan: Continue Plan of Care Treatment Plan: Education, Functional Activity [place], Functional Strength, Gait , Safety, Therapeutic Exercise, Transfers Treatment Duration: Mar 30, 2017 Frequency: 6 times per week Estimated Hrs Per Day: .25 hour per day Patient and/or Family Agrees t: Yes Discharge Recommendations Therapy D/C Recommendations: Home Independently, Custodial Placement Time/GCodes Time In: 1310 Time Out: 1340 Total Billed Treatment Time: 30 Total Billed Treatment 1 visit Bran 15 min FA 15 min OSMAR ZAPTAA PT Mar 23, 2017 14:39
--- NOTE | 2017-03-23 14:52 | Occupational Therapy Eval ---
OT Evaluation-General/PLF Medical Diagnosis Admission Date Mar 23, 2017 at 11:55 Medical Diagnosis: UTI Onset Date: Mar 23, 2017 Therapy Diagnosis Therapy Diagnosis: decreased self care skills Height/Weight Height (Feet): 5 Height (Inches): 7.00 Weight (Pounds): 185 Weight (Ounces): 0.0 Referral Physician: Kwasi Medical History Pertinent Medical History: Arthritis, Dementia, HTN, Smoking Additional Medical History Pt had an attempted TURP with bladder perforation. Suprapubic catheter was placed 03/04/17, BPH, colitis, skin cancer Reviewed History: Yes Social History Home: Apartment Current Living Status: Alone Entry Into Home: Elevator, Level Entry ADL-Prior Level of Function ADL PLOF Comments Pt states he is normally independent with self care and mobility. Uses FWW for ambulation. Cooks simple meals and does light housework DME/Equipment: Grab Bars, Shower Drive Self: Yes OT Current Status Subjective Pt agrees to therapy this pm. No c/o pain. Mental Status/Objective Patient Orientation: Person, Place Attachments: Suprapubic Catheter Current Glasses/Contacts: Yes Dentures/Partials: No Hand Dominance: Left Upper Extremity ROM Grossly WFL Upper Extremity Coordination Intact Upper Extremity Sensation Intact per pt report Upper Extremity Strength Grossly 4/5 ADL-Treatment ADL-Current Pt supine to sit with modified independence. Pt participated in UE assessment while seated EOB. Pt demonstrated ability to doff/don socks without assistance while seated EOB. Sit to stand with modified independence. Gait to sink with FWW , no LOB noted. Pt brushed teeth while standing at sink with set up. Return to EOB and complete sit to supine with modified independence. Pt states he took a shower earlier this morning with assist from nursing. Pt in bed with needs met after session. Functional [place] Measure 0=Not Assessed/NA 4=Minimal Assistance 1=Total Assistance 5=Supervision or Setup 2=Maximal Assistance 6=Modified [place] 3=Moderate Assistance 7=Complete IndependenceIRFPAI Quality Coding Scale 6 Independent with activity with or without an assistive device 5 Patient requires set up or clean up by helper. Patient completes activity by themselves 4 Supervision or touching assist (CGA). [place] provide cues , steadying assist 3 The helper provides less than half the effort to complete the activity 2 The helper provides more than half the effort to complete the activity 1 Dependent. The helper does all the effort to complete an activity 7 Patient refused to complete or attempt activity 9 The patient did not perform the activity before the current illness or injury 88 Not attempted due to Medical conditions or safety concerns Eating (FIM): 6 (Pt reports feeding self, cutting food, and managing packages without assistance.) Eating (QC): 6 Grooming (FIM): 5 (set up) Oral Hygiene (QC): 5 Education OT Patient Education: Rehab process Teaching Recipient: Patient Teaching Methods: Discussion Response to Teaching: Verbalize Understanding OT Short Term Goals Short Term Goals 1=Demonstrate adherence to instructed precautions during ADL tasks. 2=Patient will verbalize/demonstrate understanding of assistive devices/ modifications for ADL. 3=Patient will improve strength/tolerance for activity to enable patient to perform ADL's. OT Corporate Specialist Goals Snf Goals Time Frame: Apr 06, 2017 Eating (FIM): 6 Eating (QC): 6 Groomin Oral Hygiene (QC): 6 Bathing(FIM): 5 Upper Body Dressing(FIM): 6 Lower Body Dressing(FIM): 6 Toileting(FIM): 6 Toilet/Commode Transfer(FIM): 6 Toilet/Commode Transfer (QC): 6 Shower Transfer(FIM): 5 Additional Goals: 2-Verbalize Understanding, 3-ImproveStrength/Farhat 1=Demonstrate adherence to instructed precautions during ADL tasks. 2=Patient will verbalize/demonstrate understanding of assistive devices/ modifications for ADL. 3=Patient will improve strength/tolerance for activity to enable patient to perform ADL's. OT Education/Plan Problem List/Assessment Assessment: Decreased Activ Tolerance, Decreased UE Strength, Dependent Transfers, Impaired Self-Care Skills Pt to benefit from skilled OT intervention for ADL training, transfers, strengthening, and home safety education to maximize level of function and allow safe discharge plan. Discharge Recommendations Plan/Recommendations: Continue POC Treatment Plan/Plan of Care Treatment,Training & Education: Yes Patient would benefit from OT for education, treatment and training to promote independence in ADL's, mobility, safety and/or upper extremity function for ADL' s. Plan of Care: ADL Retraining, Functional Mobility, UE Funct Exercise/Act Treatment Duration: Apr 06, 2017 Frequency: 5 times per week Estimated Hrs Per Day: .5 hour per day Agreement: Yes Rehab Potential: Good Time/GCodes Start Time: 13:45 Stop Time: 14:09 Total Time Billed (hr/min): 24 Billed Treatment Time 1 visit, EVL(9minutes), ADL(15minutes) ADEBAYO SMITH OT Mar 23, 2017 14:52
[2017-03-23 19:00] VITALS: BP 152/98
[2017-03-23] MEDS: meTOprolol TARTRATE 50 MG (LOPRESSOR) TAB PO SCH (20:19)
[2017-03-24] MEDS: AMPICILLIN INJECTION 1,000 MG in NS (IVPB) 50 ML IV SCH ×4 (01:07→17:30)
[2017-03-24 06:00] VITALS: BP 159/87
[2017-03-24] MEDS: VITAMIN D3 1,000 UNITS (CHOLECALCIFEROL) TABLET PO SCH (06:46)
[2017-03-24] MEDS: LORazepam 1 MG (ATIVAN) TAB PO SCH (09:01)
[2017-03-24] MEDS: FINASTERIDE (PROSCAR) 5 MG TAB PO SCH (09:02)
[2017-03-24] MEDS: QUINAPRIL 20 MG (ACCUPRIL) TAB PO SCH (09:04)
[2017-03-24] MEDS: HYDROCHLOROTHIAZIDE 25 MG (HCTZ) TAB PO SCH (09:04)
[2017-03-24] MEDS: meTOprolol TARTRATE 50 MG (LOPRESSOR) TAB PO SCH ×2 (09:04→21:01)
--- NOTE | 2017-03-24 09:10 | Physical Therapy Daily Note ---
PT Daily Note-Current Subjective Patient is very agreeable to participate with PT. Pain Numeric Pain Scale: 0-No Pain Location: No Pain Reported Mental Status Patient Orientation: Normal For Age Attachments: Koch Catheter (suprapubic) Transfers Functional [place] Measure 0=Not Assessed/NA 4=Minimal Assistance 1=Total Assistance 5=Supervision or Setup 2=Maximal Assistance 6=Modified [place] 3=Moderate Assistance 7=Complete IndependenceIRFPAI Quality Coding Scale 6 Independent with activity with or without an assistive device 5 Patient requires set up or clean up by helper. Patient completes activity by themselves 4 Supervision or touching assist (CGA). [place] provide cues , steadying assist 3 The helper provides less than half the effort to complete the activity 2 The helper provides more than half the effort to complete the activity 1 Dependent. The helper does all the effort to complete an activity 7 Patient refused to complete or attempt activity 9 The patient did not perform the activity before the current illness or injury 88 Not attempted due to Medical conditions or safety concerns Transfers (B, C, W/C) (FIM): 6 Scootin Roll Left to Right (QC): 6 Supine to/from Sit: 6 Sit to/from Stand: 6 Sit to Lying (QC): 6 Sit to Stand (QC): 6 Gait Training Does the Patient Walk?: Yes Gait (FIM): 6 Distance (FIM): 3=150 ft Distance: 700' Walk 50 ft with 2 Turns(QC): 5 Walk 150 ft (QC): 5 Gait Level of Assist: 6 Gait Assistive Device: FWW safe and functional Assessment Increase activity to improve functional mobility to return to home safely. Patient progressing PT Group Home Goals Group Home Goals PT Cow Washer Goals Time Frame: Mar 30, 2017 Transfers (B,C,W/C) (FIM): 6 Sit to Lying (QC): 5 Lying-Sitting on Side/Bed(QC): 6 Sit to Stand (QC): 5 Rollin Chair/Uhb-jp-Klltz Xfer(QC): 6 Does the Patient Walk: Yes Gait (FIM): 6 Distance: 600' Walk 50ft with 2 Turns (QC): 5 Walk 150 ft (QC): 5 Gait Level of Assist: 6 Gait Assistive Device: FWW PT Plan Treatment/Plan Treatment Plan: Continue Plan of Care Treatment Plan: Education, Functional Activity Farhat, Functional Strength, Gait , Safety, Therapeutic Exercise, Transfers Treatment Duration: Mar 30, 2017 Frequency: 6 times per week Estimated Hrs Per Day: .25 hour per day Patient and/or Family Agrees t: Yes Time/GCodes Time In: 840 Time Out: 855 Total Billed Treatment Time: 15 Total Billed Treatment 1 visit FA 15 min OSMAR ZAPATA PT Mar 24, 2017 09:10
[2017-03-24 18:30] VITALS: BP 137/80
[2017-03-25] MEDS: AMPICILLIN INJECTION 1,000 MG in NS (IVPB) 50 ML IV SCH ×4 (00:47→18:28)
[2017-03-25 06:00] VITALS: BP 117/56
[2017-03-25] MEDS: VITAMIN D3 1,000 UNITS (CHOLECALCIFEROL) TABLET PO SCH (06:47)
[2017-03-25 08:39] VITALS: BP 130/83
[2017-03-25] MEDS: LORazepam 1 MG (ATIVAN) TAB PO SCH (08:40)
[2017-03-25] MEDS: QUINAPRIL 20 MG (ACCUPRIL) TAB PO SCH (08:40)
[2017-03-25] MEDS: meTOprolol TARTRATE 50 MG (LOPRESSOR) TAB PO SCH ×2 (08:40→21:23)
[2017-03-25] MEDS: HYDROCHLOROTHIAZIDE 25 MG (HCTZ) TAB PO SCH (08:40)
[2017-03-25] MEDS: FINASTERIDE (PROSCAR) 5 MG TAB PO SCH (08:40)
[2017-03-25 18:37] VITALS: BP 102/69
[2017-03-26] MEDS: AMPICILLIN INJECTION 1,000 MG in NS (IVPB) 50 ML IV SCH ×3 (00:40→12:23)
[2017-03-26 05:00] VITALS: BP 136/80
[2017-03-26] MEDS: VITAMIN D3 1,000 UNITS (CHOLECALCIFEROL) TABLET PO SCH (06:07)
[2017-03-26] MEDS: QUINAPRIL 20 MG (ACCUPRIL) TAB PO SCH (08:43)
[2017-03-26] MEDS: FINASTERIDE (PROSCAR) 5 MG TAB PO SCH (08:44)
[2017-03-26] MEDS: LORazepam 1 MG (ATIVAN) TAB PO SCH (08:44)
[2017-03-26] MEDS: meTOprolol TARTRATE 50 MG (LOPRESSOR) TAB PO SCH (08:44)
[2017-03-26] MEDS: HYDROCHLOROTHIAZIDE 25 MG (HCTZ) TAB PO SCH (08:44)
--- NOTE | 2017-03-26 11:12 | Physical Therapy Daily Note ---
PT Daily Note-Current Subjective Patient agrees to PT. Plan dismiss to NH on this date. Pain Numeric Pain Scale: 0-No Pain Location: No Pain Reported Mental Status Patient Orientation: Normal For Age Transfers Functional [place] Measure 0=Not Assessed/NA 4=Minimal Assistance 1=Total Assistance 5=Supervision or Setup 2=Maximal Assistance 6=Modified [place] 3=Moderate Assistance 7=Complete IndependenceIRFPAI Quality Coding Scale 6 Independent with activity with or without an assistive device 5 Patient requires set up or clean up by helper. Patient completes activity by themselves 4 Supervision or touching assist (CGA). [place] provide cues , steadying assist 3 The helper provides less than half the effort to complete the activity 2 The helper provides more than half the effort to complete the activity 1 Dependent. The helper does all the effort to complete an activity 7 Patient refused to complete or attempt activity 9 The patient did not perform the activity before the current illness or injury 88 Not attempted due to Medical conditions or safety concerns Transfers (B, C, W/C) (FIM): 6 Scootin Roll Left to Right (QC): 6 Supine to/from Sit: 6 Sit to/from Stand: 6 Sit to Lying (QC): 6 Sit to Stand (QC): 6 Chair/Lkr-jg-Lcmvj Xfer(QC): 6 Gait Training Does the Patient Walk?: Yes Gait (FIM): 6 Distance (FIM): 3=150 ft Distance: 600' Walk 50 ft with 2 Turns(QC): 5 Walk 150 ft (QC): 5 Gait Level of Assist: 6 Gait Assistive Device: FWW safe and functional Assessment Patient tolerated treatment well and will dismiss to DC for continued care. PT Cardiology Tech Goals Cardiology Tech Goals PT Cardiology Tech Goals Time Frame: Mar 30, 2017 Transfers (B,C,W/C) (FIM): 6 (met 03/26/17) Sit to Lying (QC): 5 (met 03/26/17) Lying-Sitting on Side/Bed(QC): 6 (met 03/26/17) Sit to Stand (QC): 5 (met 03/26/17) Rollin (met 03/26/17) Chair/Rga-hp-Cuxof Xfer(QC): 6 (met 03/26/17) Does the Patient Walk: Yes Gait (FIM): 6 (met 03/26/17) Distance: 600' Walk 50ft with 2 Turns (QC): 5 (met 03/26/17) Walk 150 ft (QC): 5 (met 03/26/17) Gait Level of Assist: 6 (met 03/26/17) Gait Assistive Device: FWW PT Plan Treatment/Plan Treatment Plan: Discontinue PT, goals met Treatment Plan: Education, Functional Activity [place], Functional Strength, Gait , Safety, Therapeutic Exercise, Transfers Treatment Duration: Mar 30, 2017 Frequency: 6 times per week Estimated Hrs Per Day: .25 hour per day Patient and/or Family Agrees t: Yes Time/GCodes Time In: 1025 Time Out: 1040 Total Billed Treatment Time: 15 Total Billed Treatment 1 visit FA 15 min OSMAR ZAPATA PT Mar 26, 2017 11:12
--- NOTE | 2017-03-26 11:13 | Therapy Team Discharge Summary ---
Therapy Discharge Summary Discharge Recommendations Date of Discharge Therapy D/C Recommendations: Home Independently, Long-Term Placement Physical Therapy Patient has met all PT goals and will dismiss to NH for continued care. Patient is currently at [facility] independent [facility] with all gross motor skills. PT Filter Tank Operator Goals Halfway Goals PT Halfway Goals Time Frame: Mar 30, 2017 Transfers (B,C,W/C) (FIM): 6 (met 03/26/17) Sit to Lying (QC): 5 (met 03/26/17) Lying-Sitting on Side/Bed(QC): 6 (met 03/26/17) Sit to Stand (QC): 5 (met 03/26/17) Rollin (met 03/26/17) Chair/Dpz-ym-Xvbdx Xfer(QC): 6 (met 03/26/17) Does the Patient Walk: Yes Gait (FIM): 6 (met 03/26/17) Distance: 600' Walk 50ft with 2 Turns (QC): 5 (met 03/26/17) Walk 150 ft (QC): 5 (met 03/26/17) Gait Level of Assist: 6 (met 03/26/17) Gait Assistive Device: FWW OT Filter Tank Operator Goals Halfway Goals Time Frame: Apr 06, 2017 Eating (FIM): 6 Eating (QC): 6 Groomin Oral Hygiene (QC): 6 Bathing(FIM): 5 Upper Body Dressing(FIM): 6 Lower Body Dressing(FIM): 6 Toileting(FIM): 6 Toilet/Commode Transfer(FIM): 6 Toilet/Commode Transfer (QC): 6 Shower Transfer(FIM): 5 Additional Goals: 2-Verbalize Understanding, 3-ImproveStrength/Farhat 1=Demonstrate adherence to instructed precautions during ADL tasks. 2=Patient will verbalize/demonstrate understanding of assistive devices/ modifications for ADL. 3=Patient will improve strength/tolerance for activity to enable patient to perform ADL's. OSMAR ZAPATA PT Mar 26, 2017 11:13
[2017-03-26] MEDS ORDERED: AMOX-358 PO (11:44)
--- NOTE | 2017-03-26 11:50 | Discharge Inst-Skilled Nursing ---
Discharge Inst-Skilled NF Patient Instructions Patient Problems: TURP with bladder perforation with supra pubic cath placement Acute delium: Resolved Urinary Tract infection HTN Debility Goal: Help with catheter care Gain strength with goal to go home Increase Staminia with ambulation Consult/Follow Up/Orders Follow up appt.: Cassandra Saeed from [facility] will see you in your nursing facility Skilled [facility] I certify that SNF services are required to be given on an inpatient basis because of the above named patient's need for assisted care on a continuing basis for the conditions(s) for which he/she was receiving inpatient hospital services prior to his/her transfer to the SNF. Senior Living Facility Order: Nursing Services, Marketing Development Representative-Evaluate & Treat, Physical Therapy-Evaluate & Treat Discharge Diet: Cardiac Diet Daily Activity as Tolerated: Yes New & Resume Previous Orders New & Resume Previous Orders - Suprapubic catheter care - PT/OT Discharge Medications New, Converted or Re-Newed RX: Transmitted to Pharmacy New Medications: Amoxicillin/Potassium Clav (Augmentin 875-125 Tablet) 1 Each Tablet 1 EACH PO BID for 3 Days, #6 TAB Continued Medications: Cholecalciferol (Vitamin D) 1,000 Unit Tablet 1000 UNIT PO DAILY Escitalopram Oxalate (Escitalopram Oxalate) 10 Mg Tablet 10 MG PO DAILY Finasteride (Finasteride) 5 Mg Tablet 5 MG PO DAILY, TAB Hydrochlorothiazide (Hydrochlorothiazide) 25 Mg Tablet 25 MG PO DAILY, TAB Lorazepam (Lorazepam) 2 Mg Tablet 2 MG PO DAILY, TAB Metoprolol Tartrate (Metoprolol Tartrate) 50 Mg Tablet 50 MG PO BID, TAB Quinapril HCl (Quinapril HCl) 40 Mg Tablet 40 MG PO DAILY Tramadol HCl (Tramadol HCl) 50 Mg Tablet 50 MG PO Q4H PRN for PAIN-MODERATE, TAB Twyla Hoskins Mar 26, 2017 11:44 TWYLA HOSKINS MD Mar 26, 2017 11:50
--- NOTE | 2017-03-26 11:50 | Discharge Summary ---
Diagnosis/Chief Complaint Date of Admission Mar 23, 2017 at 11:55 Date of Discharge March 26, 2017 Admission Diagnosis Admission Diagnosis Delirium UTI associated with chronic catheter TURP s/p bladder perforation with suprapubic catheter placement Debility Discharge Diagnosis Delirium: Patient was given antibiotics and fluids with Ativan and patient delirium resolved on day 2. UTI with Enterococcus: Patient was placed on antibiotics and IVF replacement. Suprapubic catheter: Patient will require assistance with catheter and cleaning due to multiple recent hospitalization and debility. Debility: Patient has continued to improved during admission. Still requires additional PT/OT support and willing to go to [place]. Placement today for continued support due to multiple recent admissions and procedures. Chief Complaint/HPI Chief Complaint/HPI See H&P Discharge Summary-Simple/Stand Discharge Physical Examination Allergies: Coded Allergies: Sulfa (Sulfonamide Antibiotics) (Verified Allergy, Unknown, 04/06/09) codeine (Verified Allergy, Unknown, 02/21/17) Vitals & I&Os Vital Sign - Last 12Hours Date Time Temp Pulse Resp B/P (MAP) Pulse Ox O2 Delivery O2 Flow Rate FiO2 03/26/17 05:00 99.9 69 18 136/80 97 Room Air Intake and Output 03/26/17 00:00 Intake Total 890 ml Output Total 1400 ml Balance -510 ml General Appearance: Alert, Oriented X3, Cooperative, No Acute Distress HEENT: Mucous Memb Moist/[place] Respiratory: Clear to Auscultation, Normal Air Movement Cardiovascular: Regular Rate, No Murmurs Abdominal: Normal Bowel Sounds, Soft, No Tenderness, No Masses Extremities: No Tenderness/Swelling Skin: No Rashes, No Breakdown Neuro: Normal Speech, Sensation Intact, Cranial Nerves 3-12 NL Psych/Mental Status: Mental Status NL, Mood NL Hospital Course See final discharge diagnosis. Discussion & Recommendations See D/c diagnosis Discharge Condition at discharge stable Instructions to patient/family Please see electonic discharge instructions given to patient. Discharge Medications Reviewed and agree with Discharge Medication list on patient's Discharge Instruction sheet Copy Copies To 1: Marquise SAHU HOLLY R MD Mar 26, 2017 11:50
--- NOTE | 2017-03-26 12:09 | Occupational Ther Daily Note ---
OT Current Status-Daily Note Subjective Pt sitting in chair, agrees to treatment. Pt has no c/o pain during session. Mental Status/Objective Functional [place] Measure 0=Not Assessed/NA 4=Minimal Assistance 1=Total Assistance 5=Supervision or Setup 2=Maximal Assistance 6=Modified [place] 3=Moderate Assistance 7=Complete [place] ADL-Treatment Pt sit to stand with modified independence. Gait to restroom with FWW, no LOB noted. Pt completed grooming tasks while standing at sink. Pt brushed teeth and washed face with modified independence. Pt demonstrated ability to perform toilet transfer with modified independence using grab bars. Pt returned to chair with modified independence using FWW. Functional [place] Measure 0=Not Assessed/NA 4=Minimal Assistance 1=Total Assistance 5=Supervision or Setup 2=Maximal Assistance 6=Modified [place] 3=Moderate Assistance 7=Complete IndependenceIRFPAI Quality Coding Scale 6 Independent with activity with or without an assistive device 5 Patient requires set up or clean up by helper. Patient completes activity by themselves 4 Supervision or touching assist (CGA). [place] provide cues , steadying assist 3 The helper provides less than half the effort to complete the activity 2 The helper provides more than half the effort to complete the activity 1 Dependent. The helper does all the effort to complete an activity 7 Patient refused to complete or attempt activity 9 The patient did not perform the activity before the current illness or injury 88 Not attempted due to Medical conditions or safety concerns Eating (FIM): 6 (Pt reports feeding self, cutting food, and managing packages without assistance.) Eating (QC): 6 Grooming (FIM): 6 Oral Hygiene (QC): 6 Toilet/Commode Transfer (FIM): 6 Toilet Transfer (QC): 6 Other Treatment Pt completed bilateral UE exercises to promote increased strength needed for ADLs and transfers. Pt performed shoulder flexion, abduction, biceps curls, and triceps extension exercises x15 reps with red theraband. Rest breaks taken between exercises. Pt sitting in chair with needs met after session. OT Short Term Goals Short Term Goals 1=Demonstrate adherence to instructed precautions during ADL tasks. 2=Patient will verbalize/demonstrate understanding of assistive devices/ modifications for ADL. 3=Patient will improve strength/tolerance for activity to enable patient to perform ADL's. OT Intermediate Goals Intermediate Goals Time Frame: Apr 06, 2017 Eating (FIM): 6 Eating (QC): 6 Groomin Oral Hygiene (QC): 6 Bathing(FIM): 5 Upper Body Dressing(FIM): 6 Lower Body Dressing(FIM): 6 Toileting(FIM): 6 Toilet/Commode Transfer(FIM): 6 Toilet/Commode Transfer (QC): 6 Shower Transfer(FIM): 5 Additional Goals: 2-Verbalize Understanding, 3-ImproveStrength/Farhat 1=Demonstrate adherence to instructed precautions during ADL tasks. 2=Patient will verbalize/demonstrate understanding of assistive devices/ modifications for ADL. 3=Patient will improve strength/tolerance for activity to enable patient to perform ADL's. OT Education/Plan Problem List/Assessment Pt to benefit from skilled OT intervention for ADL training, transfers, strengthening, and home safety education to maximize level of function and allow safe discharge plan. Discharge Recommendations Plan/Recommendations: Continue POC Treatment Plan/Plan of Care Patient would benefit from OT for education, treatment and training to promote independence in ADL's, mobility, safety and/or upper extremity function for ADL' s. Plan of Care: ADL Retraining, Functional Mobility, UE Funct Exercise/Act Treatment Duration: Apr 06, 2017 Frequency: 5 times per week Estimated Hrs Per Day: .5 hour per day Agreement: Yes Rehab Potential: Good Time/GCodes Start Time: 11:23 Stop Time: 11:46 Total Time Billed (hr/min): 23 Billed Treatment Time 1 visit, ADL(10minutes), EX(13minutes) ADEBAYO SMITH OT Mar 26, 2017 12:08
[2017-03-26 14:00] VITALS: BP 136/80
--- NOTE | 2017-03-27 13:06 | Therapy Team Discharge Summary ---
Therapy Discharge Summary Discharge Recommendations Date of Discharge Mar 26, 2017 at 14:50 Therapy D/C Recommendations: Home Independently, Correction Placement Occupational Therapy Pt admitted to [facility] status with UTI. On admission pt required set up for grooming tasks. Skilled OT intervention focused on ADL training, transfers, and strengthening. Pt progressed with therapy and by discharge is completing eating , grooming, and toilet transfers with modified independence. Pt met LTG for these areas. Pt discharged to SNF for continued care. D/c SWB OT. PT Care Home Goals Care Home Goals PT Care Home Goals Time Frame: Mar 30, 2017 Transfers (B,C,W/C) (FIM): 6 (met 03/26/17) Sit to Lying (QC): 5 (met 03/26/17) Lying-Sitting on Side/Bed(QC): 6 (met 03/26/17) Sit to Stand (QC): 5 (met 03/26/17) Rollin (met 03/26/17) Chair/Nmb-gk-Akyhy Xfer(QC): 6 (met 03/26/17) Does the Patient Walk: Yes Gait (FIM): 6 (met 03/26/17) Distance: 600' Walk 50ft with 2 Turns (QC): 5 (met 03/26/17) Walk 150 ft (QC): 5 (met 03/26/17) Gait Level of Assist: 6 (met 03/26/17) Gait Assistive Device: FWW OT Care Home Goals Final Inspector Goals Time Frame: Apr 06, 2017 Eating (FIM): 6 Eating (QC): 6 Groomin Oral Hygiene (QC): 6 Bathing(FIM): 5 Upper Body Dressing(FIM): 6 Lower Body Dressing(FIM): 6 Toileting(FIM): 6 Toilet/Commode Transfer(FIM): 6 Toilet/Commode Transfer (QC): 6 Shower Transfer(FIM): 5 Additional Goals: 2-Verbalize Understanding, 3-ImproveStrength/Farhat 1=Demonstrate adherence to instructed precautions during ADL tasks. 2=Patient will verbalize/demonstrate understanding of assistive devices/ modifications for ADL. 3=Patient will improve strength/tolerance for activity to enable patient to perform ADL's. ADEBAYO SMITH OT Mar 27, 2017 13:06
== END 2017-03-26 14:50 | DRG 699 ==
LOC: 4TH 11:55
PROVIDERS: ADMIT Pediatrics; ATTEND Pediatrics
DX: T83.510A Infection and inflammatory reaction due to cystostomy catheter, initial encounter (principal); N39.0 Urinary tract infection, site not specified; B95.2 Enterococcus as the cause of diseases classified elsewhere; R41.0 Disorientation, unspecified; R53.81 Other malaise; I10 Essential (primary) hypertension; N40.0 Benign prostatic hyperplasia without lower urinary tract symptoms; G47.00 Insomnia, unspecified; I25.10 Atherosclerotic heart disease of native coronary artery without angina pectoris; Z87.891 Personal history of nicotine dependence

== ENCOUNTER 2017-04-26 08:04 | Emergency (ER) | payer MEDICARE, MEDICAID ==
[~2017-04-26] VITALS: Ht 170.2 cm; Wt 83.9 kg
[~2017-04-26 08:04] MED LIST changes: +AMOX-358 PO; +QUIN40TA14 PO; -QUIN40TA25 PO
[2017-04-26 10:06] LABS: BASOPHILS # (AUTO) 0.1 10^3/uL (0.0-0.1); BASOPHILS % (AUTO) 1 % (0-10); EOSINOPHILS # (AUTO) 0.2 10^3/uL (0.0-0.3); EOSINOPHILS % (AUTO) 2 % (0-10); LYMPHOCYTES # (AUTO) 1.6 X 10^3 (1.0-4.0); LYMPHOCYTES % (AUTO) 21 % (12-44); MEAN CORPUSCULAR HEMOGLOBIN 29 PG (25-34); MEAN CORPUSCULAR HGB CONC 33 G/DL (32-36); MEAN CORPUSCULAR VOLUME 89 FL (80-99); MEAN PLATELET VOLUME 10.4 FL (7.4-10.4); MONOCYTES # (AUTO) 0.7 X 10^3 (0.0-1.0); MONOCYTES % (AUTO) 9 % (0-12); NEUTROPHILS # (AUTO) 5.2 X 10^3 (1.8-7.8); NEUTROPHILS % (AUTO) 67 % (42-75); PLATELET COUNT 172 10^3/uL (130-400); RED BLOOD COUNT 4.71 10^6/uL (4.35-5.85); RED CELL DISTRIBUTION WIDTH 13.7 % (10.0-14.5); WHITE BLOOD COUNT 7.8 10^3/uL (4.3-11.0)
[2017-04-26 10:07] LABS: BILIRUBIN,URINE NEGATIVE (NEGATIVE); KETONES,URINE NEGATIVE (NEGATIVE); LEUKOCYTE ESTERASE ,URINE 3+ (NEGATIVE); NITRITE,URINE NEGATIVE (NEGATIVE); PH,URINE 7 (5-9); PROTEIN,URINE 3+ (NEGATIVE); UROBILINOGEN,URINE NORMAL (NORMAL)
[2017-04-26 10:21] LABS: WBC,URINE 50-100 /HPF
[2017-04-26 10:33] LABS: ALANINE AMINOTRANSFERASE 27 U/L (0-55); ALBUMIN 3.4 GM/DL (3.2-4.5); ANION GAP 6 MMOL/L (5-14); ASPARTATE AMINO TRANSFERASE 33 U/L (5-34); BLOOD UREA NITROGEN 10 MG/DL (7-18); BUN/CREATININE RATIO 11; CALCIUM 8.7 MG/DL (8.5-10.1); CARBON DIOXIDE 27 MMOL/L (21-32); CHLORIDE 107 MMOL/L (98-107); GFR ESTIMATED > 60; GLUCOSE 96 MG/DL (70-105); POTASSIUM 4.2 MMOL/L (3.6-5.0); SODIUM 140 MMOL/L (135-145)
[2017-04-26] MEDS ORDERED: CIPR-225 PO (11:12)
--- NOTE | 2017-04-26 11:12 | ED GU-Male ---
General Chief Complaint: Catheter/Drain/Tube Problems Stated Complaint: BLADDER CATH BLEEDING Nursing Triage Note: BLEEDING FROM CATHETER ONSET THIS AM. MINIMAL BRIGHT RED BLOOD OOZING FROM SITE. Source: patient Exam Limitations: no limitations History of Present Illness Time seen by provider: 11:08 Initial Comments Brought to ER by family. Patient has a chronic indwelling suprapubic catheter. This morning he accidentally pulled on it and it began to bleed around the ostomy site. Continues to have urinary output. Family states that this has never been changed and he is a new Koch catheter. This is a 22 [place]. He is supposed to see [facility] later next month and this removed. Timing/Duration: just prior to arrival Severity/Quality: moderate Location: unknown Radiation: none Prior Genitourinary Problems: none Allergies and Home Medications Allergies Coded Allergies: Sulfa (Sulfonamide Antibiotics) (Verified Allergy, Unknown, 04/06/09) codeine (Verified Allergy, Unknown, 02/21/17) Home Medications Amoxicillin/Potassium Clav 1 Each Tablet, 1 EACH PO BID for 3 Days, #6 Prescribed by: TWYLA BLOUNT on 03/26/17 1144 Cholecalciferol 1,000 Unit Tablet, 1,000 UNIT PO DAILY, (Reported) Ciprofloxacin HCl 500 Mg Tablet, 500 MG PO BID, #14 Prescribed by: ADRIEL MILLIGAN on 04/26/17 1112 Escitalopram Oxalate 10 Mg Tablet, 10 MG PO DAILY, (Reported) Finasteride 5 Mg Tablet, 5 MG PO DAILY, (Reported) Hydrochlorothiazide 25 Mg Tablet, 25 MG PO DAILY, (Reported) Lorazepam 2 Mg Tablet, 2 MG PO DAILY, (Reported) Metoprolol Tartrate 50 Mg Tablet, 50 MG PO BID, (Reported) Quinapril HCl 40 Mg Tablet, 40 MG PO DAILY, (Reported) Tramadol HCl 50 Mg Tablet, 50 MG PO Q4H PRN for PAIN-MODERATE, (Reported) Constitutional: see HPI EENTM: see HPI Respiratory: no symptoms reported Cardiovascular: no symptoms reported Genitourinary: no symptoms reported Musculoskeletal: no symptoms reported Skin: no symptoms reported Psychiatric/Neurological: No Symptoms Reported Endocrine: No Symptoms Reported Hematologic/Lymphatic: No Symptoms Reported Past Ahdntpa-Vwhdmu-Womglq Hx Patient Social History Alcohol Use: Denies Use Recreational Drug Use: No Smoking Status: Former Smoker Type Used: Cigarettes 2nd Hand Smoke Exposure: No Recent Foreign Travel: No Contact w/Someone Who Travel: No Recent Infectious Disease Expo: No Recent Hopitalizations: Yes (FEBRUARY 2017, SUPRAPUBIC CATH PLACED) Immunizations Up To Date Tetanus Booster (TDap): Unknown Date of Pneumonia Vaccine: Jun 10, 2007 Date of Influenza Vaccine: Jul 12, 2016 Seasonal Allergies Seasonal Allergies: Yes Surgeries HX Surgeries: Yes (SKIN CANCER REMOVAL, COLONOSCOPY AND POLYPECTOMY) Surgeries: Appendectomy, Bladder Surgery, Gallbladder Respiratory Hx Respiratory Disorders: Yes Respiratory Disorders: Pneumonia Cardiovascular Hx Cardiac Disorders: Yes Cardiac Disorders: Hypertension Neurological Hx Neurological Disorders: Yes Neurological Disorders: Dementia Reproductive System Hx Reproductive Disorders: No Sexually Transmitted Disease: No HIV/AIDS: No Genitourinary Hx Genitourinary Disorders: Yes Genitourinary Disorders: Benign Prostatic Hyperpl, Prostate Problems, Kidney Stones Gastrointestinal Hx Gastrointestinal Disorders: Yes (COLITIS, HX OF GALL BLADDER REMOVAL AND APPY) Gastrointestinal Disorders: Colitis, Polyps Musculoskeletal Hx Musculoskeletal Disorders: Yes (TENDONITIS) Musculoskeletal Disorders: Arthritis Endocrine Hx Endocrine Disorders: No HEENT HX ENT Disorders: No (glasses, cataracts removed, ) HEENT Disorders: Cataract Loss of Vision: Denies Cancer Hx Cancer: Yes Cancer: Skin Psychosocial Hx Psychiatric Problems: No Integumentary HX Skin/Integumentary Disorder: No Blood Transfusions Hx Blood Disorders: No Family Medical History Significant Family History: No Pertinent Family Hx Family Medial History: Myocardial infarction 18 FATHER Physical Exam Vital Signs Vital Sign - Last 12Hours 04/26/17 08:09 Temp 98.1 Pulse 56 Resp 18 B/P (MAP) 176/101 Pulse Ox 96 Capillary Refill : Less Than 3 Seconds General Appearance: WD/WN, no apparent distress HEENT: PERRL/EOMI, normal ENT inspection Neck: non-tender, full range of motion Respiratory: no respiratory distress, no accessory muscle use Gastrointestinal: normal bowel sounds, non tender, soft Male: other (suprapubic ostomy has small amount of dried blood around it. Catheter remains in place. This will be removed and replaced if we can find a 22 [place] here.) Extremities: normal range of motion, non-tender Neurologic/Psychiatric: alert, normal mood/affect, oriented x 3 Skin: normal color, warm/dry Progress/Results/Core Measures Results/Orders Lab Results Laboratory Tests Test 04/26/17 09:57 04/26/17 10:00 Range/Units White Blood Count 7.8 4.3-11.0 10^3/uL Red Blood Count 4.71 4.35-5.85 10^6/uL Hemoglobin 13.8 13.3-17.7 G/DL Hematocrit 42 40-54 % Mean Corpuscular Volume 89 80-99 FL Mean Corpuscular Hemoglobin 29 25-34 PG Mean Corpuscular Hemoglobin Concent 33 32-36 G/DL Red Cell Distribution Width 13.7 10.0-14.5 % Platelet Count 172 130-400 10^3/uL Mean Platelet Volume 10.4 7.4-10.4 FL Neutrophils (%) (Auto) 67 42-75 % Lymphocytes (%) (Auto) 21 12-44 % Monocytes (%) (Auto) 9 0-12 % Eosinophils (%) (Auto) 2 0-10 % Basophils (%) (Auto) 1 0-10 % Neutrophils # (Auto) 5.2 1.8-7.8 X 10^3 Lymphocytes # (Auto) 1.6 1.0-4.0 X 10^3 Monocytes # (Auto) 0.7 0.0-1.0 X 10^3 Eosinophils # (Auto) 0.2 0.0-0.3 10^3/uL Basophils # (Auto) 0.1 0.0-0.1 10^3/uL Sodium Level 140 135-145 MMOL/L Potassium Level 4.2 3.6-5.0 MMOL/L Chloride Level 107 98-107 MMOL/L Carbon Dioxide Level 27 21-32 MMOL/L Anion Gap 6 5-14 MMOL/L Blood Urea Nitrogen 10 7-18 MG/DL Creatinine 0.90 0.60-1.30 MG/DL Estimat Glomerular Filtration Rate > 60 BUN/Creatinine Ratio 11 Glucose Level 96 70-105 MG/DL Calcium Level 8.7 8.5-10.1 MG/DL Total Bilirubin 1.0 0.1-1.0 MG/DL Aspartate Amino Transf (AST/SGOT) 33 5-34 U/L Alanine Aminotransferase (ALT/SGPT) 27 0-55 U/L Alkaline Phosphatase 65 40-136 U/L Total Protein 7.0 6.4-8.2 GM/DL Albumin 3.4 3.2-4.5 GM/DL Urine Color YELLOW Urine Clarity VERY CLOUDY H Urine pH 7 5-9 Urine Specific [place] 1.010 L 1.016-1.022 Urine Protein 3+ H NEGATIVE Urine Glucose (UA) NEGATIVE NEGATIVE Urine Ketones NEGATIVE NEGATIVE Urine Nitrite NEGATIVE NEGATIVE Urine Bilirubin NEGATIVE NEGATIVE Urine Urobilinogen NORMAL NORMAL MG/DL Urine Leukocyte Esterase 3+ H NEGATIVE Urine RBC (Auto) 5+ H NEGATIVE Urine RBC 50-100 H /HPF Urine WBC 50-100 H /HPF Urine Squamous Epithelial Cells NONE /HPF Urine Crystals NONE /LPF Urine Amorphous Sediment LARGE KATARZYNA URATES H /LPF Urine Bacteria FEW H /HPF Urine Casts NONE /LPF Urine Mucus NEGATIVE /LPF Urine Culture Indicated YES Vital Signs/I&O Vital Sign - Last 12Hours 04/26/17 08:09 Temp 98.1 Pulse 56 Resp 18 B/P (MAP) 176/101 Pulse Ox 96 Blood Pressure Mean: 126 Departure Communication Progress Notes About one month ago he was admitted for urinary tract infection that cultured vancomycin resistant enterococcus sensitive to ampicillin so that's what we will use. Impression Impression: Primary Impression: Urinary tract infection Additional Impression: Encounter for suprapubic catheter care Disposition: HOME, SELF-CARE Condition: Stable Departure-Patient Inst. Decision time for Depature: 11:11 Referrals: [facility] (PCP) Primary Care Physician DIMA ELIZALDE (Family) Primary Care Physician Patient Instructions: How to Care for Your Koch Catheter, Male Add. Discharge Instructions: 1. Take the antibiotics as directed 2. See your doctor later this week 3. All discharge instructions reviewed with patient and/or family. Voiced understanding. Scripts Ampicillin Trihydrate (Ampicillin Trihydrate) 500 Mg Capsule 500 MG PO TID, #21 CAP Prov: ADRIEL MILLIGAN [employer] ARCHITECT 04/26/17 Copy Copies To 1: TWYLA BLOUNT MD, PETER J [employer] ARCHITECT Apr 26, 2017 11:12
[2017-04-26] MEDS ORDERED: AMPI500C9 PO (11:15)
[2017-04-26 11:40] VITALS: BP 178/99
--- OUTSIDE RECORDS SUMMARY | 2017-04-26 11:51 | XMS REPORT ---
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
== END 2017-04-26 11:40 | disposition home or self-care (01) ==
LOC: EDUNIT# 08:04 → ER 08:07
DX: T83.83XA Hemorrhage due to genitourinary prosthetic devices, implants and grafts, initial encounter (principal); N39.0 Urinary tract infection, site not specified; I10 Essential (primary) hypertension; F03.90 Unspecified dementia, unspecified severity, without behavioral disturbance, psychotic disturbance, mood disturbance, and anxiety; N40.1 Benign prostatic hyperplasia with lower urinary tract symptoms; M19.90 Unspecified osteoarthritis, unspecified site; Z82.49 Family history of ischemic heart disease and other diseases of the circulatory system; Z96.0 Presence of urogenital implants; Z87.442 Personal history of urinary calculi; Z87.448 Personal history of other diseases of urinary system; Z87.891 Personal history of nicotine dependence; Z85.828 Personal history of other malignant neoplasm of skin; Z90.49 Acquired absence of other specified parts of digestive tract; Z86.010 Personal history of colon polyps; Z87.09 Personal history of other diseases of the respiratory system
CPT/HCPCS: 36415; 51702; 80053; 81000; 85025; 87077; 87088; 87186

== ENCOUNTER 2017-05-13 09:23 | Emergency (ER) | payer MEDICARE, MEDICAID ==
[~2017-05-13] VITALS: Ht 170.2 cm; Wt 83.9 kg
[~2017-05-13 09:23] MED LIST changes: +AMPI500C9 PO
--- OUTSIDE RECORDS SUMMARY | 2017-05-13 09:28 | XMS REPORT | Encounter Summary ---
Author Author [facility] Organization [facility] Address Unknown Phone Unavailable Care Team Providers Care Medical Records Custodian Name Role Phone PCP Unavailable Encounter Details Date Type Department Care Team Description 05/07/2017 Anesthesia Main Operating Room Pena, AprilISHAAN Event [address] [facility] [address] [place] [address] [place] [address] [phone] Social History Tobacco Use Types Packs/Day Years Used Date Former Smoker Cigarettes Quit: 05/01/1987 Smokeless Tobacco: Never Used Alcohol Use Drinks/Week oz/Week Comments No Sex Assigned at Date Recorded Not on file as of this encounter Functional Status Functional Status Response Date of Assessment Does the patient have a hearing impairment: No 05/01/2017 Does the patient have a visual impairment: Yes 05/01/2017 Does the patient have impaired ambulation: No 05/01/2017 Does the patient have an activity of daily living No 05/01/2017 (ADL) impairment: Does the patient have an instrumental activity of No 05/01/2017 daily living (IADL) impairment: Cognitive Status Response Date of Assessment Does the patient have a cognitive impairment: No 05/01/2017 as of this encounter Plan of Treatment Date Type Specialty Care Team Description 05/07/2017 Anesthesia Pena, AprilISHAAN Event [address] [place] [address] [phone] 05/18/2017 Surgery Mu Melendez MD CYSTOSCOPY, FLEXIBLE [address] [facility] [address] [place] [address] [phone] 05/18/2017 Procedure Pass 05/18/2017 [facility] Mu Melendez MD Bladder neck contracture Encounter [address] [facility] [address] [place], [place] [phone] as of this encounter Visit Diagnoses Not on filein this encounter
--- OUTSIDE RECORDS SUMMARY | 2017-05-13 09:28 | XMS REPORT | Encounter Summary ---
Author Author [facility] Organization [facility] Address Unknown Phone Unavailable Care Team Providers Care Nutrition Aides Teacher Name Role Phone PCP Unavailable Encounter Details Date Type Department Care Team Description 05/01/2017 Prep for Case XDD UROLOGY Mu Melendez MD [address] [facility] [address] [place] [address] Social History Tobacco Use Types Packs/Day Years Used Date Former Smoker Quit: 05/01/1987 Smokeless Tobacco: Never Used Alcohol [...] Specialty Care Team Description 05/07/2017 Anesthesia Pena, ISHAAN Chen Event [address] [place] [address] 05/18/2017 Surgery Mu Melendez MD CYSTOSCOPY, FLEXIBLE [address] [facility] [address] [place], [place] [id number] 05/18/2017 Procedure Pass 05/18/2017 Hospital Mu Melendez MD Bladder neck contracture Encounter [address] [facility] [address] [place] [address] as of this encounter Visit Diagnoses Not on filein this encounter
--- OUTSIDE RECORDS SUMMARY | 2017-05-13 09:28 | XMS REPORT | Encounter Summary ---
Author Author [facility] Organization [facility] Address Unknown Phone Unavailable Care Team Providers Care Waste Water Worker Name Role Phone PCP Unavailable Reason for Visit * Auth/Cert Status Reason Specialty Diagnoses / Referred By Referred To Procedures Contact Contact Diagnoses Bladder neck contracture UNKNOWN P rocedures CYSTOSCOPY FLEXIBLE CYSTOSCOPY CYSTOGRAM VOIDING Encounter Details Date Type Department Care Team Description 05/18/2017 Hospital Main Operating Room Mu Melendez MD Bladder neck contracture Encounter [address] [facility] [address] [place] [address] [place] [address] [place] [address] [phone] Social History Tobacco Use Types Packs/Day Years [...] impairment: No 05/01/2017 as of this encounter Progress Notes * Cuong Alaniz RN - 05/02/2017 5:14 PM CDT PAC phone triage attempted with patient for surgery on 05/18/[address] Ca[address] It was difficult to triage due to patient's poor memory of medical history. Pt has hx of HTN, HLD, and arthritis, but denied other medical problems. Pt states he was hospitalized and then was in a nursing facility for about 3 months and just came home 2-3 weeks ago. Pt could not give me details of hospitalization, except for having "urinary frequency". MUNIR sent to [facility] for discharge summary, cardiac testing, and recent labs. Due to difficulty obtaining medical history, PAC appointment was set up for 05/07/17. Pre-op instructions reviewed with patient, but unsure of pt's full understanding and will need all instructions in clinic. in this encounter Plan of Treatment Date Type Specialty Care Team Description 05/07/2017 Anesthesia Pena, ISHAAN Chen Event [address] [place] [address] 05/18/2017 Surgery Mu Melendez MD CYSTOSCOPY, FLEXIBLE [address] [facility] [place] [address] [place], [place] [phone] 05/18/2017 Procedure Pass 05/18/2017 Hospital Mu Melendez MD Bladder neck contracture Encounter [address] [facility] [address] [place], [place] [phone] as of this encounter Visit Diagnoses Diagnosis Bladder neck contracture Bladder neck obstruction in this encounter Admitting Diagnoses Diagnosis Bladder neck contracture - UNKNOWN Bladder neck obstruction in this encounter
--- OUTSIDE RECORDS SUMMARY | 2017-05-13 09:28 | XMS REPORT | Encounter Summary ---
Author Author [facility] Organization [facility] Address Unknown Phone Unavailable Care Team Providers Care Floor Worker Well Service Name Role Phone PCP Unavailable Reason for Visit * Auth/Cert Status Reason Specialty Diagnoses / Referred By Referred To Procedures Contact Contact Diagnoses Bladder neck contracture UNKNOWN P rocedures CYSTOSCOPY FLEXIBLE CYSTOSCOPY CYSTOGRAM VOIDING Encounter Details Date Type Department Care Team Description 05/18/2017 Surgery Main Operating Room Mu Melendez MD CYSTOSCOPY, FLEXIBLE [address] [facility] [address] [place] [address] [place] [address] [phone] Social History Tobacco Use Types Packs/Day Years [...] having "urinary frequency". MUNIR sent to [facility] [employer] [facility] for discharge summary, cardiac testing, and recent labs. Due to difficulty obtaining medical history, PAC appointment was set up for 05/07/17. Pre-op instructions reviewed with patient, but unsure of pt's full understanding and will need all instructions in clinic. in this encounter Plan of Treatment Date Type Specialty Care Team Description 05/07/2017 Anesthesia Pena, ISHAAN Chen Event [address] [place] [address] 05/18/2017 Surgery Mu Melendez MD CYSTOSCOPY, FLEXIBLE [address] [facility] [address] [place], [place] [phone] 05/18/2017 Procedure Pass 05/18/2017 Hospital Mu Melendez MD Bladder neck contracture Encounter [address] [facility] [address] [place] [address] as of this encounter Visit Diagnoses Diagnosis Bladder neck contracture Bladder neck obstruction in this encounter Admitting Diagnoses Diagnosis Bladder neck contracture - UNKNOWN Bladder neck obstruction in this encounter
--- OUTSIDE RECORDS SUMMARY | 2017-05-13 09:28 | XMS REPORT | Encounter Summary ---
Author Author [facility] Organization [facility] Address Unknown Phone Unavailable Care Team Providers Care Technical Support Representative Name Role Phone PCP Unavailable Encounter Details Date Type Department Care Team Description 05/07/2017 PAC Office Preoperative Assessment Mu Melendez MD Pre- operative Visit Clinic [address] cardiovascular [address] examination ([place] [address] [place] [address] Dx);Essential [phone] hypertension Social History Tobacco Use Types Packs/Day Years Used Date Former Smoker Cigarettes Quit: 05/01/1987 Smokeless Tobacco: Never Used Alcohol Use Drinks/Week oz/Week Comments No Sex Assigned at Date Recorded Not on file as of this encounter Last Filed Vital Signs Vital Sign Reading Time Taken Blood Pressure 178/115 05/07/2017 1:20 PM CDT Pulse 71 05/07/2017 12:25 PM CDT Temperature 36.4 C (97.5 F) 05/07/2017 12:25 PM CDT Respiratory Rate - - Oxygen Saturation 94% 05/07/2017 12:25 PM CDT Inhaled Oxygen - - Concentration Weight 80.5 kg (177 lb 6.4 oz) 05/07/2017 12:25 PM CDT Height 170.2 cm (5' 7") 05/07/2017 12:25 PM CDT Body Mass Index 27.78 05/07/2017 12:25 PM CDT in this encounter Functional Status Functional Status Response [...] impairment: No 05/01/2017 as of this encounter Instructions * Pre-Anesthesia Patient Instructions - Quyen Finnegan RN - 05/07/2017 12:42 PM CDT GENERAL INFORMATION Before you come to the hospital Make arrangements for a responsible adult to drive you home and stay with you for 24 hours following surgery. Bath/Shower Instructions Take a bath or shower using the special soap given to you in PAC. Use half the bottle the night before, and the other half the morning of your procedure. Use clean towels with each bath or shower. Put on clean clothes after bath or shower. Avoid using lotion and oils. If you are having surgery above the waist, wear a shirt that fastens up the front. Sleep on clean sheets if bath or shower is done the night before procedure. Leave money, credit cards, jewelry, and any other valuables at home. [facility] is not responsible for the loss or breakage of personal items. Remove nail pashto, makeup and all jewelry (including piercings) before coming to the hospital. The morning of your procedure: brush your teeth and tongue do not smoke do not shave the area where you will have surgery What to bring to the hospital ID/ Insurance Card [place] card Official documents for legal guardianship Copy of your Living Will, Advanced Directives, and/or Durable Power of Apiculture Teacher Small bag with a few personal belongings CPAP/BiPAP machine (including all supplies) Walker,cane, or motorized scooter Cases for glasses/hearing aids/contact lens (bring solutions for contacts) Dress in clean, loose, comfortable clothing Eating or drinking before surgery Do not eat or drink anything after midnight the day before your procedure ( including gum, mints, candy, or chewing tobacco). Other instructions: You will receive a phone call between 230 and 4 pm the day before surgery with your arrival time. If you have not received a call by 4 pm, please call [phone] Or after 430 call [phone]. Other instructions Notify your surgeon if: you become ill with a cough, fever, sore throat, nausea, vomiting or flu- like symptoms you have any open wounds/sores that are red, painful, draining, or are new since you last saw the doctor you need to cancel your procedure Notify us at [facility]: if you need to cancel your procedure if you are going to be late Arrival at the hospital [facility]: Park in the [place] [facility] located directly across from the main entrance to the hospital. [employer] parking is available Sunday through Sunday from 7 AM to 4 PM. Have your parking ticket validated at the Information Desk in the hospital lobby. Go to Admissions, located across the lobby from the Information Desk. * Pre-Anesthesia Medication Instructions - Jagruti Kwon PHARMD - 05/07/2017 11:19 AM CDT Formatting of this note may be different from the original. YOUR MEDICATIONS: escitalopram oxalate (LEXAPRO) 10 mg tablet Take 10 mg by mouth daily. HYDROcodone/acetaminophen (NORCO) 5/325 mg tablet Take 1 tablet by mouth every 4 hours as needed for Pain LORazepam (ATIVAN) 2 mg tablet Take 2 mg by mouth at bedtime daily. metoprolol tartrate (LOPRESSOR) 50 mg tablet Take 50 mg by mouth twice daily. quinapril (ACCUPRIL) 40 mg tablet Take 40 mg by mouth daily. YOUR MEDICATION INSTRUCTIONS FOR SURGERY: Before surgery Do not start any new vitamins, herbals, or natural supplements before surgery. Stop the following medications 7 days before surgery: Anti-inflammatory medications such as ibuprofen (Advil, Motrin) and naproxen (Aleve) You may use acetaminophen (Tylenol) Morning of surgery On the morning of surgery, do NOT take these medications: Remaining vitamins/supplements Ointments/creams/lotions Quinapril On the morning of surgery, take ONLY these medications with a sip (1-2 ounces) of water: Escitalopram Metoprolol If needed: hydrocodone/apap Other information Before surgery, please contact the clinic pharmacist with any medicine updates or questions. E-mail: [email or web address] Before going home from the hospital, please ask your doctor when you should re- start your medicines that were stopped before surgery. in this encounter Progress Notes * Mulu Holloway, RN - 05/07/2017 1:30 PM CDT Called patient to follow up. Pt states that he went home and took his blood pressure meds. His friend/neighbor check his blood pressure this morning and it was 123/73. He will continue to take his meds as instructed. Pt has not had EKG done recently and we did not get one in our clinic. He will go to his PCP to have done. Order faxed. in this encounter Plan of Treatment Date Type Specialty Care Team Description 05/07/2017 Anesthesia Pena, ISHAAN Chen Event [address] [place] [address] [phone] 05/18/2017 Surgery Mu Melendez MD CYSTOSCOPY, FLEXIBLE [address] [facility] [address] [place] [address] [phone] 05/18/2017 Procedure Pass 05/18/2017 Hospital Mu Melendez MD Bladder neck contracture Encounter [address] [facility] [address] [place], [place] [id number] Name Priority Associated Diagnoses Order Schedule ECG 12-LEAD Routine Pre-operative Expected: 05/08/2017, cardiovascular Expires: 05/08/2018 examination Essential hypertension as of this encounter Visit Diagnoses Diagnosis Pre-operative cardiovascular examination - Primary Essential hypertension Unspecified essential hypertension in this encounter
--- OUTSIDE RECORDS SUMMARY | 2017-05-13 09:28 | XMS REPORT | Encounter Summary ---
Author Author [facility] Organization [facility] Address Unknown Phone Unavailable Care Team Providers Care Corporate Safety Coordinator Name Role Phone PCP Unavailable Reason for Visit * Reason Comments Heme/Onc Care Encounter Details Date Type Department Care Team Description 05/01/2017 Office Visit [facility] Mu Melendez MD Bladder neck contracture [facility] - [address] (Primary Dx);Encounter Exam [address] for care or replacement [address] [place] [phone] of suprapubic tube [place], [place] [id number] (HCC);Post-traumatic [phone] anterior urethral stricture;Bladder perforation, intraoperative;BPH with obstruction/lower urinary tract symptoms Social History Tobacco Use Types Packs/Day Years Used Date Former Smoker Quit: 05/01/1987 Smokeless Tobacco: Never Used Alcohol Use Drinks/Week oz/Week Comments No Sex Assigned at Date Recorded Not on file as of this encounter Last Filed Vital Signs Vital Sign Reading Time Taken Blood Pressure 141/87 05/01/2017 9:41 AM CDT Pulse 60 05/01/2017 9:41 AM CDT Temperature 36.9 C (98.4 F) 05/01/2017 9:41 AM CDT Respiratory Rate 18 05/01/2017 9:41 AM CDT Oxygen Saturation 96% 05/01/2017 9:41 AM CDT Inhaled Oxygen - - Concentration Weight 82.2 kg (181 lb 4.8 oz) 05/01/2017 9:41 AM CDT Height 170.2 cm (5' 7") 05/01/2017 9:41 AM CDT Body Mass Index 28.4 05/01/2017 9:41 AM CDT in this encounter Functional Status Functional [...] as of this encounter Progress Notes * Mu Melendez MD - 05/01/2017 10:30 AM CDT Formatting of this note may be different from the original. Date of Service: 05/01/2017 Subjective: Reason for Visit: Heme/Onc Care Irving Rivera is a 72 y.o. male. No matching staging information was found for the patient. History of Present Illness 72 yo male presents for evaluation of BNC, urethral stricture. Pt has a history of BPH with LUTS. He underwent TURP at OSH. During TURP, the bladder neck and posterior bladder was undermined due to elevated bladder neck. During the TURP, pt was noted to have abdominal distension with concern for intraperitoneal bladder perforation. Pt underwent ex-lap with removal of large amount of intra-abdominal fluid, repair of cystotomy, and placement of SPTube. Pt has remained with SPTube in place for 3 months. He underwent cystoscopy by outside urologist which showed post-procedural stricture as well as bladder neck contracture. Per the notes, there was no identifiable lumen. The pt reports his memory has been poor since the multiple surgeries and because of this he cannot give a reliable history. His DPOA was called after clinic and she provided the history. He was transferred from the hospital to a SNF where he remained until 1 week ago. Today he was brought to clinic by friends who are not involved in his medical care. His main goal is to remove the SPTube and void normally. He currently c/o pain, rated as mild, sharp in quality, associated with the SPTube, located in the lower abdomen. No other modifying factors. At one point the SPTube became disconnected from the leg bag and the pt had to present to the ER to have this corrected. Past Medical History: Diagnosis Date Arthritis Hyperlipidemia Hypertension Past Surgical History: Procedure Laterality Date HX APPENDECTOMY FH: unable to obtain due to mental status Social History Social History Marital status: Spouse name: N/A Number of children: N/A Years of education: N/A Social History Main Topics Smoking status: Former Smoker Quit date: 05/01/1987 Smokeless tobacco: Never Used Alcohol use No Drug use: No Sexual activity: Not Asked Other Topics Concern None Social History Narrative Review of Systems Constitutional: Negative. HENT: Negative. Eyes: Negative. Respiratory: Negative. Cardiovascular: Negative. Gastrointestinal: Negative. Endocrine: Negative. Genitourinary: Negative. Musculoskeletal: Negative. Allergic/Immunologic: Negative. Neurological: Negative. Hematological: Negative. Psychiatric/Behavioral: Negative. All other systems reviewed and are negative. Objective: No current outpatient prescriptions on file. Vitals: 05/01/17 0941 BP: 141/87 Pulse: 60 Resp: 18 Temp: 36.9 C (98.4 F) TempSrc: Oral SpO2: 96% Weight: 82.2 kg (181 lb 4.8 oz) Height: 170.2 cm (67") Body mass index is 28.4 kg/(m^2). Pain Score: Zero Physical Exam Constitutional: He is oriented to person, place, and time. He appears well- developed and well-nourished. No distress. HENT: Head: Normocephalic and atraumatic. Eyes: Conjunctivae are normal. Right eye exhibits no discharge. Left eye exhibits no discharge. No scleral icterus. Neck: No tracheal deviation present. Cardiovascular: Normal rate. Pulmonary/Chest: Effort normal. No stridor. No respiratory distress. Abdominal: He exhibits no distension. Soft, NT Well healed midline laparotomy scar SPTube in place Previous paramedial appendectomy scar Right anterior subcostal incision with reducible ventral hernia from open juno Musculoskeletal: Normal range of motion. He exhibits no edema or tenderness. Neurological: He is alert and oriented to person, place, and time. Confused, unable to give reliable history Skin: Skin is warm and dry. No rash noted. He is not diaphoretic. No erythema. No pallor. Psychiatric: He has a normal mood and affect. His behavior is normal. Judgment and thought content normal. Reviewed outside records: summarized in HPI Personally discussed pt with referring physician Dr. Maria Reviewed outside labs Reviewed outside imaging 24 azerbaijani SPTube removed and 18french SPTube replaced under sterile conditions, confirmed placement with irrigation of catheter Assessment and Plan: 72 yo male with h/o BPH with LUTS, s/p TURP with intraoperative, intraperitoneal bladder perforation s/p ex-lap and repair, now with SPTube, bladder neck contracture, and urethral stricture I had a lengthy discussion with the pt. I discussed the treatment options, as well as the risks, benefits, and alternatives of each treatment option. Unfortunately he was not able to provide a good history today so I also discussed with his DPOA to obtain some of the history. It appears that the pt has a severe bladder neck contracture as well as a urethral stricture. The treatment options discussed included SPTube, reconstruction, cystectomy and urinary diversion. This certainly could be a very difficult problem to manage surgically and I have concerns that the pt may not be able to tolerate multiple large, reconstructive cases. I believe that the first step would be to evaluate the pt formally with antegrade and retrograde cystoscopy and urethrograms. To get the best understanding of his anatomy and location of his strictures, we will proceed with this in the OR in the near future. Once we have an understanding of the location and severity of his strictures we can outline a reconstructive plan and determine if the pt is willing and medically able to undergo these procedures. in this encounter Plan of Treatment Date Type Specialty Care Team Description 05/07/2017 Anesthesia Pena, ISHAAN Chen Event [address] [place] [address] [phone] 05/18/2017 Surgery Mu Melendez MD CYSTOSCOPY, FLEXIBLE [address] [place] [address] [phone] 05/18/2017 Procedure Pass 05/18/2017 Hospital Mu Melendez MD Bladder neck contracture Encounter [address] [place], [place] [id number] as of this encounter Visit Diagnoses Diagnosis Bladder neck contracture - Primary Bladder neck obstruction Encounter for care or replacement of suprapubic tube (HCC) Attention to cystostomy 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
--- OUTSIDE RECORDS SUMMARY | 2017-05-13 09:28 | XMS REPORT | Encounter Summary ---
Author Author [facility] Organization [facility] Address Unknown Phone Unavailable Care Team Providers Care Merchant Mariner Name Role Phone PCP Unavailable Encounter Details Date Type Department Care Team Description 05/18/2017 Procedure Pass Main Operating Room [address] [place] [address] Social History Tobacco Use Types [...] 05/07/2017 Anesthesia Pena, ISHAAN Chen Event [address] [place], [place] [phone] 05/18/2017 Surgery Mu Melendez MD CYSTOSCOPY, FLEXIBLE [address] [place], [place] [id number] 05/18/2017 Procedure Pass 05/18/2017 Hospital Mu Melendez MD Bladder neck contracture Encounter [address] [address] [phone] as of this encounter Visit Diagnoses Not on filein this encounter
--- OUTSIDE RECORDS SUMMARY | 2017-05-13 09:28 | XMS REPORT | Encounter Summary ---
Author Author [facility] Organization [facility] Address Unknown Phone Unavailable Care Team Providers Care Triage Assistant Name Role Phone PCP Unavailable Reason for Visit * Reason Comments Hypertension today at clinic, sent here Encounter Details Date Type Department Care Team Description 05/07/2017 Emergency Emergency Dept. [address] [place] [address]. [place] [address] Social History Tobacco Use Types Packs/Day Years Used Date Former Smoker Cigarettes Quit: 05/01/1987 Smokeless Tobacco: Never Used Alcohol Use Drinks/Week oz/Week Comments No Sex Assigned at Date Recorded Not on file as of this encounter Last Filed Vital Signs Vital Sign Reading Time Taken Blood Pressure 188/91 05/07/2017 1:51 PM CDT Pulse - - Temperature 37 C (98.6 F) 05/07/2017 1:47 PM CDT Respiratory Rate - - Oxygen Saturation 99% 05/07/2017 1:47 PM CDT Inhaled Oxygen - - Concentration Weight - - Height - - Body Mass Index - - in this encounter Functional Status Functional Status [...] impairment: No 05/01/2017 as of this encounter Medications at Time of Discharge Medication Sig. Disp. Refills Start Date End Date escitalopram oxalate Take 10 mg by mouth (LEXAPRO) 10 mg tablet daily. HYDROcodone/acetaminophen Take 1 tablet by mouth (NORCO) 5/325 mg tablet every 4 hours as needed for Pain LORazepam (ATIVAN) 2 mg Take 2 mg by mouth at tablet bedtime daily. metoprolol tartrate Take 50 mg by mouth twice (LOPRESSOR) 50 mg tablet daily. quinapril (ACCUPRIL) 40 Take 40 mg by mouth mg tablet daily. as of this encounter Plan of Treatment Date Type Specialty Care Team Description 05/07/2017 Anesthesia Pena, ISHAAN Chen Event [address] [place] [address] 05/18/2017 Surgery Mu Melendez MD CYSTOSCOPY, FLEXIBLE [address] [facility] [address] [place], [place] [phone] 05/18/2017 Procedure Pass 05/18/2017 Hospital Mu Melendez MD Bladder neck contracture Encounter [address] [facility] [address] [place], [place] [id number] as of this encounter Visit Diagnoses Not on filein this encounter
--- OUTSIDE RECORDS SUMMARY | 2017-05-13 09:28 | XMS REPORT | Clinical Summary ---
Author Author [facility] Organization [facility] Address Unknown Phone Unavailable Care Team Providers Care Knitting Machine Mechanic Name Role Phone PCP Unavailable Source Comments Some departments are not documenting in the electronic medical record. If you do not see the information that you expected, contact Release of Information in the Health Information Management department at [phone] for further assistance in locating additional records.[facility] Allergies Active Allergy Reactions Severity Noted Date Comments Sulfa (Sulfonamide RASH Medium 05/01/2017 Antibiotics) Codeine UNKNOWN Low 05/01/2017 Current Medications Prescription Sig. Disp. Refills Start End Date Status Date quinapril (ACCUPRIL) 40 Take 40 mg by mouth Active mg tablet daily. escitalopram oxalate Take 10 mg by mouth Active (LEXAPRO) 10 mg tablet daily. metoprolol tartrate Take 50 mg by mouth twice Active (LOPRESSOR) 50 mg tablet daily. HYDROcodone/acetaminophen Take 1 tablet by mouth Active (NORCO) 5/325 mg tablet every 4 hours as needed for Pain LORazepam (ATIVAN) 2 mg Take 2 mg by mouth at Active tablet bedtime daily. HYDROCODONE-ACETAMINOPHEN Take by mouth as Needed. 05/07/20 Discontin PO 17 ued hydroCHLOROthiazide Take 12.5 mg by mouth 05/07/20 Discontin (HYDRODIURIL) 12.5 mg every morning. 17 ued capsule Active Problems Problem Noted Date Encounter for care or replacement of suprapubic tube (HCC) 05/06/2017 Post-traumatic anterior urethral stricture 05/06/2017 Bladder perforation, intraoperative 05/06/2017 BPH with obstruction/lower urinary tract symptoms 05/06/2017 Bladder neck contracture 05/01/2017 Overview: Added automatically from request for surgery [id number] Encounters Date Type Specialty Care Team Description 05/07/2017 Emergency Emergency Medicine 05/07/2017 PAC Office Anesthesiology Mu Melendez MD Pre-operative Visit cardiovascular examination (Primary Dx);Essential hypertension 05/01/2017 Office Visit Oncology Mu Melendez MD Bladder neck contracture (Primary Dx);Encounter for care or replacement of suprapubic tube (HCC);Post-traumatic anterior urethral stricture;Bladder perforation, intraoperative;BPH with obstruction/lower urinary tract symptoms 05/01/2017 Prep for Case Mu Melendez MD from Last 3 Months Social History Tobacco Use Types Packs/Day Years Used Date Former Smoker Cigarettes Quit: 05/01/1987 Smokeless Tobacco: Never Used Alcohol Use Drinks/Week oz/Week Comments No Sex Assigned at Date Recorded Not on file Last Filed Vital Signs Vital Sign Reading Time Taken Blood Pressure 188/91 05/07/2017 1:51 PM CDT Pulse 71 05/07/2017 12:25 PM CDT Temperature 37 C (98.6 F) 05/07/2017 1:47 PM CDT Respiratory Rate 18 05/01/2017 9:41 AM CDT Oxygen Saturation 99% 05/07/2017 1:47 PM CDT Inhaled Oxygen - - Concentration Weight 80.5 kg (177 lb 6.4 oz) 05/07/2017 12:25 PM CDT Height 170.2 cm (5' 7") 05/07/2017 12:25 PM CDT Body Mass Index 27.78 05/07/2017 12:25 PM CDT Plan of Treatment Date Type Specialty Care Team Description 05/07/2017 Anesthesia Pena, ISHAAN Chen Event [address] [place], [place] [id number] 05/18/2017 Surgery Mu Melendez MD CYSTOSCOPY, FLEXIBLE [address] [facility] [address] [place], [place] [phone] 05/18/2017 Procedure Pass 05/18/2017 Hospital Mu Melendez MD Bladder neck contracture Encounter [address] [facility] [address] [place], [place] [id number] Health Maintenance Due Date Last Done Comments PHYSICAL (COMPREHENSIVE) 01/13/1951 EXAM PERTUSSIS VACCINE 01/13/1955 TETANUS VACCINE 01/13/1961 COLORECTAL CANCER 01/13/1994 SCREENING SHINGLES VACCINE 2004 ABDOMINAL AORTIC ANEURYSM 01/13/2009 SCREENING PREVNAR/PNEUMOVAX (#1) 01/13/2009 INFLUENZA VACCINE 05/11/2017 Results Not on filefrom Last 3 Months
--- OUTSIDE RECORDS SUMMARY | 2017-05-13 09:28 | XMS REPORT | Continuity of Care Document ---
Author Author [facility] Organization [facility] Address Unknown Phone Unavailable Care Team Providers Care Frickertron Checker Name Role Phone [employer] Unavailable Unavailable Problems Medications Allergies, Adverse Reactions, Alerts Immunizations Results Vital Signs Encounters Location Location Details Encounter Type Encounter Number Reason For Visit Attending Provider ADM Date DC Date Status Source CA SERIES [id number] HELDER ELENA 05/01/2017 Active [facility] OUTPATIENT [id number] 05/07/2017 Active [facility] EMERGENCY [id number] 05/07/2017 05/07/2017 Active [facility] O Active [facility] OP SURGERY [id number] HELDER ELENA Active [facility] Procedures Plan of Care Social History Assessment and Plan Family History Value Date Source Advance Directives Order Name Results Value Date Source
--- OUTSIDE RECORDS SUMMARY | 2017-05-13 09:29 | XMS REPORT ---
Author Author DIMA ELIZALDE [facility] Address [address] [place] [address] Care Team Providers Care Acquisition Professional Name Role Phone DIMA ELIZALDE Unavailable PROBLEMS Type Condition ICD9-CM Code LSB60-UN Code Onset Dates Condition Status SNOMED Code Problem Suprapubic catheter Z93.59 Active 829382590 Problem Primary insomnia F51.01 Active 0953963 Problem Hypertension, benign I10 Active 45896090 Problem Coronary artery disease involving [place] coronary artery of [place] heart without angina pectoris I25.10 Active 7158941893196 Problem Memory loss R41.3 Active 07567442 ALLERGIES Substance Reaction Event Type Date Status Sulfamethoxazole Unknown Drug Allergy Aug, Active Codeine Unknown Drug Allergy Aug, Active SOCIAL HISTORY No smoking Hx information available PLAN OF CARE Activity Details Follow Up annually for preventive care, sooner for chronic health maintenance Reason: VITAL SIGNS Height 67 in 2016-09-07 Weight 201.7 lbs 2016-09-07 Temperature 98.2 degrees Fahrenheit 2016-09-07 Heart Rate 72 bpm 2016-09-07 Respiratory Rate 20 2016-09-07 BMI 31.59 kg/m2 2016-09-07 Blood pressure systolic 142 mmHg 2016-09-07 Blood pressure diastolic 82 mmHg 2016-09-07 MEDICATIONS Medication Instructions Dosage Frequency Start Date End Date Duration Status Aspir-81 81 MG Orally Once a day 1 tablet 24h Active Ibuprofen 200 MG Orally every 6 hrs 1 tablet as needed 6h Active Hydrochlorothiazide 25 MG TAKE ONE TABLET BY MOUTH ONCE DAILY 90 Active Ativan 2 MG Orally Once a day 1 tablet at bedtime as needed 24h January, Active Quinapril HCl 40 MG TAKE ONE TABLET BY MOUTH DAILY 30 Active Lexapro 10 MG Orally Once a day 1 tablet 24h 30 Active Metoprolol Tartrate 50 MG TAKE ONE TABLET BY MOUTH TWICE DAILY 30 Active RESULTS No Results PROCEDURES Procedure Date Ordered Related Diagnosis Body Site INIT PREV PE LTD DUR 12 MOS MCR Sep 07, 2016 ANNUAL DARLIN VST; PERSNL PPS INIT Sep 07, 2016 [facility] VISIT ESTABLISHED PATIENT Sep 07, 2016 ANNUAL WELLNESS VST; PPS SUBSQT VST Sep 07, 2016 Office Visit, Est Pt., Level 3 Sep 07, 2016 IMMUNIZATIONS No Known Immunizations
--- OUTSIDE RECORDS SUMMARY | 2017-05-13 09:30 | XMS REPORT ---
Author Author DIMA ELIZALDE [facility] Address [address] [place] [address] Care Team Providers Care Business Trainer Name Role Phone DIMA ELIZALDE Unavailable PROBLEMS Type Condition ICD9-CM Code KYN50-ZE Code Onset Dates Condition Status SNOMED Code Problem Suprapubic catheter Z93.59 Active 054972925 Problem Primary insomnia F51.01 Active 9201096 Problem Hypertension, benign I10 Active 68100600 Problem Coronary artery disease involving [place] coronary artery of [place] heart without angina pectoris I25.10 Active 0633748616910 Problem Memory loss R41.3 Active 69008133 ALLERGIES Unknown Allergies SOCIAL HISTORY No smoking Hx information available PLAN OF CARE VITAL SIGNS MEDICATIONS Medication Instructions Dosage Frequency Start Date End Date Duration Status Ativan 2 MG Orally Once a day 1 tablet at bedtime as needed 24h January, Active RESULTS No Results PROCEDURES No Known procedures IMMUNIZATIONS No Known Immunizations
[2017-05-13 10:17] LABS: BASOPHILS # (AUTO) 0.1 10^3/uL (0.0-0.1); BASOPHILS % (AUTO) 1 % (0-10); EOSINOPHILS # (AUTO) 0.1 10^3/uL (0.0-0.3); EOSINOPHILS % (AUTO) 1 % (0-10); LYMPHOCYTES # (AUTO) 1.4 X 10^3 (1.0-4.0); LYMPHOCYTES % (AUTO) 19 % (12-44); MEAN CORPUSCULAR HEMOGLOBIN 29 PG (25-34); MEAN CORPUSCULAR HGB CONC 34 G/DL (32-36); MEAN CORPUSCULAR VOLUME 86 FL (80-99); MEAN PLATELET VOLUME 10.8 FL (7.4-10.4); MONOCYTES # (AUTO) 0.5 X 10^3 (0.0-1.0); MONOCYTES % (AUTO) 7 % (0-12); NEUTROPHILS # (AUTO) 5.4 X 10^3 (1.8-7.8); NEUTROPHILS % (AUTO) 73 % (42-75); PLATELET COUNT 197 10^3/uL (130-400); RED BLOOD COUNT 5.27 10^6/uL (4.35-5.85); RED CELL DISTRIBUTION WIDTH 13.8 % (10.0-14.5); WHITE BLOOD COUNT 7.5 10^3/uL (4.3-11.0)
[2017-05-13 10:36] LABS: ALANINE AMINOTRANSFERASE 46 U/L (0-55); ALBUMIN 3.8 GM/DL (3.2-4.5); ANION GAP 13 MMOL/L (5-14); ASPARTATE AMINO TRANSFERASE 43 U/L (5-34); BILIRUBIN,TOTAL 1.4 MG/DL (0.1-1.0); BLOOD UREA NITROGEN 9 MG/DL (7-18); BUN/CREATININE RATIO 10; CALCIUM 9.2 MG/DL (8.5-10.1); CARBON DIOXIDE 22 MMOL/L (21-32); CHLORIDE 106 MMOL/L (98-107); CREATININE SERUM 0.92 MG/DL (0.60-1.30); GFR ESTIMATED > 60; GLUCOSE 113 MG/DL (70-105); POTASSIUM 3.8 MMOL/L (3.6-5.0); SODIUM 141 MMOL/L (135-145)
[2017-05-13 11:27] LABS: BILIRUBIN,URINE NEGATIVE (NEGATIVE); KETONES,URINE NEGATIVE (NEGATIVE); LEUKOCYTE ESTERASE ,URINE 3+ (NEGATIVE); NITRITE,URINE POSITIVE (NEGATIVE); PH,URINE 7 (5-9); PROTEIN,URINE 2+ (NEGATIVE); UROBILINOGEN,URINE NORMAL (NORMAL)
[2017-05-13 11:38] LABS: WBC,URINE TNTC /HPF
[2017-05-13] MEDS ORDERED: MIRT15TA PO (12:40)
[2017-05-13] MEDS ORDERED: NITR-65 PO (12:40)
--- NOTE | 2017-05-13 12:40 | ED General ---
General Chief Complaint: Catheter/Drain/Tube Problems Stated Complaint: CATHETER PROBLEMS Nursing Triage Note: PT BROUGHT IN BY [facility] WITH C/O CUTTING HIS SUPRAPUBIC CATHETER. PT REPORTS HE DID THIS SO THAT HE COULD COME TO THE ER AND BE PLACED AT A SNF. PT REPORTS HE HAS BEEN DEPRESSED LATELY, AND DOESNT FEEL IF HE CAN TAKE CARE OF HIMSELF. Nursing Sepsis Screen: No Definite Risk Source of Information: Patient Exam Limitations: No Limitations History of Present Illness Time Seen by Provider: 09:23 Initial Comments This 72-year-old man presents to the emergency room via EMS because he cut his suprapubic catheter this morning. Patient reports he did this as a means to present to the emergency room thinking he could be admitted to a long term from here. He has been distressed about psychosocial issues in his life. He is supposed to have a urologic procedure performed at next week. He has significant financial stressors. He had recently been admitted to the long term and feels like he would like to go back. He has a friend here with him who serves as a care provider voluntarily. The friend reports patient made suicidal comments this morning. Patient admits to making these comments but does not feel suicidal at this time and states he never had a plan. Patient reports he was previously treated by a behavioral health provider. He does not believe he is taking any medications for depression now. Filling record shows a month long prescription for Lexapro filled a little over a month ago. Patient does not recall taking this medication or needing refills on it. Allergies and Home Medications Allergies Coded Allergies: Sulfa (Sulfonamide Antibiotics) (Verified Allergy, Unknown, 04/06/09) codeine (Verified Allergy, Unknown, 02/21/17) Home Medications Amoxicillin/Potassium Clav 1 Each Tablet, 1 EACH PO BID for 3 Days, #6 Prescribed by: TWYLA BLOUNT on 03/26/17 1144 Ampicillin Trihydrate 500 Mg Capsule, 500 MG PO TID, #21 Prescribed by: ADRIEL MILLIGAN on 04/26/17 1115 Cholecalciferol 1,000 Unit Tablet, 1,000 UNIT PO DAILY, (Reported) Escitalopram Oxalate 10 Mg Tablet, 10 MG PO DAILY, (Reported) Finasteride 5 Mg Tablet, 5 MG PO DAILY, (Reported) Hydrochlorothiazide 25 Mg Tablet, 25 MG PO DAILY, (Reported) Lorazepam 2 Mg Tablet, 2 MG PO DAILY, (Reported) Metoprolol Tartrate 50 Mg Tablet, 50 MG PO BID, (Reported) Mirtazapine 15 Mg Tablet, 15 MG PO HS, #30 Prescribed by: CRISTOBAL VANG on 05/13/17 1240 Nitrofurantoin Monohyd/M-Cryst 100 Mg Capsule, 1 TAB PO BID, #20 Prescribed by: CRISTOBAL VANG on 05/13/17 1240 Quinapril HCl 40 Mg Tablet, 40 MG PO DAILY, (Reported) Tramadol HCl 50 Mg Tablet, 50 MG PO Q4H PRN for PAIN-MODERATE, (Reported) Constitutional: no symptoms reported EENTM: no symptoms reported Respiratory: no symptoms reported Cardiovascular: no symptoms reported Gastrointestinal: no symptoms reported Genitourinary: see HPI Musculoskeletal: no symptoms reported Skin: no symptoms reported Psychiatric/Neurological: See HPI Hematologic/Lymphatic: No Symptoms Reported Immunological/Allergic: no symptoms reported Past Nvnmlyw-Qkjkud-Fbjnaw Hx Patient Social History Alcohol Use: Denies Use Recreational Drug Use: No Smoking Status: Former Smoker Type Used: Cigarettes Former Smoker, Quit: Feb 21, 1986 2nd Hand Smoke Exposure: No Recent Foreign Travel: No Contact w/Someone Who Travel: No Recent Infectious Disease Expo: No Recent Hopitalizations: No (FEBRUARY 2017, SUPRAPUBIC CATH PLACED) Physical Abuse: No Sexual Abuse: No Immunizations Up To Date Tetanus Booster (TDap): Unknown Date of Pneumonia Vaccine: Jun 10, 2007 Date of Influenza Vaccine: Jul 12, 2016 Seasonal Allergies Seasonal Allergies: Yes Surgeries History of Surgeries: Yes (SUPRAPUBIC CATH) Surgeries: Appendectomy, Bladder Surgery, Gallbladder Respiratory History of Respiratory Disorde: Yes Respiratory Disorders: Pneumonia Currently Using CPAP: No Currently Using BIPAP: No Cardiovascular History of Cardiac Disorders: Yes Cardiac Disorders: Hypertension Neurological History of Neurological Disord: No Neurological Disorders: Dementia Reproductive System Hx Reproductive Disorders: No Sexually Transmitted Disease: No HIV/AIDS: No Genitourinary History of Genitourinary Disor: Yes (SUPRA PUBIC CATHETER) Genitourinary Disorders: Benign Prostatic Hyperpl, Prostate Problems, Kidney Stones Gastrointestinal History of Gastrointestinal Di: Yes (COLITIS, HX OF GALL BLADDER REMOVAL AND APPY) Gastrointestinal Disorders: Colitis, Polyps Musculoskeletal History of Musculoskeletal Dis: Yes (TENDONITIS) Musculoskeletal Disorders: Arthritis Endocrine History of Endocrine Disorders: No HEENT History of HEENT Disorders: Yes HEENT Disorders: Cataract Loss of Vision: Denies Cancer History of Cancer: Yes Cancer: Skin Psychosocial History of Psychiatric Problem: Yes Behavioral Health Disorders: Depression Suicide Risk Score: 0 Integumentary History of Skin or Integumenta: No Blood Transfusions History of Blood Disorders: No Family Medical History Significant Family History: No Pertinent Family Hx Family Medial History: Myocardial infarction 18 FATHER Physical Exam Vital Signs Vital Sign - Last 12Hours 05/13/17 09:30 Temp 98.6 Pulse 86 Resp 20 B/P (MAP) 191/114 Pulse Ox 97 O2 Delivery Room Air Capillary Refill : Less Than 3 Seconds General Appearance: No Apparent Distress HEENT: PERRL/EOMI, Normal ENT Inspection Respiratory: Lungs Clear, Normal Breath Sounds, No Accessory Muscle Use, No Respiratory Distress Cardiovascular: Regular Rate, Rhythm, No Edema, No Murmur Gastrointestinal: Normal Bowel Sounds, Non Tender, Soft Genital/Rectal: Other (Suprapubic catheter has been cut. No trauma to the skin ) Extremity: Normal Inspection, No Pedal Edema Neurologic/Psychiatric: Alert, Oriented x3, No Motor/Sensory Deficits, Normal Mood/Affect, director of labor and delivery II-XII Norm as Tested Skin: Normal Color, Warm/Dry Progress/Results/Core Measures Results/Orders Lab Results Laboratory Tests Test 05/13/17 10:09 05/13/17 11:20 Range/Units White Blood Count 7.5 4.3-11.0 10^3/uL Red Blood Count 5.27 4.35-5.85 10^6/uL Hemoglobin 15.4 13.3-17.7 G/DL Hematocrit 46 40-54 % Mean Corpuscular Volume 86 80-99 FL Mean Corpuscular Hemoglobin 29 25-34 PG Mean Corpuscular Hemoglobin Concent 34 32-36 G/DL Red Cell Distribution Width 13.8 10.0-14.5 % Platelet Count 197 130-400 10^3/uL Mean Platelet Volume 10.8 H 7.4-10.4 FL Neutrophils (%) (Auto) 73 42-75 % Lymphocytes (%) (Auto) 19 12-44 % Monocytes (%) (Auto) 7 0-12 % Eosinophils (%) (Auto) 1 0-10 % Basophils (%) (Auto) 1 0-10 % Neutrophils # (Auto) 5.4 1.8-7.8 X 10^3 Lymphocytes # (Auto) 1.4 1.0-4.0 X 10^3 Monocytes # (Auto) 0.5 0.0-1.0 X 10^3 Eosinophils # (Auto) 0.1 0.0-0.3 10^3/uL Basophils # (Auto) 0.1 0.0-0.1 10^3/uL Sodium Level 141 135-145 MMOL/L Potassium Level 3.8 3.6-5.0 MMOL/L Chloride Level 106 98-107 MMOL/L Carbon Dioxide Level 22 21-32 MMOL/L Anion Gap 13 5-14 MMOL/L Blood Urea Nitrogen 9 7-18 MG/DL Creatinine 0.92 0.60-1.30 MG/DL Estimat Glomerular Filtration Rate > 60 BUN/Creatinine Ratio 10 Glucose Level 113 H 70-105 MG/DL Calcium Level 9.2 8.5-10.1 MG/DL Total Bilirubin 1.4 H 0.1-1.0 MG/DL Aspartate Amino Transf (AST/SGOT) 43 H 5-34 U/L Alanine Aminotransferase (ALT/SGPT) 46 0-55 U/L Alkaline Phosphatase 82 40-136 U/L Total Protein 8.0 6.4-8.2 GM/DL Albumin 3.8 3.2-4.5 GM/DL Urine Color YELLOW Urine Clarity SLIGHTLY CLOUDY Urine pH 7 5-9 Urine Specific [place] 1.010 L 1.016-1.022 Urine Protein 2+ H NEGATIVE Urine Glucose (UA) NEGATIVE NEGATIVE Urine Ketones NEGATIVE NEGATIVE Urine Nitrite POSITIVE H NEGATIVE Urine Bilirubin NEGATIVE NEGATIVE Urine Urobilinogen NORMAL NORMAL MG/DL Urine Leukocyte Esterase 3+ H NEGATIVE Urine RBC (Auto) 5+ H NEGATIVE Urine RBC NONE /HPF Urine WBC TNTC H /HPF Urine Crystals PRESENT H /LPF Urine Amorphous Sediment FEW KATARZYNA URATES H /LPF Urine Bacteria LARGE H /HPF Urine Casts NONE /LPF Urine Mucus SMALL H /LPF Urine Culture Indicated YES My Orders Orders - CRISTOBAL PARADA MD Cbc With Automated Diff (05/13/17 09:58) Comprehensive Metabolic Panel (05/13/17 09:58) Ua Culture If Indicated (05/13/17 09:58) Saline Lock/Iv-Start (05/13/17 09:58) Urine Culture (05/13/17 11:20) Vital Signs/I&O Vital Sign - Last 12Hours 05/13/17 05/13/17 09:30 12:51 Temp 98.6 98.6 Pulse 86 86 Resp 20 20 B/P (MAP) 191/114 Pulse Ox 97 97 O2 Delivery Room Air Blood Pressure Mean: 139 Progress Note : Progress Note Suprapubic catheter was replaced. Confirmation of placement was accomplished by flushing with saline and return of urine on aspiration. Patient tolerated the procedure well. Patient was found to have urinary tract infection. A prescription for Macrobid was provided after review of prior culture. I did discuss this case with Dr. Robin Martins who will help facilitate connecting patient with social work and behavioral health resources at [facility]. She also requested that I started him on Remeron for his depression. A prescription was provided. Patient was dismissed home with his friend. Departure Impression Impression: Primary Impression: Suprapubic catheter dysfunction Qualified Codes: T83.010A - Breakdown (mechanical) of cystostomy catheter, initial encounter Additional Impressions: Urinary tract infection Qualified Codes: N39.0 - Urinary tract infection, site not specified Depression Qualified Codes: F32.9 - Major depressive disorder, single episode, unspecified Psychosocial stressors Disposition: 01 HOME, SELF-CARE Condition: Improved Departure-Patient Inst. Decision time for Depature: 12:30 Referrals: [facility] (PCP) Primary Care Physician DIMA ELIZALDE (Family) Primary Care Physician Patient Instructions: Urinary Tract Infections in Adults Add. Discharge Instructions: Complete your antibiotics as prescribed and follow-up with your primary care provider soon as possible. Return to the emergency room if symptoms worsen. Call [phone] ([phone]) or [phone] if your depression becomes severe or you develop suicidal thoughts or actions. Plenty of clear liquids. Start your new prescriptions today. All discharge instructions reviewed with patient and/or family. Voiced understanding. Scripts Mirtazapine (Remeron) 15 Mg Tablet 15 MG PO HS, #30 TAB Prov: CRISTOBAL PARADA MD 05/13/17 Nitrofurantoin Monohyd/M-Cryst (Macrobid 100 mg Capsule) 100 Mg Capsule 1 TAB PO BID, #20 CAP Prov: CRISTOBAL PARADA MD 05/13/17 Copy Copies To 1: ROBIN MARTINS MD, JOSHUA T MD May 13, 2017 12:40
[2017-05-13 12:51] VITALS: BP 191/114
== END 2017-05-13 12:51 | disposition home or self-care (01) ==
LOC: EDUNIT# 09:23 → ER 09:23
DX: T83.010A Breakdown (mechanical) of cystostomy catheter, initial encounter (principal); N39.0 Urinary tract infection, site not specified; F32.9 Major depressive disorder, single episode, unspecified; F03.90 Unspecified dementia, unspecified severity, without behavioral disturbance, psychotic disturbance, mood disturbance, and anxiety; I10 Essential (primary) hypertension; Z87.891 Personal history of nicotine dependence; Z90.49 Acquired absence of other specified parts of digestive tract; Z73.3 Stress, not elsewhere classified; Z87.39 Personal history of other diseases of the musculoskeletal system and connective tissue; Z87.19 Personal history of other diseases of the digestive system; Z87.442 Personal history of urinary calculi
CPT/HCPCS: 36415; 51702; 80053; 81000; 85025; 87077; 87088; 87186

== ENCOUNTER → 2017-05-15 | Outpatient (CLI) | payer MEDICARE, MEDICAID ==
[~2017-05-15] MED LIST changes: +MIRT15TA PO; -QUIN40TA14 PO; +QUIN40TA25 PO
== END ==
LOC: CARD 13:24
PROVIDERS: ATTEND Anesthesiology
DX: Z01.810 Encounter for preprocedural cardiovascular examination (principal); I10 Essential (primary) hypertension
CPT/HCPCS: 93005

== ENCOUNTER 2017-05-24 12:41 | Emergency (ER) | payer MEDICARE, MEDICAID ==
[~2017-05-24] VITALS: Ht 170.2 cm; Wt 78.0 kg
[~2017-05-24 12:41] MED LIST changes: +QUIN40TA14 PO; -QUIN40TA25 PO
--- OUTSIDE RECORDS SUMMARY | 2017-05-24 12:47 | XMS REPORT | Encounter Summary ---
Author Author [facility] Organization [facility] Address Unknown Phone Unavailable Care Team Providers Care Boat Driver Name Role Phone PCP Unavailable Encounter Details Date Type Department Care Team Description 05/18/2017 Procedure Pass Main Operating Room [address] [place] [address] Social History Tobacco Use Types [...] as of this encounter Plan of Treatment Not on fileas of this encounter Visit Diagnoses Not on filein this encounter
--- OUTSIDE RECORDS SUMMARY | 2017-05-24 12:47 | XMS REPORT | Continuity of Care Document ---
Author Author [employer] [facility] Address Unknown Phone Unavailable Care Team Providers Care Procedures Rn Name Role Phone [employer] Unavailable Unavailable Problems Medications Allergies, Adverse Reactions, Alerts Immunizations Results Vital Signs Encounters Location Location Details Encounter Type Encounter Number Reason For Visit Attending Provider ADM Date DC Date Status Source CA SERIES [id number] HELDER ELENA 05/01/[address] [facility] OUTPATIENT [id number] 05/07/[address] [facility] EMERGENCY [id number] 05/07/2017 05/07/[address] [facility] OP SURGERY [id number] HELDER ELENA 05/18/2017 05/18/[address] [facility] O HLEDER ELENA Active [facility] Procedures Plan of Care Social History Assessment and Plan Family History Value Date Source Advance Directives Order Name Results Value Date Source
--- OUTSIDE RECORDS SUMMARY | 2017-05-24 12:47 | XMS REPORT | Clinical Summary ---
Author Author [facility] Organization [facility] Address Unknown Phone Unavailable Care Team Providers Care Skinning Machine Feeder Name Role Phone PCP Unavailable Source Comments Some departments are not documenting in the electronic medical record. If you do not see the information that you expected, contact Release of Information in the Health Information Management department at [phone] for further assistance in locating additional records.[facility] Allergies Active Allergy Reactions Severity Noted Date [...] Overview: Added automatically from request for surgery [id number] Encounters Date Type Specialty Care Team Description 05/18/2017 [facility] Mu Melendez MD Bladder neck contracture Encounter 05/18/2017 Telephone Urology Enoc Gamboa MD General Question 05/18/2017 Procedure Pass 05/18/2017 Surgery Mu Melendez MD CYSTOSCOPY, FLEXIBLE 05/07/2017 Emergency Emergency Medicine 05/07/2017 PAC Office Anesthesiology Mu Melendez MD Pre-operative Visit cardiovascular examination (Primary Dx);Essential hypertension 05/07/2017 Anesthesia Pena, ISHAAN Chen Event 05/01/2017 Office Visit Oncology Mu Melendez MD [...] Vital Sign Reading Time Taken Blood Pressure 163/85 05/18/2017 1:45 PM CDT Pulse 62 05/18/2017 1:32 PM CDT Temperature 36.7 C (98.1 F) 05/18/2017 12:14 PM CDT Respiratory Rate 18 05/01/2017 9:41 AM CDT Oxygen Saturation 100% 05/18/2017 1:32 PM CDT Inhaled Oxygen - - Concentration Weight 78.8 kg (173 lb 12.8 oz) 05/18/2017 12:14 PM CDT Height 170.2 cm (5' 7") 05/18/2017 12:14 PM CDT Body Mass Index 27.22 05/18/2017 12:14 PM CDT Plan of Treatment Health Maintenance Due Date Last Done Comments PHYSICAL (COMPREHENSIVE) 01/13/1952 EXAM PERTUSSIS VACCINE 01/13/1955 TETANUS VACCINE 01/13/1961 COLORECTAL CANCER 01/13/1994 SCREENING SHINGLES VACCINE 2004 ABDOMINAL AORTIC ANEURYSM 01/13/2009 SCREENING PREVNAR/PNEUMOVAX (#1) 01/13/2009 INFLUENZA VACCINE 06/10/2017 Procedures Procedure Name Priority Date/Time Associated Diagnosis Comments TELEMETRY STRIPS-SCAN 05/21/2017 Results for this 3:18 PM CDT procedure are in the results section. ANTEROGRADE AND 05/18/2017 Bladder neck contracture RETROGRADE 10:42 AM CDT CYSTOURETHROSCOPY WITH SUPRAPUBIC TUBE EXCHANGE Special Needs 05/03 PER MELINDA WITH JENNIFER, CASE LENGTH SHOULD BE 30 MINUTES, NOT 200 MINUTES - Radha BARTLETT RN ([id number]) CYSTOSCOPY, FLEXIBLE 05/18/2017 Bladder neck contracture 10:42 AM CDT Special Needs 05/03 PER MELINDA WITH JENNIFER, CASE LENGTH SHOULD BE 30 MINUTES, NOT 200 MINUTES - Radha BARTLETT RN ([id number]) from Last 3 Months Results * TELEMETRY STRIPS-SCAN (05/21/2017 3:18 PM) Narrative Ordered by an unspecified provider. from Last 3 Months
--- OUTSIDE RECORDS SUMMARY | 2017-05-24 12:47 | XMS REPORT | Encounter Summary ---
Author Author [facility] Organization [facility] Address Unknown Phone Unavailable Care Team Providers Care Preparation Plant Supervisor Name Role Phone PCP Unavailable Reason for Visit * Auth/Cert Status Reason Specialty Diagnoses / Referred By Referred To Procedures Contact Contact Diagnoses Bladder neck contracture UNKNOWN P rocedures CYSTOSCOPY FLEXIBLE CYSTOSCOPY CYSTOGRAM VOIDING Encounter Details Date Type Department Care Team Description 05/18/2017 Anesthesia Main Operating Room Estelle Ortega MD [address] [facility] [address] [place] [address] [place] [address] [place], [place] [id number] Social History Tobacco Use Types Packs/Day Years [...] Visit Diagnoses Not on filein this encounter Administered Medications Medication Order MAR Action Action Date Dose Rate Site ceFAZolin (ANCEF) injection Given 05/18/2017 2 g INTRA-PROCEDURE MED, Starting Sun05/18/17 13:07 CDT at 1307, Until Sun05/18/17 at 1333, Anesthesia Intra-op lidocaine (PF) injection Given 05/18/2017 60 mg INTRA-PROCEDURE MED, Starting Sun05/18/17 12:58 CDT at 1258, Until Sun05/18/17 at 1333, Anesthesia Intra-op propofol (DIPRIVAN) infusion 200 mg Given - New 05/18/2017 50 23.6 mL/ hr 200 mg Bag 13:01 CDT mcg/kg/min 20 mL, Intravenous, INTRA-PROCEDURE MED(CONT), Starting Sun05/18/17 at 1301, Until Discontinued, Anesthesia Intra-op Bolus 05/18/2017 10,000 mcg 13:04 CDT Bolus 05/18/2017 15,800 mcg 13:08 CDT in this encounter
--- OUTSIDE RECORDS SUMMARY | 2017-05-24 12:47 | XMS REPORT | Encounter Summary ---
Author Author [facility] Organization [facility] Address Unknown Phone Unavailable Care Team Providers Care Db2 Dba Name Role Phone PCP Unavailable Reason for Visit * Reason Comments General Question Encounter Details Date Type Department Care Team Description 05/18/2017 Telephone [facility] Enoc Gamboa MD General Question Physicians - Urology [address] [address] [place] [address] [address] [employer] [place] [address] Social History Tobacco Use Types Packs/Day Years [...]
--- OUTSIDE RECORDS SUMMARY | 2017-05-24 12:47 | XMS REPORT | Encounter Summary ---
Author Author [facility] Organization [facility] Address Unknown Phone Unavailable Care Team Providers [employer] Sales Consultant Name Role Phone PCP Unavailable Reason for Visit * Auth/Cert Status Reason Specialty Diagnoses / Referred By Referred To Procedures Contact Contact Diagnoses Bladder neck contracture UNKNOWN P rocedures CYSTOSCOPY FLEXIBLE CYSTOSCOPY CYSTOGRAM VOIDING Encounter Details Date Type Department Care Team Description 05/18/2017 Surgery Main Operating Room Mu Melendez MD CYSTOSCOPY, FLEXIBLE [address] [facility] [place] [address] [address] [place] [address] [phone] Social History Tobacco Use Types Packs/Day Years [...] F) 05/18/2017 12:14 PM CDT Respiratory Rate - - Oxygen Saturation 100% 05/18/2017 1:32 PM CDT Inhaled Oxygen - - Concentration Weight 78.8 kg (173 lb 12.8 oz) 05/18/2017 12:14 PM CDT Height 170.2 cm (5' 7") 05/18/2017 12:14 PM CDT Body Mass Index 27.22 05/18/2017 12:14 PM CDT in this encounter Functional Status [...] mg tablet daily. as of this encounter Progress Notes * [...] having "urinary frequency". MUNIR sent to [facility] for discharge summary, cardiac testing, and recent labs. Due to difficulty obtaining medical history, PAC appointment was set up for 05/07/17. Pre-op instructions reviewed with patient, but unsure of pt's full understanding and will need all instructions in clinic. in this encounter Plan of Treatment Not on fileas of this encounter Procedures Procedure Name Priority Date/Time Associated Diagnosis Comments TELEMETRY STRIPS-SCAN 05/21/2017 Results for this 3:18 PM CDT procedure are in the results section. ANTEROGRADE AND 05/18/2017 Bladder neck contracture RETROGRADE 10:42 AM CDT CYSTOURETHROSCOPY WITH SUPRAPUBIC TUBE EXCHANGE [facility] CASE LENGTH SHOULD BE 30 MINUTES, NOT 200 MINUTES - Radha BARTLETT RN ([id number]) CYSTOSCOPY, FLEXIBLE 05/18/2017 Bladder neck contracture 10:42 AM CDT Special Needs 05/03 PER MELINDA WITH JENNIFER, CASE LENGTH SHOULD BE 30 MINUTES, NOT 200 MINUTES - Radha BARTLETT RN ([id number]) in this encounter Results * TELEMETRY STRIPS-SCAN (05/21/2017 3:18 PM) Narrative Ordered by an unspecified provider. in this encounter Visit Diagnoses Diagnosis Bladder neck contracture Bladder neck obstruction in this encounter Admitting Diagnoses Diagnosis Bladder neck contracture - UNKNOWN Bladder neck obstruction in this encounter Administered Medications Medication Order MAR Action Action Date Dose Rate Site lactated ringers infusion Given - New 05/18/2017 1,000 mL 20 mL/hr 1,000 mL, 1,000 mL, Intravenous, at 20 Bag 12:27 CDT mL/hr, CONTINUOUS, Starting Sun05/18/17 at 1200, Until Sun05/18/17 at 1735, Pre-Op lidocaine PF 1% (10 mg/mL) injection Given 05/18/2017 2 mL 0.1-2 mL 12:27 CDT 0.1-2 mL, Injection, NEEDED, Starting Sun05/18/17 at 1253, Until Sun05/18/17 at 1735, Other..., for IV insertion, Pre-Op sodium chloride 0.9 % irrigation bag Given 05/18/2017 3,000 mL Penis INTRA-PROCEDURE MED, Starting Sun05/18/17 13:14 CDT at 1314, Until Sun05/18/17 at 1735, Intra-op in this encounter
--- OUTSIDE RECORDS SUMMARY | 2017-05-24 12:48 | XMS REPORT | Encounter Summary ---
Author Author [facility] Organization [facility] Address Unknown Phone Unavailable Care Team Providers Care Armorer Technician Name Role Phone PCP Unavailable Reason for Visit * Auth/Cert Status Reason Specialty Diagnoses / Referred By Referred To Procedures Contact Contact Diagnoses Bladder neck contracture UNKNOWN P rocedures CYSTOSCOPY FLEXIBLE CYSTOSCOPY CYSTOGRAM VOIDING Encounter Details Date Type Department Care Team Description 05/18/2017 Hospital Main Operating Room Mu Melendez MD Bladder neck contracture Encounter [address] [facility] [address] [place] [address] [place] [address] [place] [address] [phone] Social History Tobacco Use Types Packs/Day Years [...] NOT 200 MINUTES - Radha BARTLETT RN ([id number]) CYSTOSCOPY, FLEXIBLE 05/18/2017 Bladder neck contracture 10:42 AM CDT Special Needs 05/03 PER MELINDA WITH JENNIFER, CASE LENGTH SHOULD BE 30 MINUTES, NOT 200 MINUTES - Radha BARTLETT RN ([id number]) in this encounter Results * TELEMETRY STRIPS-SCAN [...] at 1735, Other..., for IV insertion, Pre-Op in this encounter
--- OUTSIDE RECORDS SUMMARY | 2017-05-24 12:48 | XMS REPORT | Encounter Summary ---
Author Author [facility] Organization [facility] Address Unknown Phone Unavailable Care Team Providers Care Soda Column Operator Name Role Phone PCP Unavailable Reason for Visit * Reason Comments Hypertension today at clinic, sent here Encounter Details Date Type Department Care Team Description 05/07/2017 Emergency Emergency Dept. [address] [place] [address]. [place] [address] Social History Tobacco Use Types [...]
--- OUTSIDE RECORDS SUMMARY | 2017-05-24 12:48 | XMS REPORT | Encounter Summary ---
Author Author [facility] Organization [facility] Address Unknown Phone Unavailable Care Team Providers Care Management Instructor Name Role Phone PCP Unavailable Encounter Details Date Type Department Care Team Description 05/01/2017 Prep for Case XDD UROLOGY Mu Melendez MD [address] [facility] [place] [address] [place] [address] [phone] Social History Tobacco Use Types Packs/Day Years [...]
--- OUTSIDE RECORDS SUMMARY | 2017-05-24 12:48 | XMS REPORT | Encounter Summary ---
Author Author [facility] Organization [facility] Address Unknown Phone Unavailable Care Team Providers Care Rehab Consultant Name Role Phone PCP Unavailable Encounter Details Date Type Department Care Team Description 05/07/2017 PAC Office Preoperative Assessment Mu Melendez MD Pre- operative Visit Clinic [address] cardiovascular [address] examination ([place] [address] [place] [address] Dx);Essential [phone] hypertension Social History Tobacco Use Types Packs/Day [...] or breakage of personal items. Remove nail uzbek, makeup and all jewelry (including piercings) before coming to the hospital. The morning of your procedure: brush your teeth and tongue do not smoke do not shave the area where you will have surgery What to bring to the hospital ID/ Insurance Card [employer] card Official documents for legal guardianship Copy of your Living Will, Advanced Directives, and/or Durable Power of Emergency Service Worker Small bag with a few personal belongings [...] a call by 4 pm, please call [phone] Or after 430 call [phone]. Other instructions Notify your surgeon if: you become ill with a cough, fever, sore throat, nausea, vomiting or flu- like symptoms you have any open wounds/sores that are red, painful, draining, or are new since you last saw the doctor you need to cancel your procedure Notify us at [facility]: if you need to cancel your procedure if you are going to be late Arrival at the hospital [facility]: Park in the [facility] located directly across from the main entrance to the hospital. Sales Director parking is available Sunday through Sunday from [...] with any medicine updates or questions. E-mail: [email or web address] Before going home from the hospital, please ask your doctor when you should re- start your medicines that were stopped before surgery. in this encounter Progress Notes * Mulu Holloway, DANICA - 05/07/2017 1:30 PM CDT Called patient [...] faxed. in this encounter Plan of Treatment Name Priority Associated Diagnoses Order Schedule ECG 12-LEAD Routine Pre-operative Expected: 05/08/2017, cardiovascular Expires: 05/08/2018 examination Essential hypertension as of this encounter Visit Diagnoses Diagnosis Pre-operative cardiovascular examination - Primary Essential hypertension Unspecified essential hypertension in this encounter
--- OUTSIDE RECORDS SUMMARY | 2017-05-24 12:48 | XMS REPORT | Encounter Summary ---
Author Author [facility] Organization [facility] Address Unknown Phone Unavailable Care Team Providers Care Experimental Machining Lab Manager Name Role Phone PCP Unavailable Reason for Visit * Reason Comments Heme/Onc Care Encounter Details Date Type Department Care Team Description 05/01/2017 Office Visit [facility] Mu Melendez MD Bladder neck contracture [facility] - [address] (Primary Dx);Encounter Exam [place] [address] for care or replacement [address] [place] [phone] of suprapubic tube [place], [place] [id number] (HCC);Post-traumatic [phone] anterior urethral stricture;Bladder perforation, intraoperative;BPH with obstruction/lower [...] Reviewed outside labs Reviewed outside imaging 24 belarusian SPTube removed and 18french SPTube replaced under [...] procedures. in this encounter Plan of Treatment Not on fileas of this encounter Visit Diagnoses Diagnosis Bladder [...]
--- OUTSIDE RECORDS SUMMARY | 2017-05-24 12:50 | XMS REPORT ---
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
--- NOTE | 2017-05-24 12:54 | ED General ---
General Stated Complaint: ANXIETY Source of Information: Patient, EMS Exam Limitations: No Limitations History of Present Illness Time Seen by Provider: 12:51 Initial Comments To ER per EMS from his home in [facility] with reports of anxiety, hypertension. His home health care nurse called [phone] due to these complaints. Patient states that he is very anxious because he needs to get into a senior living "in a hurry" because he is unable to take care of himself in the [facility]. He has several presentations here to the emergency room for anxiety and depression. He reports general fatigue and inability to sleep at night. He would ideally like to go to a senior living and she needed [place] but would be agreeable to going to 1 here in [place] if that was his only option.Lilly Gerber was here a few days ago after having cut his Koch catheter in half thinking that this would get him admitted and would help better control his anxiety if he were admitted Timing/Duration: 1-3 Hours Severity: Moderate Allergies and Home Medications Allergies Coded Allergies: Sulfa (Sulfonamide Antibiotics) (Verified Allergy, Unknown, 04/06/09) codeine (Verified Allergy, Unknown, 02/21/17) Home Medications Amoxicillin/Potassium Clav 1 Each Tablet, 1 EACH PO BID for 3 Days, #6 Prescribed by: TWYLA BLOUNT on 03/26/17 1144 Ampicillin Trihydrate 500 Mg Capsule, 500 MG PO TID, #21 Prescribed by: ADRIEL MILLIGAN on 04/26/17 1115 Cholecalciferol 1,000 Unit Tablet, 1,000 UNIT PO DAILY, (Reported) Escitalopram Oxalate 10 Mg Tablet, 10 MG PO DAILY, (Reported) Finasteride 5 Mg Tablet, 5 MG PO DAILY, (Reported) Hydrochlorothiazide 25 Mg Tablet, 25 MG PO DAILY, (Reported) Lorazepam 2 Mg Tablet, 2 MG PO DAILY, (Reported) Metoprolol Tartrate 50 Mg Tablet, 50 MG PO BID, (Reported) Mirtazapine 15 Mg Tablet, 15 MG PO HS, #30 Prescribed by: CRISTOBAL VANG on 05/13/17 1240 Nitrofurantoin Monohyd/M-Cryst 100 Mg Capsule, 1 TAB PO BID, #20 Prescribed by: CRISTOBAL VANG on 05/13/17 1240 Quinapril HCl 40 Mg Tablet, 40 MG PO DAILY, (Reported) Tramadol HCl 50 Mg Tablet, 50 MG PO Q4H PRN for PAIN-MODERATE, (Reported) Constitutional: see HPI EENTM: see HPI Respiratory: no symptoms reported Cardiovascular: no symptoms reported Genitourinary: no symptoms reported Musculoskeletal: no symptoms reported Skin: no symptoms reported Psychiatric/Neurological: No Symptoms Reported Hematologic/Lymphatic: No Symptoms Reported Immunological/Allergic: no symptoms reported Past Lpyobtl-Coacov-Pxmkic Hx Patient Social History Type Used: Cigarettes Former Smoker, Quit: Feb 21, 1986 2nd Hand Smoke Exposure: No Recent Hopitalizations: No (FEBRUARY 2017, SUPRAPUBIC CATH PLACED) Immunizations Up To Date Tetanus Booster (TDap): Unknown Date of Pneumonia Vaccine: Jun 10, 2007 Date of Influenza Vaccine: Jul 12, 2016 Seasonal Allergies Seasonal Allergies: Yes Surgeries History of Surgeries: Yes (SUPRAPUBIC CATH) Surgeries: Appendectomy, Bladder Surgery, Gallbladder Respiratory History of Respiratory Disorde: Yes Respiratory Disorders: Pneumonia Currently Using CPAP: No Currently Using BIPAP: No Cardiovascular History of Cardiac Disorders: Yes Cardiac Disorders: Hypertension Neurological History of Neurological Disord: No Neurological Disorders: Dementia Reproductive System Hx Reproductive Disorders: No Sexually Transmitted Disease: No HIV/AIDS: No Genitourinary History of Genitourinary Disor: Yes (SUPRA PUBIC CATHETER) Genitourinary Disorders: Benign Prostatic Hyperpl, Prostate Problems, Kidney Stones Gastrointestinal History of Gastrointestinal Di: Yes (COLITIS, HX OF GALL BLADDER REMOVAL AND APPY) Gastrointestinal Disorders: Colitis, Polyps Musculoskeletal History of Musculoskeletal Dis: Yes (TENDONITIS) Musculoskeletal Disorders: Arthritis Endocrine History of Endocrine Disorders: No HEENT History of HEENT Disorders: Yes HEENT Disorders: Cataract Loss of Vision: Denies Cancer History of Cancer: Yes Cancer: Skin Psychosocial History of Psychiatric Problem: Yes Behavioral Health Disorders: Depression Integumentary History of Skin or Integumenta: No Blood Transfusions History of Blood Disorders: No Family Medical History Significant Family History: No Pertinent Family Hx Family Medial History: Myocardial infarction 18 FATHER Physical Exam Vital Signs Vital Sign - Last 12Hours 05/24/17 12:45 Temp 97.9 Pulse 76 Resp 18 B/P (MAP) 160/105 Pulse Ox 96 Capillary Refill : General Appearance: No Apparent Distress, WD/WN, Anxious Eyes: Bilateral Eye Normal Inspection, Bilateral Eye PERRL, Bilateral Eye EOMI HEENT: PERRL/EOMI, TMs Normal Respiratory: Normal Breath Sounds, No Accessory Muscle Use, No Respiratory Distress Cardiovascular: Regular Rate, Rhythm, No Edema, Normal Peripheral Pulses Gastrointestinal: Non Tender, Soft Extremity: Normal Capillary Refill, Normal Inspection Neurologic/Psychiatric: Alert, Oriented x3, No Motor/Sensory Deficits, Other ( patient keeps his eyes closed while talking to me but is able to carry on a conversation normally.) Skin: Normal Color, Warm/Dry Progress/Results/Core Measures Results/Orders Lab Results Laboratory Tests Test 05/24/17 13:00 Range/Units White Blood Count 8.7 4.3-11.0 10^3/uL Red Blood Count 5.00 4.35-5.85 10^6/uL Hemoglobin 14.6 13.3-17.7 G/DL Hematocrit 43 40-54 % Mean Corpuscular Volume 87 80-99 FL Mean Corpuscular Hemoglobin 29 25-34 PG Mean Corpuscular Hemoglobin Concent 34 32-36 G/DL Red Cell Distribution Width 14.1 10.0-14.5 % Platelet Count 191 130-400 10^3/uL Mean Platelet Volume 10.8 H 7.4-10.4 FL Neutrophils (%) (Auto) 74 42-75 % Lymphocytes (%) (Auto) 16 12-44 % Monocytes (%) (Auto) 9 0-12 % Eosinophils (%) (Auto) 1 0-10 % Basophils (%) (Auto) 1 0-10 % Neutrophils # (Auto) 6.4 1.8-7.8 X 10^3 Lymphocytes # (Auto) 1.4 1.0-4.0 X 10^3 Monocytes # (Auto) 0.7 0.0-1.0 X 10^3 Eosinophils # (Auto) 0.1 0.0-0.3 10^3/uL Basophils # (Auto) 0.1 0.0-0.1 10^3/uL Urine Color YELLOW Urine Clarity CLEAR Urine pH 6 5-9 Urine Specific Kendall 1.020 1.016-1.022 Urine Protein 2+ H NEGATIVE Urine Glucose (UA) NEGATIVE NEGATIVE Urine Ketones NEGATIVE NEGATIVE Urine Nitrite NEGATIVE NEGATIVE Urine Bilirubin NEGATIVE NEGATIVE Urine Urobilinogen NORMAL NORMAL MG/DL Urine Leukocyte Esterase 3+ H NEGATIVE Urine RBC (Auto) 4+ H NEGATIVE Urine RBC 10-25 H /HPF Urine WBC 10-25 H /HPF Urine Crystals NONE /LPF Urine Bacteria TRACE /HPF Urine Casts NONE /LPF Urine Mucus SMALL H /LPF Urine Culture Indicated YES Sodium Level 142 135-145 MMOL/L Potassium Level 4.0 3.6-5.0 MMOL/L Chloride Level 106 98-107 MMOL/L Carbon Dioxide Level 28 21-32 MMOL/L Anion Gap 8 5-14 MMOL/L Blood Urea Nitrogen 13 7-18 MG/DL Creatinine 0.94 0.60-1.30 MG/DL Estimat Glomerular Filtration Rate > 60 BUN/Creatinine Ratio 14 Glucose Level 97 70-105 MG/DL Calcium Level 9.2 8.5-10.1 MG/DL Total Bilirubin 0.7 0.1-1.0 MG/DL Aspartate Amino Transf (AST/SGOT) 36 H 5-34 U/L Alanine Aminotransferase (ALT/SGPT) 46 0-55 U/L Alkaline Phosphatase 78 40-136 U/L Total Protein 7.4 6.4-8.2 GM/DL Albumin 3.5 3.2-4.5 GM/DL My Orders Orders - ADRIEL MILLIGAN APRN Social Service (05/24/17 12:49) Cbc With Automated Diff (05/24/17 12:49) Comprehensive Metabolic Panel (05/24/17 12:49) Ua Culture If Indicated (05/24/17 12:49) Urine Culture (05/24/17 13:00) Chest 1 View, Ap/Pa Only (05/24/17 13:33) Ekg Tracing (05/24/17 13:33) Vital Signs/I&O Vital Sign - Last 12Hours 05/24/17 12:45 Temp 97.9 Pulse 76 Resp 18 B/P (MAP) 160/105 Pulse Ox 96 Departure Communication (PCP) Patient would be agreeable to going to [facility] [place] [facility] in [place] but I feel that his anxiety and depression needs better controlled. from the [facility] at [facility] will come evaluate the patient for the unit. If he qualifies then we will send him there. [facility] [place] in [place] spoke with our clinical social worker Padmini Rhodes and advised they would take Mr. Rivera back upon discharge [facility] if he wished to come there. 1442- Manuela from [facility] is here screening the patient. Dr. Giraldo notified of the patient's tentative admission to [facility] unit. Impression Impression: Primary Impression: BPH w urinary obs/LUTS Additional Impressions: Suprapubic catheter Anxiety Depression Urinary tract infection Disposition: SHT-TRM HOSP Condition: Stable Departure-Patient Inst. Decision time for Depature: 14:43 Referrals: MONIE EVERETT DO (PCP) Primary Care Physician DIMA ELIZALDE (Family) Primary Care Physician Patient Instructions: NO INSTRUCTIONS GIVEN ADRIEL MILLIGAN APRN May 24, 2017 12:54
[2017-05-24 13:18] LABS: BASOPHILS # (AUTO) 0.1 10^3/uL (0.0-0.1); BASOPHILS % (AUTO) 1 % (0-10); EOSINOPHILS # (AUTO) 0.1 10^3/uL (0.0-0.3); EOSINOPHILS % (AUTO) 1 % (0-10); LYMPHOCYTES # (AUTO) 1.4 X 10^3 (1.0-4.0); LYMPHOCYTES % (AUTO) 16 % (12-44); MEAN CORPUSCULAR HEMOGLOBIN 29 PG (25-34); MEAN CORPUSCULAR HGB CONC 34 G/DL (32-36); MEAN CORPUSCULAR VOLUME 87 FL (80-99); MEAN PLATELET VOLUME 10.8 FL (7.4-10.4); MONOCYTES # (AUTO) 0.7 X 10^3 (0.0-1.0); MONOCYTES % (AUTO) 9 % (0-12); NEUTROPHILS # (AUTO) 6.4 X 10^3 (1.8-7.8); NEUTROPHILS % (AUTO) 74 % (42-75); PLATELET COUNT 191 10^3/uL (130-400); RED CELL DISTRIBUTION WIDTH 14.1 % (10.0-14.5); WHITE BLOOD COUNT 8.7 10^3/uL (4.3-11.0)
[2017-05-24 13:19] LABS: BILIRUBIN,URINE NEGATIVE (NEGATIVE); KETONES,URINE NEGATIVE (NEGATIVE); LEUKOCYTE ESTERASE ,URINE 3+ (NEGATIVE); NITRITE,URINE NEGATIVE (NEGATIVE); PH,URINE 6 (5-9); PROTEIN,URINE 2+ (NEGATIVE); UROBILINOGEN,URINE NORMAL (NORMAL)
[2017-05-24 13:44] LABS: ALANINE AMINOTRANSFERASE 46 U/L (0-55); ALBUMIN 3.5 GM/DL (3.2-4.5); ANION GAP 8 MMOL/L (5-14); ASPARTATE AMINO TRANSFERASE 36 U/L (5-34); BILIRUBIN,TOTAL 0.7 MG/DL (0.1-1.0); BLOOD UREA NITROGEN 13 MG/DL (7-18); BUN/CREATININE RATIO 14; CALCIUM 9.2 MG/DL (8.5-10.1); CARBON DIOXIDE 28 MMOL/L (21-32); CHLORIDE 106 MMOL/L (98-107); CREATININE SERUM 0.94 MG/DL (0.60-1.30); GFR ESTIMATED > 60; GLUCOSE 97 MG/DL (70-105); SODIUM 142 MMOL/L (135-145); TOTAL PROTEIN 7.4 GM/DL (6.4-8.2)
--- NOTE | 2017-05-24 14:23 | Diagnostic Imaging Report ---
EXAMINATION: Portable upright radiograph of the chest. INDICATION: Anxiety. FINDINGS: The lungs are clear of focal infiltrate. Mild interstitial scarring is suggested. The heart size is borderline enlarged. No effusion or pneumothorax. The mediastinum and eagle appear unremarkable. IMPRESSION: Borderline cardiac size. No focal infiltrate. Dictated by: Dictated on workstation # [id number]
[2017-05-24 16:04] VITALS: BP 148/91
== END 2017-05-24 16:17 | disposition short-term general hospital (02) ==
LOC: EDUNIT# 12:41 → ER 12:42
DX: F41.9 Anxiety disorder, unspecified (principal); F32.9 Major depressive disorder, single episode, unspecified; N40.1 Benign prostatic hyperplasia with lower urinary tract symptoms; N13.9 Obstructive and reflux uropathy, unspecified; N39.0 Urinary tract infection, site not specified; I10 Essential (primary) hypertension; F03.90 Unspecified dementia, unspecified severity, without behavioral disturbance, psychotic disturbance, mood disturbance, and anxiety; M19.90 Unspecified osteoarthritis, unspecified site; Z85.828 Personal history of other malignant neoplasm of skin; Z87.19 Personal history of other diseases of the digestive system; Z82.49 Family history of ischemic heart disease and other diseases of the circulatory system; Z86.010 Personal history of colon polyps; Z87.442 Personal history of urinary calculi; Z87.891 Personal history of nicotine dependence; Z90.89 Acquired absence of other organs; Z96.0 Presence of urogenital implants; Z87.01 Personal history of pneumonia (recurrent)
CPT/HCPCS: 36415; 71010; 80053; 81000; 85025; 87077; 87088; 87186; 93005